=== PATIENT | female | born 1945 | race Caucasian/White ===

== ENCOUNTER 2024-07-06 07:52 | Outpatient (CLI) | payer MEDICARE, SELFPAY ==
[2024-07-06 08:47] LABS: Strep Group A RT-PCR NOT DETECTED (Negative)
[2024-07-06 08:58] LABS: Influenza A QL RT-PCR Negative (Negative); Influenza B QL RT-PCR Negative (Negative); RSV RNA, RT-PCR Negative (Negative); SARS-CoV-2 RNA PCR Negative (Negative)
== END 2024-07-06 07:53 | disposition home or self-care (01) ==
LOC: ANHLAB 07:58
PROVIDERS: PCP Internal Medicine; Visit Provider Internal Medicine
DX: R05.9 Cough, unspecified (principal); Z20.822 Contact with and (suspected) exposure to COVID-19
CPT/HCPCS: 87637; 87651

== ENCOUNTER 2024-07-08 13:03 | Emergency (ER) | payer MEDICARE, SELFPAY ==
--- NOTE | ~2024-07-08 | XR_ITS ---
EXAMINATION: XR foot RT min 3V DATE: 07/08/2024 13:26 INDICATION: Right foot injury with pain at the proximal first third metatarsals TECHNIQUE: Dorsoplantar, two oblique and lateral views of the right foot were obtained. COMPARISON: None. FINDINGS: Intra-articular fracture with small minimally displaced fragment along the dorsal/medial base of the first metatarsal. Nondisplaced transverse fractures across the bases of the second and third metatars als without definitive intra-articular extension. No other fractures identified. Alignment remains ne ar-anatomic. 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 IMPRESSION: 1. Non to minimally displaced fracture at the base of the first-third metatarsals. Reviewed, dictated and finalized at location [facility] [employer] IMPRESSION: 1. Non to minimally displaced fracture at the base of the first-third metatarsa ls.
[2024-07-08 13:06] VITALS: BP 96/40; PULSE 86; RESP 20; TEMP 36.2; O2SAT 99
--- NOTE | 2024-07-08 14:21 | ED.LOWEXIN ---
HPI - Extremity Injury (Lower) General Chief Complaint: Extremity Injury, Lower Stated Complaint: Right foot pain, Fall Time Seen by Provider: 07/08/24 13:44 Source: patient Mode of arrival: wheelchair Limitations: no limitations History of Present Illness HPI Narrative: This is a 79 year old female that presents to the ER for right foot pain. Reports she stepped down and twisted the foot and fell. She did not hit her head or lose consciousness. No other injuries or areas of pain. Denies numbness. Related Data Allergies Allergy/AdvReac Type Severity Reaction Status Date / Time No Known Allergies Allergy Verified 07/08/24 13:04 Review of Systems Review of Systems: CONSTITUTIONAL: Denies fever MUSCULOSKELETAL: Reports joint pain, and myalgia. NEUROLOGIC: Denies numbness All systems reviewed & are unremarkable except as noted in HPI and below PMFSH Past Medical History Medical History (Updated 07/08/24 @ 14:46 by Rebekah Menjivar PA-C) History of hypertension Social History Social History (Updated 07/08/24 @ 14:32 by Rebekah Menjivar PA-C) Substance use: never Exam Narrative: GENERAL: Well-appearing, well-nourished, and in no acute distress. HEAD: Normocephalic, atraumatic. EYES: EOMI. EXTREMITIES: Normal range of motion. No obvious deformity. Normal DP pulse. Normal sensation SKIN: Warm, dry, no rash. NEURO: No focal deficits. Alert and oriented x3. PSYCH: Normal mood and affect Course Course Emergency Course: patient and family updated on workup and agree with plan of care Vital Signs Vital signs: Vital Signs Temperature 97.2 F L 07/08/24 13:06 Pulse Rate 86 07/08/24 13:06 Respiratory Rate 20 07/08/24 13:06 Blood Pressure 96/40 L 07/08/24 13:06 Pulse Oximetry 99 07/08/24 13:06 Oxygen Delivery Room Air 07/08/24 13:06 Temperature 97.2 F L 07/08/24 13:06 Pulse Rate 86 07/08/24 13:06 Respiratory Rate 20 07/08/24 13:06 Blood Pressure 96/40 L 07/08/24 13:06 Pulse Oximetry 99 07/08/24 13:06 Oxygen Delivery Room Air 07/08/24 13:06 Procedures Orthopedic Splinting/Casting Injury #1: Splinting/Casting Date: 07/08/24 Splinting/Casting Time: 14:40 Side: right Lower Extremity Injury Location: foot Lower Extremity Immobilizer: posterior splint Splint: customized in ED OCL: short leg Pre-Procedure Neuro Vascular Exam: normal Post-Procedure Neuro Vascular Exam: normal MDM - Extremity Injury (Lower) MDM Narrative Medical decision making narrative: patient presents to the emergency department for right foot pain after an injury today. patient is neurovascularly intact. Right foot x-ray shows 1st to 3rd metatarsal fractures. Patient placed in a splint. Will be given follow-up with Orthopedics. She was given warnings to return to the ER Differential Diagnosis Differential diagnosis: Likely other (foot fracture, foot sprain) Imaging Data Radiologist's impression: ITS Impressions Foot X-Ray 07/08/24 13:36 IMPRESSION: 1. Non to minimally displaced fracture at the base of the first-third metatarsals. Critical Care Time Critical Care Time Critical Care Time: No Discharge Plan Discharge Clinical Impression: Metatarsal bone fracture Qualifiers: Encounter type: initial encounter Metatarsal bone: unspecified metatarsal Fracture type: closed Fracture alignment: nondisplaced Laterality: right Qualified Code(s): S92.301A - Fracture of unspecified metatarsal bone(s), right foot, initial encounter for closed fracture Patient Disposition: Home, Self-Care Condition: Stable Instructions: Foot Fracture in Adults (ED) Additional Instructions: Return to the ER if you experience fever, redness and swelling of your extremity, numbness or any other symptoms that are concerning to you Wear splint. No weight on the affected leg. Ice and elevate extremity. [id number] pain medication as needed. Prescribed pain medication as needed Follow up with orthopedics for further care. Prescriptions: New hydrocodone-acetaminophen 5-325 mg tablet 1 tablet PO Q8H PRN (Reason: pain) Qty: 20 0RF Follow-up/Referrals: Zachery,MD Alexa [Primary Care Provider] - Kenny Gimenez MD [Physician] -
[2024-07-08 14:37] VITALS: BP 117/69; PULSE 72; RESP 16; O2SAT 96
== END 2024-07-08 14:53 | disposition home or self-care (01) ==
PROVIDERS: Emergency Provider Physician Assistant; PCP Internal Medicine
DX: S92.301A Fracture of unspecified metatarsal bone(s), right foot, initial encounter for closed fracture (principal); X50.1XXA Overexertion from prolonged static or awkward postures, initial encounter
CPT/HCPCS: 29515; 73630; 99284

== ENCOUNTER 2024-09-01 08:46 | Outpatient (CLI) | payer MEDICARE, SELFPAY ==
[2024-09-01 09:23] LABS: Basophils Percent Auto 0.4 % (0.2-1.2); Eosinophils Absolute Auto 0.1 K/mm3 (0-0.3); Eosinophils Percent Auto 1.1 % (0-4.4); Hematocrit 34.2 % (37.0-47.0); Hemoglobin 10.7 g/dL (12.0-15.0); Immature Granulocyte Absolute 0.03 K/mm3 (0.00-0.031); Immature Granulocyte Percent A 0.3 % (0-0.5); Lymphocytes Absolute Auto 1.12 K/mm3 (0.9-3.2); Mean Corpuscular HGB Conc 31.3 g/dl (32-36); Mean Corpuscular Hemoglobin 28.1 pg (26-34); Mean Corpuscular Volume 89.8 fl (80-100); Mean Platelet Volume 10.2 fl (7.4-10.4); Monocytes Absolute Auto 0.6 K/mm3 (0.1-0.6); Monocytes Percent Auto 6.3 % (2.6-8.5); Neutrophils Absolute Auto 8.3 K/mm3 (1.3-6.7); Neutrophils Percent Auto 80.9 % (45.5-73.1); Platelet Count Result 238 k/mm3 (150-375); Red Blood Count 3.81 M/mm3 (4.2-5.4); Red Cell Distribution Width 14.5 % (11.5-14.5); White Blood Count 10.2 K/mm3 (4.5-10.0)
[2024-09-01 09:33] LABS: Alanine Aminotransferase 12 U/L (6-35); Albumin Level 3.9 g/dL (3.5-5.1); Alkaline Phosphatase 75 U/L (38-126); Anion Gap 9 mmol/L (4-12); Aspartate Amino Transferase 22 U/L (14-36); Bilirubin,Total 0.4 mg/dL (0.2-1.3); Blood Urea Nitrogen 23 mg/dL (7-17); Calcium 8.7 mg/dL (8.4-10.2); Carbon Dioxide 26 mmol/L (22-30); Chloride 106 mmol/L (98-107); Cholesterol 120 mg/dL (0-200); Estimated Glomerular Filt Rate 24; Glucose 95 mg/dL (65-110); HDL Direct 70 mg/dL; Potassium 4.3 mmol/L (3.4-5.0); Sodium 141 mmol/L (137-145); Triglycerides 57 mg/dL (<150)
[2024-09-01 09:44] LABS: LDL Cholesterol Direct 36 mg/dL
[2024-09-01 10:09] LABS: Free T4 Free Thyroxine 1.23 ng/dL (0.78-2.19)
[2024-09-01 10:16] LABS: Creatinine Urine 122.1 mg/dL
[2024-09-01 10:24] LABS: Hepatitis B Surface Antigen Negative (Negative)
[2024-09-01 10:29] LABS: HAV RESULT Negative (Negative); Hepatitis B Core IgM Result Negative (Negative)
[2024-09-01 10:41] LABS: Hepatitis C Virus Antibody Negative (Negative)
[2024-09-01 12:27] LABS: Hemoglobin A1C 5.5 % (<5.7)
[2024-09-02 07:44] LABS: GGT 11 U/L (3-65)
== END 2024-09-01 08:47 | disposition home or self-care (01) ==
PROVIDERS: PCP Internal Medicine; Visit Provider Internal Medicine
DX: E78.5 Hyperlipidemia, unspecified (principal); E11.9 Type 2 diabetes mellitus without complications; R94.5 Abnormal results of liver function studies; Z13.820 Encounter for screening for osteoporosis
CPT/HCPCS: 36415; 80053; 80061; 80074; 82043; 82977; 83036; 84439; 84443; 85025

== ENCOUNTER 2024-09-26 10:53 | Outpatient (CLI) | payer MEDICARE, SELFPAY ==
--- NOTE | ~2024-09-26 | US_ITS ---
EXAMINATION: US retroperitoneal comp DATE: 09/26/2024 12:06 INDICATION: Urolithiasis. TECHNIQUE: Multiple ultrasound grayscale images of the kidneys were obtained. COMPARISON: None. FINDINGS: The right kidney measures 9.2 x 3.9 x 4.2 cm. The left kidney measures 9.0 x 4.2 x 5.3 cm. The kidney s demonstrate normal parenchymal echogenicity. There is moderate left hydronephrosis. The bladder is not well distended. IMPRESSION: 1. Moderate left hydronephrosis. Reviewed, dictated and finalized at location A. ER TECHNICAL SUPERVISOR
--- NOTE | ~2024-09-26 | XR_ITS ---
XR abdomen/kub 1V 09/26/2024 12:08 Indication: Urolithiasis. Flank pain. Procedure: KUB Comparison: No prior studies for comparison. Findings: There are calcifications overlying the kidneys bilaterally which may represent renal stones or vascular calcifications. Bowel gas pattern nonobstructive. Moderate colonic fecal loading. There is atherosclerosis in the pelvis. Impression: 1: Possible bilateral nephrolithiasis versus vascular calcifications. Consider correlation with CT. Reviewed, dictated and finalized at location B. R FAB TECHNICIAN Impression: 1: Possible bilateral nephrolithiasis versus vascular calcifications. Consider correlation with CT.
--- OUTSIDE RECORDS SUMMARY | 2024-09-26 14:00 | XMS_ITS | Encounter Summary ---
Author Organization [facility] Address [address] [place] [address] Care Team Providers Care Director Strategic Planning Name Role Phone None, Provider Primary Care Provider Xavi Carias MD Primary Care Provider Encounter Details Date Type Department Care Team (Late st Contact Info) Description 05/26/2024 Prep for Procedure [facility] [place] [address] Xavi Martinez MD [address] [facility] [address] [place] [address] Social History Tobacco Use Types Packs/Day Years Used Date Smoking Tobacco: Former Cigarettes Smokeless Tobacco: Former Comments:Quit smoking 4 year s ago Alcohol Use Standard Drinks/Week Comments Yes 0 (1 standard drink = 0.6 oz pur e alcohol) one drink if out Comments No Sex and Gender Information Value Date Recorded Sex Assigned at Not on file Legal Sex Female 10:37 AM CDT Gender Identity Not on file Sexual Orientation Not on file documented as of this encounter Plan of Treatment Not on file documented as of this encounter Results * (ABNORMAL) BASIC METABOLIC PANEL (05/26/2024 11:54 AM CDT) [facility] GLUCOSE 93 70 - 99 MG/DL 05/26/2024 12:46 PM CDT [facility] BUN 17 7 - 18 MG/DL 05/26/2024 12:46 PM CDT [facility] CREATININE S/P/B 1.25(H) 0.55 - 1.02 MG/DL 05/26/2024 12:46 PM CDT [facility] SODIUM S/P/B 140 136 - 145 MMOL/L 05/26/2024 12:46 PM CDT [facility] POTASSIUM S/P/B 3.9 3.5 - 5.1 MMOL/L 05/26/2024 12:46 PM CDT [facility] CHLORIDE S/P/B 107 97 - 115 MMOL/L 05/26/2024 12:46 PM CDT [facility] CO2 29.6 21 - 32 MMOL/L 05/26/2024 12:46 PM CDT [facility] CALCIUM S/P/B 9.2 8.5 - 10.1 MG/DL 05/26/2024 12:46 PM CDT [facility] ANION GAP 3.4 2 - 10 MMOL/L 05/26/2024 12:46 PM CDT [facility] BUN CREATININE RATIO 13.6 6 - 26 05/26/2024 12:46 PM T [facility] GFR ESTIMATE 44(L) >90 ML/MIN/1.7 3 M2 05/26/2024 12:46 PM CDT [facility] Comment: NOTE: eGFR is not calculated for patients <18 years of age or gender unknown. This is an estimated GFR calculation using the new CKD EPI creatinine equation without race and so does not require a correction factor for race. This estimated GFR should not be used for calculating drug doses. 05/26/2024 11:5 4 AM CDT Elizabeth Rice [facility] Final R esult [facility] [address] [place] [address], * (ABNORMAL) CBC W/DIFF AUTOMATED (05/26/2024 11:54 AM CDT) [facility] WBC 9.22 4.5 - 11.0 x10'3/uL 05/26/2024 12:36 PM CDT [facility] RBC 4.47 4.20 - 5.40 x10'6/uL 05/26/2024 12:36 PM CDT [facility] HGB 12.6 12.0 - 16.0 G/DL 05/26/2024 12:36 PM CDT [facility] HCT 39.6 38.0 - 48.0 % 05/26/2024 12:36 PM CDT [facility] MCV 88.6 81.0 - 99.0 FL 05/26/2024 12:36 PM CDT [facility] MCH 28.2 27.0 - 31.0 PG 05/26/2024 12:36 PM CDT [facility] MCHC 31.8(L) 32.0 - 36.0 G/DL 05/26/2024 12:36 PM CDT [facility] RDW 14.4 11.5 - 14.5 % 05/26/2024 12:36 PM CDT [facility] PLT 253 130 - 400 x10'3/uL 05/26/2024 12:36 PM CDT [facility] MPV 11.3 9.3 - 12.2 FL 05/26/2024 12:36 PM CDT [facility] DIFFERENTIAL TYPE AUTOMATED DIFFERENTIAL 05/26/2024 12:36 PM CDT [facility] NEUTROPHILS % 75.0 % 05/26/2024 12:36 PM CDT [facility] LYMPHOCYTES % 13.3 % 05/26/2024 12:36 PM CDT [facility] MONOCYTES % 8.6 % 05/26/2024 12:36 PM CDT [facility] EOSINOPHILS 2.0 % 05/26/2024 12:36 PM CDT [facility] BASOPHILS 0.7 % 05/26/2024 12:36 PM CDT [facility] IMMATURE GRANS % 0.4 % 05/26/20 12:36 PM CDT [facility] ABS. NEUTROPHILS 6.92 1.80 - 7.70 x10'3/uL 05/26/2024 12:36 PM CDT [facility] ABS. LYMPHOCYTES 1.23 1.00 - 4.80 x10'3/uL 05/26/2024 12:36 PM CDT [facility] ABS. MONOCYTES 0.79 0.24 - 0.86 x10'3/uL 05/26/2024 12:36 PM CDT [facility] ABS. EOSINOPHILS 0.18 0.04 - 0.36 x10'3/uL 05/26/2024 12:36 PM CDT [facility] ABS. BASOPHILS 0.06 0.01 - 0.08 x10'3/uL 05/26/2024 12:36 PM CDT [facility] ABS. IMMATURE GRANULOCYTES 0.04 0.00 - 0.49 x10'3/uL 05/26/2024 12:36 PM CDT [facility] 05/26/2024 11:5 4 AM CDT Elizabeth [facility] Final R esult [facility] [address] [place] [address], [place] [phone] documented in this encounter Visit Diagnoses Diagnosis Preoperative testing- Primary Preoperative examination, unspecified documented in this encounter Care Teams Director Strategic Planning Relationship Specialty Start Date End Date None, Provider, PCP - General UNKNOWN PHYSICIAN SPECIALTY 05/25/24 06/29/24 Xavi Martinez MD [address] [facility] [address] [place] [address] PCP - General UROLOGY 06/30/24 documented as of this encounter
--- OUTSIDE RECORDS SUMMARY | 2024-09-26 14:00 | XMS_ITS | Encounter Summary ---
Author Organization [facility] [employer] [facility] Address [address] [place] [address] Phone Care Team Providers Care Speed Operator Name Role Phone Alexa Bingham MD Primary Care Provider [phone] [phone] Encounter Details Date Type Department Care Team (Late Contact Info) Description 07/25/2024 Office Communication [place] [facility] [address] [address] [facility] [address] [place] [address] [address] [place] [address] Social History Tobacco Use Types Packs/Day Years Used Date Smoking Tobacco: Never Alcohol Use Standard Drinks/Week Comments No 0 (1 standard drink = 0.6 oz pur e alcohol) Comments Unknown Sex and Gender Information Value Date Recorded Sex Assigned at Not on file Legal Sex Female 2:49 PM EDT Gender Identity Not on file Sexual Orientation Not on file documented as of this encounter Miscellaneous Notes * Telephone Encounter - Juan Manuel Ellison DO - 07/25/2024 11:35 AM FORKLIFT MECHANIC Tell her to get urine studies before starting antibiotic. PLAN: - Urine Culture and UA. - Ciprofloxicin 500 mg po Qday #3 with no refills Thank you documented in this encounter Plan of Treatment Upcoming Encounters Date Type Department Care Team (Late st Contact Info) Description 11/08/2024 3:00 PM CDT Office Visit [facility], [facility] [address] [facility] [address] [place] [address] Juan Manuel Ellison DO [address] [place] [address] documented as of this encounter Visit Diagnoses Not on filedocumented in this encounter Care Teams Speed Operator Relationship Specialty Start Date End Date lAexa Bingham MD [address] [facility], [address] [place] [address] PCP - General Internal Medicine 07/16/21 documented as of this encounter
--- OUTSIDE RECORDS SUMMARY | 2024-09-26 14:00 | XMS_ITS | Referral Summary ---
Author Organization [facility] Address [address] [place] [address] Care Team Providers Care Telephone Surveyor Name Role Phone Jeni Bingham MD Primary Care Provide r Allergies No known active allergies Medications olmesartan (BENICAR) 40 mg tablet Take 1 tablet (40 mg total) by mouth daily Active empagliflozin (JARDIANCE) 25 mg tablet 1 tablet (25 mg total) Active PARoxetine (PAXIL) 20 mg tablet Take 1 tablet (20 mg total) by mouth every morning Active acidophilus-pec tin, citrus 100 million cell-10 mg capsule Take by mouth Activ e cyclobenzaprine (FLEXERIL) 10 mg tablet Take 1 tablet (10 mg total) by mouth 3 (three) times a day as needed for muscle spasms Active albuterol HFA (PROVENTIL HFA,VENTOLIN HFA,PROAIR HFA) 90 mcg/actuation inhaler Inhale 2 puffs every 6 (six) hours as needed for wheezing Active tiotropium bromide (SPIRIVA RESPIMAT) 2.5 mcg/actuation inhaler Inhale Active cyanocobalamin (Vitamin B-12) 50 mcg tabletIndicatio ns:Prevention of Vitamin B12 Deficiency Take 1 tablet (50 mcg total) by mouth daily Active calcium carbonate-vitam in D3 1,500 mg (600mg elemental) -800 unit per tablet Take 1 tablet by mouth daily Active Active Problems No known active problems Social History Tobacco Use Types Packs/Day Years Used Date Smoking Tobacco: Former Cigarettes Smokeless Tobacco: Former Tobacco Cessation:Counseling Given: Not Answered AUDIT-C Answer Date Recorded Frequency of Alcohol Consumption Not on file 04/12/2024 Q2: How many drinks containi ng alcohol do you have on a typical day when you are drinking? Patient does not drink Frequency of Binge Drinking Not on file 10/2023 Personal Safety Answer Date Recorded Have you ever been in or are you currently in a harmful physical or emotional relationship or is someone making you feel afraid or unsafe? 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 Gender Identity Not on file Sexual Orientation Not on file Last Filed Vital Signs Vital Sign Reading Time Taken Comments Blood Pressure 189/78 04/12/2024 10:44 AM CDT Pulse 94 04/12/2024 10:44 AM CDT Temperature 36.8 C (98.2 F) 04/12/2024 8:19 AM CDT Respiratory Rate 16 04/12/2024 10:44 AM CDT Oxygen Saturation 96% 04/12/2024 10:44 AM CDT Inhaled Oxygen Concentration - - Weight 43.5 kg (96 lb) 04/12/2024 8:19 AM CDT Height 154.9 cm (5' 1 ) 04/12/2024 8:19 AM CDT Body Mass Index 18.14 04/12/2024 8:19 AM CDT Plan of Treatment Not on file Insurance MEDICARE SOLUTIONS MEDICARE SOLUTIONS Care Teams Telephone Surveyor Relationship Specialty Start Date End Date Jeni Bingham MD [address] [facility] [address] [place] [address] PCP - General Internal Medicine 10/09/23
--- OUTSIDE RECORDS SUMMARY | 2024-09-26 14:00 | XMS_ITS | Clinical Summary ---
Author Organization [facility] Address [address] [place] [address] Phone Care Team Providers Care Ski Patrol Director Name Role Phone Alexa Bingham MD Primary Care Provider Active Problems Problem Noted Date Diagnosed Date Senile osteoporosis Social History Tobacco Use Types Packs/Day Years Used Date Smoking Tobacco: Never Assessed Comments Unknown Sex and Gender Information Value Date Recorded Sex Assigned at Not on file Legal Sex Female 9:35 AM CDT Gender Identity Not on file Sexual Orientation Not on file Last Filed Vital Signs Vital Sign Reading Time Taken Comments Blood Pressure 99/62 08/27/2022 1:31 PM PROJECT MANAGEMENT PROFESSIONAL Pulse 99 08/27/2022 1:31 PM PROJECT MANAGEMENT PROFESSIONAL Temperature 36.7 C (98.1 F) 08/27/2022 1:31 PM PROJECT MANAGEMENT PROFESSIONAL Respiratory Rate 18 08/27/2022 1:31 PM PROJECT MANAGEMENT PROFESSIONAL Oxygen Saturation 92% 08/27/2022 1:31 PM PROJECT MANAGEMENT PROFESSIONAL Inhaled Oxygen Concentration - - Weight - - Height - - Body Mass Index - - Plan of Treatment Health Maintenance Due Date Last Done Comments DEXA Bone Density 1945 Hepatitis C Virus (HCV) Screening 1945 Respiratory Syncytial Virus (RSV) Immunization (Adult) (1 - 1-dose 75+ series) 2022 Influenza Immunization (#1) 04/10/202405/11, 05/19/2022, 05/04/2021, Additional history exists SARS-COV-2 Immunization ( season) 2024 05/30/2022, 05/21/2022, 06/11/2021, Additional history exists DTaP/Tdap/Td Immunization Discontinued 06/02/2017 TdaP Immunization Completed 06/02/2017 Colonoscopy High Risk Discontinued 07/17/2017 Colonoscopy Discontinued 07/17/2017 Colorectal Cancer Screening Discontinued Pneumococcal Immunization (50+ years) Completed 07/26/2017, 03/02/2015, 05/23/2013 Zoster Immunization Completed 10/24/2021, 2 Cologuard Discontinued Hepatitis B Immunization Aged Out No longer eligible based on patient's age to complete this topic Immunochemical Fecal Occult Blood Discontinued Meningococcal Immunization (ACWY) Aged Out No longer eligible based on patient's age to complete this topic Rotavirus Immunization Aged Out No lo nger eligible based on patient's age to complete this topic Insurance MEDICARE C [facility] on file Care Teams Ski Patrol Director Relationship Specialty Start Date End Date Alexa Bingham MD [address] [place] [address] PCP - General Internal Medicine 02/13/22
--- OUTSIDE RECORDS SUMMARY | 2024-09-26 14:00 | XMS_ITS | Encounter Summary ---
Author Organization [facility] Address [address] [place] [address] Care Team Providers Care Patient Relations Liaison Name Role Phone ReavesXavi perea MD Primary Care Provider [phone]- [phone] Encounter Details Date Type Department Care Team (Late st Contact Info) Description 01/13/2018 Lab Requisition [facility] [address] [facility] [place] [address] Benigno Goldberg MD [address] [place] [address] Social History Tobacco Use Types Packs/Day Years Used Date Smoking Tobacco: Former Cigarettes Q uit: 2014 Smokeless Tobacco: Never Sex and Gender Information Value Date Recorded Sex Assigned at Not on file Gender Identity Not on file Sexual Orientation Not on file documented as of this encounter Plan of Treatment Not on file documented as of this encounter Procedures Procedure Name Priority Date/Time Associated Diagnosis Comments DERMATOPATHOLOGY Routine 01/12/2018 12:0 0 AM CDT documented in this encounter Results * DERMATOPATHOLOGY (01/12/2018 12:00 AM CDT) Case Report Dermatopathology Report Case: [id number] Authorizing Provider: Benigno Goldberg MD Collected: 01/12/2018 12:00 AM Pathologist: Joselyn Bolaños MD Received: 01/13/2018 12:24 PM Specimen: Skin, right angle of jaw 8 5:22 PM CDT DERMATOPATHOLOGY LABORATORY Final Diagnosis Specimen A. SKIN, right angle of jaw: ACTINIC KERATOSIS, LICHENOID (L57.0) PRESENT AT MARGIN 8 5:22 PM CDT DERMATOPATHOLOGY LABORATORY Clinical History R/O inflamed nevus vs BCC vs other. Check margins. 5:22 PM CDT DERMATOPATHOLOGY LABORATORY Gross Description Specimen A: Received is one formalin filled container labeled with the patient's name and designated right angle of jaw. The specimen consists of a shave biopsy measuring [id number], the margin is inked green. Jar 0. 5:22 PM CDT DERMATOPATHOLOGY LABORATORY Microscopic Description Specimen A. SKIN, right angle of jaw: There is focal parakeratosis. The lower half of the epidermis shows disorderly maturation of keratinocytes with nuclear pleomorphism. The dermis shows a band-like, chronic inflammatory infiltrate with occasional apoptotic keratinocytes and some basal vacuolar alteration. This lesion is present at the margin of the specimen. 5:22 PM CDT DERMATOPATHOLOGY LABORATORY Disclaimer An external and internal positive and negative controls are appropriate for the histochemical, immunohistochemical and immunofluorescence stain(s) in this case (if any), except where stated explicitly. The performance characteristics of the stain(s) cited in this report were developed and its performance characteristic determined by the Dermatopathology Laboratory at [facility]. These tests need not be, and therefore are not, approved by the [place] Food and Drug Administration. The tests are used for clinical purposes. Billing Codes Specimen Charges Stain Charges 52438 1 5:22 PM CDT DERMATOPATHOLOGY LABORATORY Embedded Images 5:22 PM CDT DERMATOPATHOLOGY LABORATORY Pathology/Cytolog y TISSUE SPECIMEN FROM SKIN / Unknown 01/12/2018 01/13/2018 12:24 PM CDT Benigno Goldberg MD LAB - PATHOLOGY/CYTO LOGY ORDERABLES DERMATOPATHOLOGY LABORATORY [facility] - Department of Dermatology [address] [facility]th [address] [place], [place] [id number] [place] [address] documented in this encounter Visit Diagnoses Not on filedocumented in this encounter Care Teams Patient Relations Liaison Relationship Specialty Start Date End Date Xavi Reaves MD [address] [facility] [address] [place] [address] PCP - General Family Medicine 10/10/16 documented as of this encounter
--- OUTSIDE RECORDS SUMMARY | 2024-09-26 14:00 | XMS_ITS | Clinical Summary ---
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 Gender Identity Not on file Sexual Orientation Not on file Obstetrics History Last Filed Vital Signs Vital Sign Reading [...] 04/12/2024 8:19 AM CDT Plan of Treatment Health Maintenance Due Date Last Done Comments Depression Screening 1945 Hepatitis C Screening 1945 Hepatitis B Screening 1965 Zoster Vaccine (1 of 2) 1997 Well Visit 65+ 2012 Osteoporosis Screening-Bone Density Scan 09/17/2023 09/17/2021 Influenza Vaccine (#1) 2024 , 04/26/2019, 04/21/2018, Additional history exists Fall Risk Assessment 04/12/2025 04/12/2024 DTaP/Tdap/Td Vaccine (2 - Td or Tdap) 06/02/2027 06/02/2017 Pneumococcal vaccine 65+ Completed 07/26/2017, 05/10 Insurance MEDICARE SOLUTIONS MEDICARE SOLUTIONS Care Teams Astro Technician Relationship Specialty Start Date End Date Jeni Bingham MD [address] [address] PCP - General Internal Medicine 10/09/23
--- OUTSIDE RECORDS SUMMARY | 2024-09-26 14:00 | XMS_ITS | Encounter Summary ---
Author Organization [facility] [employer] [facility] Address [facility] [facility] [place] [address] Phone Care Team Providers Care Sas Architect Name Role Phone Alexa Bingham MD Primary Care Provider [phone] Encounter Details Date Type Department Care Team (Late st Contact Info) Description 05/16/2024 Office Communication [facility] [employer] [facility] [address] [facility] [place] [address] Bhargavi Nagy CMA [address] [facility] 1 [place] [address] Social History Tobacco Use Types [...] as of this encounter Plan of Treatment Upcoming Encounters Date Type Department Care Team (Late st Contact Info) Description 11/08/2024 3:00 PM CDT Office Visit [employer] [facility], [facility] [address] [facility] [address] [place] [address] Juan Manuel Ellison DO [address] [facility] 1 [place] [address] documented as of this encounter Visit Diagnoses Not on filedocumented in this encounter Care Teams Sas Architect Relationship Specialty Start Date End Date Alexa Bingham MD [address] [facility], [address] [place] [address] PCP - General Internal Medicine 07/16/21 documented as of this encounter
--- OUTSIDE RECORDS SUMMARY | 2024-09-26 14:00 | XMS_ITS | Clinical Summary ---
Author Organization [facility] Address [address] [place] [address] Care Team Providers Care Slag Dumper Name Role Phone Jose Luis Martinez MD Primary Care Provider Allergies No known active allergies Medications albuterol sulfate HFA 108 (90 Base) MCG/ACT inhaler Inhale 2 puffs into the lungs every 4 (four) hours as needed for Shortness of breath. Active calcium carb-cholecalci ferol (CALTRATE 600+D) 600-20 MG-MCG tablet Take 1 tablet by mouth daily. Active cyclobenzaprine (FLEXERIL) 10 MG tablet Take 1 tablet (10 mg total) by mouth 2 (two) times daily as needed for Muscle Spasms. Active empagliflozin (JARDIANCE) 25 MG tablet Take 1 tablet (25 mg total) by mouth daily. On hold through Surgery 05/26/24 Active Lactobacillus Acid-Pectin (ACIDOPHILUS/PE CTIN) capsule Take 1 capsule by mouth daily. Active PARoxetine (PAXIL) 20 MG tablet Take 1 tablet (20 mg total) by mouth daily. Active olmesartan (BENICAR) 40 MG tablet Take 1 tablet (40 mg total) by mouth daily. Active tiotropium (SPIRIVA RESPIMAT) 2.5 MCG/ACT inhaler (SPIRIVA RESPIMAT) Inhale 2 puffs into the lungs daily. Active hyoscyamine (LEVSIN/SL) 0.[address] 1 tablet (0.125 mg total) under the tongue every 4 (four) hours as needed for Cramping (ureteral stent discomfort). 30 tablet 4 Active tamsulosin (FLOMAX) 0.4 MG Cap Take 1 capsule (0.4 mg total) by mouth nightly at bedtime. 20 capsule 4 Active HYDROcodone-roselia taminophen (NORCO) 5-325 MG tabletIndicatio ns:Acute Pain < 3 Day Supply Take 1 tablet by mouth every 6 (six) hours as needed. Indications: Acute Pain < 3 Day Supply 12 tablet 4 Active Encounters Date Type Department Care Team Description 06/30/2024 1:50 PM CERTIFIED PHYSICIAN'S ASSISTANT Anesthesia Event [facility] [place] [address] Cholo March MD Jackson, Samantha Rae, FIELD MARKETING DIRECTOR 06/30/2024 1:44 PM CERTIFIED PHYSICIAN'S ASSISTANT - 06/30/2024 3:15 PM CERTIFIED PHYSICIAN'S ASSISTANT Surgery [facility] [place] [address] Jose Luis Martinez MD CYSTOSCOPY, LEFT RETROGRADE PYELOGRAM, URETEROSCOPY, LASER LITHOTRIPSY, STONE BASKET EXTRACTION, LEFT URETERAL STENT EXCHANGE 06/30/2024 12:07 PM CERTIFIED PHYSICIAN'S ASSISTANT - 06/30/2024 4:55 PM CERTIFIED PHYSICIAN'S ASSISTANT Hospital Encounter [facility] [place] [address] Jose Luis Martinez MD Discharge Disposition: Home or Self Care (Routine Discharge) 06/30/2024 Travel from Last 3 Months Social History Tobacco Use Types Packs/Day Years Used Date Smoking Tobacco: Former Cigarettes 2 020 - 1969 Smokeless Tobacco: Former Tobacco Cessation:Counseling Given: Not Answered Comments:Quit smoking 4 years ago Alcohol Use Standard Drinks/Week Comments Yes [...] Sign Reading Time Taken Comments Blood Pressure 162/78 06/30/2024 4:50 PM CERTIFIED PHYSICIAN'S ASSISTANT Pulse 97 06/30/2024 4:50 PM CERTIFIED PHYSICIAN'S ASSISTANT Temperature 36.8 C (98.2 F) 06/30/2024 4:50 PM CERTIFIED PHYSICIAN'S ASSISTANT Respiratory Rate 20 06/30/2024 4:50 PM CERTIFIED PHYSICIAN'S ASSISTANT Oxygen Saturation 92% 06/30/2024 4:50 PM CERTIFIED PHYSICIAN'S ASSISTANT Inhaled Oxygen Concentration - - Weight 39.6 kg (87 lb 4.8 oz) 06/30/2024 12:30 P M CERTIFIED PHYSICIAN'S ASSISTANT Height 154.9 cm (5' 1 ) 06/30/2024 12:30 PM CERTIFIED PHYSICIAN'S ASSISTANT Body Mass Index 16.5 06/30/2024 12:30 PM CERTIFIED PHYSICIAN'S ASSISTANT Plan of Treatment Health Maintenance Due Date Last Done Comments Hepatitis C 1963 Annual Medicare Wellness Visit 2012 Dexa Scan (General) 2012 COVID-19 Vaccine ( season) 2024 05/10/2023, 05/21/2022, 06/11/2021, Additional history exists Influenza Adult (#1) 2024 05/10/2023, 05/19/2022, 05/04/2021, Additional history exists DTaP, Tdap and Td Vaccines (2 - Td or Tdap) 06/02/2027 06/02/2017 Pneumococcal Vaccine: 65+ Years Completed 07/26/2017, 03/02/2015, 05/23/2013 Zoster Vaccines Completed 10/24/2021, 08/18/2021 RSV Immunization or 60+ Years Completed 05/10/2023 Meningococcal B Vaccine Aged Out No l onger eligible based on patient's age to complete this topic Meningococcal Vaccine Aged Out No albertina yesenia eligible based on patient's age to complete this topic RSV Immunizations Under 20 Months Aged Out No longer eligible based on patient's age to complete this topic Medical Devices Implanted Type Area Vamp Liner Device Identifier Shelf Expiration Date Model / Serial / Lot Stent Ureteral 6fr 22cm Pigtail Curved - [id number] Implanted:Qty : 1 on 06/30/2024 by Jose Luis Martinez MD at [facility] Stent Left: Ureter [employer] [id number] 05/07/2026 [id number] Explanted Type Area Vamp Liner Device Identifier Shelf Expiration Date Model / Serial / Lot Stent Ureteral 6fr 22cm Pigtail Curved - [id number] Implanted:Qty : 1 on 05/26/2024 by Jose Luis Martinez MD at [facility] Explanted:Qty : 1 on 06/30/2024 by Jose Luis Martinez MD at [facility] Stent Left: Ureter [employer] NARCISA [id number] 05/07/2026 [id number] Procedures Procedure Name Priority Date/Time Associated Diagnosis Comments POCT GLUCOSE - PERSAUD DOCKED DEVICE Routine 06/30/2024 3:16 PM CERTIFIED PHYSICIAN'S ASSISTANT SURG XR RETROGRD UROGRAPHY Routine 06/30/2024 2:59 PM CERTIFIED PHYSICIAN'S ASSISTANT STONE ANALYSIS Routine 06/30/2024 2:12 PM CERTIFIED PHYSICIAN'S ASSISTANT LITHOTRIPSY INLCUDING INSERTION OF INDWELLING URETERAL STENT 06/30/2024 1:50 PM CERTIFIED PHYSICIAN'S ASSISTANT LEFT URETERAL AND RENAL STONES Case Notes RESCHED 06/16/24 [facility] PHONE ASSESSCX'D UTI 06/15 LCSSCHED BY FAX 06/02/24 [facility] PHONE ASSESS POCT GLUCOSE - PERSAUD DOCKED DEVICE Routine 06/30/2024 1:33 PM CERTIFIED PHYSICIAN'S ASSISTANT POCT GLUCOSE - PERSAUD DOCKED DEVICE Routine 06/30/2024 1:02 PM CERTIFIED PHYSICIAN'S ASSISTANT from Last 3 Months Results * (ABNORMAL) POCT glucose (06/30/2024 3:16 PM CERTIFIED PHYSICIAN'S ASSISTANT) Only the most recent of3 resultswithin the time period is included. GLUCOSE POC 108(H) 70 - 99 mg/dL 06/30/2024 3:17 PM CERTIFIED PHYSICIAN'S ASSISTANT [facility] 06/30/2024 3:16 PM CERTIFIED PHYSICIAN'S ASSISTANT us Jose Luis Martinze MD POCT ORDERABLES - DEVIC E Final Result [facility] [address] [place] [address], [place] [phone] * SURG XR RETROGRD UROGRAPHY (06/30/2024 2:59 PM CERTIFIED PHYSICIAN'S ASSISTANT) Anatomical Region Laterality Modality Abdomen Radiographic Sissy ging 06/30/2024 3:36 PM CERTIFIED PHYSICIAN'S ASSISTANT Impressions 06/30/2024 3:36 PM CERTIFIED PHYSICIAN'S ASSISTANT Impression: No radiologic interpretation will be issued. The report and documentation of this exam will reside in the patient's permanent medical record and in the attending physician's procedure note. Ordered By: JOSE LUIS MARTINEZ Interpreted By: Wander Fairchild MD, 06/30/2024 3:36 PM Narrative 06/30/2024 3:36 PM CERTIFIED PHYSICIAN'S ASSISTANT [place] [address] FLUOROSCOPY CONTROL ONLY Procedure Note Wander Fairchild MD - 06/30/2024 [place] [address] FLUOROSCOPY CONTROL ONLY Impression: No radiologic interpretation will be issued. The report and documentationof this exam will reside in the patient's permanent medical record and inthe attending physician's procedure note. Ordered By: JOSE LUIS MARTINEZ Interpreted By: Wander Fairchild MD, 06/30/2024 3:36 PM us Jose Luis Martinez MD IMAGES ONLY Final R esult * STONE ANALYSIS (06/30/2024 2:12 PM CERTIFIED PHYSICIAN'S ASSISTANT) SOURCE KIDNEY STONE 06/30/2024 2:33 PM CERTIFIED PHYSICIAN'S ASSISTANT [facility] STONE ANALYSIS COMPONENT REPORT 07/10/2024 12:32 AM CERTIFIED PHYSICIAN'S ASSISTANT [employer] FREDDY DE GUZMAN Comment: Calcium Oxalate Monohydrate (Whewellite) 95% Carbonate Apatite (Dahllite) 5% STONE ANALYSIS WEIGHT 0.067 g 07/10/2024 12:32 AM CERTIFIED PHYSICIAN'S ASSISTANT [employer] SCOTTIE DE GUZMAN Comment: This test was developed and its analytical performance characteristics have been determined by [employer]. It has not been cleared or approved by FDA. This assay has been validated pursuant to the CLIA regulations and is used for clinical purposes. Test performed by [facility] [place] [address] [place] [address] Post Splitter: Lina Sargent MD,PHD,GILSON Test Reported by [employer], [employer] [facility], [address] [place], [place] Víctor Gaston M.D., Ph.D., Director of Laboratories , CLIA [id number] STONE CALCULUS SPECIMEN / Unknown 06/30/2024 2:12 PM CERTIFIED PHYSICIAN'S ASSISTANT Jose Luis Martinez MD BODY FLUIDS AND STOOLS ORDERABLES Final Result [employer] [facility] [address] [place], [place] , [place] [phone] [facility] [address] [place] [address], [place] [phone] from Last 3 Months Insurance [facility] Care Teams Slag Dumper Relationship Specialty Start Date End Date Jose Luis Martinez MD [address] [facility] [address] [place], [place] [address] PCP - General UROLOGY 06/30/24
--- OUTSIDE RECORDS SUMMARY | 2024-09-26 14:01 | XMS_ITS | Data Portability ---
Author Organization [place] - [employer], Main Office Address [address] [place] [address] Care Team Providers Care Research Instrumentation Technician Name Role Phone COLEEN TRAN Clinical Laboratory Manager JUAN MANUEL SANTOS Biology Adjunct Instructor JACQUELYN BINGHAM Primary Care Provider [phone] REBECCA FRIED Waste Picker Assessment Encounter Date Assessment Date Assessment LastModified by Organization Details LastModified Time 10/06/2023 10/06/2023 Assessment: Nicotine smoke: 1 ppd [id number] (quit 1 year in between) = 53 pack years Mod COPD 6 mm LLL nodule Elevated BNP Quantiferon TB Gold (+) Low IgG2 Plan: The following were reviewed and explained to the patient: Lab data 09/30/23 elevated BNP, Quantiferon TB Gold (+), low IgG2 PFT 11/05/18 FEV1 1.25 L (61%), BD 170 mL = 15% PFT 10/06/23 FEV1 1.13 L (63%), BD 110 mL = 11% Chest CT 01/09/[address] 09/17/[address] 10/06/[address] 10/06/23 6 mm LLL nodule, small left effusion, emphysema 2-D echocardiogram 12/30/22 EF 60% Patient may need gammaglobulin infusions during times of infection. Patient will be referred to Dr. Enrrique Lo @ [address] [place] [address], [address], [place] [address], [place] , for Infectious Disease consultation regarding Quantiferon TB Gold (+). Six minute walk study carried out. Patient covered 929 feet at a moderate pace in 6 minutes. Patient tolerated walk well without stops. Pulse oximeter reading dropped from 93% to 81% with exercise. Oxygen supplementation is needed at 2 L/min to keep saturation at 89% or higher during exertion. Oxygen prescription is sent to the home care store of patient's choice. The [place] [employer] recommends annual screening for lung cancer with low-dose computed tomography (LDCT) for people aged 50 to 80 years old who smoke or formerly smoked and have a 20-year or greater pack-year history. Screening is no longer discontinued even when a person has not smoked for 15 years. Differential diagnoses for pulmonary nodule: 1. malignant tumor 2. benign tumor 3. inflammatory processes 4. infectious process (viral, atypical bacterial, fungal, atypical mycobacterial) The Fleischner Society pulmonary nodule recommendations below pertain to the follow-up and management of indeterminate pulmonary nodules detected incidentally on CT and are published by the Fleischner Society. The guideline does not apply to lung cancer screening, patients younger than 35 years, or patients with a history of primary cancer or immunosuppression. These recommendations reflect the 2017 revision 4, which supersedes prior versions published in 2005 and 2013. Single solid nodule <6 mm (<100 mm3) *low-risk patients: no routine follow-up required *high-risk patients: optional CT at 12 months (particularly with suspicious nodule morphology and/or upper lobe location) Single solid nodule 6-8 mm (100-250 mm3) *low-risk patients: CT at 6-12 months, then consider CT at 18-24 months *high-risk patients: CT at 6-12 months, then CT at 18-24 months Single solid nodule >8 mm (>250 mm3) *low-risk and high-risk patients: consider CT at 3 months, PET/CT, or tissue sampling Chest CT one week before return. Advised to continue not to smoke. Minimize Albuterol nebs as needed. Continue Albuterol HFA as needed. Continue Spiriva Respimat 2.5 mcg 2 puffs daily. The patient does not know how to accurately administer the inhalers. Today, the patient was shown how to take these medications. The proper technique for delivering these medications was instructed. The patient expressed a clear understanding and demonstrated back how to use these medications. Without the proper technique, the patient will not reap the benefits of these medications as the contents will not reach the lower airways as intended to be. Adherence to therapy is advocated. Nonadherence may lead to treatment failure, further progression of the condition, and other complications. Hospitals admissions are often the result of individuals not taking prescription medications accurately. Alternatively, greater adherence to medication regimens have shown to lower rates of hospitalization and decrease total medical costs in patients with chronic medical conditions. Advocated influenza vaccination annually and pneumonia vaccination AMEYA. Encouraged patient to adjust caloric intake to maintain/achieve ideal body weight, emphasizing on fruits, vegetables, whole grains, and fat-free or low-fat products. These include lean meats, poultry, fish, beans, eggs, and nuts and foods that are low in saturated fats, trans-fats, cholesterol, salt (sodium), and glycemic index. Stressed the importance of regular exercise up to the patient's capacity limits. In this case, we recommend 20 min daily walking, 2 days a week of resistance training. Patient to monitor BP daily and bring records to PCP for further management. Follow-up: 6 months, March 2024 Not available 10/08/2023 14:01:22 12/29/2023 12/29/2023 07/15/2022: A1C 6.3 Urine micro alb 128.6H TSH/FT4/CMP/LIPIDS /CBC: WNL 12/31/2022: A1C 6.1 Urine micro alb 52.7 06/30/2023: A1C 6.2 BUN 20, Cr 1.24, GFR 42, AST 84 WBC 14.6H Urine micro alb 45.9 12/14/2023: A1C 5.8 Urine micro alb 27.2 Gluc 106, TP 6.1 Not available 12/29/2023 09:57:21 03/21/2024 03/21/2024 Assessment: Hypertension Elevated BNP Nicotine smoke: 1 ppd [id number] (quit 1 year in between) = 53 pack years Mod COPD Quantiferon TB Gold (+) Low IgG2 Plan: The following were reviewed and explained to the patient: Lab data 09/30/23 elevated BNP, Quantiferon TB Gold (+), low IgG2 PFT 11/05/18 FEV1 1.25 L (61%), BD 170 mL = 15% PFT 10/06/23 FEV1 1.13 L (63%), BD 110 mL = 11% Chest CT 01/09/[address] 09/17/[address] 10/06/[address] 10/06/23 6 mm LLL nodule, small left effusion, emphysema Chest CT 02/22/24 no nodules, only 5 mm LLL and 2 mm RLL calcified granulomas 2-D echocardiogram 12/30/22 EF 60% 6MW 10/06/23 O2 sat 93% -> 81%, 2 Lpm O2 to keep saturation at 89% or higher Dr. Lo note 10/22/23 declined TB prophylaxis Patient may need gammaglobulin infusions during times of infection. The [place] [employer] recommends annual screening for lung cancer with low-dose computed tomography (LDCT) for people aged 50 to 80 years old who smoke or formerly smoked and have a 20-year or greater pack-year history. Screening is no longer discontinued even when a person has not smoked for 15 years. Differential diagnoses for pulmonary nodule: 1. malignant tumor 2. benign tumor 3. inflammatory processes 4. infectious process (viral, atypical bacterial, fungal, atypical mycobacterial) The Fleischner Society pulmonary nodule recommendations below pertain to the follow-up and management of indeterminate pulmonary nodules detected incidentally on CT and are published by the Fleischner Society. The guideline does not apply to lung cancer screening, patients younger than 35 years, or patients with a history of primary cancer or immunosuppression. These recommendations reflect the 2017 revision 4, which supersedes prior versions published in 2005 and 2013. Single solid nodule <6 mm (<100 mm3) *low-risk patients: no routine follow-up required *high-risk patients: optional CT at 12 months (particularly with suspicious nodule morphology and/or upper lobe location) Single solid nodule 6-8 mm (100-250 mm3) *low-risk patients: CT at 6-12 months, then consider CT at 18-24 months *high-risk patients: CT at 6-12 months, then CT at 18-24 months Single solid nodule >8 mm (>250 mm3) *low-risk and high-risk patients: consider CT at 3 months, PET/CT, or tissue sampling Low dose chest CT and PFT one week before return. Advised to continue not to smoke. Minimize Albuterol nebs as needed. Continue Albuterol HFA as needed. Continue Spiriva Respimat 2.5 mcg 2 puffs daily. The patient does not know how to accurately administer the inhalers. Today, the patient was shown how to take these medications. The proper technique for delivering these medications was instructed. The patient expressed a clear understanding and demonstrated back how to use these medications. Without the proper technique, the patient will not reap the benefits of these medications as the contents will not reach the lower airways as intended to be. Adherence to therapy is advocated. Nonadherence may lead to treatment failure, further progression of the condition, and other complications. Hospitals admissions are often the result of individuals not taking prescription medications accurately. Alternatively, greater adherence to medication regimens have shown to lower rates of hospitalization and decrease total medical costs in patients with chronic medical conditions. Advocated influenza vaccination annually and pneumonia vaccination AMEYA. Encouraged patient to adjust caloric intake to maintain/achieve ideal body weight, emphasizing on fruits, vegetables, whole grains, and fat-free or low-fat products. These include lean meats, poultry, fish, beans, eggs, and nuts and foods that are low in saturated fats, trans-fats, cholesterol, salt (sodium), and glycemic index. Stressed the importance of regular exercise up to the patient's capacity limits. In this case, we recommend 20 min daily walking, 2 days a week of resistance training. Patient to monitor BP daily and bring records to PCP for further management. Follow-up: 6 months, March 2024 Not available 03/21/2024 14:37:39 07/05/2024 07/05/2024 07/15/2022: A1C 6.3 Urine micro alb 128.6H TSH/FT4/CMP/LIPIDS /CBC: WNL 12/31/2022: A1C 6.1 Urine micro alb 52.7 06/30/2023: A1C 6.2 BUN 20, Cr 1.24, GFR 42, AST 84 WBC 14.6H Urine micro alb 45.9 12/14/2023: A1C 5.8 Urine micro alb 27.2 Gluc 106, TP 6.1 Not available 07/05/2024 17:39:40 09/08/2024 09/08/2024 07/15/2022: A1C 6.3 Urine micro alb 128.6H TSH/FT4/CMP/LIPIDS /CBC: WNL 12/31/2022: A1C 6.1 Urine micro alb 52.7 06/30/2023: A1C 6.2 BUN 20, Cr 1.24, GFR 42, AST 84 WBC 14.6H Urine micro alb 45.9 12/14/2023: A1C 5.8 Urine micro alb 27.2 Gluc 106, TP 6.1 09/01/2024: A1C 5.5 Not available 09/08/2024 10:54:16 Plan of Treatment Reminders Order Date Submit Date Provider Last Modified By Organization Details Last Modified Time Details Appointments Any 15 2024 09:15A Joselyn caal MD Not available Not available Not available Any 2024 01:00P Joselyn Fried MD Not available Not available Not available Lab hepatitis panel (A+B+C), acute, serum [address] (Lab), [address] [place], [address], 09/08/2024 11:04:25 gamma-glu tamyl transfera se (ggt), serum [address] [place] [address] (Lab), [address] [place], [address], 09/08/2024 11:04:26 lipid panel, serum [address] [place] [address] (Lab), [address] [place], [address], 09/08/2024 11:04:24 CBC w/ auto diff [address] (Lab), [address] [place], [address], 09/08/2024 11:04:24 T4, free, serum [address] [place] [address] (Lab), [address] [place], [address], 09/08/2024 11:04:24 CMP, serum or plasma [address] (Lab), [address] [place], [address], 09/08/2024 11:04:24 TSH, serum or plasma [address] (Lab), [address] [place], [address], 09/08/2024 11:04:25 vitamin D, 25-hydrox y, total, serum [address] (Lab), [address] [place], [address], 09/08/2024 11:04:26 glycohemo globin, total, blood [address] (Lab), [address] [place], [address], 09/08/2024 11:04:25 microalbu min, urine [address] (Lab), [address] [place], [address], 09/08/2024 11:04:25 SARS CoV 2 RNA (COVID-19 ), QL, professor of physical education-PCR, 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 [address] [facility], [address] [place], [address], 09/01/2024 12:00:07 rapid flu (A+B) [address] [facility], [address] [place], [address], 09/01/2024 12:00:08 rapid strep group A, throat [address] [facility], [address] [place], [address], 09/01/2024 12:00:08 hepatitis panel (A+B+C), acute, serum [address] (Lab), [address] [place], [address], 07/05/2024 18:27:36 gamma-glu tamyl transfera se (ggt), serum [address] (Lab), [address] [place], [address], 07/05/2024 18:27:36 lipid panel, serum 2023 [facility] (Lab), [address] [place], [address], 09/01/2024 13:09:09 CBC w/ auto diff 2023 [facility] (Lab), [address] [place], [address], 09/01/2024 13:09:10 T4, free, serum [address] (Lab), [address] [place], [address], 07/05/2024 18:27:35 CMP, serum or plasma 2023 [facility] (Lab), [address] [place], [address], 09/01/2024 13:09:09 TSH, serum or plasma 2023 [facility] (Lab), [address] [place], [address], 09/01/2024 13:09:09 vitamin D, 25-hydrox y, total, serum [address] (Lab), [address] [place], [address], 07/05/2024 18:27:36 glycohemo globin, total, blood [address] (Lab), [address] [place], [address], 07/05/2024 18:27:36 microalbu min, urine 2023 024 [facility] (Lab), [address] [place], [address], 09/01/2024 21:11:35 hepatitis panel (A+B+C), acute, serum [address] (Lab), [address] [place], [address], 07/05/2024 16:05:43 gamma-glu tamyl transfera se (ggt), serum [address] (Lab), [address] [place], [address], 07/05/2024 16:05:43 lipid panel, serum [address] (Lab), [address] [place], [address], 07/05/2024 16:05:41 CBC w/ auto diff [address] (Lab), [address] [place], [address], 07/05/2024 16:05:42 T4, free, serum [address] (Lab), [address] [place], [address], 07/05/2024 16:05:42 CMP, serum or plasma [address] (Lab), [address] [place], [address], 07/05/2024 16:05:42 TSH, serum or plasma [address] (Lab), [address] [place], [address], 07/05/2024 16:05:42 CBC w/ auto diff [address] (Lab), [address] [place], [address], 07/05/2024 16:05:43 vitamin D, 25-hydrox y, total, serum [address] (Lab), [address] [place], [address], 07/05/2024 16:05:43 glycohemo globin, total, blood [address] (Lab), [address] [place], [address], 07/05/2024 16:05:42 microalbu min, urine [address] (Lab), [address] [place], [address], 07/05/2024 16:05:43 Referral nephrolog ist referral - Please call patient to schedule an appointme nt. Thank you. 2024 025 MARLON Santos DO, [address] [facility], [address], [place], [address], 09/12/2024 14:30:37 cardiolog ist referral - Please call patient to schedule an appointme nt. Thank you. 2024 025 [place], [address], [address], [place], [address], 09/12/2024 14:35:27 nephrolog ist referral 2023 024 [place], [address], [address], [place], [address], 07/06/2024 18:36:06 cardiolog ist referral 2023 024 [email or web address] [place], [address], [address], [place], [address], 07/06/2024 18:36:07 pulmonolo gist referral 2023 024 [email or web address] Rebecca Fried MD, [address] [place], [address], 01/26/2024 09:12:07 nephrolog ist referral 2023 024 [email or web address] [place], [address], [address], [place], [address], 07/05/2024 16:05:55 cardiolog ist referral 2023 024 [email or web address] [place], [address], [address], [place], [address], 07/05/2024 16:05:56 infectiou s disease specialis t referral - Quantifer on TB Gold (+) 2023 024 [email or web address] 5 Enrrique Lo MD, [address], [address], [place], [address], 12/17/2023 14:31:11 Procedures None recorded. Surgeries None recorded. Imaging LDCT, chest, for lung cancer screening - Please call patient to schedule. [address] (Radiology), [address] [place], [address], 09/08/2024 15:29:42 US, liver - Please call patient to schedule. [address], [facility] [address], [address], 09/08/2024 15:25:39 DEXA, axial skeleton [address] (Radiology), [address] [place] [address], [address], 09/08/2024 15:29:00 LDCT, chest, for lung cancer screening - Please call patient to schedule. [address] [facility] [address] [place], [address], 08/30/2024 17:15:24 US, liver - Please call patient to schedule. [address], [facility] [address], [address], 08/30/2024 17:06:23 DEXA, axial skeleton [address] (Radiology), [address] [place], [address], 07/06/2024 19:22:27 CT, chest, w/o contrast - No auth needed [address] ([facility]), [address] [place], [address], 03/21/2024 14:29:15 LDCT, chest, for lung cancer screening - No Auth Required [address] (Radiology), [address] [place], [address], 07/06/2024 19:22:55 US, liver - no auth required [address] (Radiology), [address] [place], [address], 07/04/2024 19:19:50 DEXA, axial skeleton 2023 024 [facility] (Radiology), [address] [place], [address], 01/07/2024 12:22:54 CT, chest, w/o contrast - No auth needed [address] ([facility]), [address] [place], [address], 08/30/2024 17:01:06 Medication Orders paroxetin e 20 mg tablet [facility]24 [facility]25 [id number], [address], [place], [place], [id number], 09/08/2024 11:03:27 cyclobenz aprine 10 mg tablet 2024 025 [facility]/Pharmacy #[id number], [address], [place], [address], 09/08/2024 11:03:26 cyclobenz aprine 10 mg tablet [email or web address] [address]/Pharmacy #[id number], [address], [place], [address], 07/05/2024 18:27:37 paroxetin e 20 mg tablet [email or web address] [facility] #[id number], [address], [place], [place], [id number], 07/05/2024 18:27:36 Zithromax Z-Neftaly 250 mg tablet [address]/Pharmacy #31701, [address], [place], [address], 09/08/2024 10:38:00 albuterol sulfate HFA 90 mcg/actua tion aerosol inhaler 2023 024 [facility]73234, [address], [id number], 03/21/2024 14:29:21 Spiriva Respimat 2.5 mcg/actua tion solution for inhalatio n 2023 024 [facility] #[id number], [address], [id number], 03/21/2024 14:29:21 cyclobenz aprine 10 mg tablet 2023 024 [facility] [address] [facility]010, [address], [place], [place], [id number], 01/13/2024 09:22:28 olmesarta n 40 mg tablet [address] [facility] #56849, [address], [id number], 07/05/2024 17:23:18 paroxetin e 20 mg tablet 2023 024 [facility] #88447, [address], [id number], 12/29/2023 10:23:48 albuterol sulfate HFA 90 mcg/actua tion aerosol inhaler 2023 024 [facility] #31089, [address], [place], [place], [id number], 10/06/2023 11:17:27 Spiriva Respimat 2.5 mcg/actua tion solution for inhalatio n 2023 024 [facility] #[id number], [address], [place], [place], [id number], 10/06/2023 11:17:27 Patient TargetsNo targets recorded. Patient Instructions Encounter Date Encounter Id Patient Instructions Last Modified By Organization Details Last Modified Time 12/29/2023 [id number] diabetic eye exam* [email or web address] Not avail able 07/05/2024 16:05:20 03/21/2024 [id number] complete PFT w/ post bronchodilator spirometry* Not available 03/21/2024 14:33:36 07/05/2024 [id number] dementia rating scale-2* [id number] Not available 07/06/2024 08:41:14 alcohol misuse* [email or web address] Not available 07/06/2024 21:21:26 depression screening* jason 2 Not available 07/06/2024 21:21:25 multi-dimensiona l health assessment questionnaire* [email or web address] Not available 07/06/2024 08:40:56 diabetic eye exam* dioni avila 2 Not available 07/05/2024 18:27:36 [facility] and Screening Recommendations Advance Directives - Do you have one? No You have indicated that you are capable of preparing your advance care directive Advance Directives - Do we have your advance directive on file in your health record? No, please bring in a copy at your earliest convenience Primary Prevention/Interven tion (prevents or decreases the chance of common diseases from occurring) Smoking Risk: Non Smoker Alcohol Misuse Screening: Negative Weight: Underweight Physical activity: Need more exercise/physical activity minimum of 10-20 minutes of activity that causes mild breathlessness/day Nutrition: Good Average Fall Risk (screened today): Low Vaccines Pneumococcal: Ordered Recommended today Recommended today, but you have declined No further needed Influenza: Chronic Disease Risks Stroke: Low Risk Intermediate Risk I have no recommendations Act slava diagnosis, Continue current treatment plan Heart Attack: Low risk Intermediate Risk I have no recommendations Act slava diagnosis, Continue current treatment plan Clogging of the Arteries: Low risk Intermediate Risk I have no recommendations Act slava diagnosis, Continue current treatment plan Diabetes: Low Risk I have no recommendations Secondary Prevention/Interven tion (detects treatable diseases before they may cause symptoms, disability, or ) Breast Cancer Screening with mammogram: Cervical/Uterine/Ov gudelia Cancer Screening: No screening necessary Osteoporosis Screening: No screening necessary Date Screening Last Performed: 12/2023 Colon Cancer Screening: No screening necessary Date Screening Last Performed: 07/26 Eye Disease Screening: Ordered Recommended today Dementia Risk: Low I have no recommendations Depression Screening: Negative Active diagnosis, Continue current treatment plan [email or web address] Not available 07/06/2024 09:10:52 09/08/2024 [id number] diabetic eye exam* [email or web address] Not avail able 09/08/2024 11:04:26 Reason for Referral Infectious Disease Specialis t Referral for Exposure to tuberculosis Quantiferon TB Gold (+) Referring Physician: Rebecca Fried, Pulmonary Disease, Encounter Date: 10/06/2023 Biology Adjunct Instructor Referral for Ch ronic kidney disease Referring Physician: Jacquelyn Bingham Internal Medicine, Encounter Date: 12/29/2023 Clinical Laboratory Manager Referral for Co ronary arteriosclerosis Referring Physician: Jacquelyn Bingham Internal Medicine, Encounter Date: 12/29/2023 Waste Picker Referral for C hronic obstructive pulmonary disease Referring Physician: Jacquelyn Bingham Internal Medicine, Encounter Date: 12/29/2023 Biology Adjunct Instructor Referral for Ch ronic kidney disease Referring Physician: Jacquelyn Bingham Internal Medicine, Encounter Date: 07/05/2024 Clinical Laboratory Manager Referral for Co ronary arteriosclerosis Referring Physician: Liliana Chaves Medicine, Encounter Date: 07/05/2024 Biology Adjunct Instructor Referral for Ch ronic kidney disease Please call patient to schedule an appointment. Thank you. Referring Physician: Jacquelyn Bingham, Internal Medicine, Encounter Date: 09/08/2024 Clinical Laboratory Manager Referral for Co ronary arteriosclerosis Please call patient to schedule an appointment. Thank you. Referring Physician: Jacquelyn Bingham, Internal Medicine, Encounter Date: 09/08/2024 Results Created Date Observation Date Name Description Value Unit Range Abnormal Flag Note LastModifiedBy Organization Detail LastModifiedTime 12/14/19 24 12/14/2023 CBC/C OMPLE TE BLD COUNT W/DIF F white blood cells 9.4 x10'3 /uL 4.2-10 .8 Not Available [facility] (Lab) [address] [place], [address], 12/14/2023 08:58:56 12/14/1912/14/2023 CBC/C OMPLE TE BLD COUNT W/DIF F red blood cells 4.79 x10'6 /uL 3.80-5 .20 Not Available [facility] (Lab) [address] [place], [address], 12/14/2023 08:58:56 12/14/19 24 12/14/2023 CBC/C OMPLE TE BLD COUNT W/DIF F hemoglobin 12.6 g/dL 12.0-1 5.6 Not Available [facility] (Lab) [address] [place], [address], 12/14/2023 08:58:56 12/14/19 24 12/14/2023 CBC/C OMPLE TE BLD COUNT W/DIF F hematocrit 40.3 % 35.7-4 5.7 Not Available [facility] (Lab) [address] [place], [address], 12/14/2023 08:58:56 12/14/19 24 12/14/2023 CBC/C OMPLE TE BLD COUNT W/DIF F mean red cell volume 84.1 fL 82.0-9 9.0 Not Available [facility] (Lab) [address] [place], [address], 12/14/2023 08:58:56 12/14/19 24 12/14/2023 CBC/C OMPLE TE BLD COUNT W/DIF F mean red cell hemoglobin 26.3 pg 27.0-3 3.0 low Not Available [facility] (Lab) [address] [place], [address], 12/14/2023 08:58:56 12/14/19 24 12/14/2023 CBC/C OMPLE TE BLD COUNT W/DIF F mean RBC HGB concentratio n 31.3 g/dL 31.0-3 6.0 Not Available [facility] (Lab) [address] [place], [address], 12/14/2023 08:58:56 12/14/19 24 12/14/2023 CBC/C OMPLE TE BLD COUNT W/DIF F red cell distribution width 14.9 % 11.8-1 5.5 Not Available [facility] (Lab) [address] [place], [address], 12/14/2023 08:58:56 12/14/19 24 12/14/2023 CBC/C OMPLE TE BLD COUNT W/DIF F platelets 371 x10'3 /uL 150-40 0 Not Available [facility] (Lab) [address] [place], [address], 12/14/2023 08:58:56 12/14/19 24 12/14/2023 CBC/C OMPLE TE BLD COUNT W/DIF F mean platelet volume 10.4 fL 9.0-12 .4 Not Available [facility] (Lab) [address] [place], [address], 12/14/2023 08:58:56 05/06/12/14/2023 CBC/C OMPLE TE BLD COUNT W/DIF F neutrophils 74.9 % 39.0-7 2.0 high Not Available [facility] (Lab) [address] [place], [address], 12/14/2023 08:58:56 12/14/19 24 12/14/2023 CBC/C OMPLE TE BLD COUNT W/DIF F lymphocytes 15.5 % 16.0-4 7.0 low Not Available [facility] (Lab) [address] [place], [address], 12/14/2023 08:58:56 12/14/1912/14/2023 CBC/C OMPLE TE BLD COUNT W/DIF F monocytes 7.6 % 5.0-12 .0 Not Available [facility] (Lab) [address] [place], [address], 12/14/2023 08:58:56 12/14/1912/14/2023 CBC/C OMPLE TE BLD COUNT W/DIF F eosinophils 1.3 % 1.0-7. 0 Not Available [facility] (Lab) [address] [place], [address], 12/14/2023 08:58:56 12/14/19 24 12/14/2023 CBC/C OMPLE TE BLD COUNT W/DIF F basophils 0.3 % 0.0-2. 0 Not Available [facility] (Lab) [address] [place], [address], 12/14/2023 08:58:56 12/14/19 24 12/14/2023 CBC/C OMPLE TE BLD COUNT W/DIF F immature granulocytes 0.4 % 0.00-0 .50 Not Available [facility] (Lab) [address] [place], [address], 12/14/2023 08:58:56 12/14/19 24 12/14/2023 CBC/C OMPLE TE BLD COUNT W/DIF F neutrophils, absolute count 7.05 x10'3 /uL 1.5-8. 0 Not Available [facility] (Lab) [address] [place], [address], 12/14/2023 08:58:56 12/14/19 24 12/14/2023 CBC/C OMPLE TE BLD COUNT W/DIF F lymphocytes, absolute count 1.46 x10'3 /uL 1.07-3 .43 Not Available [facility] (Lab) [address] [place], [address], 12/14/2023 08:58:56 12/14/19 24 12/14/2023 CBC/C OMPLE TE BLD COUNT W/DIF F monocytes, absolute count 0.72 x10'3 /uL 0.29-0 .99 Not Available [facility] (Lab) [address] [place], [address], 12/14/2023 08:58:56 12/14/19 24 12/14/2023 CBC/C OMPLE TE BLD COUNT W/DIF F eosinophils, absolute count 0.12 x10'3 /uL 0.02-0 .53 Not Available [facility] (Lab) [address] [place], [address], 12/14/2023 08:58:56 12/14/19 24 12/14/2023 CBC/C OMPLE TE BLD COUNT W/DIF F basophils, absolute count 0.03 x10'3 /uL 0.01-0 .08 Not Available [facility] (Lab) [address] [place], [address], 12/14/2023 08:58:56 12/14/19 24 12/14/2023 CBC/C OMPLE TE BLD COUNT W/DIF F immature granulocytes ,absolute 0.04 x10'3 /uL 0.00-0 .05 Not Available [facility] (Lab) [address] [place], [address], 12/14/2023 08:58:56 12/14/19 24 12/14/2023 CBC/C OMPLE TE BLD COUNT W/DIF F nucleated red blood cells 0.0 % -0 Not Available [facility] (Lab) [address] [place], [address], 12/14/2023 08:58:56 12/14/19 24 12/14/2023 CBC/C OMPLE TE BLD COUNT W/DIF F NRBC# 0.00 x10'3 /uL Not Available [facility] (Lab) [address] [place], [address], 12/14/2023 08:58:56 12/14/19 24 12/14/2023 LIPID PANEL cholesterol 173 mg/dL 140-19 9 NIH MADY NSUS RECOM MENDA TION FOR ALLEN STERO L: ADULT CHILD LOW RISK: <200 <170 BORDE RLINE : <200- 239 ----- HIGH RISK: >240 >200 Not Available [facility] (Lab) [address] [place], [address], 12/14/2023 09:13:38 12/14/19 24 12/14/2023 LIPID PANEL triglyceride s 95 mg/dL 0-150 NIH MADY NSUS REPOR T RECOM MENDA TION FOR TRIGL YCERI RIAN: ADULT CHILD LOW RISK: <150 ----- BODER LINE: 150-1 99 ----- HIGH RISK: >200 ----- Not Available [facility] (Lab) [address] [place], [address], 12/14/2023 09:13:38 12/14/19 24 12/14/2023 LIPID PANEL HDL cholesterol 59 mg/dL 40- Not Available [facility] (Lab) [address] [place], [address], 12/14/2023 09:13:38 12/14/19 24 12/14/2023 LIPID PANEL LDL cholesterol, calculated 95 mg/dL 0-130 NIH MADY NSUS REPOR T RECOM MENDA TIONS FOR LDL: ADULT CHILD LOW RISK <130 <110 (OPTI MAL LDL) <100 ----- BORDE RLINE : 130-1 59 ----- HIGH RISK: >160 >130 A TRIGL YCERI DE RESUL T >400 INVAL IDATE S THE CALCU LATIO N FOR LDL FRACT IONAT ION - THE LDL RESUL T WILL NOT BE REPOR EBONY. Not Available [facility] (Lab) [address] [place], [address], 12/14/2023 09:13:38 12/14/19 24 12/14/2023 COMP MET PANEL /LIVE R sodium 140 mmol/ L 137-14 5 Not Available [facility] (Lab) [address] [place], [address], 12/14/2023 09:13:54 12/14/19 24 12/14/2023 COMP MET PANEL /LIVE R potassium 4.0 mmol/ L 3.5-5. 1 Not Available [facility] (Lab) [address] [place], [address], 12/14/2023 09:13:54 12/14/19 24 12/14/2023 COMP MET PANEL /LIVE R chloride 106 mmol/ L 98-107 Not Available [facility] (Lab) [address] [place], [address], 12/14/2023 09:13:54 12/14/19 24 12/14/2023 COMP MET PANEL /LIVE R carbon dioxide 28 mmol/ L 22-30 Not Available [facility] (Lab) [address] [place], [address], 12/14/2023 09:13:54 12/14/19 24 12/14/2023 COMP MET PANEL /LIVE R anion gap 10.0 mmol/ L 14-22 low Not Available [facility] (Lab) [address] [place], [address], 12/14/2023 09:13:54 12/14/19 24 12/14/2023 COMP MET PANEL /LIVE R glucose 106 mg/dL 70-99 high Not Available [facility] (Lab) [address] [place], [address], 12/14/2023 09:13:54 12/14/19 24 12/14/2023 COMP MET PANEL /LIVE R BUN 13 mg/dL 8-19 Not Available [facility] (Lab) [address] [place], [address], 12/14/2023 09:13:54 12/14/19 24 12/14/2023 COMP MET PANEL /LIVE R creatinine 0.90 mg/dL 0.66-1 .25 Not Available [facility] (Lab) [address] [place], [address], 12/14/2023 09:13:54 12/14/19 24 12/14/2023 COMP MET PANEL /LIVE R GFR >60 Refer ence Range : [place] ge GFR Healt hy Adult : >60 mL/mi n/1.7 3 m2 Chron ic Kidne y Disea se: 15-60 mL/mi n/1.7 3 m2 Kidne y Failu re: <15/m L/min /1.73 m2 www.n iddk. nih.g ov The MDRD study equat ion has not been valid ated in child prashant <18 years of age; pregn ant women ; the elder ly >85 years of age; or in some racia l or ethni c subgr oups, such as Hisoh nics. Outsi de the valid ated yesenia eters , estim ated GFR is less accur ate, requi ring clini alex judgm ent on a case- by-ca se basis . Clini alex inter preta tion for other races and ages must be made by the clini marly. The MDRD study equat ion has not been valid ated for the evalu ation of serum creat inine relat ed to nutri hero l statu s or medic ation usage . For perso ns <18 years of age, a pedia tric GFR calcu latcatia is avail able on the [facility] websi te: https ://wai ricardo.sondra jarrett.o anita/pr ofess ional s/kdo qi/gf r_cal culat or Not Available [facility] (Lab) [address] [place], [address], 12/14/2023 09:13:54 12/14/19 24 12/14/2023 COMP MET PANEL /LIVE R alkaline phosphatase 72 U/L 38-126 Not Available [facility] (Lab) [address] [place], [address], 12/14/2023 09:13:54 12/14/19 24 12/14/2023 COMP MET PANEL /LIVE R alanine aminotransfe rase 12 U/L 0-35 Not Available [facility] (Lab) [address] [place], [address], 12/14/2023 09:13:54 12/14/19 24 12/14/2023 COMP MET PANEL /LIVE R aspartate aminotransfe rase 23 U/L 15-37 Not Available [facility] (Lab) [address] [place], [address], 12/14/2023 09:13:54 12/14/19 24 12/14/2023 COMP MET PANEL /LIVE R bilirubin, total 0.30 mg/dL 0.20-1 .30 Not Available [facility] (Lab) [address] [place], [address], 12/14/2023 09:13:54 12/14/19 24 12/14/2023 COMP MET PANEL /LIVE R bilirubin, conjugated (direct) 0.00 mg/dL 0.00-0 .30 Not Available [facility] (Lab) [address] [place], [address], 12/14/2023 09:13:54 12/14/19 24 12/14/2023 COMP MET PANEL /LIVE R biliurubin,u ncong. (indirect) 0.10 mg/dL 0.00-1 .1 Not Available [facility] (Lab) [address] [place], [address], 12/14/2023 09:13:54 12/14/19 24 12/14/2023 COMP MET PANEL /LIVE R calcium 9.2 mg/dL 8.4-10 .2 Not Available [facility] (Lab) [address] [place], [address], 12/14/2023 09:13:54 12/14/19 24 12/14/2023 COMP MET PANEL /LIVE R total protein 6.1 g/dL 6.3-8. 2 low Not Available [facility] (Lab) [address] [place], [address], 12/14/2023 09:13:54 12/14/19 24 12/14/2023 COMP MET PANEL /LIVE R albumin 3.5 g/dL 3.0-4. 4 Not Available [facility] (Lab) [address] [place], [address], 12/14/2023 09:13:54 12/14/19 24 12/14/2023 COMP MET PANEL /LIVE R globulin 2.6 g/dL 2.6-4. 2 Not Available [facility] (Lab) [address] [place], [address], 12/14/2023 09:13:54 12/14/19 24 12/14/2023 COMP MET PANEL /LIVE R A/G ratio 1.3 ratio 1.0-2. 0 Not Available [facility] (Lab) [address] [place], [address], 12/14/2023 09:13:54 12/14/19 24 12/14/2023 GGT/G -GLUT AMYL TRANS FERAS E gamma-glutam yl transferase 18 U/L 12-43 Not Available [facility] (Lab) [address] [place], [address], 12/14/2023 09:13:58 12/14/19 24 12/14/2023 T4 FREE free T4 1.18 NG/dL 0.78-2 .19 Not Available [facility] (Lab) [address] [place], [address], 12/14/2023 09:30:24 12/14/19 24 12/14/2023 TSH W/REF MARIA ISABEL FT4 TSH with reflex free T4 1.570 uIU/m L 0.465- 4.680 Not Available [facility] (Lab) [address] [place], [address], 12/14/2023 09:45:47 12/14/19 24 12/14/2023 HEMOG LOBIN A1C HA1C 5.8 % 4.0-6. 0 Diabe berry Scree jazlyn Crite raegan: <5.7% Consi stent with absen ce of diabe berry 5.7-6 .4% Consi stent with incre ased risk for diabe berry (pred iabet es) >OR=6 .5% Consi stent with diabe berry REFER ENCE: Diabe berry Care 2016, 39(Parrish ppl.1 ):s13 -s22 Not Available [facility] (Lab) [address] [place], [address], 12/14/2023 13:05:49 12/14/19 24 12/14/2023 MICRO ALBUM N RNDM W/CRE AT RATIO ur creat 133.80 mg/dL REFER ENCE RANGE NOT ESTAB PARIS D FOR HENOK M URINE CREAT ININE Not Available [facility] (Lab) [address] [place], [address], 12/14/2023 17:15:32 12/14/19 24 12/14/2023 MICRO ALBUM N RNDM W/CRE AT RATIO microalbumin , urine 27.2 mg/L 0.0-16 .6 high Not Available [facility] (Lab) [address] [place], [address], 12/14/2023 17:15:32 12/14/19 24 12/14/2023 MICRO ALBUM N RNDM W/CRE AT RATIO microalbumin /creatinine ratio 20 mcg/m g 0-29 THE AMERI CAN DIABE BERRY ASSOC IATIO N DEFIN ES ABNOR MALIT IES IN ALBUM IN EXCRE TION FOLLO WS: CATEG ORY RESUL T (MCG/ MG CREAT ININE ) EZE L <30 MICRO ALBUM INURI A 30-29 9 CLINI ALEX ALBUM INURI A > OR = 300 THE ADA RECOM MENDS THAT 2 OF 2 SPECI MENS COLLE CTED WITHI N A 3- TO 6-MON TH PERIO D BE ABNOR MAL BEFOR E CONSI SHALONDA G A PATIE NT TO HAVE CROSS ED ONE OF THESE DIAGN OSTIC THRES HOLDS . REFER ENCE: DIABE BERRY CARE, VOL. 26: S94-S 96, 2002 Not Available [facility] (Lab) [address] [place], [address], 12/14/2023 17:15:32 12/14/19 24 12/14/2023 HEPAT ITIS ACUTE PANEL hepatitis A IgM antibody NON-RE ACTIVE non-re active For sampl es repor ebony as Borde rline React slava for HAV IgM, it is recom dev d a new speci men be obtai mai in 2 weeks and retes ebony. Not Available [facility] (Lab) [address] [place], [address], 12/14/2023 22:32:42 12/14/19 24 12/14/2023 HEPAT ITIS ACUTE PANEL hepatitis A virus signal/cutof 0.05 0.00-0 .79 Not Available [facility] (Lab) [address] [place], [address], 12/14/2023 22:32:42 12/14/19 24 12/14/2023 HEPAT ITIS ACUTE PANEL hepatitis B core IgM antibody NON-RE ACTIVE non-re active Not Available [facility] (Lab) [address] [place], [address], 12/14/2023 22:32:42 12/14/19 24 12/14/2023 HEPAT ITIS ACUTE PANEL HBV core IgM signal/cutof f 0.04 0.00-1 .10 Not Available [facility] (Lab) [address] [place], [address], 12/14/2023 22:32:42 12/14/19 24 12/14/2023 HEPAT ITIS ACUTE PANEL hepatitis B surface antigen NON-RE ACTIVE non-re active All speci mens react slava for Hepat itis B Surfa ce Antig en will refle x to refer ral lab confi rmato ry testi ng. Not Available [facility] (Lab) [address] [place], [address], 12/14/2023 22:32:42 12/14/19 24 12/14/2023 HEPAT ITIS ACUTE PANEL HBV surf.antigen signal/cutof f 0.11 0.00-0 .99 Not Available [facility] (Lab) [address] [place], [address], 12/14/2023 22:32:42 12/14/19 24 12/14/2023 HEPAT ITIS ACUTE PANEL hepatitis C antibody NON-RE ACTIVE non-re active All speci mens react slava for Hepat itis C Virus antib filipe will refle x to PCR confi rmato ry testi ng. Pleas e allow 48-72 hours for resul ts. Not Available [facility] (Lab) [address] [place], [address], 12/14/2023 22:32:42 12/14/19 24 12/14/2023 HEPAT ITIS ACUTE PANEL hepatitis C virus signal/cutof 0.01 0.00-0 .99 Not Available [facility] (Lab) [address] [place], [address], 12/14/2023 22:32:42 12/14/19 24 12/14/2023 VITAM IN D 25-HY DROXY [id number] 36.9 NG/mL 30-100 Vitam in D Statu s: Defic ient: <20 ng/mL Insuf ficie nt: 20-29 ng/mL Suffi cient : 30-10 0 ng/mL Not Available [facility] (Lab) [address] [place], [address], 12/14/2023 23:54:22 10/06/19 24 10/06/2023 LDCT, chest , for lung cance r scree jazlyn No observ ation record ed. [facility] [address] [place], [address], 10/06/2023 09:49:06 10/06/19 24 10/06/2023 LDCT, chest , for lung cance r scree jazlyn No observ ation record ed. [email or web address] [facility] [address] [place], [address], 04/19/2024 10:59:20 10/06/19 24 10/06/2023 6 minut e walk test* No observ ation record ed. [facility]CODE Not Available 2023 14:53:22 10/06/19 24 10/06/2023 6 minut e walk test* No observ ation record ed. [facility]CODE Not Available 2023 14:57:04 10/07/19 24 10/06/2023 compl ete PFT w/ post [facility] at[facility] josh metry * No observ ation record ed. [facility] (One Call Scheduling) [address] [place], [address], 10/07/2023 10:50:10 10/08/19 24 12/30/2022 US, echoc ardio gram, trans thora cic, compl ete No observ ation record ed. [facility]CODE Not Available 2023 08:20:41 11/12/19 24 11/12/2023 cardi ac stres s test No observ ation record ed. [email or web address] [facility] [address], [place], [address], 04/19/2024 17:34:13 11/18/19 24 11/18/2023 scree jazlyn breas t negrito, bilat [facility] [address], [place] [address] Patien t Name: HUNTER RODRIGUEZ GEE E Access ion #: [id number] Sex: F : 1944 9 Locati on: RAD Attend ing Physic kalani: LUANN BISHOPTPRUDENCE Harry Orderi ng Physic kalani: ARLETH BISHOP Exam Date: 8:20 AM Exam Name: MG SCRN BREAST NEGRITO BILAT Admitt ing Diagno sis(es ): MAMMOG AILEEN REPORT - FINAL EXAM: MG SCRN BREAST NEGRITO BILAT HISTOR Y: Screen ing mammog emery 78-yea r-old female with no curren t breast compla ints. COMPAR UBALDO: 2022, 2021 TECHNI QUE: Bilate ral CC and MLO views of the breast s were perfor med. Digita l Mammog aileen images were obtain ed. CAD (compu ter assist ed detect ion) was utiliz ed. 3D Digita l breast tomosy nthesi s was perfor med and used in the interp retati on of images . FINDIN GS: There are scatte red areas of fibrog landul ar densit y. No masses , asymme tries, suspic ious calcif icatio ns, or denise ectura l Page 1 of 2 [facility] Patien t Name: HUNTER RODRIGUEZ GEE E Access ion #: [id number] Sex: F : 1944 9 Exam Date: 8:20 AM Exam Name: MG MAY BREAST NEGRITO BILAT Admitt ing Diagno sis(es ): distor tion are seen. IMPRES GUNNAR: BIRADS 1: Assess ment comple te. Negati ve. Recomm end annual screen ing mammog aileen. Accord ing to the [employer], yearly mammog latosha are recomm ended starti ng at age 40 and contin uing as long as the woman is in good health . Clinic al Breast Exam should be part of the period health exam-a bout every 3 years for women in their 20s and 30s and every year for women 40 and over. Breast self-e xam is an option for women in their 20s. Any breast change noted on the breast self-e xam she would be report ed prompt ly to the [facility] er. A negati ve mammog aileen report should not discou rage follow -up or biopsy of a clinic ally signif icant findin g and/or abnorm ality. Dense breast tissue may obscur e small neopla sms. This chet manrique has been entere d into a mammog aileen remind er system with a target date for her next mammog emery. Create d and electr onical ly signed by: Carlos bocanegra MD Signed Date: 8:58 AM (CT) Dictat ed by: Carlos bocanegra MD DD: 8:58 AM (CT) DT: 8:58 AM (CT) Page 2 of 2 [facility] (Imaging) [address] [place], [address], 12/09/2023 17:27:55 01/07/20 24 01/07/2024 DEXA, axial skele ton [facility] [address] [place] [address] [phone] Chet manrique Name: HUNTER RODRIGUEZ Access ion #: [id number] Sex: F : 1944 8 Dictat ed By: Raf Bae ms Attend ing Physic kalani: BAHRAARLETH FLOYD Physic kalani: JILL MAKAYLA LUANNTammyPRUDENCE Harry Exam Date: 2023 10:23 AM Exam Name: XR DEXA-H IPS PELVIS SPINE Admitt ing Diagno sis(es ): PROCED URE: DEXA SCAN INDICA TION: 78 years old, Female ; screen ing of osteop orosis . TECHNI QUE: Bone densit ometry of the lumbar spine and bilate ral hips was perfor med on a [employer] c unit using dual energy x-ray absorp tiomet ry (DEXA) . COMPAR UBALDO: 2021 BONE DENSIT Y REPORT : The package line operator images are limite d for evalua tion of fine bony detail . BONE DENSIT Y REPORT : Bone minera l densit y (BMD) AP SPINE (L1-L4 ) BMD: 1.163 (Grams /cm2). T Score: -0.3 LEFT FEMORA L NECK BMD: 0.669 (Grams /cm2). T Score: -2.7 LEFT HIP TOTAL BMD: 0.708 (Grams /cm2). T Score: -2.4 RT FEMORA L NECK BMD: 0.655 (Grams /cm2). T Score: -2.8 RT HIP TOTAL BMD: 0.715 (Grams /cm2). T Score: -2.3 10 YEAR FRACTU RE RISK* Major osteop orotic fractu re not provid ed (less than 20% is consid ered low risk). Page 1 [facility] [address] [address] Patien t Name: HUNTER RODRIGUEZ GEE Access ion #: [id number] Sex: F : 1944 8 Dictat ed By: Raf Bae ms Attend ing Physic kalani: ARLETH Harry NOHEMIFlory liu Physic kalani: JILL MAKAYLA LUANNTammyPRUDENCE Harry Exam Date: 2023 10:23 AM Exam Name: XR DEXA-H IPS PELVIS SPINE Admitt ing Diagno sis(es ): Hip fractu re not provid ed (less than 3% is consid ered low risk). Compar ubaldo with prior DEXA: Lumbar spine: There is a 3.9 % decrea se in the lumbar spine bone minera l densit y compar ed to the prior examin ation. Left hip: There is a 0.9 % increa se in the left hip bone minera l densit y compar ed to the prior examin ation. IMPRES GUNNAR: 1. Using the World Health Organi zation (WHO) classi ficati on, bone minera l densit y is: Osteop orosis . ------ ------ ------ ------ ------ ------ ------ ------ ----- *FRAX versio n 3.08. Fractu re probab ility calcul ated for an untrea ebony patien t. Fractu re probab ility may be lower if the patien t has receiv ed treatm ent. T-scor e: compar ubaldo by jae mendez ion (SD) to a young adult popula tion, matche d for sex and ethnic ity (used for postme nopaus al women and men >50 years) and classi fied by WHO criter ia. -1.0: normal <-1.0 to >-2.5: osteop enia -2.5: osteop orosis -2.5 plus fragil ity fractu re: severe osteop orosis Z-scor e: compar ed by SD to an age, sex, and ethnic ity popula tion (used for premen opausa l women, men <50 years, and childr en instea d of T-scor e WHO criter ia 4) <-2.0: below expect ed range/ low bone densit y for age, and a cause should be sought . All treatm ent decisi ons requir e clinic al judgme nt and consid eratio n of indivi dual patien t factor s, includ ing patien t prefer ences, comorb iditie s, previo us drug use and risk factor s not captur ed in the FRAX model (for exampl e vitami n D defici ency, falls, frailt y, increa sed bone turnov er, interv al signif icant declin e in BMD). Electr onical ly Signed by: Raf Bae ms at 2023 11:20: 46 AM Page 3 INTERFACE [facility] (Imaging) [address] [place], [address], 01/07/2024 12:22:55 01/07/20 24 01/07/2024 DEXA, axial skele ton No observ ation record ed. [facility] [address] [place], [address], 01/07/2024 12:30:19 04/06/20 24 02/22/2024 CT, chest , w/o contr ast No observ ation record ed. [facility] (One Call Scheduling) [address] [place], [address], 04/06/2024 17:20:15 07/08/20 24 07/08/2024 XR, foot, 3 or more view No observ ation record ed. [email or web address], [place], [address], 08/30/2024 17:01:21 09/26/19 25 09/26/2024 imagi ng/di agnos tic resul t No observ ation record ed. [place] [id number] [facility] [address], [place], [address], 09/26/2024 13:26:11 09/26/19 25 09/26/2024 imagi ng/di agnos tic resul t No observ ation record ed. [facility] [address] [facility] [address], [place], [address], 09/26/2024 13:32:36 Result Notes None recorded. Problems Name Problem SNOMED Code Status Onset Date Resolution Date Notes Provider Name and Address Organization Details Recorded Time Gastroesophag eal reflux disease 786125022 Active 2019 Not Available [facility] 4 13:30:17 Transient cerebral ischemia 675307045 Active Not Available [facility] 4 13:30:17 Type 2 dia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 063043183 Active 2020 Not Available [facility] 4 13:30:17 Depressive disorder 42580133 Active 2021 Not Available [facility] 4 13:30:17 Osteoarthriti s 536934011 Active Not Available [facility] 4 13:30:17 Hyperlipidemi a 54313221 Active 2021 Not Available [facility] 4 13:30:17 Essential hypertension 87178290 Active Not Available [facility] 4 13:30:17 Osteoporosis 13545218 Active 2021 Not Available [facility] 4 13:30:18 COVID-19 621659211 Active 2022 Not Available [facility] 4 13:30:18 Ex-smoker 5749414 Active 2019 Not Available [facility] 4 13:30:18 Chronic kidney disease 170006499 Active 2022 Not Available [facility] 4 13:30:18 Chronic obstructive pulmonary disease 02522100 Active 2022 Not Available [facility] 4 13:30:17 Coronary arteriosclero sis 85916374 Active 2022 Not Available [facility] 4 13:30:17 Chronic depression 531726991 Active 2022 Not Available [facility] 4 13:30:17 Moderate chronic obstructive pulmonary disease 861398039 Active 2023 Not Available [facility] 4 13:30:17 Solitary nodule of lung 582954478 Active 2023 Rebecca Fried MD [address] [place] [address], [address] , [facility] 4 10:36:03 Allergic rhinitis 57827510 Active 2023 Yenny Rosenbaum MA null, [facility] 4 12:09:25 Anemia 466979557 Active 2023 Jacquelyn harry MD [address], [address], [place], [address] , [employer] [facility] 4 19:12:13 Gastritis 7494132 Active 2023 Jacquelyn harry MD [address], [address], [place], [address] , [employer] [facility] 4 17:40:42 Leukocytosis 692729624 Active 2023 Jacquelyn harry MD [address], [address], [place], [address] , [employer] 4 17:40:42 Low back pain 575304916 Active 2023 Jacquelyn harry MD [address], [address], [place], [address] , [employer] [facility] 4 17:40:42 Increased liver function 67248647 Active 2023 Jacquelyn harry MD [address], [address], [place], [address] , [employer] [facility] 4 17:40:42 Cough 78852616 Active 2023 Jacquelyn harry MD [address], [address], [place], [address] , [employer] 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 Problem Notes None recorded. Procedures Surgical History Date Name Laterality Status Provider Name and Address Organization Details Recorded Time 07/05/20 24 Medicare Wellness CPT Code, subsequent completed Bethany Milton RN [facility] 07/05/2024 17:29:39 06/30/20 24 Kidney Stones completed ALFREDITO Parry [facility] 07/05/2024 17:24:12 12/23/19 24 cardiac catheterization completed Rosalina Scruggs MA [facility] 12/29/2023 09:52:32 01/07/20 23 Medicare Wellness CPT Code, subsequent completed Pratima Arevalo RN [facility] 01/06/2023 11:46:36 02/13/20 20 Cataract Surgery completed Not Available [facility] 10/08/2022 05:09:50 06/27/20 19 Most Recent Bone Density completed Not Available [facility] 10/08/2022 05:09:49 07/17/20 17 Date of Last Colonoscopy completed Not Available [facility] 10/08/2022 05:09:48 07/17/20 17 Egd biopsy single/multiple completed Not Available [facility] 10/08/2022 05:09:50 07/17/20 17 Diagnostic colonoscopy completed Not Available [facility] 10/08/2022 05:09:50 Appendectomy completed Not Available [facility] 10/08/2022 05:09:50 Colonoscopy completed Not Available [facility] 10/08/2022 05:09:50 Tonsillectomy completed Not Available [facility] 10/08/2022 05:09:50 Hysterectomy completed Not Available [facility] 10/08/2022 05:09:50 Orthopedic Surgery completed Not Available [facility] 10/08/2022 05:09:50 procedure on nose completed Not Available [facility] 10/08/2022 05:09:50 Imaging Results Imaging Date Name Status LastModified by Organization Details LastModified Time 10/06/2023 LDCT, chest, for lung cancer screening completed [email or web address] [facility] [address] [place], [address], 10/06/2023 09:49:06 10/06/2023 LDCT, chest, for lung cancer screening completed [address] [place], [address], 04/19/2024 10:59:20 10/06/2023 6 minute walk test* completed [facility] Information not available 10/06/2023 14:53:22 10/06/2023 6 minute walk test* completed [facility] Information not available 10/06/2023 14:57:04 10/06/2023 complete PFT w/ post bronchodilator spirometry* completed [facility] ([facility]) [address] [place], [address], 10/07/2023 10:50:10 12/30/2022 US, echocardiogram, transthoracic, complete completed [facility] Information not available 10/08/2023 08:20:41 11/12/2023 cardiac stress test completed [address] [facility] [address], [place], [address], 04/19/2024 17:34:13 11/18/2023 screening breast negrito, bilat completed [email or web address] [facility] (Imaging) [address] [place], [address], 12/09/2023 17:27:55 01/07/2024 DEXA, axial skeleton active INTERFACE [facility] (Imaging) [address] [place], [address], 01/07/2024 12:22:55 01/07/2024 DEXA, axial skeleton active JOSUE [facility] [address] [place], [address], 01/07/2024 12:30:19 02/22/2024 CT, chest, w/o contrast completed [facility] ([facility]) [address] [place], [address], 04/06/2024 17:20:15 07/08/2024 XR, foot, 3 or more view active [address] [place] [address], [address], 08/30/2024 17:01:21 09/26/2024 imaging/diagnostic result active [facility] [address], [place], [address], 09/26/2024 13:26:11 09/26/2024 imaging/diagnostic result active [facility] [address], [place], [address], 09/26/2024 13:32:36 Procedure Notes None recorded. Medical Equipment None Reported. Allergies Allergen ID Allergen Name Allergen Category Reaction Reaction Severity Criticality Documentation Date Start Date Code Code System Note Provider Name and Address Organization Details Recorded Time 9600 amoxicill in medicatio n Not available Not available Not available 10/08/2022 723 RxNorm Not Available [facility] 05:21:32 Medications Name Sig Start Date Stop Date Status Note LastModified by Organization Details LastModified Time cyclobenz aprine 10 mg tablet TAKE 1 TABLET BY MOUTH EVERY DAY NEEDED. NO DRIVING OR ALCOHOL OR SEDATING MEDICATI ONS 2024 active Not Available Not Available Not Avai lable amoxicill in 500 mg capsule Take 1 capsule 3 times a day by oral route for 10 days. 03/24 completed Not Available Not Available Not Available promethaz ine-DM 6.25 mg-15 mg/5 mL oral syrup TK 5ML PO Q 4 H PRF COUGH 10/27 completed Not Available Not Available Not Available prednison e 10 mg tablet Take 30 mg. x2 days, 20 mg. x2 days, 10mg. x2 days active Not Available Not Available No t Available doxycycli ne hyclate 100 mg capsule 07/30 completed Not Available Not Available Not Available paroxetin e 10 mg tablet Take 1 tablet every day by oral route. 03/23 completed pt states shes taking 20mg Not Available Not Available Not Available albuterol sulfate 2.5 mg/3 mL (0.083 %) solution for nebulizat ion USE 3 ML VIA NEBULIZE R THREE TIMES DAILY NEEDED 09/30 completed Not Available Not Available Not Available polyethyl bran glycol 3350 17 gram oral powder packet 07/05 completed Not Available Not Available Not Available Iron (ferrous sulfate) 325 mg (65 mg iron) tablet Take 1 tablet every day by oral route. 08/30 completed Not Available Not Available Not Available azithromy ahmet 250 mg tablet Take 2 tablets po on day one then po once daily for 4 days 09/08 completed Not Available Not Available Not Available ofloxacin 0.3 % eye drops active Not Available Not Available Not Available fluconazo le 150 mg tablet Take 1 tablet by oral route. 07/30 completed Not Available Not Available Not Available clarithro mycin 500 mg tablet active Not Available Not Available No t Available hydrocodo ne 5 mg-acetam inophen 325 mg tablet TAKE 1 TABLET BY MOUTH EVERY 6 HOURS NEEDED FOR ACUTE PAIN, LESS THAN 3 DAYS SUPPLY 09/08 completed Not Available Not Available Not Available phenazopy ridine 200 mg tablet TAKE 1 TABLET BY MOUTH EVERY 6-8 HOURS NEEDED 07/05 completed Not Available Not Available Not Available prednison e 20 mg tablet Take 3 tablets every day by oral route in the morning for 5 days. 01/06 completed Not Available Not Available Not Available alendrona te 70 mg tablet TK 1 T PO WEEKLY WITH A FULL GLASS OF WATER AND KEEP UPRIGHT FOR 30 MIN 07/21 completed Not Available Not Available Not Available prednison e 5 mg tablet 10/27 completed Not Available Not Available Not Available clindamyc in HCl 150 mg capsule active Not Available Not Available Not Available acetamino phen 300 mg-codein e 30 mg tablet Take 1 tablet every 4-6 hours by oral route. active Not Available Not Available No t Available amlodipin e 5 mg tablet TAKE 1 TABLET BY MOUTH EVERY DAY active Not Available Not Available No t Available ciproflox acin 500 mg tablet TK 1 T PO BID 09/08 completed Not Available Not Available Not Available triamcino lone acetonide 0.1 % topical cream BLADE EXT AA BID IN THE MORNING AND IN THE RASHAWN 07/30 completed Not Available Not Available Not Available ketorolac 0.5 % eye drops 07/30 completed Not Available Not Available Not Available cefadroxi l 500 mg capsule 07/05 completed Not Available Not Available Not Available amoxicill in 875 mg tablet active Not Available Not Available Not Available prednisol one acetate 1 % eye drops,marcus pension 07/30 completed Not Available Not Available Not Available tamsulosi n 0.4 mg capsule TAKE 1 CAPSULE BY MOUTH EVERY NIGHT active Not Available Not Available No t Available phenazopy ridine 100 mg tablet TAKE 1 TABLET BY MOUTH THREE TIMES A DAY NEEDED FOR URINARY PAIN 07/05 completed Not Available Not Available Not Available amlodipin e 10 mg tablet TAKE 1 TABLET BY MOUTH EVERY DAY 07/24 completed Not Available Not Available Not Available benzonata te 100 mg capsule TK 1 C PO TID FOR 7 DAYS PRN 10/27 completed Not Available Not Available Not Available glipizide ER 2.5 mg tablet, extended release 24 hr TAKE 1 TABLET BY MOUTH EVERY DAY 01/30 completed Not Available Not Available Not Available hydrocodo ne 7.5 mg-acetam inophen 325 mg tablet 03/24 completed Not Available Not Available Not Available cephalexi n 500 mg capsule TAKE 1 CAPSULE BY MOUTH TWICE DAILY 07/05 completed Not Available Not Available Not Available paroxetin e 20 mg tablet TAKE 1 TABLET BY MOUTH DAILY( NO ALCOHOL, DRIVING, OR WITH ANY OTHER SEDATING MEDICATI ONS, NOTIFY IF ANY CHANGE IN MOOD OR BEHAVIOR ) 2024 active Not Available Not Available Not Avai lable nitrofura ntoin macrocrys jordon 100 mg capsule TAKE 1 CAPSULE BY MOUTH EVERY 12 HOURS 07/05 completed Not Available Not Available Not Available ranitidin e 150 mg tablet active Not Available Not Available Not Available hyoscyami ne 0.125 mg sublingua l tablet PLEASE SEE ATTACHED FOR DETAILED DIRECTIO NS active Not Available Not Available No t Available nystatin- triamcino lone 100,000 unit/g-0. 1 % topical cream APPLY TO THE AFFECTED AREA(S) BY TOPICAL ROUTE 2 TIMES PER DAY IN THE MORNING AND EVENING 11/14 completed Not Available Not Available Not Available omeprazol e 20 mg capsule,d elayed release active Not Available Not Available Not Available monteluka st 10 mg tablet TAKE 1 TABLET BY MOUTH DAILY 12/28 completed Not Available Not Available Not Available hydroxyzi ne HCl 25 mg tablet Take 1 tablet every day by oral route as needed for 15 days. active Not Available Not Available No t Available ergocalci ferol (vitamin D2) 1,250 mcg (50,000 unit) capsule Take 1 capsule every week by oral route for 60 days. 11/14 completed Not Available Not Available Not Available Aspir-81 mg tablet,de layed release Take 1 tablet every day by oral route for 90 days. 03/[address] Santos stopped this Not Available Not Available Not Available diazepam 10 mg tablet 06/02 completed Not Available Not Available Not Available levofloxa ahmet 500 mg tablet TAKE 1 TABLET BY MOUTH DAILY FOR 5 DAYS 07/05 completed Not Available Not Available Not Available levofloxa ahmet 750 mg tablet TK 1 T PO QD 08/11 completed Not Available Not Available Not Available methylpre dnisolone 4 mg tablets in a dose pack Take 1 dose pk by oral route as directed . 09/08 completed Not Available Not Available Not Available hydrocodo ne 10 mg-chlorp heniramin e 8 mg/5 mL oral susp extend.re l 12hr TK 5 ML PO Q 12 H active Not Available Not Available No t Available albuterol sulfate HFA 90 mcg/actua tion aerosol inhaler INHALE 1 PUFF BY MOUTH EVERY 4 HOURS NEEDED active Not Available Not Available No t Available cefdinir 300 mg capsule active Not Available Not Available Not Available fluticaso ne propionat e 50 mcg/actua tion nasal spray,marcus pension SHAKE LIQUID AND USE 1 SPRAY IN EACH NOSTRIL EVERY DAY active Not Available Not Available No t Available clotrimaz ole 1 % topical cream BLADE AA BID. 07/30 completed Not Available Not Available Not Available doxycycli ne hyclate 100 mg tablet Take 1 tablet twice a day by oral route as directed for 7 days. 01/06 completed Not Available Not Available Not Available glipizide 5 mg tablet TAKE 1 TABLET BY MOUTH EVERY DAY 03/27 completed Not Available Not Available Not Available diazepam 5 mg tablet 03/24 completed Not Available Not Available Not Available amoxicill in 875 mg-potass ium clavulana te 125 mg tablet TAKE 1 TABLET BY MOUTH TWICE DAILY 09/25 completed Not Available Not Available Not Available olmesarta n 20 mg tablet TAKE 1 TABLET BY MOUTH EVERY NIGHT active Not Available Not Available No t Available olmesarta n 40 mg tablet TAKE 1 TABLET BY MOUTH EVERY DAY 07/05 completed Not Available Not Available Not Available rosuvasta tin 10 mg tablet TAKE 1 TABLET BY MOUTH EVERY DAY active Not Available Not Available No t Available rosuvasta tin 20 mg tablet TAKE 1 TABLET BY MOUTH EVERY DAY 02/28 completed Increase in dose Not Available Not Available Not Available rosuvasta tin 40 mg tablet TAKE 1 TABLET BY MOUTH EVERY DAY 09/30 completed Not Available Not Available Not Available tizanidin e 4 mg capsule Take 1 capsule every day by oral route in the evening for 20 days. active Not Available Not Available No t Available chlorhexi dine gluconate 0.12 % mouthwash 03/24 completed Not Available Not Available Not Available calcium 1 Tablet daily 08/30 completed Not Available Not Available Not Available iron 08/17 completed Not Available Not Available Not Available Centrum Silver Take one tab daily 09/25 completed Not Available Not Available Not Available multivita min active Not Available Not Available Not Available Vitamin B12 active Not Available Not Available Not Available Benicar 09/25 completed Not Available Not Available Not Available Calcium 600 with Vitamin D3 active Not Available Not Available Not Available Mucinex 1,200 mg tablet, extended release Take 1 tablet twice a day by oral route as directed for 30 days. 01/30 completed Not Available Not Available Not Available Sena 10 mg-40 mg tablet active Not Available Not Available Not Available Bystolic 10 mg tablet active Not Available Not Available Not Available Prevnar 13 (PF) 0.5 mL intramusc ular syringe active Not Available Not Available Not Available B12 09/25 completed Not Available Not Available Not Available Prolia 60 mg/mL subcutane ous syringe Inject 1 mL by subcutan eous route. 07/07 completed Not Available Not Available Not Available Probiotic active Not Available Not Davida ilable Not Available Vascepa 1 gram capsule Take 2 capsules twice a day by oral route for 90 days. 02/28 completed Not Available Not Available Not Available Fluzone High-Dose 2014-15 (PF) 180 mcg/0.5 mL intramusc ular syringe INJECT 0.5 ML INTRAMUS CULARLY DIRECTED . active Not Available Not Available No t Available Jardiance 10 mg tablet TAKE 1 TABLET BY MOUTH EVERY MORNING 01/30 completed Not Available Not Available Not Available Jardiance 25 mg tablet TAKE 1 TABLET BY MOUTH 1 TIME EACH DAY IN THE MORNING active Not Available Not Available No t Available Spiriva Respimat 2.5 mcg/actua tion solution for inhalatio n INHALE 2 PUFFS BY MOUTH EVERY DAY DIRECTED active Not Available Not Available No t Available Stiolto Respimat 2.5 mcg-2.5 mcg/actua tion solution for inhalatio n Inhale 2 puffs every day by inhalati on route as directed for 30 days. 01/06 completed Not Available Not Available Not Available Fluzone High-Dose 2014- (PF) 180 mcg/0.5 mL intramusc ular syringe active Not Available Not Available Not Available Fluzone High-Dose 3028-7744 (PF) 180 mcg/0.5 mL intramusc ular syringe ADM 0.5ML IM UTD active Not Available Not Available No t Available Fluzone High-Dose [id number] (PF) 180 mcg/0.5 mL intramusc ular syringe ADM 0.5ML IM UTD 06/02 completed Not Available Not Available Not Available Fluzone High-Dose [id number] (PF) 180 mcg/0.5 mL intramusc ular syringe ADM 0.5ML IM UTD 06/13 completed Not Available Not Available Not Available Fluzone High-Dose (PF) 180 mcg/0.5 mL intramusc ular syringe ADM 0.5ML IM UTD 07/30 completed Not Available Not Available Not Available Fluad Quad [id number] (65yr up)(PF) 60 mcg (15 mcg x 4)/0.5mL IM syringe ADMINIST ER 0.5ML IN THE MUSCLE DIRECTED 07/30 completed Not Available Not Available Not Available Paxlovid 150 mg-100 mg tablets in a dose pack (Renal Dose) Take 1 dose pk by oral route as directed . 01/06 completed Not Available Not Available Not Available Vitals Date Recorded Body height Body mass index (BMI) Body weight Body temperature Heart rate Systolic blood pressure Diastolic blood pressure Provider Name and Address Organization Details Last Updated DateTime 4 154.94 cm 20.3 kg/m2 19559.1 g 97.4 [degF] 86 /min 148 mm[Hg] 58 mm[Hg] Rosalina Scruggs MA [facility] 4 10:05:45 Date Recorded Oxygen saturation Oxygen saturation in Arterial blood by Pulse oximetry Heart rate Respiratory rate Provider Name and Address Organization Details Last Updated DateTime 10/06/2023 93 % 93 % 86 /min 14 /min Rebecca Fried MD [address] [facility], [address], [place], [address], [facility] 4 10:30:26 Date Recorded Body height Body mass index (BMI) Body weight Body temperature Heart rate Oxygen saturation Oxygen saturation in Arterial blood by Pulse oximetry Provider Name and Address Organization Details Last Updated DateTime 4 154.94 cm 18.7 kg/m2 40683.6 4 g 98.1 [degF] 101 /min 91 % 91 % Rosalina Scruggs MA [facility] 4 09:47:57 Date Recorded Body height Body mass index (BMI) Body weight Body temperature Heart rate Oxygen saturation Oxygen saturation in Arterial blood by Pulse oximetry Systolic blood pressure Diastolic blood pressure Provider Name and Address Organization Details Last Updated DateTime 4 154.94 cm 18.2 kg/m2 67030.3 g 98.1 [degF] 84 /min 91 % 91 % 144 mm[Hg] 70 mm[Hg] Blayne Freire CMA [facility] 4 14:09:40 Date Recorded Heart rate Respiratory rate Provider N benedicto and Address Organization Details Last Updated DateTime 03/21/2024 84 /min 15 /min Rebecca Fried MD [address] [facility], [facility] [address], [place], [address], [facility] 03/21/2024 14:14:33 Date Recorded Body height Body mass index (BMI) Body weight Body temperature Heart rate Systolic blood pressure Diastolic blood pressure Provider Name and Address Organization Details Last Updated DateTime 4 154.94 cm 16.9 kg/m2 32180.5 2 g 97.5 [degF] 84 /min 120 mm[Hg] 64 mm[Hg] ALFREDITO Parry [facility] 4 17:26:19 Date Recorded Body height Body mass index (BMI) Body weight Body temperature Heart rate Systolic blood pressure Diastolic blood pressure Provider Name and Address Organization Details Last Updated DateTime 5 154.94 cm 16.8 kg/m2 01276.7 2 g 97.1 [degF] 84 /min 126 mm[Hg] 66 mm[Hg] ALFREDITO Parry [facility] 5 10:40:59 Social History Question Answer Notes LastModified by Organization Details LastModified Time Tobacco Smoking Status Former Smoker quit 2017 Not Available [facility] 10/08/2022 05:08:51 Do You Have An Advance Directive? No Patient Declined Information [id number] Information not available 10/08/2022 What Is Your Level Of Alcohol Consumption? Occasional Information not available 12/16/2022 Are You Blind Or Do You Have Difficulty Seeing? No [id number] Information not available 10/08/2022 What Is Your Level Of Caffeine Consumption? Heavy MIGRATION.379 [id number] Information not available 10/08/2022 How Much Tobacco Do You Chew? None [id number].489 [id number] Information not available 10/08/2022 In The 14 Days Before Symptom Onset, Have You Had Close Contact With A Laboratory-conf irmed COVID-19 While That Case Was Ill? No [id number].027 [id number] Information not available 10/08/2022 In The 14 Days Before Symptom Onset, Have You Had Close Contact With A Person Who Is Under Investigation For COVID-19 While That Person Was Ill? No MIGRATION.[id number] Information not available 10/08/2022 Are You Deaf Or Do You Have Serious Difficulty Hearing? No MIGRATION.090 [id number] Information not available 10/08/2022 What Type Of Diet Are You Following? REGULAR [id number].558 [id number] Information not available 10/08/2022 Which Illicit Or Recreational Drugs Have You Used? None [id number].089 [id number] Information not available 10/08/2022 Do You Or Have You Ever Used E-cigarettes Or Vape? Never Used Electronic Cigarettes MIGRATION.927 [id number] Information not available 10/08/2022 What Is The Highest Grade Or Level Of School You Have Completed Or The Highest Degree You Have Received? [id number] MIGRATION.290 [id number] Information not available 10/08/2022 What Is Your Occupation? Retired MIGRATION.443 [id number] Information not available 10/08/2022 Have There Been Any Changes To Your Family Or Social Situation? No MIGRATION.881 [id number] Information not available 10/08/2022 What Is The Fluoride Status Of Your Home? Unknown MIGRATION.261 [id number] Information not available 10/08/2022 When Did You Quit Smoking? 1-5yearssincelastc igarette MIGRATION.036 [id number] Information not available 10/08/2022 Are There Any Guns Present In Your Home? No MIGRATION.780 [id number] Information not available 10/08/2022 Do You Use Insect Repellent Routinely? Yes MIGRATION.674 [id number] Information not available 10/08/2022 Where Do You Live? SingleLevelHouse Information not available 01/06/2023 Presence Of Domestic Violence No Information not available 01/06/2023 Guns Present In The Home? No Information not available 01/06/2023 Are You Able To Care For Yourself? Yes Information not available 01/06/2023 Are You Blind Or Do Yo Have Difficulty Seeing? No Information not available 01/06/2023 Are You Deaf Or Do You Have Serious Difficulty Hearing? No Information not available 01/06/2023 General Stress Level? High Information not available 01/06/2023 Live Alone Of With Others? With Others Information not available 01/06/2023 Do You Have A Medical Power Of Stress Analyst? No MIGRATION.362 [id number] Information not available 10/08/2022 What Was The Date Of Your Most Recent Tobacco Screening? 09/08/2024 [email or web address] Information not available 09/08/2024 How Many Children Do You Have? 1 [email or web address] Information not available 12/29/2023 What Is Your Current Pack Years? [email or web address] Information not available 08/30/2024 Have You Ever Been Counseled For Unhealthy Alcohol Use? No Information not available 12/16/2022 Do You Have Any Pets? Yes MIGRATION.401 [id number] Information not available 10/08/2022 What Is Your Relationship Status? MIGRATION.800 [id number] Information not available 10/08/2022 Do You Use Your Seat Belt Or Car Seat Routinely? Yes MIGRATION.359 [id number] Information not available 10/08/2022 Do You Have Smoke And Carbon Monoxide Detectors In Your Home? Yes MIGRATION.558 [id number] Information not available 10/08/2022 At What Age Did You Start Smoking Tobacco? 18 MIGRATION.331 [id number] Information not available 10/08/2022 Are You Passively Exposed To Smoke? Yes MIGRATION.805 [id number] Information not available 10/08/2022 Do You Or Have You Ever Used Smokeless Tobacco? Never Used Smokeless Tobacco MIGRATION.924 [id number] Information not available 10/08/2022 Are There Any Smokers In Your House? Yes MIGRATION.117 [id number] Information not available 10/08/2022 How Much Tobacco Do You Smoke? No Was 1ppd MIGRATION.579 [id number] Information not available 10/08/2022 What Types Of Sporting Activities Do You Participate In? None MIGRATION.771 [id number] Information not available 10/08/2022 Do You Feel Stressed (tense, Restless, Nervous, Or Anxious, Or Unable To Sleep At Night)? [id number] MIGRATION.265 [id number] Information not available 10/08/2022 Do You Use Any Illicit Or Recreational Drugs? No MIGRATION.570 [id number] Information not available 10/08/2022 Do You Use Sunscreen Routinely? Yes MIGRATION.827 [id number] Information not available 10/08/2022 Has Tobacco Cessation Counseling Been Provided? No Information not available 12/16/2022 How Many Years Have You Smoked Tobacco? 53 [email or web address] Information not available 08/30/2024 Have You Recently Traveled Abroad? No MIGRATION.755 [id number] Information not available 10/08/2022 Do You Have Any Dietary Restrictions? No MIGRATION.189 [id number] Information not available 10/08/2022 Do You Or Have You Ever Used Any Other Forms Of Tobacco Or Nicotine? No MIGRATION.104 [id number] Information not available 10/08/2022 Sex: Female Functional Status Question Answer Note LastModified by Organizat ion Details LastModified Time Do you have difficulty walking or climbing stairs? No [id number] Information not available 10/08/2022 Do you have transportation difficulties? No MIGRATION.[id number] 026 Information not available 10/08/2022 Are you able to walk? YESWOREST MIGRATION.[id number] [id number] Information not available 10/08/2022 Do you have difficulty doing errands alone? No MIGRATION.[id number] 026 Information not available 10/08/2022 Are you able to care for yourself? Yes MIGRATION.[id number] 026 Information not available 10/08/2022 Do you have difficulty dressing or bathing? No MIGRATION.[id number] 026 Information not available 10/08/2022 What is your exercise level? Moderate MIGRATION.[id number] 026 Information not available 10/08/2022 Mental Status Question Answer Note LastModified by Organizat ion Details LastModified Time Do you have difficulty concentrating, remembering or making decisions? No MIGRATION.[id number] Information not available 10/08/2022 Family History Relationship Description Onset Age of this Age Resolved Age Notes LastModified by Organization Details LastModified Time Sister Malignant tumor of breast MIGRATION.503 [id number] Not available 10/08/2022 05:09:54 Mother Malignant tumor of ovary MIGRATION.696 [id number] Not available 10/08/2022 05:09:54 Father Malignant tumor of pharynx MIGRATION.040 [id number] Not available 10/08/2022 05:09:54 Brother Carcinoma in situ of liver MIGRATION.177 [id number] Not available 10/08/2022 05:09:54 Maternal Grandmother Carcinoma in situ of kidney MIGRATION.820 [id number] Not available 10/08/2022 05:09:54 Maternal Grandfather Carcinoma in situ of colon MIGRATION.016 [id number] Not available 10/08/2022 05:09:54 Maternal Grandmother Diabetes mellitus Not available 2023 13:05:01 Father Arthritis Not available 12/16/2022 13:54:59 Father Heart disease Not available 2022 13:55:20 Mother Hypertensive disorder Not available 2022 13:55:10 Mother Cerebrovascu lar accident Not available 13:05:13 Maternal Uncle Malignant tumor of larynx Not available 2023 13:04:49 Medical History Condition Response NERVE DISEASE N BLINDNESS N RHEUMATIC FEVER N KIDNEY STONES N BLADDER PROBLEMS N MRSA N OTHER # 1 N POLIO N LUNG DISEASE/DISORDER Y HISTORY OF DRUG ABUSE N RADIATION / CHEMOTHERAPY N COPD Y Other # 2 N BLOOD DISEASES N EAR OR HEARING PROBLEMS N MUMPS N SHINGLES N BOWEL PROBLEMS N DEPRESSION (INCLUDING POST ) Y STROKE/TIA N ULCERS N BENIGN PROSTATIC HYPERPLASIA N MEASLES N HYPOTENSION N MYOCARDIAL INFARCTION N OBESITY N GERD/NAUSEA N ANEURYSM N URINARY/BLADDER/KIDNEY PROBLEMS Y CORONARY ARTERY DISEASE (CAD) N ADDICTION CONCERNS N Impotence N ENDOMETRIOSIS N USE OF BLOOD THINNERS N SKIN PROBLEMS N GASTROINTESTINAL DISORDER Y PERIPHERAL VASCULAR DISEASE N MUSCLE,JOINT OR BONE PROBLEMS N GASTROINTESTINAL BLEEDING N BLOOD CLOTS N ASTHMA N CATARACTS N ERECTILE DYSFUNCTION N VARICOSITIES N GI PROBLEMS N Low Testosterone N INFERTILITY N AIDS/HIV N CHEMOTHERAPY / RADIATION N LIVER DISEASE N MALE HYPOGONADISM N HYPERTENSION Y Deficiency N TOURETTE'S N ANXIETY DISORDER N BLOOD TRANSFUSION N ANEMIA/BLOOD DISORDER Y CHRONIC EAR INFECTIONS N BRONCHITIS N TUBERCULOSIS N GLAUCOMA N FOOT PROBLEM N DIVERTICULITIS N SLEEP APNEA N CHICKENPOX N INFECTIOUS DISEASE N PROSTATE N HEART ARRHYTHMIA N INSOMNIA N HIGH CHOLESTEROL / HYPERLIPIDEMIA Y EYE PROBLEMS N HYPERTHYROIDISM N EDEMA N CHRONIC PAIN SYNDROME N HYPOTHYROIDISM N CONSTIPATION N CAROTID BLOCKAGE N BACK / NECK PROBLEMS Y HAVE YOU BEEN HOSPITALIZED OR SEEN IN [facility] IN THE PAST YEAR ? N ATHEROSCLEROSIS N BREAST PROBLEMS N DIALYSIS N ECZEMA N OSTEOPOROSIS N ARTHRITIS N NO SIGNIFICANT PAST MEDICAL HISTORY N APPENDICITIS N DIABETES, TYPE Y BAD TEETH N ENT N HEARTBURN / REFLUX N AUTISM SPECTRUM DISORDER (ASD) N HEPATITIS / LIVER DISEASE N GOUT N SLEEP DISORDER N ALZHEIMER'S DISEASE N Brain Problems N DEMENTIA N HERPES N SEIZURES/EPILEPSY N HEADACHES/MIGRAINES N VASCULAR DISEASE N PACEMAKER N Blood Disorder N DIZZINESS N HEART DISEASE/HEART PROBLEMS N KIDNEY DISEASE Y MULTIPLE SCLEROSIS N CANCER: SPECIFY N CARDIAC ARRHYTHMIA N ATRIAL FIBRILLATION N Gall Stones N PULMONARY EMBOLISM N AUTOIMMUNE DISEASE N Gynecological History Statement/Question Response How many live births 1 Abnormal Pap N Date of Last Mammogram 06/27/2020 Date of Last Mammogram Date of Last Colonoscopy 07/17/2017 Most Recent Bone Density 06/27/2019 Date of LMP Sexually Active? Y Menses Monthly N Date of Last Pap Current Control Method Hysterectom y Obstetrics History GPAL:G 2 P 2 0 0 2 Type Value Multiple Births 0 Full Term 2 Induced 0 Spontaneous 0 Premature 0 Living 2 Ectopics 0 Total 2 Immunizations Vaccine Type Date Status Note Provider Nam e and Address Organization Details Recorded Time COVID-19, mRNA, LNP-S, PF, 100 mcg/0.5mL dose or 50 mcg/0.25mL dose 1 completed Not Available [facility] 09/30/2023 13:30:18 COVID-19, mRNA, LNP-S, bivalent, PF, 50 mcg/0.5 mL or 25mcg/0.25 mL dose 2 completed Not Available [facility] 09/30/2023 13:30:18 Influenza, high-dose, quadrivalent, PF 2 completed Not Available [facility] 09/30/2023 13:30:18 Influenza, split virus, trivalent, preservative 0 completed Not Available [facility] 09/30/2023 13:30:18 Influenza, high-dose, trivalent, PF 9 completed Not Available [facility] 09/30/2023 13:30:18 COVID-19, mRNA, LNP-S, PF, 100 mcg/0.5mL dose or 50 mcg/0.25mL dose 1 completed Not Available [facility] 09/30/2023 13:30:18 COVID-19, mRNA, LNP-S, PF, 100 mcg/0.5mL dose or 50 mcg/0.25mL dose 1 completed Not Available [facility] 09/30/2023 13:30:18 Influenza, high-dose, quadrivalent, PF 0 completed Not Available [facility] 09/30/2023 13:30:18 Influenza, split virus, quadrivalent, preservative 8 completed Not Available [facility] 09/30/2023 13:30:18 pneumococcal conjugate PCV 7 7 completed Not Available [facility] 09/30/2023 13:30:18 influenza, unspecified formulation 7 completed Not Available [facility] 09/30/2023 13:30:18 Tdap 7 completed Not Available [facility] 09/30/2023 13:30:18 pneumococcal polysaccharide PPV23 3 completed Not Available [facility] 09/30/2023 13:30:18 Past Encounters Encounter ID Performer Location Encounter Start Date Encounter Closed Date Diagnosis/Indication Diagnosis SNOMED-CT Code Diagnosis ICD10 Code Diagnosis Note [id number] [facility] [place] [address] [place] [address] 12/31/2020 00:00:00 12/31/2020 12:43:00 [id number] [facility] [address] [facility] 15 [place] [address] 02/28/2021 00:00:00 02/28/2021 14:13:02 [id number] _ATHENA_M IGRATION_ DEFAULT_1 _1 , 04/26/2021 00:00:00 04/28/2021 20:51:15 [id number] [facility] [place] [address] [place] [address] 06/24/2021 00:00:00 06/24/2021 11:04:04 [id number] [facility] [place] [address] [place] [address] 08/06/2021 00:00:00 08/06/2021 16:04:59 [id number] [facility] [address] [facility] [address] [place] [address] 09/03/2021 00:00:00 09/03/2021 14:38:59 [id number] [facility] [address] [facility] 15 [place] [address] 01/30/2022 00:00:00 01/30/2022 14:22:13 [id number] [facility] [address] [place] [address] Ave[address] [address] 07/24/2022 00:00:00 07/24/2022 14:44:34 [id number] [facility] [place] [address] [place] [address] 08/06/2022 00:00:00 08/06/2022 13:18:30 [id number] Xavier Liang DPM [facility] [address], [address] [place] [address] 12/16/2022 13:54:34 12/16/2022 14:44:19 Tendinitis of foot 917051186 M77.51 x-rays of the foot and ankle reviewed negative for acute injuryreco mmend Voltaren gel over-the-c ounterrice therapyrec ommend returning to [facility] for 3 weeksfollo w-up in 3 weeks if continues to be problemati c will obtain ultrasound Ankle pain 283448325 M25 .579 right lateralalo ng peroneal tendonsas above [id number] Jacquelyn harry MD [facility] [address] [facility], [facility] 15 [place] [address] 01/06/2023 11:23:04 01/06/2023 12:19:46 Screening - NAD 703524660 Z13.9 C-scope: Dr Aranda 07/17/17, next in 10 years Mammogram: 06/16/17, negMammogr am: 06/21/18: Neg 9: Neg 020: Neg 022: Neg 023: Neg PAP: S/p hystrectom y DEXA: 06/16/17: OP, now on fosamax, but this made her sick and so she stopped this, OK since has some CKD, can do calcium and vit DDEXA 06/27/19: Osteopenia ca and vit dDEXA: 09/17/2021 : Osteoporos is, should do prolia UTD on yearly flu shot as per her historyUTD on PCV #13 and #23UTD Tdap 06/02/17UT D on shingrix 08/18/2020 first shotUTD on COVID 19 vaccine RTC in 6 months as per her wishesdo Esmer if worseshe did verbalize her understand ing of the above Hyperlipidemia 76415160 E78.5 On rosuvastat in 40mg dailyNot taking vascepaGet labs Chronic ki dney disease 919743702 N18.[address] Santos, last OV 02/25/2022 Gastritis 4096287 K29.70 EGD: Francisco Espan[place] and may need UGI if sx persistShe feels that she has not taken the PPI and is doing well S/p EGD 12/21/18: Dr Vyas, neg for H pylori Does wellNo sxNot on PPI Anemia 461649461 D64.9 On ironget labsH/H is stable Essential hypertension 31953161 I10 On ASAOn olmesartan 40mg dailyOn amlodipine 10mg dailyGet labs Low back pain 697162429 M54.50 Very rare use of the flexerill, renewed 01/06/2023 Does well Chronic ob structive pulmonary disease 04467953 J44.9 PFTs 06/18/17: COPDSees 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 02/04/2023 On proairOff spirivaOn stioltoOn HHNsOn singulair 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 176627753 E11.9 On jardianceO n olmesartan Does wellGet labs Dr Liang 01/06/2023 Ex-smoker 8177190 Z87.89 1 QuitCT chest 10/23/16: COPD LDCT 12/09/18: NEg, esophageal prominence , refer to [facility] 01/23/2020 : Next in one yearLDCT 01/09/2021 : Next in one yearLDCT 09/17/2021 : CAD, next in one yearLDCT 10/06/2022 : CAD, next in one year Coronary arteriosclerosis 40405093 I25.10 Seen on the LDCT [facility] Dr Tran 08/30/2020 : Is to get stress test, ECHO and US of the legse states that Dr Tran has told her that her heart is doing well Transient cerebral ischemia 150118860 G45.9 Does wellDoes see [facility] Osteoporosis 19084988 M8 1.0 On proliaGet CMP in 2 weeks after prolia, advised to use calcium and vit d also Chronic depression 81754 0009 F32.A On paroxetine 20mg dailydoes well on this, not suicidal or homicidal, declined psychiatry referral at this time COVID-19 281637643 U07.1 +ve 11/10/2022 Adult heal th examination 874172532 Z00.00 Screening for disorder 367292632 Z13.9 [id number] Xavier Liang DPM [facility] [address], [address] [place] [address] 01/06/2023 14:10:56 01/06/2023 14:55:19 Ankle pain 163411043 M25.579 right lateralalo ng peroneal tendonsImp roved Tendinitis of foot 76756 2007 M77.51 continue Voltaren gelRice therapyCon tinue stretching exercisesF ollow-up as needed [id number] Jacquelyn harry MD [facility] [address] [facility], [address] [place] [address] 07/07/2023 09:21:56 07/07/2023 10:01:36 Screening - NAD 836987959 Z13.9 C-scope: Dr Aranda 07/17/17, next in 10 years Mammogram: 06/16/17, negMammogr am: 06/21/18: Neg 9: Neg 020: Neg 022: Neg 023: Neg PAP: S/p hystrectom y DEXA: 06/16/17: OP, now on fosamax, but this made her sick and so she stopped this, OK since has some CKD, can do calcium and vit DDEXA 06/27/19: Osteopenia ca and vit dDEXA: 09/17/2021 : Osteoporos is, should do prolia UTD on yearly flu shot as per her historyUTD on PCV #13 and #23UTD Tdap 06/02/17UT D on shingrix 08/18/2020 first shotUTD on COVID 19 vaccineCan do RSV vaccine RTC in 6 months as per her wishesdo Esmer if worseshe did verbalize her understand ing of the above Hyperlipidemia 21419394 E78.5 On rosuvastat in 40mg dailyNot taking vascepaGet labs Chronic ki dney disease 158115894 N18.[address] Santos Gastritis 7933854 K29.70 EGD: Francisco [place] and may need UGI if sx persistShe feels that she has not taken the PPI and is doing well S/p EGD 12/21/18: Dr Nyazee, neg for H pylori Does wellNo sxNot on PPI Anemia 275491319 D64.9 On ironget labsH/H is stable Essential hypertension 58528212 I10 On ASAOn olmesartan 40mg dailyOn amlodipine 10mg dailyGet labs Low back pain 601337488 M54.50 Very rare use of the flexerill, OK to renewDoes well Chronic ob structive pulmonary disease 22610317 J44.9 PFTs 06/18/17: COPDSeen Rebekah 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 On proairOn spirivaOff stiolto, was not taking this as is on SpirivaOn HHNsOn singulair 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 730034751 E11.9 On jardianceO n olmesartan Does wellGet labs Dr Liang 01/06/2023 Ex-smoker 5028387 Z87.89 1 QuitCT chest 10/23/16: COPD LDCT 12/09/18: NEg, esophageal prominence , refer to [facility] 01/23/2020 : Next in one yearLDCT 01/09/2021 : Next in one yearLDCT 09/17/2021 : CAD, next in one yearLDCT 10/06/2022 : CAD, next in one year Coronary arteriosclerosis 55859583 I25.10 Seen on the LDCT [facility] Dr Tran 08/30/2020 : Is to get stress test, ECHO and US of the legsShe states that Dr Tran has told her that her heart is doing well Transient cerebral ischemia 955796780 G45.9 Does wellDoes see [facility] Osteoporosis 43564656 M8 1.0 On prolia, but too expensive so not taking this, will get a DEXA and may need to be on fosamax Chronic depression 48380 0009 F32.A On paroxetine 20mg dailyDoes well on this, not suicidal or homicidal, declined psychiatry referral at this time COVID-19 921245639 U07.1 +ve 11/10/2022 Screening mammography 24 157705 Z12.31 Leukocytosis 824488919 D 72.829 Repeat the CBC Increased liver function 76674993 R94.5 Get labs, US liver Screening for osteoporosis 399076876 Z13.123 [id number] Rebecca Fried MD [facility] [address] [address] 09/30/2023 11:27:15 10/01/2023 08:40:07 Dyspnea on exertion 81328844 R06.09 R05.3 T78.40XA D89.9 Ex-smoker 0501202 Z87.89 1 F17.218 F17.219 Moderate c hronic obstructive pulmonary disease 500353929 J44.9 [id number] Rebecca Fried MD [facility] [address] [address] 10/06/2023 09:33:33 10/08/2023 11:21:04 Moderate chronic obstructive pulmonary disease 280451271 J44.9 Solitary n odule of lung 370641269 R91.1 Exposure t o tuberculosis 1090813081 101 Z20.1 [id number] Jacquelyn harry MD [facility] Internal Med [address] [address] 12/29/2023 09:30:51 12/29/2023 10:29:24 Screening - NAD 247458814 Z13.9 C-scope: Dr Aranda 07/17/17, next in 10 years Mammogram: 06/16/17, negMammogr am: 06/21/18: Neg 9: Neg 020: Neg 022: Neg 023: Neg 024: Neg PAP: S/p hystrectom y DEXA: 06/16/17: OP, now on fosamax, but this made her sick and so she stopped this, OK since has some CKD, can do calcium and vit DDEXA 06/27/19: Osteopenia ca and vit dDEXA: 09/17/2021 : Osteoporos is, should do prolia UTD on yearly flu shot as per her historyUTD on PCV #13 and #23UTD Tdap 06/02/17UT D on shingrix 08/18/2020 first shotUTD on COVID 19 vaccineCan do RSV vaccine RTC in 6 months as per her wishesdo labsER if worseshe did verbalize her understand ing of the above Hyperlipidemia 39299629 E78.5 Not taking rosuvastat in 40mg dailyNot taking vascepaGet labs Chronic ki dney disease 980546413 N18.[address] Santos Gastritis 9601818 K29.70 EGD: Francisco [place] and may need UGI if sx persistShe feels that she has not taken the PPI and is doing well S/p EGD 12/21/18: Dr Vyas, neg for H pylori Does wellNo sxNot on PPI Anemia 643533166 D64.9 On ironget labsH/H is stable Essential hypertension 51070820 I10 On ASAOn olmesartan 40mg dailyOn amlodipine 10mg dailyGet labs Low back pain 778435285 M54.50 Very rare use of the flexerill, OK to renewDoes well Chronic ob structive pulmonary disease 31042012 J44.9 PFTs 06/18/17: COPDSeen Rebekah 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 On proairOn spirivaOff stiolto, was not taking this as is on SpirivaOn HHNsOn singulair 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 650285916 E11.9 On jardianceO n olmesartan Does wellGet labs Dr Liang 01/06/2023 Ex-smoker 7233971 Z87.89 1 QuitCT chest 10/23/16: COPD LDCT 12/09/18: NEg, esophageal prominence , refer to [facility] 01/23/2020 : Next in one yearLDCT 01/09/2021 : Next in one yearLDCT 09/17/2021 : CAD, next in one yearLDCT 10/06/2022 : CAD, next in one yearLDCT 10/06/2023 : Next in 6 months Coronary arteriosclerosis 25395827 I25.10 Seen on the LDCT [facility] Dr Tran 08/30/2020 : Is to get stress test, ECHO and US of the legse states that Dr Tran has told her that her heart is doing well Stress test 11/12/2023 : [facility], s/p CC done as per her history, done on 12/23/2023 , no stent Transient cerebral ischemia 199417492 G45.9 Does wellDoes see [facility] Osteoporosis 72838316 M8 1.0 On prolia, but too expensive so not taking this, will get a DEXA and may need to be on fosamax Chronic depression 42723 0009 F32.A On paroxetine 20mg dailyDoes well on this, not suicidal or homicidal, declined psychiatry referral at this time COVID-19 832213637 U07.1 +ve 11/10/2022 Leukocytosis 332880142 D 72.829 Repeat the CBC Increased liver function 15578651 R94.5 Get labs, liver Screening for osteoporosis 959214237 Z13.390 [id number] Rebecca Fried MD [facility] [address] 03/21/2024 13:57:35 03/22/2024 08:01:37 Moderate chronic obstructive pulmonary disease 641586013 J44.9 Solitary n odule of lung 850022410 R91.1 Exposure t o tuberculosis 7968340533 101 Z20.1 [id number] Jacquelyn harry MD [facility] Internal Med [facility] [address] [place], [place] [address] 07/05/2024 16:43:22 07/05/2024 18:22:25 Adult health examination 373125874 Z00.00 Screening for disorder 134577147 Z13.9 Screening - NAD 90018485 3 Z13.9 C-scope: Dr Aranda 07/17/17, next in 10 years Mammogram: 06/16/17, negMammogr am: 06/21/18: Neg 9: Neg 020: Neg 022: Neg 023: Neg 024: Neg PAP: S/p hystrectom y DEXA: 06/16/17: OP, now on fosamax, but this made her sick and so she stopped this, OK since has some CKD, can do calcium and vit DDEXA 06/27/19: Osteopenia ca and vit dDEXA: 09/17/2021 : Osteoporos is, should do prolia UTD on yearly flu shot as per her historyUTD on PCV #13 and #23UTD Tdap 06/02/17UT D on shingrix 08/18/2020 first shotUTD on COVID 19 vaccineCan do RSV vaccine RTC in 2 monthsdo Esmer fontana and her did verbalize her understand ing of the above Hyperlipidemia 65454119 E78.5 Not taking rosuvastat in 40mg dailyNot taking vascepaGet labs Chronic ki dney disease 241028192 N18.[address] Santos Gastritis 1652876 K29.70 EGD: Francisco [place] and may need UGI if sx persistShe feels that she has not taken the PPI and is doing well S/p EGD 12/21/18: Dr Vyas, neg for H pylori Does wellNo sxNot on PPI Anemia 340802649 D64.9 On ironget labsH/H is stable Essential hypertension 42344657 I10 On ASAOn olmesartan 40mg dailyOn amlodipine 10mg dailyGet labs Low back pain 104995554 M54.50 Very rare use of the flexerill, OK to renew 07/05/2024 Does well Chronic ob structive pulmonary disease 95869705 J44.9 PFTs 06/18/17: COPDSeen 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 On proairOn spirivaOff valeryolto, was not taking this as is on SpirivaOn Harvey Fried 03/21/2024 , next 03/21/2025 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 579269764 E11.9 On jardianceO n olmesartan Does wellGet labs Dr Liang 01/06/2023 Ex-smoker 5304453 Z87.89 1 QuitCT chest 10/23/16: COPD LDCT 12/09/18: NEg, esophageal prominence , refer to [facility] 01/23/2020 : Next in one yearLDCT 01/09/2021 : Next in one yearLDCT 09/17/2021 : CAD, next in one yearLDCT 10/06/2022 : CAD, next in one yearLDCT 10/06/2023 : Next in 6 months Coronary arteriosclerosis 63548102 I25.10 Seen on the LDCT [facility] Dr Tran 08/30/2020 : Is to get stress test, ECHO and US of the legsShe states that Dr Tran has told her that her heart is doing well Stress test 11/12/2023 : [facility], s/p CC done as per her history, done on 12/23/2023 , no stent Transient cerebral ischemia 466104519 G45.9 Does wellDoes see [facility] Osteoporosis 61688852 M8 1.0 On prolia, but too expensive so not taking this, will get a DEXA and may need to be on fosamax Chronic depression 13231 0009 F32.A On paroxetine 20mg dailyDoes well on this, not suicidal or homicidal, declined psychiatry referral at this time COVID-19 130058232 U07.1 +ve 11/10/2022 Increased liver function 14434557 R94.5 Get labs, US liver Screening for osteoporosis 716899891 Z13.820 Cough 33425327 R05.9 Get tested and get on Z-pack, she will also notify her pulmonolog ist, ER if worse, she is very appreciati ve to this plan of care [id number] Jacquelyn harry MD [facility] [place] [address] [facility], [address] [place] [address] 09/08/2024 10:31:13 09/08/2024 11:05:16 Screening - NAD 416191868 Z13.9 C-scope: Dr Aranda 07/17/17, next in 10 years Mammogram: 06/16/17, negMammogr am: 06/21/18: Neg 9: Neg 020: Neg 022: Neg 023: Neg 024: Neg PAP: S/p hystrectom y DEXA: 06/16/17: OP, now on fosamax, but this made her sick and so she stopped this, OK since has some CKD, can do calcium and vit DDEXA 06/27/19: Osteopenia ca and vit dDEXA: 09/17/2021 : Osteoporos is, should do prolia UTD on yearly flu shot as per her historyUTD on PCV #13 and #23UTD Tdap 06/02/17UT D on shingrix 08/18/2020 first shotUTD on COVID 19 vaccineCan do RSV vaccine RTC in 2 monthsdo labsER if worseshe and her did verbalize her understand ing of the above Hyperlipidemia 16637771 E78.5 Not taking rosuvastat in 40mg dailyNot taking vascepaGet labs Chronic ki dney disease 711547937 N18.[address] Santos Gastritis 5564879 K29.70 EGD: Dr. 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 On proairOn spirivaOff stiolto, was not taking this as is on SpirivaOn Harvey Fried 03/21/2024 , next 03/21/2025 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 858050949 E11.9 On jardiance, will discuss with Dr Santos on cutting on the dose as A1C is doing well 09/08/2024 On olmesartan Does wellGet labs Dr Liang 01/06/2023 Ex-smoker 5186983 Z87.89 1 QuitCT chest 10/23/16: COPD LDCT 12/09/18: NEg, esophageal prominence , refer to [facility] 01/23/2020 : Next in one yearLDCT 01/09/2021 : Next in one yearLDCT 09/17/2021 : CAD, next in one yearLDCT 10/06/2022 : CAD, next in one yearLDCT 10/06/2023 : Next in 6 months Coronary arteriosclerosis 99839040 I25.10 Seen on the LDCT [facility] Dr Tran 08/30/2020 : Is to get stress test, ECHO and US of the [facility] states that Dr Tran has told her that her heart is doing well Stress test 11/12/2023 : [facility], s/p CC done as per her history, done on 12/23/2023 , no stent Transient cerebral ischemia 195980890 G45.9 Does wellDoes see [facility] Osteoporosis 34821236 M8 1.0 On prolia, but too expensive so not taking this, will get a DEXA and may need to be on fosamax Chronic depression 36083 0009 F32.A On paroxetine 20mg dailyDoes well on this, not suicidal or homicidal, declined psychiatry referral at this time COVID-19 064455963 U07.1 +ve 11/10/2022 Increased liver function 25102936 R94.5 Get labs, US liver Screening for osteoporosis [id number] Z13.820 Health Concerns Section Related Observation LastModified by Organization Detai ls LastModified Time None Recorded Concern Status LastModified by Organization Details LastModified Time None Recorded Advance Directives Directive N: patient declined informat ion Payers Encounter Date Sequence Insurance Name Policy Number Policy Martins Covered Member ID Martins Member ID Guarantor Name 10/06/2023 1 [facility] (MEDICARE REPLACEMENT/A DVANTAGE - HMO) [id number] Jeanne E Rodriguez [id number] Jeanne Ayala Daily Rodriguez 12/29/2023 1 [facility] (MEDICARE REPLACEMENT/A DVANTAGE - HMO) [id number] Jeanne E Rodriguez [id number] Jeanne Ayala Daily Rodriguez 03/21/2024 1 [facility] (MEDICARE REPLACEMENT/A DVANTAGE - HMO) [id number] Jeanne E Rodriguez [id number] Jeanne Ayala Daily Rodriguez 07/05/2024 1 [facility] (MEDICARE REPLACEMENT/A DVANTAGE - HMO) [id number] Jeanne E Rodriguez [id number] Jeanne Ayala Daily Rodriguez 09/08/2024 1 [facility] (MEDICARE REPLACEMENT/A DVANTAGE - HMO) [id number] Jeanne E Rodriguez [id number] Jeanne Ayala Daily Rodriguez Notes Date Note Type Note Provider Name and Address Organization Details Recorded Time 10/06/2023 text/html Primary care/Ref erring provider: Jacquelyn Bingham MD Patient is here to go over her lab tests, PFT and chest CT as part of her COPD management. Initial development of shortness of breath: 2013Duration of shortness of breath: 11 yearsCondition of shortness of breath: stableTiming of shortness of breath: noneFrequency: up to 3 times a dayLimits activities: yesAggravating factors: walking, going up stairsAlleviating factors: rest Modified Medical Research [place] (mMRC) Dyspnea Scale - Grade 1Grade 0 I only get breathless with strenuous exercise .Grade 1 I get short of breath when hurrying on the level or walking up a slight hill .Grade 2 I walk slower than people of the same age on the level because of breathlessness or have to stop for breath when walking at my own pace on the level .Grade 3 I stop for breath after walking about 100 yards or after a few minutes on the level .Grade 4 I am too breathless to leave the house or I am breathless when dressing . Treatment history: Albuterol nebs as needed since 2017Albuterol HFA as needed since 2012Spiriva Respimat 2.5 mcg 2 puffs daily since 2019 Other symptoms:Drooling: noDysarthria: noNeck pain: noOdynophagia: noDysphagia: noWeak mastication: noFacial weakness: noNasal speech: noProtruding tongue: noProductive cough: whiteWheezing: noChest tightness: yesOrthopnea: noFrequent throat clearing or swallowing: noPalpitations: noHeartburn: yesEdema: no Environmental exposures:Nicotine smoke: 1 ppd 1193-1194 (quit 1 year in between) = 53 pack yearsPaint: noDye: noDust mites: yesMold: noDamp basement: noWood burning stove: noAnimal dander: noCockroaches: noPollen: yesArsenic: noAsbestos: noBeryllium: noCadmium: noChromium: noCoal smoke: noDiesel fumes: noNickel: noSilica: noSoot: no EPWORTH SLEEPINESS SCALE (ESS) CHANCE OF DOZING SCORE0 = would never doze1 = slight chance of dozing2 = moderate chance of dozing3 = high chance of dozing SITUATION AND CHANCE OF DOZINGSitting and reading - 0Watching television - 0Sitting inactive in a public place (e.g. a theater or meeting) - 0As a passenger in a car for an hour without a break - 0Lying down to rest in the afternoon when circumstances permit - 0Sitting and talking to someone - 0Sitting quietly after lunch without alcohol - 0In a car, while stopped for a few minutes in the traffic - 0TOTAL SCORE 0Subjectively, patient has no chance of dozing. Rebecca Fried MD [address] [facility] [address], [place], [address], [facility] [employer] 10/08/2023 14:02:37 12/29/2023 text/html 06/02/17Here to establish carePast Hx:HTNDepressionReview ed sccial family and surgical historyHere as she would like to discuss her results for the testing done by her prior PMD Dr Mensah 07/27/17:Here s/p hosp for pneumonia, at [facility] for 3 days, is on amoxicillin and has 2 more days leftDoing well today, feels mild SOB and discomfort on the L side on the ribs only when she takes her deep breathNo cough, no fevers, chills, N/V, no hemoptysis, no diarrhea, no blood in stool, normal urination, no hematuria, depressed appetite, hydrating well OV 11/24/17:Here for her MWV and her routine follow upShe states that she is doing well at this timeNo recent labs since the labs done in 08/11/17 OV 03/30/18:Here for her routine aptShe states that she is doing well at this timeNo recent labs notedOV 08/17/18:Here for her routine aptShe has not done labsDoes have URI sxWas seen in the UC and rx with z-pack, still has sinus and nasal congestionSputum yellow no blood,No chest pain or SOBNo rashNo fevers or chillsOV 09/21/18:ACV:has sinus and nasal congestionSputum yellow no blood,No chest pain or SOBNo rashNo fevers or chillsShe states that she has noted some wheezing, she does have proairShe states that her has been sickOV 12/14/18:Here for her routine aptShe did do the labsShe is here also for her MWVShe does have some margi wrist painOV 03/15/19:ACV:C/o URI, some cough, clear, no fevers or chills, some 'sinus congestion'No chest pain or SOBAlso has L wrist pain, no acute or remote trauma, located laterally, 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, some swelling no redness, is able to make a fistOV 04/19/19:Here for her routine aptShe feels Darcie did do the labs and is here to review theseOV 06/30/19:Here for a rash on the chest since a weekVery itchyNo other symptoms notedNo other rash, no difficulty swallowingOV 08/16/2019:Here for routine aptShe did do the labsshe sees Dr Santos, and Rebekah Leong NPShe is not smokingOV 11/15/2019:telephone visit, she did agree for this visitShe states that she is doing well at this timeNo complaintsHer extensive ROS is negativeShe does need to do her pre-op clearance as she is getting cataract surgery done OV 08/30/2020:Here for her routine aptShe feels very wellShe is here for her MWVShe also c/o L sided rib pain, feels it is a 'muscle pull' and would like to get on the flexerillOV 02/28/2021:Here for his routine aptShe is doing Darcie did do the labs on 02/25/2021 and is here to review theseOV 09/03/2021:Here for her routine aptShe is c/o mild cough since today, is using her nebs and inhalers, she has seen Rebekah 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 on08/06/2021he did labs on 07/08/2021No fevers or chills, no SOB, no wheezingNo exposure to COVID 19 OV 01/30/2022:Here for her routine aptShe is doing well, she did do the labs and also her mammogram and DEXAStates that she is very active nowOV 07/24/2022:Here for her f/u apt, she is doing very well, does have some URI sx, would like to get Jardiance samples as it is very expensive for her OV 01/06/2023:Here for her f/u apt and MWV, she is doing well today OV 07/07/2023: Tele visit, she is agreeable to do tele visit, she is doing well today OV 12/29/2023: Here for her f/u apt, she is doing well today, she did do the labs, she has also had her cardiac cath d/t her positive Jacquelyn Bingham MD [address] [facility], [facility] [address], [place], [address], [place] [facility] [employer] 12/29/2023 14:19:48 03/21/2024 text/html Primary care/Ref erring provider: Jacquelyn Bingham MD Patient is here to go over her chets CT as part of her COPD management. Initial development of shortness of breath: 2013Duration of shortness of breath: 11 yearsCondition of shortness of breath: stableTiming of shortness of breath: noneFrequency: up to 2 times a dayLimits activities: yesAggravating factors: walking, going up stairsAlleviating factors: rest Modified Medical Research Clark[place]S Point (mMRC) Dyspnea Scale - Grade 1Grade 0 I only get breathless with strenuous exercise .Grade 1 I get short of breath when hurrying on the level or walking up a slight hill .Grade 2 I walk slower than people of the same age on the level because of breathlessness or have to stop for breath when walking at my own pace on the level .Grade 3 I stop for breath after walking about 100 yards or after a few minutes on the level .Grade 4 I am too breathless to leave the house or I am breathless when dressing . Treatment history: Albuterol nebs as needed since 2017Albuterol HFA as needed since 2012Spiriva Respimat 2.5 mcg 2 puffs daily since 2019 Other symptoms:Drooling: noDysarthria: noNeck pain: noOdynophagia: noDysphagia: noWeak mastication: noFacial weakness: noNasal speech: noProtruding tongue: noProductive cough: whiteWheezing: noChest tightness: yesOrthopnea: noFrequent throat clearing or swallowing: noPalpitations: noHeartburn: yesEdema: no Environmental exposures:Nicotine smoke: 1 ppd 1136-5971 (quit 1 year in between) = 53 pack yearsPaint: noDye: noDust mites: yesMold: noDamp basement: noWood burning stove: noAnimal dander: noCockroaches: noPollen: yesArsenic: noAsbestos: noBeryllium: noCadmium: noChromium: noCoal smoke: noDiesel fumes: noNickel: noSilica: noSoot: no EPWORTH SLEEPINESS SCALE (ESS) CHANCE OF DOZING SCORE0 = would never doze1 = slight chance of dozing2 = moderate chance of dozing3 = high chance of dozing SITUATION AND CHANCE OF DOZINGSitting and reading - 0Watching television - 0Sitting inactive in a public place (e.g. a theater or meeting) - 0As a passenger in a car for an hour without a break - 0Lying down to rest in the afternoon when circumstances permit - 1Sitting and talking to someone - 0Sitting quietly after lunch without alcohol - 0In a car, while stopped for a few minutes in the traffic - 0TOTAL SCORE 1Subjectively, patient has a slight chance of dozing. Rebecca Fried MD [address] [place] [address], [place] [address], [place], [address], [place] [facility] [employer] 03/21/2024 14:38:55 07/05/2024 text/html 06/02/17Here to establish carePast Hx:HTNDepressionReview ed sccial family and surgical historyHere as she would like to discuss her results for the testing done by her prior PMD Dr Mensah 07/27/17:Here s/p hosp for pneumonia, at [facility] for 3 days, is on amoxicillin and has 2 more days leftDoing well today, feels mild SOB and discomfort on the L side on the ribs only when she takes her deep breathNo cough, no fevers, chills, N/V, no hemoptysis, no diarrhea, no blood in stool, normal urination, no hematuria, depressed appetite, hydrating well OV 04/17/18:Here for her MWV and her routine follow upShe states that she is doing well at this timeNo recent labs since the labs done in 08/11/17 OV 03/30/18:Here for her routine aptShe states that she is doing well at this timeNo recent labs notedOV 08/17/18:Here for her routine aptShe has not done labsDoes have URI sxWas seen in the UC and rx with z-pack, still has sinus and nasal congestionSputum yellow no blood,No chest pain or SOBNo rashNo fevers or chillsOV 09/21/18:ACV:has sinus and nasal congestionSputum yellow no blood,No chest pain or SOBNo rashNo fevers or chillsShe states that she has noted some wheezing, she does have proairShe states that her has been sickOV 12/14/18:Here for her routine aptShe did do the labsShe is here also for her MWVShe does have some margi wrist painOV 03/15/19:ACV:C/o URI, some cough, clear, no fevers or chills, some 'sinus congestion'No chest pain or SOBAlso has L wrist pain, no acute or remote trauma, located laterally, 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, some swelling no redness, is able to make a fistOV 04/19/19:Here for her routine aptShe feels Darcie did do the labs and is here to review theseOV 06/30/19:Here for a rash on the chest since a weekVery itchyNo other symptoms notedNo other rash, no difficulty swallowingOV 08/16/2019:Here for routine aptShe did do the labsshe sees Dr Santos, and Rebekah Leong NPShe is not smokingOV 11/15/2019:telephone visit, she did agree for this visitShe states that she is doing well at this timeNo complaintsHer extensive ROS is negativeShe does need to do her pre-op clearance as she is getting cataract surgery done OV 08/30/2020:Here for her routine aptShe feels very wellShe is here for her MWVShe also c/o L sided rib pain, feels it is a 'muscle pull' and would like to get on the flexerillOV 02/28/2021:Here for his routine aptShe is doing wellShe did do the labs on 02/25/2021 and is here to review theseOV 09/03/2021:Here for her routine aptShe is c/o mild cough since today, is using her nebs and inhalers, she has seen Rebekah 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 on08/06/2021he did labs on 07/08/2021No fevers or chills, no SOB, no wheezingNo exposure to COVID 19 OV 01/30/2022:Here for her routine aptShe is doing well, she did do the labs and also her mammogram and DEXAStates that she is very active nowOV 07/24/2022:Here for her f/u apt, she is doing very well, does have some URI sx, would like to get Jardiance samples as it is very expensive for her OV 01/06/2023:Here for her f/u apt and MWV, she is doing well today OV 07/07/2023: Tele visit, she is agreeable to do tele visit, she is doing well today OV 12/29/2023: Here for her f/u apt, she is doing well today, she did do the labs, she has also had her cardiac cath d/t her positive OV 07/05/2024: Here for her f/u apt, she is here with her , has no new labs as she has been having URI sx, c/o white productive cough, no fevers or chills, no chest pain, no SOB, no wheezing, states that she has been using her inhalers Jacquelyn Bingham MD [address] [facility], [place], [address], [place] [facility] [employer] 07/06/2024 21:23:59 09/08/2024 text/html 06/02/17Here to establish carePast Hx:HTNDepressionReview ed sccial family and surgical historyHere as she would like to discuss her results for the testing done by her prior PMD Dr Mensah 07/27/17:Here s/p hosp for pneumonia, at [facility] for 3 days, is on amoxicillin and has 2 more days leftDoing well today, feels mild SOB and discomfort on the L side on the ribs only when she takes her deep breathNo cough, no fevers, chills, N/V, no hemoptysis, no diarrhea, no blood in stool, normal urination, no hematuria, depressed appetite, hydrating well OV 11/24/17:Here for her MWV and her routine follow upShe states that she is doing well at this timeNo recent labs since the labs done in 08/11/17 OV 03/30/18:Here for her routine aptShe states that she is doing well at this timeNo recent labs notedOV 08/17/18:Here for her routine aptShe has not done labsDoes have URI sxWas seen in the UC and rx with z-pack, still has sinus and nasal congestionSputum yellow no blood,No chest pain or SOBNo rashNo fevers or chillsOV 09/21/18:ACV:has sinus and nasal congestionSputum yellow no blood,No chest pain or SOBNo rashNo fevers or chillsShe states that she has noted some wheezing, she does have proairShe states that her has been sickOV 12/14/18:Here for her routine aptShe did do the labsShe is here also for her MWVShe does have some margi wrist painOV 03/15/19:ACV:C/o URI, some cough, clear, no fevers or chills, some 'sinus congestion'No chest pain or SOBAlso has L wrist pain, no acute or remote trauma, located laterally, 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, some swelling no redness, is able to make a fistOV 04/19/19:Here for her routine aptShe feels Darcie did do the labs and is here to review theseOV 06/30/19:Here for a rash on the chest since a weekVery itchyNo other symptoms notedNo other rash, no difficulty swallowingOV 08/16/2019:Here for routine aptShe did do the labsshe sees Dr Santos, and Rebekah Leong NPShe is not smokingOV 11/15/2019:telephone visit, she did agree for this visitShe states that she is doing well at this timeNo complaintsHer extensive ROS is negativeShe does need to do her pre-op clearance as she is getting cataract surgery done OV 08/30/2020:Here for her routine aptShe feels very wellShe is here for her MWVShe also c/o L sided rib pain, feels it is a 'muscle pull' and would like to get on the flexerillOV 02/28/2021:Here for his routine aptShe is doing wellShe did do the labs on 02/25/2021 and is here to review theseOV 09/03/2021:Here for her routine aptShe is c/o mild cough since today, is using her nebs and inhalers, she has seen Rebekah 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 on08/06/2021he did labs on 07/08/2021No fevers or chills, no SOB, no wheezingNo exposure to COVID 19 OV 01/30/2022:Here for her routine aptShe is doing well, she did do the labs and also her mammogram and DEXAStates that she is very active nowOV 07/24/2022:Here for her f/u apt, she is doing very well, does have some URI sx, would like to get Jardiance samples as it is very expensive for her OV 01/06/2023:Here for her f/u apt and MWV, she is doing well today OV 07/07/2023: Tele visit, she is agreeable to do tele visit, she is doing well today OV 12/29/2023: Here for her f/u apt, she is doing well today, she did do the labs, she has also had her cardiac cath d/t her positive OV 07/05/2024: Here for her f/u apt, she is here with her , has no new labs as she has been having URI sx, c/o white productive cough, no fevers or chills, no chest pain, no SOB, no wheezing, states that she has been using her inhalers OV 09/08/2024:Here for her f/u apt, she is doing well today, she did do the labs Jacquelyn Bingham MD [address], [address], [place], [address], [place] [facility] [employer] 09/08/2024 12:52:37 OBGyn Episode No OBEpisode recorded.
--- OUTSIDE RECORDS SUMMARY | 2024-09-26 14:01 | XMS_ITS | Referral Summary ---
Author Organization [facility] Address [address] [place] [address] Care Team Providers Care Ice Hockey Coach Name Role Phone Xavi Reaves MD Primary Care Provider [phone] Source Comments [facility],non-owned Affiliates and Associated Physician Practices is amultiple site organization consisting of ambulatory clinics and hospital sitesin [place], [place], [place] and [place]. This disclosure is being madepursuant to the Care Everywhere program and may not contain all information available regarding this patient. Last updated 18.[facility] Allergies No known active allergies Medications * Be aware that medications may not be up to date on this document. Alwaysverify current medications with the patient. Medication Sig Dispensed Refills Start Date End Date Status Aspirin (ASPIR-81 PO) Act slava Olmesartan Medoxomil (BENICAR PO) Active ATENOLOL PO Active albuterol HFA (PROVENTIL;VENTOLIN;P ROAIR) 108 (90 BASE) MCG/ACT inhalerIndications:CO PD exacerbation (HCC) Inhale 2 puffs by mouth every 4 hours as needed for Wheezing 1 Inhaler 1 05/23/2018 Active benzonatate (TESSALON) 100 MG capsuleIndications:Co ugh Take 1 capsule by mouth 3 times daily as needed for Cough Reasons: Cough 30 capsule 08/04/2018 Active azithromycin (ZITHROMAX) 250 MG tabletIndications:Afsaneh terial URI Take 2 tabs today, then 1 tab daily for next 4 days 6 tablet 08/04/2018 Active Social History Tobacco Use Types Packs/Day Years Used Date Smoking Tobacco: Former Cigarettes Q uit: 2013 Smokeless Tobacco: Never Sex and Gender Information Value Date Recorded Sex Assigned at Not on file Gender Identity Not on file Sexual Orientation Not on file Last Filed Vital Signs Vital Sign Reading Time Taken Comments Blood Pressure 124/66 08/04/2018 10:25 AM METEOROLOGICAL OBSERVER Pulse 74 08/04/2018 10:25 AM METEOROLOGICAL OBSERVER Temperature 36.9 C (98.4 F) 08/04/2018 10:25 AM METEOROLOGICAL OBSERVER Respiratory Rate 16 08/04/2018 10:25 AM METEOROLOGICAL OBSERVER Oxygen Saturation 93% 08/04/2018 10:25 AM METEOROLOGICAL OBSERVER Inhaled Oxygen Concentration - - Weight 47.2 kg (104 lb) 08/04/2018 10:25 AM METEOROLOGICAL OBSERVER Height 154.9 cm (5' 1 ) 08/04/2018 10:25 AM METEOROLOGICAL OBSERVER Body Mass Index 19.65 08/04/2018 10:25 AM METEOROLOGICAL OBSERVER Plan of Treatment Not on file Care Teams Ice Hockey Coach Relationship Specialty Start Date End Date Xavi Reaves MD [address] [place] [address] PCP - General Family Medicine 10/10/16
--- OUTSIDE RECORDS SUMMARY | 2024-09-26 14:01 | XMS_ITS | Patient Health Summary ---
Author Organization [facility] Address [address] [place] [address] Care Team Providers Care Java Application Engineer Name Role Phone Xavi Reaves MD Primary Care Provider [phone]- [phone] Note from [facility],non-owned Affiliates and Associated Physician Practices is amultiple site organization consisting of ambulatory clinics and hospital sitesin [place], [place], [place] and [place]. This disclosure is being madepursuant to the Care Everywhere program and may not contain all information available regarding this patient. Last updated 18.[facility] Allergies No known active allergies Medications * Be aware that medications may not be up to date on this document. Alwaysverify current medications with the patient. * Aspirin (ASPIR-81 PO) * Olmesartan Medoxomil (BENICAR PO) * ATENOLOL PO * albuterol HFA (PROVENTIL;VENTOLIN;PROAIR) 108 (90 BASE) MCG/ACT inhaler (Started 05/23/2018) Inhale 2 puffs by mouth every 4 hours as needed for Wheezing 1 refill remaining * benzonatate (TESSALON) 100 MG capsule(Started 08/04/2018) Take 1 capsule by mouth 3 times daily as needed for Cough Reasons: Cough * azithromycin (ZITHROMAX) 250 MG tablet(Started 08/04/2018) Take 2 tabs today, then 1 tab daily for next 4 days Social History Tobacco Use Types Packs/Day Years Used Date Smoking Tobacco: Former Cigarettes Q uit: 2013 Smokeless Tobacco: Never Sex and Gender Information Value Date Recorded Sex Assigned at Not on file Gender Identity Not on file Sexual Orientation Not on file Last Filed Vital Signs Vital Sign Reading Time Taken Comments Blood Pressure 124/66 08/04/2018 10:25 AM WAFFLE MACHINE OPERATOR Pulse 74 08/04/2018 10:25 AM WAFFLE MACHINE OPERATOR Temperature 36.9 C (98.4 F) 08/04/2018 10:25 AM WAFFLE MACHINE OPERATOR Respiratory Rate 16 08/04/2018 10:25 AM WAFFLE MACHINE OPERATOR Oxygen Saturation 93% 08/04/2018 10:25 AM WAFFLE MACHINE OPERATOR Inhaled Oxygen Concentration - - Weight 47.2 kg (104 lb) 08/04/2018 10:25 AM WAFFLE MACHINE OPERATOR Height 154.9 cm (5' 1 ) 08/04/2018 10:25 AM WAFFLE MACHINE OPERATOR Body Mass Index 19.65 08/04/2018 10:25 AM WAFFLE MACHINE OPERATOR Procedures * INFLUENZA A+B - POINT OF CARE (AMB)(Performed 08/04/2018) Performed for COPD exacerbation (HCC), Bacterial URI * DERMATOPATHOLOGY(Performed 01/12/2018) * PULSE OXIMETRY - POINT OF CARE (AMB)(Performed 10/10/2016) Performed for Acute bronchitis, unspecified organism, Other specified symptoms and signs involving the circulatory and respiratory systems, History of smoking 10-25 pack years Results * INFLUENZA A+B - POINT OF CARE (AMB) (08/04/2018) Influenza A Antigen Rapid Negative Negative Influenza B Antigen Rapid Negative Negative Influenza Internal Control yes NEGATIVE - POSITIVE Influenza Lot Number [id number] Influenza Expiration Date 09/18/19 Other NASOPHARYNGEAL SWAB / Unknown 08/04/2018 Maricruz Vanessa DRYING TUNNEL OPERATOR-[facility] - POINT OF IA RE ORDERABLES * DERMATOPATHOLOGY (01/12/2018 12:00 AM CDT) Case Report Dermatopathology Report Case: [id number] Authorizing Provider: Benigno Goldberg MD Collected: 01/12/2018 12:00 AM Pathologist: Joselyn Bolaños MD Received: 01/13/2018 12:24 PM Specimen: Skin, right angle of jaw 8 5:22 PM CDT DERMATOPATHOLOGY LABORATORY Final Diagnosis Specimen A. SKIN, right angle of jaw: ACTINIC KERATOSIS, LICHENOID (L57.0) PRESENT AT MARGIN 8 5:22 PM CDT DERMATOPATHOLOGY LABORATORY Clinical History R/O inflamed nevus vs BCC vs other. Check margins. 8 5:22 PM T DERMATOPATHOLOGY LABORATORY Gross Description Specimen A: Received is one formalin filled container labeled with the patient's name and designated right angle of jaw. The specimen consists of a shave biopsy measuring [id number], the margin is inked green. Jar 0. 8 5:22 PM CDT DERMATOPATHOLOGY LABORATORY Microscopic Description Specimen A. SKIN, right angle of jaw: There is focal parakeratosis. The lower half of the epidermis shows disorderly maturation of keratinocytes with nuclear pleomorphism. The dermis shows a band-like, chronic inflammatory infiltrate with occasional apoptotic keratinocytes and some basal vacuolar alteration. This lesion is present at the margin of the specimen. 8 5:22 PM T DERMATOPATHOLOGY LABORATORY Disclaimer An external and internal positive and negative controls are appropriate for the histochemical, immunohistochemical and immunofluorescence stain(s) in this case (if any), except where stated explicitly. The performance characteristics of the stain(s) cited in this report were developed and its performance characteristic determined by the Dermatopathology Laboratory at [facility]. These tests need not be, and therefore are not, approved by the [place] Food and Drug Administration. The tests are used for clinical purposes. Billing Codes Specimen Charges Stain Charges 75391 1 8 5:22 PM CDT DERMATOPATHOLOGY LABORATORY Embedded Images 8 5:22 PM CDT DERMATOPATHOLOGY LABORATORY Pathology/Cytolog y TISSUE SPECIMEN FROM SKIN / Unknown 01/12/2018 01/13/2018 12:24 PM CDT Benigno Goldberg MD LAB - PATHOLOGY/CYTO LOGY ORDERABLES DERMATOPATHOLOGY LABORATORY [facility] - Department of Dermatology [address] [place] [address], 5th [place] [address], [facility] [phone] * PULSE OXIMETRY - POINT OF CARE (AMB) (10/10/2016) Oximetry POCT 96% 0 - 100 % QC Verified Yes Yes Blood BLOOD SPECIMEN / Unknown 10/10/2016 Tessa Kelly DRYING TUNNEL OPERATOR-[facility] [employer] [facility] - POINT OF C ARE ORDERABLES Care Teams Java Application Engineer Relationship Specialty Start Date End Date Xavi Reaves MD [address] [place] [address] [address] [place] [address] PCP - General Family Medicine 10/10/16
--- OUTSIDE RECORDS SUMMARY | 2024-09-26 14:01 | XMS_ITS | Clinical Summary ---
Author Organization [facility] [employer] Address [address] [place] [address] Care Team Providers Care Technical Services Coordinator Name Role Phone Xavi Reaves MD Primary Care Provider [phone]- [phone] Source Comments [facility] [employer]non-owned Affiliates and Associated Physician Practices is amultiple site organization consisting of ambulatory clinics and hospital sitesin [place], [place], [place] and [place]. This disclosure is being madepursuant to the Care Everywhere program and may not contain all information available regarding this patient. Last updated 18.[facility] [employer] Allergies No known active allergies Medications * [...] Comments Blood Pressure 124/66 08/04/2018 10:25 AM MUSIC WORKER Pulse 74 08/04/2018 10:25 AM MUSIC WORKER Temperature 36.9 C (98.4 F) 08/04/2018 10:25 AM MUSIC WORKER Respiratory Rate 16 08/04/2018 10:25 AM MUSIC WORKER Oxygen Saturation 93% 08/04/2018 10:25 AM MUSIC WORKER Inhaled Oxygen Concentration - - Weight 47.2 kg (104 lb) 08/04/2018 10:25 AM MUSIC WORKER Height 154.9 cm (5' 1 ) 08/04/2018 10:25 AM MUSIC WORKER Body Mass Index 19.65 08/04/2018 10:25 AM MUSIC WORKER Plan of Treatment Health Maintenance Due Date Last Done Comments BONE DENSITY TESTING 1945 MEDICARE AWV 12 MONTHS 1945 HEPATITIS C SCREENING 03/01/1965 DTAP/TDAP/TD VACCINES (1 - Tdap) 1966 PNEUMOCOCCAL VACCINE 50+ (1 of 1 - PCV) 1997 ZOSTER VACCINE (1 of 2) 1997 Respiratory Syncytial Virus (RSV) Vaccine Pt: or over 60 yrs (1 - 1-dose 75+ series) 2022 COVID-19 VACCINE (1 - 2023-2 5 season) 2024 INFLUENZA VACCINE (#1) 2024 DEPRESSION SCREENING 08/10/2024 HEPATITIS B VACCINE Aged Out No longe r eligible based on patient's age to complete this topic HIB VACCINE Aged Out No longer eligi ble based on patient's age to complete this topic HPV VACCINE Aged Out No longer eligi ble based on patient's age to complete this topic MENINGOCOCCAL (Group B) VACCINE Aged Out No longer eligible based on patient's age to complete this topic MENINGOCOCCAL VACCINE Aged Out No albertina yesenia eligible based on patient's age to complete this topic Care Teams Technical Services Coordinator Relationship Specialty Start Date End Date Xavi Reaves MD [address] [place] [address] PCP - General Family Medicine 10/10/16
--- OUTSIDE RECORDS SUMMARY | 2024-09-26 14:01 | XMS_ITS | Clinical Summary ---
Author Organization [facility] [employer] [facility] , [facility] Address [address] [place] [address] Phone Care Team Providers Care Inspector Automatic Typewriter Name Role Phone Alexa Bingham MD Primary Care Provider [phone] Medications cyanocobalamin (VITAMIN B-12) 1000 MCG tablet Take 1 tablet (1,000 mcg total) by mouth 1 (one) time each day 90 tablet 1 2 Active cefadroxil (DURICEF) 500 MG capsule Take 1 capsule (500 mg total) by mouth in the morning and 1 capsule (500 mg total) in the evening. 30 capsule 4 Active ciprofloxacin (CIPRO) 500 MG tablet Take 1 tablet (500 mg total) by mouth 1 (one) time each day 3 tablet 4 Active olmesartan (BENICAR) 20 MG tablet TAKE 1 TABLET BY MOUTH EVERY NIGHT 90 tablet 1 5 Active tamsulosin (FLOMAX) 0.4 MG 24 hr capsule TAKE 1 CAPSULE BY MOUTH EVERY NIGHT 90 capsule 1 5 Active olmesartan (BENICAR) 20 MG tablet Take 1 tablet (20 mg total) by mouth every night 90 tablet 1 4 08/30/19 25 Discontinued tamsulosin (FLOMAX) 0.4 MG 24 hr capsule Take 1 capsule (0.4 mg total) by mouth every night 90 capsule 1 4 09/15/19 25 Discontinued Encounters Date Type Department Care Team Description 09/15/2024 Refill [place] [facility], [facility] [address] [place] [address] Juan Manuel Ellison, DO 09/12/2024 Documentation Only [address] [place] [address] Juan Manuel Ellison, DO 08/30/[address] [address] Juan Manuel Ellison, DO 07/25/[address] [place] [address] Bhargavi Nagy CMA 07/25/2024 Office Communication [address] [place] [phone] Bhargavi Nagy CMA from Last 3 Months Social History Tobacco [...] Sign Reading Time Taken Comments Blood Pressure 110/60 04/26/2024 4:42 PM CDT Pulse 91 04/26/2024 4:42 PM CDT Temperature 36.1 C (97 F) 04/26/2024 4:42 PM CDT Respiratory Rate 18 04/26/2024 4:42 PM CDT Oxygen Saturation 97% 04/26/2024 4:42 PM CDT Inhaled Oxygen Concentration - - Weight 41.1 kg (90 lb 9.6 oz) 04/26/2024 4:42 PM CDT Height 154.9 cm (5' 1 ) 02/25/2022 12:45 PM CDT Body Mass Index 17.12 02/25/2022 12:45 PM CDT Plan of Treatment Upcoming Encounters Date Type Department Care Team (Late st Contact Info) Description 11/08/2024 3:00 PM CDT Office Visit [facility] [address] [facility] [place] [phone] Juan Manuel Ellison DO [address] [place] [address] Health Maintenance Due Date Last Done Comments Pneumococcal Vaccine: 65+ Years (2 of 2 - PCV) 07/26/2018 07/26/2017, 05/23/2013 Diabetes: Hemoglobin A1C 01/03/2021 Diabetes: Ophthalmology Exam 01/03/2021 Diabetes: Pedal Pulse Checked 01/03/2021 Diabetes: Sensory Foot Exam 01/03/2021 Diabetes: Visual Foot Exam 01/03/2021 Influenza Vaccine (#1) 2024 9, 04/21/2018, 04/10/2017 Colorectal Cancer Screening: Colonoscopy Discontinued 07/17/2017 Hepatitis B Vaccine Aged Out No longe r eligible based on patient's age to complete this topic Insurance [facility] MEDICARE Care Teams Inspector Automatic Typewriter Relationship Specialty Start Date End Date Alexa Bingham MD [address], [address] [place], [place] [phone] PCP - General Internal Medicine 07/16/21
== END 2024-09-26 10:54 | disposition home or self-care (01) ==
PROVIDERS: PCP Internal Medicine; Visit Provider Urology
DX: N20.9 Urinary calculus, unspecified (principal); N13.30 Unspecified hydronephrosis
CPT/HCPCS: 74018; 76770

== ENCOUNTER 2024-10-11 07:02 | Outpatient (CLI) | payer MEDICARE, SELFPAY | END 2024-10-11 07:03 | disposition home or self-care (01) | PROVIDERS: PCP Internal Medicine; Visit Provider Internal Medicine | DX: R94.5 Abnormal results of liver function studies (principal) | CPT/HCPCS: 76705 ==

== ENCOUNTER 2024-10-11 07:40 | Outpatient (CLI) | payer MEDICARE, SELFPAY ==
[2024-10-11 08:14] LABS: Hematocrit 36.3 % (37.0-47.0); Hemoglobin 11.4 g/dL (12.0-15.0); Mean Corpuscular HGB Conc 31.4 g/dl (32-36); Mean Corpuscular Hemoglobin 28.3 pg (26-34); Mean Corpuscular Volume 90.1 fl (80-100); Mean Platelet Volume 10.9 fl (7.4-10.4); Platelet Count Result 238 k/mm3 (150-375); Red Blood Count 4.03 M/mm3 (4.2-5.4); Red Cell Distribution Width 14.5 % (11.5-14.5); White Blood Count 13.6 K/mm3 (4.5-10.0)
[2024-10-11 08:40] LABS: Albumin Level 3.8 g/dL (3.5-5.1); Anion Gap 10 mmol/L (4-12); Blood Urea Nitrogen 23 mg/dL (7-17); Calcium 9.3 mg/dL (8.4-10.2); Carbon Dioxide 26 mmol/L (22-30); Chloride 104 mmol/L (98-107); Estimated Glomerular Filt Rate 25; Glucose 98 mg/dL (65-110); Magnesium 1.7 mg/dL (1.6-2.3); Phosphorus 4.1 mg/dL (2.5-4.5); Potassium 4.6 mmol/L (3.4-5.0); Sodium 140 mmol/L (137-145)
== END 2024-10-11 07:41 | disposition home or self-care (01) ==
PROVIDERS: PCP Internal Medicine; Visit Provider Internal Medicine Nephrology
DX: J44.1 Chronic obstructive pulmonary disease with (acute) exacerbation (principal); K21.9 Gastro-esophageal reflux disease without esophagitis; I12.9 Hypertensive chronic kidney disease with stage 1 through stage 4 chronic kidney disease, or unspecified chronic kidney disease; E11.22 Type 2 diabetes mellitus with diabetic chronic kidney disease; N18.30 Chronic kidney disease, stage 3 unspecified; N20.0 Calculus of kidney
CPT/HCPCS: 36415; 80069; 83735; 85027

== ENCOUNTER 2024-10-26 11:44 | Outpatient (CLI) | payer MEDICARE, SELFPAY ==
--- OUTSIDE RECORDS SUMMARY | 2024-10-26 13:35 | XMS_ITS | Clinical Summary ---
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
--- OUTSIDE RECORDS SUMMARY | 2024-10-26 13:35 | XMS_ITS | Encounter Summary ---
Author Organization [facility] Address [address] [place] [address] Care Team Providers Care Beverage Server Name Role Phone None, Provider Primary Care Provider Xavi Carias MD Primary Care Provider Encounter Details Date Type Department Care Team (Late Contact Info) Description 05/26/2024 Prep for Procedure [facility] [place], [place] [id number] Xavi Martinez MD [address] [facility] [address] [place] [phone] Social History Tobacco Use Types Packs/Day Years Used Date Smoking Tobacco: Former Cigarettes Smokeless Tobacco: Former Comments:Quit smoking 4 year s ago Alcohol Use Standard Drinks/Week Comments Yes 0 (1 standard drink = 0.6 oz pur e alcohol) one drink if out Comments No Sex and Gender Information Value Date Recorded Sex Assigned at Female 10/19/2024 8:10 AM CDT Legal Sex Female 10:37 AM CDT Gender Identity Not on file Sexual Orientation Not on file documented as of this encounter Plan of Treatment Upcoming Encounters Date Type Department Care Team (Late Contact Info) Description 11/03/2024 2:30 PM CDT Hospital Encounter [facility] [place] [id number] Xavi Martinez MD [address] [facility] [address] [place] [phone] 11/03/2024 2:30 PM CDT - 11/03/2024 3:36 PM CDT Surgery [facility] [address] Xavi Martinez MD [address] [facility] [address] [place] [address] CYSTOSCOPY, LEFT RETROGRADE PYELOGRAM, LEFT URETERAL STENT PLACEMENT Scheduled Procedures Name Priority Associated Diagnoses Date/Ti me CYSTOSCOPY STENT INSERTION/REMOVAL/CHANGE HYDRONEPHROSIS, LEFT N13.30 11/03/2024 2:30 PM CDT documented as of this encounter Results * (ABNORMAL) BASIC METABOLIC PANEL (05/26/2024 11:54 AM CDT) GLUCOSE 93 70 - 99 MG/DL 05/26/2024 12:46 PM CDT [facility] BUN 17 7 - 18 MG/DL 05/26/2024 12:46 PM CDT [facility] CREATININE S/P/B 1.25(H) 0.55 - 1.02 MG/DL 05/26/2024 12:46 PM CDT [facility] SODIUM S/P/B 140 136 - 145 MMOL/L 05/26/2024 12:46 PM CDT [facility] POTASSIUM S/P/B 3.9 3.5 - 5.1 MMOL/L 05/26/2024 12:46 PM CDT [facility] CHLORIDE S/P/B 107 97 - 115 MMOL/L 05/26/2024 12:46 PM CDT [facility] CO2 29.6 21 - 32 MMOL/L 05/26/2024 12:46 PM CDT [facility] CALCIUM S/P/B 9.2 8.5 - 10.1 MG/DL 05/26/2024 12:46 PM CDT [facility] ANION GAP 3.4 2 - 10 MMOL/L 05/26/2024 12:46 PM CDT [facility] BUN CREATININE RATIO 13.6 6 - 26 05/26/2024 12:46 PM CDT [facility] GFR ESTIMATE 44(L) >90 ML/MIN/1.7 3 M2 05/26/2024 12:46 PM CDT [facility] Comment: NOTE: eGFR is not calculated for patients <18 years of age or gender unknown. This is an estimated GFR calculation using the new CKD EPI creatinine equation without race and so does not require a correction factor for race. This estimated GFR should not be used for calculating drug doses. 05/26/2024 11:5 4 AM CDT Elizabeth [facility] Final R esult [facility] [address] [place] [address], [place] [phone] * (ABNORMAL) CBC W/DIFF AUTOMATED (05/26/2024 11:54 AM CDT) WBC 9.22 4.5 - 11.0 x10'3/uL 05/26/2024 12:36 PM CDT [facility] RBC 4.47 4.20 - 5.40 x10'6/uL 05/26/2024 12:36 PM CDT [facility] HGB 12.6 12.0 - 16.0 G/DL 05/26/2024 12:36 PM CDT [facility] HCT 39.6 38.0 - 48.0 % 05/26/2024 12:36 PM CDT [facility] MCV 88.6 81.0 - 99.0 FL 05/26/2024 12:36 PM CDT [facility] MCH 28.2 27.0 - 31.0 PG 05/26/2024 12:36 PM CDT [facility] MCHC 31.8(L) 32.0 - 36.0 G/DL 05/26/2024 12:36 PM CDT [facility] RDW 14.4 11.5 - 14.5 % 05/26/2024 12:36 PM CDT [facility] PLT 253 130 - 400 x10'3/uL 05/26/2024 12:36 PM CDT [facility] MPV 11.3 9.3 - 12.2 FL 05/26/2024 12:36 PM CDT [facility] DIFFERENTIAL TYPE AUTOMATED DIFFERENTIAL 05/26/2024 12:36 PM CDT [facility] NEUTROPHILS % 75.0 % 05/26/2024 12:36 PM CDT [facility] LYMPHOCYTES % 13.3 % 05/26/2024 12:36 PM CDT [facility] MONOCYTES % 8.6 % 05/26/2024 12:36 PM CDT [facility] EOSINOPHILS 2.0 % 05/26/2024 12:36 PM CDT [facility] BASOPHILS 0.7 % 05/26/2024 12:36 PM CDT [facility] IMMATURE GRANS % 0.4 % 05/26/20 12:36 PM CDT [facility] ABS. NEUTROPHILS 6.92 1.80 - 7.70 x10'3/uL 05/26/2024 12:36 PM CDT [facility] ABS. LYMPHOCYTES 1.23 1.00 - 4.80 x10'3/uL 05/26/2024 12:36 PM CDT [facility] ABS. MONOCYTES 0.79 0.24 - 0.86 x10'3/uL 05/26/2024 12:36 PM CDT [facility] ABS. EOSINOPHILS 0.18 0.04 - 0.36 x10'3/uL 05/26/2024 12:36 PM CDT [facility] ABS. BASOPHILS 0.06 0.01 - 0.08 x10'3/uL 05/26/2024 12:36 PM CDT [facility] ABS. IMMATURE GRANULOCYTES 0.04 0.00 - 0.49 x10'3/uL 05/26/2024 12:36 PM CDT [facility] 05/26/2024 11:5 4 AM CDT [facility] Final R esult [facility] [address] [place] [address], documented in this encounter Visit Diagnoses Diagnosis Preoperative testing- Primary Preoperative examination, unspecified Hydronephrosis, left- Primary Hydronephrosis documented in this encounter Care Teams Beverage Server Relationship Specialty Start Date End Date None, Provider, PCP - General UNKNOWN PHYSICIAN SPECIALTY 05/25/24 06/29/24 Xavi Martinez MD [address] [facility] [address] [facility] [place] [address] PCP - General UROLOGY 06/30/24 documented as of this encounter
--- OUTSIDE RECORDS SUMMARY | 2024-10-26 13:35 | XMS_ITS | Encounter Summary ---
Author Organization [facility] Address [address] [place] [address] Care Team Providers Care Polishing Wheel Repairer Name Role Phone ReavesXavi castle MD Primary Care Provider [phone]- [phone] Encounter Details Date Type Department Care Team (Late st Contact Info) Description 01/13/2018 Lab Requisition [facility] D[facility]Path Lab [address] [facility], [place] [address] Benigno Goldberg MD [address] [place] [address] Social History Tobacco Use Types [...] AM CDT) Case Report Dermatopathology Report Case: [id number] Authorizing Provider: Benigno Goldberg MD Collected: 01/12/2018 [...] specimen consists of a shave biopsy measuring [id number], the margin is inked green. Jar 0. [...] characteristic determined by the Dermatopathology Laboratory at [facility]. These tests need not be, and therefore are not, approved by the [place] Food and Drug Administration. The tests are used for clinical purposes. Billing Codes Specimen Charges Stain Charges 83175 1 5:22 PM CDT DERMATOPATHOLOGY LABORATORY Embedded Images 5:22 PM CDT DERMATOPATHOLOGY LABORATORY Pathology/Cytolog y TISSUE SPECIMEN FROM SKIN / Unknown 01/12/2018 01/13/2018 12:24 PM CDT Benigno Goldberg MD LAB - PATHOLOGY/CYTO LOGY ORDERABLES DERMATOPATHOLOGY LABORATORY [facility] - Department of Dermatology [address] [facility], 5th Floor Lab [address] [place], [place] [phone] [place] [address] documented in this encounter Visit Diagnoses Not on filedocumented in this encounter Care Teams Polishing Wheel Repairer Relationship Specialty Start Date End Date Xavi Reaves MD [address] [facility] [address] [place] [address] PCP - General Family Medicine 10/10/16 documented as of this encounter
--- OUTSIDE RECORDS SUMMARY | 2024-10-26 13:35 | XMS_ITS | Data Portability ---
Author Organization [facility], Main Office Address [address] [place] [address] Care Team Providers Care Principal Statistical Programmer Name Role Phone COLEEN TRAN Parachute Supervisor JUAN MANUEL SANTOS Kaiako Kura [place] Maori JACQUELYN BINGHAM Primary Care Provider REBECCA FRIED Manager Fashion Assessment Encounter Date Assessment Date Assessment LastModified by Organization Details LastModified Time 10/06/2023 10/06/2023 Assessment: Nicotine smoke: 1 ppd 3955-2377 (quit 1 year in between) = 55 [...] be referred to Dr. Enrrique Lo @ [address] [place] [address], [address], [place] [address], [place] , for Infectious Disease consultation regarding [...] home care store of patient's choice. The [employer] recommends annual screening for lung [...] Hypertension Elevated BNP Nicotine smoke: 1 ppd 8927-7895 (quit 1 year in between) = 53 [...] gammaglobulin infusions during times of infection. The [employer] recommends annual screening for lung [...] Gluc 106, TP 6.1 09/01/2024: A1C 5.5 [email or web address] Not available 09/08/2024 10:54:16 Plan of Treatment Reminders Order Date Submit Date Provider Last Modified By Organization Details Last Modified Time Details Appointments Any 15 2024 09:15A Joselyn caal MD Not available Not available Not available Any 2024 01:00P Joselyn Fried MD Not available Not available Not available Lab hepatitis panel (A+B+C), acute, serum [address] (Lab), [address] [place], [address], 09/08/2024 11:04:25 gamma-glu tamyl transfera se (ggt), serum [address] (Lab), [address] [place], [address], 09/08/2024 11:04:26 lipid panel, serum [address] [place] [address] (Lab), [address] [place], [address], 09/08/2024 11:04:24 CBC w/ auto diff 2024 025 [facility] (Lab), [address] [place], [address], 10/11/2024 11:45:20 T4, free, serum [address] [place] [address] (Lab), [address] [place], [address], 09/08/2024 11:04:24 CMP, serum or plasma [address] [place] [address] (Lab), [address] [place], [address], 09/08/2024 11:04:24 TSH, serum or plasma [address] (Lab), [address] [place], [address], 09/08/2024 11:04:25 vitamin D, 25-hydrox y, total, serum [address] (Lab), [address] [place], [address], 09/08/2024 11:04:26 glycohemo globin, total, blood [address] (Lab), [address] [place], [address], 09/08/2024 11:04:25 microalbu min, urine [address] (Lab), [address] [place], [address], 09/08/2024 11:04:25 SARS CoV 2 RNA (COVID-19 ), QL, 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, 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 [address] [facility], [address] [place], [address], 09/01/2024 12:00:07 rapid flu (A+B) [address] [facility], [address] [place], [address], 09/01/2024 12:00:08 rapid strep group A, throat [address] [facility], [address] [place], [address], 09/01/2024 12:00:08 hepatitis panel (A+B+C), acute, serum [address] (Lab), [address] [place], [address], 07/05/2024 18:27:36 gamma-glu tamyl transfera se (ggt), serum [address] (Lab), [address] [place], [address], 07/05/2024 18:27:36 lipid panel, serum 2023 [facility] (Lab), [address] [place], [address], 09/01/2024 13:09:09 CBC w/ auto diff 2023 [facility] (Lab), [address] [place], [address], 09/01/2024 13:09:10 T4, free, serum [address] (Lab), [address] [place], [address], 07/05/2024 18:27:35 CMP, serum or plasma 2023 [facility] (Lab), [address] [place], [address], 09/01/2024 13:09:09 TSH, serum or plasma 2023 [facility] (Lab), [address] [place], [address], 09/01/2024 13:09:09 vitamin D, 25-hydrox y, total, serum [address] (Lab), [address] [place], [address], 07/05/2024 18:27:36 glycohemo globin, total, blood [address] (Lab), [address] [place], [address], 07/05/2024 18:27:36 microalbu min, urine 2023 024 [facility] (Lab), [address] [place], [address], 09/01/2024 21:11:35 hepatitis panel (A+B+C), acute, serum [address] (Lab), [address] [place], [address], 07/05/2024 16:05:43 gamma-glu tamyl transfera se (ggt), serum [address] (Lab), [address] [place], [address], 07/05/2024 16:05:43 lipid panel, serum [address] (Lab), [address] [place], [address], 07/05/2024 16:05:41 CBC w/ auto diff [address] (Lab), [address] [place], [address], 07/05/2024 16:05:42 T4, free, serum [address] (Lab), [address] [place], [address], 07/05/2024 16:05:42 CMP, serum or plasma [address] (Lab), [address] [place], [address], 07/05/2024 16:05:42 TSH, serum or plasma [address] (Lab), [address] [place], [address], 07/05/2024 16:05:42 CBC w/ auto diff [address] (Lab), [address] [place], [address], 07/05/2024 16:05:43 vitamin D, 25-hydrox y, total, serum [address] (Lab), [address] [place], [address], 07/05/2024 16:05:43 glycohemo globin, total, blood [address] (Lab), [address] [place], [address], 07/05/2024 16:05:42 microalbu min, urine [address] (Lab), [address] [place], [address], 07/05/2024 16:05:43 Referral nephrolog ist referral - Please call patient to schedule an appointme nt. Thank you. 2024 025 MARLON Santos DO, [address] [facility] [address], [place], [address], 09/12/2024 14:30:37 cardiolog ist referral - Please call patient to schedule an appointme nt. Thank you. 2024 025 [place], [address], [address], [place], [address], 09/12/2024 14:35:27 nephrolog ist referral 2023 024 [email or web address] [place], [address], [address], [place], [address], 07/06/2024 18:36:06 cardiolog ist referral 2023 024 [email or web address] [place], [address], [address], [place], [address], 07/06/2024 18:36:07 pulmonolo gist referral 2023 024 [email or web address] Rebecca Fried MD, [address] [place], [address], 01/26/2024 09:12:07 nephrolog ist referral 2023 024 [email or web address] [place], [address], [address], [place], [address], 07/05/2024 16:05:55 cardiolog ist referral 2023 024 [email or web address] [place], [address], [address], [place], [address], 07/05/2024 16:05:56 infectiou s disease specialis t referral - Quantifer on TB Gold (+) 2023 024 [email or web address] 5 Enrrique Lo MD, [address], [address], [place], [address], 12/17/2023 14:31:11 Procedures None recorded. Surgeries None recorded. Imaging LDCT, chest, for lung cancer screening - Please call patient to schedule. [address] (Radiology), [address] [place], [address], 09/08/2024 15:29:42 US, liver - Please call patient to schedule. [address], [facility] [address], [address], 09/08/2024 15:25:39 DEXA, axial skeleton [address] (Radiology), [address] [place], [address], 09/08/2024 15:29:00 LDCT, chest, for lung cancer screening - Please call patient to schedule. [facility] [address] [place], [address], 08/30/2024 17:15:24 US, liver - Please call patient to schedule. [address], [facility] [address], [address], 08/30/2024 17:06:23 DEXA, axial skeleton [address] (Radiology), [address] [place], [address], 07/06/2024 19:22:27 CT, chest, w/o contrast - No auth needed [address] ([facility]), [address] [place], [address], 03/21/2024 14:29:15 LDCT, chest, for lung cancer screening - No Auth Required [address] (Radiology), [address] [place], [address], 07/06/2024 19:22:55 US, liver - no auth required [address] (Radiology), [address] [place], [address], 07/04/2024 19:19:50 DEXA, axial skeleton 2023 024 [facility] (Radiology), [address] [place], [address], 01/07/2024 12:22:54 CT, chest, w/o contrast - No auth needed [address] ([facility]), [address] [place], [address], 08/30/2024 17:01:06 Medication Orders paroxetin e 20 mg tablet 2024 025 [id number], [address], [place], [place], [id number], 09/08/2024 11:03:27 cyclobenz aprine 10 mg tablet 2024 025 [facility]/Pharmacy #[id number], [address], [place], [address], 09/08/2024 11:03:26 cyclobenz aprine 10 mg tablet 2023 024 [place] [facility]/Pharmacy #[id number], [address], [place], [address], 07/05/2024 18:27:37 paroxetin e 20 mg tablet [email or web address] [facility]95337, [address], [place], [place], [id number], 07/05/2024 18:27:36 Zithromax Z-Neftaly 250 mg tablet [address]/Pharmacy #94426, [address], [place], [address], 09/08/2024 10:38:00 albuterol sulfate HFA 90 mcg/actua tion aerosol inhaler 2023 024 [facility]44, [address], [id number], 03/21/2024 14:29:21 Spiriva Respimat 2.5 mcg/actua tion solution for inhalatio n 2023 024 [facility] #02546, [address], [id number], 03/21/2024 14:29:21 cyclobenz aprine 10 mg tablet [email or web address] [facility]64177, [address], [place], [place], [id number], 01/13/2024 09:22:28 olmesarta n 40 mg tablet [address] [facility]38483, [address], [id number], 07/05/2024 17:23:18 paroxetin e 20 mg tablet 2023 024 [facility] #76182, [address], [id number], 12/29/2023 10:23:48 albuterol sulfate HFA 90 mcg/actua tion aerosol inhaler 2023 024 [facility] #12646, [address], [place], [place], [id number], 10/06/2023 11:17:27 Spiriva Respimat 2.5 mcg/actua tion solution for inhalatio n 2023 024 [facility] #65706, [address], [place], [place], [id number], 10/06/2023 11:17:27 Patient TargetsNo targets recorded. Patient Instructions Encounter Date Encounter Id Patient Instructions Last Modified By Organization Details Last Modified Time 12/29/2023 [id number] diabetic eye exam* [email or web address] Not avail able 07/05/2024 16:05:20 03/21/2024 [id number] complete PFT w/ post bronchodilator spirometry* Not available 03/21/2024 14:33:36 07/05/2024 [id number] dementia rating scale-2* [email or web address] Not available 07/06/2024 08:41:14 alcohol misuse* jason 2 Not available 07/06/2024 21:21:26 depression screening* jason 2 Not available 07/06/2024 21:21:25 multi-dimensiona l health assessment questionnaire* [email or web address] Not available 07/06/2024 08:40:56 diabetic eye exam* dioni avila 2 Not available 07/05/2024 18:27:36 [facility] Plan and Screening Recommendations Advance Directives - [...] Negative Active diagnosis, Continue current treatment plan [email or web address] Not available 07/06/2024 09:10:52 09/08/2024 [id number] diabetic eye exam* [email or web address] Not avail able 09/08/2024 11:04:26 Reason for Referral Infectious Disease Specialis t Referral for Exposure to tuberculosis Quantiferon TB Gold (+) Referring Physician: Rebecca Fried, Pulmonary Disease, Encounter Date: 10/06/2023 Kaiako Kura [place] Maori Referral for Ch ronic kidney disease Referring Physician: Jacquelyn Bingham Internal Medicine, Encounter Date: 12/29/2023 Parachute Supervisor Referral for Co ronary arteriosclerosis Referring Physician: Jacquelyn Bingham Internal Medicine, Encounter Date: 12/29/2023 Manager Fashion Referral for C hronic obstructive pulmonary disease Referring Physician: Jacquelyn Bingham Internal Medicine, Encounter Date: 12/29/2023 Kaiako Kura [place] Maori Referral for Ch ronic kidney disease Referring Physician: Jacquelyn Bingham Internal Medicine, Encounter Date: 07/05/2024 Parachute Supervisor Referral for Co ronary arteriosclerosis Referring Physician: Jacquelyn Bingham Internal Medicine, Encounter Date: 07/05/2024 Kaiako Kura [place] Maori Referral for Ch ronic kidney disease Please call patient to schedule an appointment. Thank you. Referring Physician: Jacquelyn Bingham, Internal Medicine, Encounter Date: 09/08/2024 Parachute Supervisor Referral for Co ronary arteriosclerosis Please call patient to schedule an appointment. Thank you. Referring Physician: Jacquelyn Bingham, Internal Medicine, Encounter Date: 09/08/2024 Results Created Date Observation Date Name Description Value Unit Range Abnormal Flag Note LastModifiedBy Organization Detail LastModifiedTime 12/14/19 24 12/14/2023 CBC/C OMPLE TE BLD COUNT W/DIF F white blood cells 9.4 x10'3 /uL 4.2-10 .8 Not Available [facility] (Lab) [address] [place], [address], 12/14/2023 08:58:56 12/14/1912/14/2023 CBC/C OMPLE TE BLD COUNT W/DIF F red blood cells 4.79 x10'6 /uL 3.80-5 .20 Not Available [facility] (Lab) [address] [place], [address], 12/14/2023 08:58:56 12/14/19 24 12/14/2023 CBC/C OMPLE TE BLD COUNT W/DIF F hemoglobin 12.6 g/dL 12.0-1 5.6 Not Available [facility] (Lab) [address] [place], [address], 12/14/2023 08:58:56 12/14/19 24 12/14/2023 CBC/C OMPLE TE BLD COUNT W/DIF F hematocrit 40.3 % 35.7-4 5.7 Not Available [facility] (Lab) [address] [place], [address], 12/14/2023 08:58:56 12/14/19 24 12/14/2023 CBC/C OMPLE TE BLD COUNT W/DIF F mean red cell volume 84.1 fL 82.0-9 9.0 Not Available [facility] (Lab) [address] [facility], [address], 12/14/2023 08:58:56 12/14/19 24 12/14/2023 CBC/C OMPLE TE BLD COUNT W/DIF F mean red cell hemoglobin 26.3 pg 27.0-3 3.0 low Not Available [facility] (Lab) [address] [place], [address], 12/14/2023 08:58:56 12/14/19 24 12/14/2023 CBC/C OMPLE TE BLD COUNT W/DIF F mean RBC HGB concentratio n 31.3 g/dL 31.0-3 6.0 Not Available [facility] (Lab) [address] [place], [address], 12/14/2023 08:58:56 12/14/19 24 12/14/2023 CBC/C OMPLE TE BLD COUNT W/DIF F red cell distribution width 14.9 % 11.8-1 5.5 Not Available [facility] (Lab) [address] [place], [address], 12/14/2023 08:58:56 12/14/19 24 12/14/2023 CBC/C OMPLE TE BLD COUNT W/DIF F platelets 371 x10'3 /uL 150-40 0 Not Available [facility] (Lab) [address] [place], [address], 12/14/2023 08:58:56 12/14/19 24 12/14/2023 CBC/C OMPLE TE BLD COUNT W/DIF F mean platelet volume 10.4 fL 9.0-12 .4 Not Available [facility] (Lab) [address] [place], [address], 12/14/2023 08:58:56 12/14/19 24 12/14/2023 CBC/C OMPLE TE BLD COUNT W/DIF F neutrophils 74.9 % 39.0-7 2.0 high Not Available [facility] (Lab) [address] [place], [address], 12/14/2023 08:58:56 12/14/19 24 12/14/2023 CBC/C OMPLE TE BLD COUNT W/DIF F lymphocytes 15.5 % 16.0-4 7.0 low Not Available [facility] (Lab) [address] [place], [address], 12/14/2023 08:58:56 12/14/1912/14/2023 CBC/C OMPLE TE BLD COUNT W/DIF F monocytes 7.6 % 5.0-12 .0 Not Available [facility] (Lab) [address] [place], [address], 12/14/2023 08:58:56 12/14/19 24 12/14/2023 CBC/C OMPLE TE BLD COUNT W/DIF F eosinophils 1.3 % 1.0-7. 0 Not Available [facility] (Lab) [address] [place], [address], 12/14/2023 08:58:56 12/14/19 24 12/14/2023 CBC/C OMPLE TE BLD COUNT W/DIF F basophils 0.3 % 0.0-2. 0 Not Available [facility] (Lab) [address] [place], [address], 12/14/2023 08:58:56 12/14/1912/14/2023 CBC/C OMPLE TE BLD COUNT W/DIF F immature granulocytes 0.4 % 0.00-0 .50 Not Available [facility] (Lab) [address] [place], [address], 12/14/2023 08:58:56 12/14/19 24 12/14/2023 CBC/C OMPLE TE BLD COUNT W/DIF F neutrophils, absolute count 7.05 x10'3 /uL 1.5-8. 0 Not Available [facility] (Lab) [address] [place], [address], 12/14/2023 08:58:56 12/14/19 24 12/14/2023 CBC/C OMPLE TE BLD COUNT W/DIF F lymphocytes, absolute count 1.46 x10'3 /uL 1.07-3 .43 Not Available [facility] (Lab) [address] [place], [address], 12/14/2023 08:58:56 12/14/1912/14/2023 CBC/C OMPLE TE BLD COUNT W/DIF F monocytes, absolute count 0.72 x10'3 /uL 0.29-0 .99 Not Available [facility] (Lab) [address] [place], [address], 12/14/2023 08:58:56 12/14/19 24 12/14/2023 CBC/C OMPLE TE BLD COUNT W/DIF F eosinophils, absolute count 0.12 x10'3 /uL 0.02-0 .53 Not Available [facility] (Lab) [address] [place], [address], 12/14/2023 08:58:56 12/14/19 24 12/14/2023 CBC/C OMPLE TE BLD COUNT W/DIF F basophils, absolute count 0.03 x10'3 /uL 0.01-0 .08 Not Available [facility] (Lab) [address] [place], [address], 12/14/2023 08:58:56 12/14/19 24 12/14/2023 CBC/C OMPLE TE BLD COUNT W/DIF F immature granulocytes ,absolute 0.04 x10'3 /uL 0.00-0 .05 Not Available [facility] (Lab) [address] [place], [address], 12/14/2023 08:58:56 12/14/19 24 12/14/2023 CBC/C OMPLE TE BLD COUNT W/DIF F nucleated red blood cells 0.0 % -0 Not Available [facility] (Lab) [address] [place], [address], 12/14/2023 08:58:56 12/14/19 24 12/14/2023 CBC/C OMPLE TE BLD COUNT W/DIF F NRBC# 0.00 x10'3 /uL Not Available [facility] (Lab) [address] [place], [address], 12/14/2023 08:58:56 12/14/19 24 12/14/2023 LIPID PANEL cholesterol 173 mg/dL 140-19 9 NIH MADY NSUS RECOM MENDA TION FOR ALLEN STERO L: ADULT CHILD LOW RISK: <200 <170 BORDE RLINE : <200- 239 ----- HIGH RISK: >240 >200 Not Available [facility] (Lab) [address] [place], [address], 12/14/2023 09:13:38 12/14/19 24 12/14/2023 LIPID PANEL triglyceride s 95 mg/dL 0-150 NIH MADY NSUS REPOR T RECOM MENDA TION FOR TRIGL YCERI RIAN: ADULT CHILD LOW RISK: <150 ----- BODER LINE: 150-1 99 ----- HIGH RISK: >200 ----- Not Available [facility] (Lab) [address] [place], [address], 12/14/2023 09:13:38 12/14/1912/14/2023 LIPID PANEL HDL cholesterol 59 mg/dL 40- Not Available [facility] (Lab) [address] [place], [address], 12/14/2023 09:13:38 12/14/19 24 12/14/2023 LIPID PANEL LDL cholesterol, calculated 95 mg/dL 0-130 NIH MADY NSUS REPOR T RECOM MENDA TIONS FOR LDL: ADULT CHILD LOW RISK <130 <110 (OPTI MAL LDL) <100 ----- IRISHDE RLINE : 130-1 59 ----- HIGH RISK: >160 >130 A TRIGL YCERI DE RESUL T >400 INVAL IDATE S THE CALCU LATIO N FOR LDL FRACT IONAT ION - THE LDL RESUL T WILL NOT BE REPOR EBONY. Not Available [facility] (Lab) [address] [place], [address], 12/14/2023 09:13:38 12/14/19 24 12/14/2023 COMP MET PANEL /LIVE R sodium 140 mmol/ L 137-14 5 Not Available [facility] (Lab) [address] [place], [address], 12/14/2023 09:13:54 12/14/19 24 12/14/2023 COMP MET PANEL /LIVE R potassium 4.0 mmol/ L 3.5-5. 1 Not Available [facility] (Lab) [address] [place], [address], 12/14/2023 09:13:54 12/14/19 24 12/14/2023 COMP MET PANEL /LIVE R chloride 106 mmol/ L 98-107 Not Available [facility] (Lab) [address] [place], [address], 12/14/2023 09:13:54 12/14/19 24 12/14/2023 COMP MET PANEL /LIVE R carbon dioxide 28 mmol/ L 22-30 Not Available [facility] (Lab) [address] [place], [address], 12/14/2023 09:13:54 12/14/19 24 12/14/2023 COMP MET PANEL /LIVE R anion gap 10.0 mmol/ L 14-22 low Not Available [facility] (Lab) [address] [place], [address], 12/14/2023 09:13:54 12/14/19 24 12/14/2023 COMP MET PANEL /LIVE R glucose 106 mg/dL 70-99 high Not Available [facility] (Lab) [address] [place], [address], 12/14/2023 09:13:54 12/14/19 24 12/14/2023 COMP MET PANEL /LIVE R BUN 13 mg/dL 8-19 Not Available [facility] (Lab) [address] [place], [address], 12/14/2023 09:13:54 12/14/19 24 12/14/2023 COMP MET PANEL /LIVE R creatinine 0.90 mg/dL 0.66-1 .25 Not Available [facility] (Lab) [address] [place], [address], 12/14/2023 09:13:54 12/14/19 24 12/14/2023 COMP MET PANEL /LIVE R GFR >60 Refer ence Range : Union ge GFR Healt hy Adult : >60 [...] or ethni c subgr oups, such as Hispa nics. Outsi de the valid ated yesenia [...] of age, a pedia tric GFR calcu lator is avail able on the [facility] websi te: [email or web address] :[email or web address] [email or web address] ofess ional s/kdo qi/gf r_cal culat or Not Available [facility] (Lab) [address] [place], [address], 12/14/2023 09:13:54 12/14/19 24 12/14/2023 COMP MET PANEL /LIVE R alkaline phosphatase 72 U/L 38-126 Not Available [facility] (Lab) [address] [place], [address], 12/14/2023 09:13:54 12/14/19 24 12/14/2023 COMP MET PANEL /LIVE R alanine aminotransfe rase 12 U/L 0-35 Not Available [facility] (Lab) [address] [place], [address], 12/14/2023 09:13:54 12/14/19 24 12/14/2023 COMP MET PANEL /LIVE R aspartate aminotransfe rase 23 U/L 15-37 Not Available [facility] (Lab) [address] [place], [address], 12/14/2023 09:13:54 12/14/19 24 12/14/2023 COMP MET PANEL /LIVE R bilirubin, total 0.30 mg/dL 0.20-1 .30 Not Available [facility] (Lab) [address] [place], [address], 12/14/2023 09:13:54 12/14/19 24 12/14/2023 COMP MET PANEL /LIVE R bilirubin, conjugated (direct) 0.00 mg/dL 0.00-0 .30 Not Available [facility] (Lab) [address] [place], [address], 12/14/2023 09:13:54 12/14/19 24 12/14/2023 COMP MET PANEL /LIVE R biliurubin,u ncong. (indirect) 0.10 mg/dL 0.00-1 .1 Not Available [facility] (Lab) [address] [place], [address], 12/14/2023 09:13:54 12/14/19 24 12/14/2023 COMP MET PANEL /LIVE R calcium 9.2 mg/dL 8.4-10 .2 Not Available [facility] (Lab) [address] [place], [address], 12/14/2023 09:13:54 12/14/19 24 12/14/2023 COMP MET PANEL /LIVE R total protein 6.1 g/dL 6.3-8. 2 low Not Available [facility] (Lab) [address] [place], [address], 12/14/2023 09:13:54 12/14/19 24 12/14/2023 COMP MET PANEL /LIVE R albumin 3.5 g/dL 3.0-4. 4 Not Available [facility] (Lab) [address] [place], [address], 12/14/2023 09:13:54 12/14/19 24 12/14/2023 COMP MET PANEL /LIVE R globulin 2.6 g/dL 2.6-4. 2 Not Available [facility] (Lab) [address] [place], [address], 12/14/2023 09:13:54 12/14/19 24 12/14/2023 COMP MET PANEL /LIVE R A/G ratio 1.3 ratio 1.0-2. 0 Not Available [facility] (Lab) [address] [place], [address], 12/14/2023 09:13:54 12/14/19 24 12/14/2023 GGT/G -GLUT AMYL TRANS FERAS E gamma-glutam yl transferase 18 U/L 12-43 Not Available [facility] (Lab) [address] [place], [address], 12/14/2023 09:13:58 12/14/19 24 12/14/2023 T4 FREE free T4 1.18 NG/dL 0.78-2 .19 Not Available [facility] (Lab) [address] [place], [address], 12/14/2023 09:30:24 12/14/19 24 12/14/2023 TSH W/REF MARIA ISABEL FT4 TSH with reflex free T4 1.570 uIU/m L 0.465- 4.680 Not Available [facility] (Lab) [address] [place], [address], 12/14/2023 09:45:47 12/14/19 24 12/14/2023 HEMOG LOBIN A1C HA1C 5.8 % 4.0-6. 0 Diabe berry Scree jazlyn Crite raegan: <5.7% Consi stent with absen ce of diabe berry 5.7-6 .4% Consi stent with incre ased risk for diabe berry (pred iabet es) >OR=6 .5% Consi stent with diabe berry REFER ENCE: Diabe berry Care 2016, 39(Parrish ppl.1 ):s13 -s22 Not Available [facility] (Lab) [address] [place], [address], 12/14/2023 13:05:49 12/14/19 24 12/14/2023 MICRO ALBUM N RNDM W/CRE AT RATIO ur creat 133.80 mg/dL REFER ENCE RANGE NOT ESTAB LISHE D FOR HENOK M URINE CREAT ININE Not Available [facility] (Lab) [address] [place], [address], 12/14/2023 17:15:32 12/14/19 24 12/14/2023 MICRO ALBUM N RNDM W/CRE AT RATIO microalbumin , urine 27.2 mg/L 0.0-16 .6 high Not Available [facility] (Lab) [address] [place], [address], 12/14/2023 17:15:32 12/14/19 24 12/14/2023 MICRO ALBUM [...] ENCE: [facility], VOL. 26: S94-S , 2002 Not Available [facility] (Lab) [address] [place], [address], 12/14/2023 17:15:32 12/14/19 24 12/14/2023 HEPAT ITIS ACUTE PANEL hepatitis A IgM antibody NON-RE ACTIVE non-re active For sampl es repor ebony as Borde rline React slava for HAV IgM, it is recom dev d a new speci men be obtai mai in 2 weeks and retes ebony. Not Available [facility] (Lab) [address] [place], [address], 12/14/2023 22:32:42 12/14/19 24 12/14/2023 HEPAT ITIS ACUTE PANEL hepatitis A virus signal/cutof 0.05 0.00-0 .79 Not Available [facility] (Lab) [address] [place], [address], 12/14/2023 22:32:42 12/14/19 24 12/14/2023 HEPAT ITIS ACUTE PANEL hepatitis B core IgM antibody NON-RE ACTIVE non-re active Not Available [facility] (Lab) [address] [place], [address], 12/14/2023 22:32:42 12/14/19 24 12/14/2023 HEPAT ITIS ACUTE PANEL HBV core IgM signal/cutof f 0.04 0.00-1 .10 Not Available [facility] (Lab) [address] [place], [address], 12/14/2023 22:32:42 12/14/19 24 12/14/2023 HEPAT ITIS ACUTE PANEL hepatitis B surface antigen NON-RE ACTIVE non-re active All speci mens react slava for Hepat itis B Surfa ce Antig en will refle x to refer ral lab confi rmato ry testi ng. Not Available [facility] (Lab) [address] [place], [address], 12/14/2023 22:32:42 12/14/19 24 12/14/2023 HEPAT ITIS ACUTE PANEL HBV surf.antigen signal/cutof f 0.11 0.00-0 .99 Not Available [facility] (Lab) [address] [place], [address], 12/14/2023 22:32:42 12/14/19 24 12/14/2023 HEPAT ITIS ACUTE PANEL hepatitis C antibody NON-RE ACTIVE non-re active All speci mens react slava for Hepat itis C Virus antib filipe will refle x to PCR confi rmato ry testi ng. Pleas e allow 48-72 hours for resul ts. Not Available [facility] (Lab) [address] [place], [address], 12/14/2023 22:32:42 12/14/19 24 12/14/2023 HEPAT ITIS ACUTE PANEL hepatitis C virus signal/cutof 0.01 0.00-0 .99 Not Available [facility] (Lab) [address] [place], [address], 12/14/2023 22:32:42 12/14/19 24 12/14/2023 VITAM IN D 25-HY DROXY vd25oh 36.9 NG/mL 30-100 Vitam in D Statu s: Defic ient: <20 ng/mL Insuf ficie nt: 20-29 ng/mL Suffi cient : 30-10 0 ng/mL Not Available [facility] (Lab) [address] [place], [address], 12/14/2023 23:54:22 10/06/19 24 10/06/2023 LDCT, chest , for lung cance r scree jazlyn No observ ation record ed. [facility] [address] [place], [address], 10/06/2023 09:49:06 10/06/19 24 10/06/2023 LDCT, chest , for lung cance r scree jazlyn No observ ation record ed. [facility] [address] [place], [address], 04/19/2024 10:59:20 10/06/19 24 10/06/2023 6 minut e walk test* No observ ation record ed. [facility] Not Available 2023 14:53:22 10/06/19 24 10/06/2023 6 minut e walk test* No observ ation record ed. [facility] Not Available 2023 14:57:04 10/07/19 24 10/06/2023 compl ete PFT w/ post [facility] hodil ator josh metry * No observ ation record ed. [facility] (One Call Scheduling) [address] [place], [address], 10/07/2023 10:50:10 10/08/19 24 12/30/2022 US, echoc ardio gram, trans thora cic, compl ete No observ ation record ed. [facility] Not Available 2023 08:20:41 11/12/19 24 11/12/2023 cardi ac stres s test No observ ation record ed. [email or web address] [facility] [address], [place], [address], 04/19/2024 17:34:13 11/18/19 24 11/18/2023 scree jazlyn breas t negrito, bilat [facility] [address], [place] [address] Patien t Name: TYLER QUINTEROFlory FLYNN E Access ion #: [id number] Sex: F : 1944 9 Locati on: RAD Attend ing Physic kalani: JILL BENAVIDES MURTPRUDENCE A Orderi ng Physic kalani: ARLETH BISHOP A Exam Date: 024 8:20 AM Exam Name: MG SCRN BREAST [...] denise ectura l Page 1 of 2 [facility] Patien t Name: HUNTER QUINTERO GEE E Access ion #: [id number] Sex: F : 1944 9 Exam Date: 4/10/2 024 8:20 AM Exam Name: MG MAY BREAST [...] Exam should be part of the period ic health exam-a bout every 3 years for women in their 20s and 30s and every year for women 40 and over. Breast self-e xam is an option for women in their 20s. Any breast change noted on the breast self-e xam she would be report ed prompt ly to the [facility]. A negati ve mammog aileen report [...] 8:58 AM (CT) Page 2 of 2 [email or web address] [facility] (Imaging) [address] [place], [address], 12/09/2023 17:27:55 01/07/20 24 01/07/2024 DEXA, axial skele ton [facility] [address] [place] [address] [phone] Chet manrique Name: HUNTER QUINTERO Access ion #: [id number] Sex: F : 1944 8 Dictat ed By: Raf Bae ms Attend ing Physic kalani: ARLETH BISHOP Physic kalani: JILL MKAAYLA LUANNTammyPRUDENCE Alvino Exam Date: 2023 10:23 AM Exam Name: XR DEXA-H IPS PELVIS SPINE Admitt ing Diagno sis(es ): PROCED URE: DEXA SCAN INDICA TION: 78 years old, Female ; screen ing of osteop orosis . TECHNI QUE: Bone densit ometry of the lumbar spine and bilate ral hips was perfor med on a [employer] unit using dual energy x-ray absorp tiomet ry (DEXA) . 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 Page [address] [address] Patien t Name: HUNTER QUINTERO GEE Access ion #: [id number] Sex: F : 1944 8 Dictat ed By: Raf Bae ms Attend ing Physic kalani: JILL TALBERT Physic kalani: JUAN ANTONIOARLETH PETTY Exam Date: 2023 10:23 AM Exam Name: [...] 2023 11:20: 48 AM Page 3 INTERFACE [facility] (Imaging) [address] [place], [address], 01/07/2024 12:22:55 01/07/20 24 01/07/2024 DEXA, axial skele ton No observ ation record ed. [facility] [address] [place], [address], 01/07/2024 12:30:19 04/06/20 24 02/22/2024 CT, chest , w/o contr ast No observ ation record ed. [facility] (One Call Scheduling) [address] [place], [address], 04/06/2024 17:20:15 07/08/20 24 07/08/2024 XR, foot, 3 or more view No observ ation record ed. [email or web address] [address], [place], [address], 08/30/2024 17:01:21 09/26/19 25 09/26/2024 imagi ng/di agnos tic resul t No observ ation record ed. [address] [address], [place], [address], 09/26/2024 13:26:11 09/26/19 25 09/26/2024 imagi ng/di agnos tic resul t No observ ation record ed. [address] [address], [place], [address], 09/26/2024 13:32:36 10/12/19 25 10/11/2024 US, liver No observ ation record ed. [address], [place], [address], 10/11/2024 10:18:11 Result Notes None recorded. Problems Name Problem SNOMED Code Status Onset Date Resolution Date Notes Provider Name and Address Organization Details Recorded Time Gastroesophag eal reflux disease 680812634 Active 2019 Not Available [facility] 4 13:30:17 Transient cerebral ischemia 736492507 Active Not Available [facility] 4 13:30:17 Type 2 dia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 061548330 Active 2020 Not Available [facility] 4 13:30:17 Depressive disorder 21910256 Active 2021 Not Available [facility] 4 13:30:17 Osteoarthriti s 453151751 Active Not Available [facility] 4 13:30:17 Hyperlipidemi a 31671677 Active 2021 Not Available [facility] 4 13:30:17 Essential hypertension 11687844 Active Not Available [facility] 4 13:30:17 Osteoporosis 76950924 Active 2021 Not Available [facility] 4 13:30:18 COVID-19 268082197 Active 2022 Not Available [facility] 4 13:30:18 Ex-smoker 2342111 Active 2019 Not Available [facility] 4 13:30:18 Chronic kidney disease 252388025 Active 2022 Not Available [facility] 4 13:30:18 Chronic obstructive pulmonary disease 41547521 Active 2022 Not Available [facility] 4 13:30:17 Coronary arteriosclero sis 61773753 Active 2022 Not Available [facility] 4 13:30:17 Chronic depression 995767982 Active 2022 Not Available [facility] 4 13:30:17 Moderate chronic obstructive pulmonary disease 096718274 Active 2023 Not Available [facility] 4 13:30:17 Solitary nodule of lung 745620319 Active 2023 Rebecca Fried MD [address] [facility], [facility] [address], [place], [address] , [facility] 4 10:36:03 Allergic rhinitis 35648147 Active 2023 Yenny Rosenbaum MA null, [place] [facility] 4 12:09:25 Anemia 283511305 Active 2023 Jacquelyn harry MD [address], [address], [place], [address] , [place] [facility] 4 19:12:13 Gastritis 7597976 Active 2023 Jacquelyn harry MD [address], [address], [place], [address] , [place] [facility] 4 17:40:42 Leukocytosis 117151382 Active 2023 Jacquelyn harry MD [address], [address], [place], [address] , [place] [facility] 4 17:40:42 Low back pain 485234659 Active 2023 Jacquelyn harry MD [address], [address], [place], [address] , [place] [facility] 4 17:40:42 Increased liver function 37955115 Active 2023 Jacquelyn harry MD [address], [address], [place], [address] , [place] [facility] 4 17:40:42 Cough 85582107 Active 2023 Jacquelyn harry MD [address], [address], [place], [address] , [place] [facility] 4 17:48:29 Upper respiratory infection 67181309 Active 2024 Jodie Muñoz MA null, [place] [facility] 5 11:23:22 Candidiasis of mouth 66228203 Active 2024 ALFREDITO Parry null, [place] [facility] 13:55:52 Notes:Medical History: TIA D epression IgE 134 IU/mL Eosinophils 280/uL Rhinitis COVID infection 11/2022 Hypogammaglobulinemia (IgG2) Quantiferon TB Gold (+) AAT PiMM 236 mg% Mod COPD, 2 Lpm exertional O2 c/o IVRC Elevated BNP Hypertension EF 60% Hyperlipidemia T2DM with microalbuminuria CAD Hiatal hernia with IRINA Bilateral nephrolithiasis CKD Vit D deficiency Hip osteopenia Osteoarthritis Procedure History: T&A 1956 [facility] 1986 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 Problem Notes None recorded. Procedures Surgical History Date Name Laterality Status Provider Name and Address Organization Details Recorded Time 07/05/20 Medicare Wellness CPT Code, subsequent completed Bethany Milton RN [facility] [employer] [facility] 07/05/2024 17:29:39 06/30/20 24 Kidney Stones completed ALFREDITO Parry [facility] [employer] [facility] 07/05/2024 17:24:12 12/23/19 24 cardiac catheterization completed Rosalina Scruggs MA [facility] [employer] [facility] 12/29/2023 09:52:32 01/07/20 23 Medicare Wellness CPT Code, subsequent completed Pratima Arevalo RN [facility] [employer] [facility] 01/06/2023 11:46:36 02/13/20 20 Cataract Surgery completed Not Available [facility] 10/08/2022 05:09:50 06/27/20 19 Most Recent Bone Density completed Not Available [facility] 10/08/2022 05:09:49 07/17/20 17 Date of Last Colonoscopy completed Not Available [facility] 10/08/2022 05:09:48 07/17/20 17 Egd biopsy single/multiple completed Not Available [facility] 10/08/2022 05:09:50 07/17/20 17 Diagnostic colonoscopy completed Not Available [facility] 10/08/2022 05:09:50 Appendectomy completed Not Available [facility] 10/08/2022 05:09:50 Colonoscopy completed Not Available [facility] 10/08/2022 05:09:50 Tonsillectomy completed Not Available [facility] 10/08/2022 05:09:50 Hysterectomy completed Not Available [facility] 10/08/2022 05:09:50 Orthopedic Surgery completed Not Available [facility] 10/08/2022 05:09:50 procedure on nose completed Not Available [facility] 10/08/2022 05:09:50 Imaging Results Imaging Date Name Status LastModified by Organization Details LastModified Time 10/06/2023 LDCT, chest, for lung cancer screening completed [address] [place], [address], 10/06/2023 09:49:06 10/06/2023 LDCT, chest, for lung cancer screening completed [address] [place], [address], 04/19/2024 10:59:20 10/06/2023 6 minute walk test* completed [facility] Information not available 10/06/2023 14:53:22 10/06/2023 6 minute walk test* completed [facility] Information not available 10/06/2023 14:57:04 10/06/2023 complete PFT w/ post bronchodilator spirometry* completed [facility] (One Call Scheduling) [address] [place], [address], 10/07/2023 10:50:10 12/30/2022 US, echocardiogram, transthoracic, complete completed [facility] Information not available 10/08/2023 08:20:41 11/12/2023 cardiac stress test completed [address] [facility] [address], [place], [address], 04/19/2024 17:34:13 11/18/2023 screening breast negrito, bilat completed [email or web address] [facility] (Imaging) [address] [place], [address], 12/09/2023 17:27:55 01/07/2024 DEXA, axial skeleton active INTERFACE [facility] (Imaging) [address] [place], [address], 01/07/2024 12:22:55 01/07/2024 DEXA, axial skeleton active [facility] [address] [place], [address], 01/07/2024 12:30:19 02/22/2024 CT, chest, w/o contrast completed [facility] (One Call Scheduling) [address] [place], [address], 04/06/2024 17:20:15 07/08/2024 XR, foot, 3 or more view active [address] [place] [address], [address], 08/30/2024 17:01:21 09/26/2024 imaging/diagnostic result active [address], [address], 09/26/2024 13:26:11 09/26/2024 imaging/diagnostic result active [address], [address], 09/26/2024 13:32:36 10/11/2024 US, liver active [address] [facility], [place], [address], 10/11/2024 10:18:11 Procedure Notes None recorded. Medical Equipment None Reported. Allergies Allergen ID Allergen Name Allergen Category Reaction Reaction Severity Criticality Documentation Date Start Date Code Code System Note Provider Name and Address Organization Details Recorded Time 9600 amoxicill in medicatio n Not available Not available Not available 10/08/2022 723 RxNorm Not Available [facility] 05:21:32 Medications Name Sig Start Date Stop Date Status Note LastModified by Organization Details LastModified Time cyclobenz aprine 10 mg tablet TAKE 1 TABLET BY MOUTH EVERY DAY NEEDED. NO DRIVING OR ALCOHOL OR SEDATING MEDICATI ONS active Not Available Not Available No t Available amoxicill in 500 mg capsule Take 1 capsule 3 times a day by oral route for 10 days. 03/24 completed Not Available Not Available Not Available clotrimaz ole 10 mg giacomo Take 1 tablet 5 times a day by oral route for 7 days. 2024 active Not Available Not Available Not Avai lable promethaz ine-DM 6.25 mg-15 mg/5 mL oral [...] Not Available azithromy ahmet 250 mg tablet TAKE 2 TABLETS BY MOUTH ON DAY 1, THEN 1 TABLET DAILY FOR 4 DAYS, DIRECTED active Not Available Not Available No t Available ofloxacin 0.3 % eye drops active [...] tablet TAKE 1 TABLET BY MOUTH EVERY DAY, NO ALCOHOL, DRIVING, OR W/ SEDATING MEDS active Not Available Not Available No t Available nitrofura ntoin macrocrys jordon 100 mg capsule [...] Available Not Available Not Available Fluzone High-Dose 4314-2945 (PF) 180 mcg/0.5 mL intramusc ular syringe ADM 0.5ML IM UTD active Not Available Not Available No t Available Fluzone High-Dose (PF) 180 mcg/0.5 mL [...] Available Not Available Not Available Fluad Quad 2346-1696 (65yr up)(PF) 60 mcg (15 mcg x [...] Updated DateTime 4 154.94 cm 20.3 kg/m2 99102.1 g 97.4 [degF] 86 /min 148 mm[Hg] 58 mm[Hg] Rosalina Scruggs MA [facility] [facility] [employer] 4 10:05:45 Date Recorded Oxygen saturation Oxygen saturation in Arterial blood by Pulse oximetry Heart rate Respiratory rate Provider Name and Address Organization Details Last Updated DateTime 10/06/2023 93 % 93 % 86 /min 14 /min Rebecca Fried MD [address] [facility] [address], [place], [address], [employer] [facility] [employer] 4 10:30:26 Date Recorded Body height Body mass index (BMI) Body weight Body temperature Heart rate Oxygen saturation Oxygen saturation in Arterial blood by Pulse oximetry Provider Name and Address Organization Details Last Updated DateTime 4 154.94 cm 18.7 kg/m2 00007.6 4 g 98.1 [degF] 101 /min 91 % 91 % Rosalina Scruggs MA [employer] 4 09:47:57 Date Recorded Body height Body mass index (BMI) Body weight Body temperature Heart rate Oxygen saturation Oxygen saturation in Arterial blood by Pulse oximetry Systolic blood pressure Diastolic blood pressure Provider Name and Address Organization Details Last Updated DateTime 4 154.94 cm 18.2 kg/m2 01301.3 g 98.1 [degF] 84 /min 91 % 91 % 144 mm[Hg] 70 mm[Hg] Blayne Freire CMA [place] [facility] [place] [employer] 4 14:09:40 Date Recorded Heart rate Respiratory rate Provider N benedicto and Address Organization Details Last Updated DateTime 03/21/2024 84 /min 15 /min Rebecca Fried MD [address], [facility] [address], [place], [address], [facility] [employer] 03/21/2024 14:14:33 Date Recorded Body height Body mass index (BMI) Body weight Body temperature Heart rate Systolic blood pressure Diastolic blood pressure Provider Name and Address Organization Details Last Updated DateTime 4 154.94 cm 16.9 kg/m2 68372.5 2 g 97.5 [degF] 84 /min 120 mm[Hg] 64 mm[Hg] ALFREDITO Parry [place] [employer] [facility] [employer] 4 17:26:19 Date Recorded Body height Body mass index (BMI) Body weight Body temperature Heart rate Systolic blood pressure Diastolic blood pressure Provider Name and Address Organization Details Last Updated DateTime 5 154.94 cm 16.8 kg/m2 37013.7 2 g 97.1 [degF] 84 /min 126 mm[Hg] 66 mm[Hg] ALFREDITO Parry [place] [facility] [employer] 5 10:40:59 Social History Question Answer Notes LastModified by Organization Details LastModified Time Tobacco Smoking Status Former Smoker quit 2017 Not Available [facility] 10/08/2022 05:08:51 Do You Have An Advance Directive? No Patient Declined Information MIGRATION.001 [id number] Information not available 10/08/2022 What Is Your Level Of Alcohol Consumption? Occasional Information not available 12/16/2022 Are You Blind Or Do You Have Difficulty Seeing? No MIGRATION.207 [id number] Information not available 10/08/2022 What Is Your Level Of Caffeine Consumption? Heavy MIGRATION.636 5707474 Information not available 10/08/2022 How Much Tobacco Do You Chew? None MIGRATION.921 [id number] Information not available 10/08/2022 In The 14 Days Before Symptom Onset, Have You Had Close Contact With A Laboratory-conf irmed COVID-19 While That Case Was Ill? No MIGRATION.910 [id number] Information not available 10/08/2022 In The 14 Days Before Symptom Onset, Have You Had Close Contact With A Person Who Is Under Investigation For COVID-19 While That Person Was Ill? No MIGRATION.025 [id number] Information not available 10/08/2022 Are You Deaf Or Do You Have Serious Difficulty Hearing? No MIGRATION.596 0004231 Information not available 10/08/2022 What Type Of Diet Are You Following? REGULAR MIGRATION.818 6565078 Information not available 10/08/2022 Which Illicit Or Recreational Drugs Have You Used? None MIGRATION.353 8821643 Information not available 10/08/2022 Do You Or Have You Ever Used E-cigarettes Or Vape? Never Used Electronic Cigarettes MIGRATION.748 [id number] Information not available 10/08/2022 What Is The Highest Grade Or Level Of School You Have Completed Or The Highest Degree You Have Received? [id number] MIGRATION.461 0989302 Information not available 10/08/2022 What Is Your Occupation? Retired MIGRATION.585 9074629 Information not available 10/08/2022 Have There Been Any Changes To Your Family Or Social Situation? No MIGRATION.478 9428281 Information not available 10/08/2022 What Is The Fluoride Status Of Your Home? Unknown MIGRATION.378 8826691 Information not available 10/08/2022 When Did You Quit Smoking? 1-5yearssincelastc igarette MIGRATION.164 [id number] Information not available 10/08/2022 Are There Any Guns Present In Your Home? No MIGRATION.851 7550340 Information not available 10/08/2022 Do You Use Insect Repellent Routinely? Yes MIGRATION.979 [id number] Information not available 10/08/2022 Where Do You [...] Do You Have A Medical Power Of Reporter Anchor? No MIGRATION.756 7201946 Information not available 10/08/2022 What Was The Date Of Your Most Recent Tobacco Screening? 09/08/2024 [email or web address] Information not available 09/08/2024 How Many Children Do You Have? 1 [email or web address] Information not available 12/29/2023 What Is Your Current Pack Years? 30ormorepackyears [email or web address] Information not available 08/30/2024 Have You Ever Been Counseled For Unhealthy Alcohol Use? No Information not available 12/16/2022 Do You Have Any Pets? Yes MIGRATION.977 [id number] Information not available 10/08/2022 What Is Your Relationship Status? MIGRATION.306 5390730 Information not available 10/08/2022 Do You Use Your Seat Belt Or Car Seat Routinely? Yes MIGRATION.892 3070172 Information not available 10/08/2022 Do You Have Smoke And Carbon Monoxide Detectors In Your Home? Yes MIGRATION.758 8772886 Information not available 10/08/2022 At What Age Did You Start Smoking Tobacco? 18 MIGRATION.091 8384446 Information not available 10/08/2022 Are You Passively Exposed To Smoke? Yes MIGRATION.130 6739346 Information not available 10/08/2022 Do You Or Have You Ever Used Smokeless Tobacco? Never Used Smokeless Tobacco MIGRATION.263 0525167 Information not available 10/08/2022 Are There Any Smokers In Your House? Yes MIGRATION.063 9188747 Information not available 10/08/2022 How Much Tobacco Do You Smoke? No Was 1ppd MIGRATION.240 9692892 Information not available 10/08/2022 What Types Of Sporting Activities Do You Participate In? None MIGRATION.470 9236533 Information not available 10/08/2022 Do You Feel Stressed (tense, Restless, Nervous, Or Anxious, Or Unable To Sleep At Night)? [id number] MIGRATION.842 6156549 Information not available 10/08/2022 Do You Use Any Illicit Or Recreational Drugs? No MIGRATION.376 7234224 Information not available 10/08/2022 Do You Use Sunscreen Routinely? Yes MIGRATION.936 2135122 Information not available 10/08/2022 Has Tobacco Cessation Counseling Been Provided? No Information not available 12/16/2022 How Many Years Have You Smoked Tobacco? 53 [email or web address] Information not available 08/30/2024 Have You Recently Traveled Abroad? No MIGRATION.777 7503982 Information not available 10/08/2022 Do You Have Any Dietary Restrictions? No MIGRATION.837 2336471 Information not available 10/08/2022 Do You Or Have You Ever Used Any Other Forms Of Tobacco Or Nicotine? No MIGRATION.788 5008939 Information not available 10/08/2022 Sex: Female Functional Status Question Answer Note LastModified by Organizat ion Details LastModified Time Do you have difficulty walking or climbing stairs? No MIGRATION.8560279 026 Information not available 10/08/2022 Do you have transportation difficulties? No MIGRATION.6009326 026 Information not available 10/08/2022 Are you able to walk? YESWOREST MIGRATION.4800037 026 Information not available 10/08/2022 Do you have difficulty doing errands alone? No MIGRATION.6314374 026 Information not available 10/08/2022 Are you able to care for yourself? Yes MIGRATION.7056387 026 Information not available 10/08/2022 Do you have difficulty dressing or bathing? No MIGRATION.4519864 026 Information not available 10/08/2022 What is your exercise level? Moderate MIGRATION.8800943 026 Information not available 10/08/2022 Mental Status Question Answer Note LastModified by Organizat ion Details LastModified Time Do you have difficulty concentrating, remembering or making decisions? No MIGRATION.716272191 6 Information not available 10/08/2022 Family History Relationship Description Onset Age of this Age Resolved Age Notes LastModified by Organization Details LastModified Time Sister Malignant tumor of breast MIGRATION.608 [id number] Not available 10/08/2022 05:09:54 Mother Malignant tumor of ovary MIGRATION.793 [id number] Not available 10/08/2022 05:09:54 Father Malignant tumor of pharynx MIGRATION.661 [id number] Not available 10/08/2022 05:09:54 Brother Carcinoma in situ of liver MIGRATION.742 [id number] Not available 10/08/2022 05:09:54 Maternal Grandmother Carcinoma in situ of kidney MIGRATION.024 [id number] Not available 10/08/2022 05:09:54 Maternal Grandfather Carcinoma in situ of colon MIGRATION.055 [id number] Not available 10/08/2022 05:09:54 Maternal Grandmother Diabetes [...] DISEASE/DISORDER Y HISTORY OF DRUG ABUSE N COPD Y RADIATION / CHEMOTHERAPY N Other # 2 N BLOOD DISEASES N EAR OR HEARING PROBLEMS N MUMPS N SHINGLES N BOWEL PROBLEMS N DEPRESSION (INCLUDING POST ) Y STROKE/TIA N ULCERS N BENIGN PROSTATIC HYPERPLASIA N MEASLES N HYPOTENSION N MYOCARDIAL INFARCTION N OBESITY N GERD/NAUSEA N ANEURYSM N URINARY/BLADDER/KIDNEY PROBLEMS Y CORONARY ARTERY DISEASE (CAD) N ADDICTION CONCERNS N ENDOMETRIOSIS N Impotence N USE OF BLOOD THINNERS N SKIN [...] GLAUCOMA N FOOT PROBLEM N DIVERTICULITIS N CHICKENPOX N SLEEP APNEA N INFECTIOUS DISEASE N HEART ARRHYTHMIA N PROSTATE N INSOMNIA N HIGH CHOLESTEROL / HYPERLIPIDEMIA Y HYPERTHYROIDISM N EYE PROBLEMS N EDEMA N CHRONIC PAIN SYNDROME N HYPOTHYROIDISM N CAROTID BLOCKAGE N CONSTIPATION N BACK / NECK PROBLEMS Y HAVE YOU BEEN HOSPITALIZED OR SEEN IN [facility] IN THE PAST YEAR ? N ATHEROSCLEROSIS N BREAST PROBLEMS N DIALYSIS N ECZEMA N OSTEOPOROSIS N ARTHRITIS N NO SIGNIFICANT PAST MEDICAL HISTORY N APPENDICITIS N DIABETES, TYPE Y BAD TEETH N ENT N HEARTBURN / REFLUX N AUTISM SPECTRUM DISORDER (ASD) N HEPATITIS / LIVER DISEASE N GOUT N SLEEP DISORDER N ALZHEIMER'S DISEASE N Brain Problems N HERPES N DEMENTIA N HEADACHES/MIGRAINES N SEIZURES/EPILEPSY N VASCULAR DISEASE N PACEMAKER N Blood Disorder N DIZZINESS N HEART DISEASE/HEART PROBLEMS N KIDNEY DISEASE Y MULTIPLE SCLEROSIS N CARDIAC ARRHYTHMIA N CANCER: SPECIFY N ATRIAL FIBRILLATION N Gall Stones N [...] 50 mcg/0.25mL dose 1 completed Not Available [facility] 09/30/2023 13:30:18 COVID-19, mRNA, LNP-S, bivalent, PF, 50 mcg/0.5 mL or 25mcg/0.25 mL dose 2 completed Not Available [facility] 09/30/2023 13:30:18 Influenza, high-dose, quadrivalent, PF 2 completed Not Available [facility] 09/30/2023 13:30:18 Influenza, split virus, trivalent, preservative 0 completed Not Available [facility] 09/30/2023 13:30:18 Influenza, high-dose, trivalent, PF 9 completed Not Available [facility] 09/30/2023 13:30:18 COVID-19, mRNA, LNP-S, PF, 100 mcg/0.5mL dose or 50 mcg/0.25mL dose 1 completed Not Available [facility] 09/30/2023 13:30:18 COVID-19, mRNA, LNP-S, PF, 100 mcg/0.5mL dose or 50 mcg/0.25mL dose 1 completed Not Available [facility] 09/30/2023 13:30:18 Influenza, high-dose, quadrivalent, PF 0 completed Not Available [facility] 09/30/2023 13:30:18 Influenza, split virus, quadrivalent, preservative 8 completed Not Available [facility] 09/30/2023 13:30:18 pneumococcal conjugate PCV 7 7 completed Not Available [facility] 09/30/2023 13:30:18 influenza, unspecified formulation 7 completed Not Available [facility] 09/30/2023 13:30:18 Tdap 7 completed Not Available [facility] 09/30/2023 13:30:18 pneumococcal polysaccharide PPV23 3 completed Not Available [facility] 09/30/2023 13:30:18 Past Encounters Encounter ID Performer Location Encounter Start Date Encounter Closed Date Diagnosis/Indication Diagnosis SNOMED-CT Code Diagnosis ICD10 Code Diagnosis Note [id number] [facility] [place] [address] [place] [address] 12/31/2020 00:00:00 12/31/2020 12:43:00 [id number] [facility] [place] [address] [facility], [facility] 15 [place] [address] 02/28/2021 00:00:00 02/28/2021 14:13:02 [id number] _ATHENA_M IGRATION_ DEFAULT_1 _1 , 04/26/2021 00:00:00 04/28/2021 20:51:15 [id number] [facility] [place] [address] [place] [address] 06/24/2021 00:00:00 06/24/2021 11:04:04 [id number] [facility] [place] [address] [place] [address] 08/06/2021 00:00:00 08/06/2021 16:04:59 [id number] [facility] [place] [address] [facility] 15 [place] [address] 09/03/2021 00:00:00 09/03/2021 14:38:59 [id number] [facility] Internal Med [facility] [address] [facility] 15 [place] [address] 01/30/2022 00:00:00 01/30/2022 14:22:13 [id number] [facility] Internal Med [facility] [address] [address] 07/24/2022 00:00:00 07/24/2022 14:44:34 [id number] [facility] [place] [address] [place] [address] 08/06/2022 00:00:00 08/06/2022 13:18:30 [id number] Xavier Liang DPM [facility] [place] [address] [facility], [address] [place] [address] 12/16/2022 13:54:34 12/16/2022 14:44:19 Tendinitis of foot 051734657 M77.51 x-rays of the foot and ankle reviewed negative for acute injuryreco mmend Voltaren gel over-the-c ounterrice therapyrec ommend returning to [facility] for 3 weeksfollo w-up in 3 weeks if continues to be problemati c will obtain ultrasound Ankle pain 419250758 M25 .579 right lateralalo ng peroneal tendonsas above [id number] Jacquelyn harry MD [facility] Internal Med [facility] [address] [place] [address] Jose Davide., [address] [address] 01/06/2023 11:23:04 01/06/2023 12:19:46 Screening - NAD 140554985 Z13.9 C-scope: Dr Aranda 07/17/17, next in [...] her understand ing of the above Hyperlipidemia 80867027 E78.5 On rosuvastat in 40mg dailyNot taking vascepaGet labs Chronic ki dney disease 395689599 N18.[address] Santos, last OV 02/25/2022 Gastritis 1627219 K29.70 EGD: Francisco Espana and may need UGI if sx persistShe feels that she has not taken the PPI and is doing well S/p EGD 12/21/18: Dr Vyas, neg for H pylori Does wellNo sxNot on PPI Anemia 418184015 D64.9 On ironget labsH/H is stable Essential hypertension 40278888 I10 On ASAOn olmesartan 40mg dailyOn amlodipine 10mg dailyGet labs Low back pain 790417762 M54.50 Very rare use of the flexerill, renewed 01/06/2023 Does well Chronic ob structive pulmonary disease 66473468 J44.9 PFTs 06/18/17: COPDSees Rebekah Euceda LINOTYPE OPERATOR next 02/04/2023 On proairOff spirivaOn stioltoOn HHNsOn singulair 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 723106868 E11.9 On jardianceO n olmesartan Does wellGet labs Dr Liang 01/06/2023 Ex-smoker 3524471 Z87.89 1 QuitCT chest 10/23/16: COPD LDCT 12/09/18: NEg, esophageal prominence , refer to [facility] 01/23/2020 : Next in one yearLDCT 01/09/2021 : Next in one yearLDCT 09/17/2021 : CAD, next in one yearLDCT 10/06/2022 : CAD, next in one year Coronary arteriosclerosis 99519909 I25.10 Seen on the LDCT [facility] Dr Tran 08/30/2020 : Is to get stress test, ECHO and US of the legsShe states that Dr Tran has told her that her heart is doing well Transient cerebral ischemia 892381459 G45.9 Does wellDoes see [facility] Osteoporosis 90604924 M8 1.0 On proliaGet CMP in 2 weeks after prolia, advised to use calcium and vit d also Chronic depression 76060 0009 F32.A On paroxetine 20mg dailydoes well on this, not suicidal or homicidal, declined psychiatry referral at this time COVID-19 440012417 U07.1 +ve 11/10/2022 Adult heal th examination 388616204 Z00.00 Screening for disorder 843562713 Z13.9 [id number] Xavier Liang DPM [facility] [place] [address] [facility], [address] [place] [address] 01/06/2023 14:10:56 01/06/2023 14:55:19 Ankle pain 680628635 M25.579 right lateralalo ng peroneal tendonsImp roved Tendinitis of foot 99051 2008 M77.51 continue Voltaren gelRice therapyCon tinue stretching exercisesF ollow-up as needed [id number] Jacquelyn harry MD [facility] Internal Med [place] [address] [facility], [address] [place] [address] 07/07/2023 09:21:56 07/07/2023 10:01:36 Screening - NAD 258376614 Z13.9 C-scope: Dr Aranda 07/17/17, next in [...] her understand ing of the above Hyperlipidemia 77116167 E78.5 On rosuvastat in 40mg dailyNot taking vascepaGet labs Chronic ki dney disease 590644184 N18.[address] Santos Gastritis 0523622 K29.70 EGD: Dr. Aranda, [place] and may need UGI if sx persistShe feels that she has not taken the PPI and is doing well S/p EGD 12/21/18: Dr Vyas, neg for H pylori Does wellNo sxNot on PPI Anemia 275701374 D64.9 On ironget labsH/H is stable Essential hypertension 98715570 I10 On ASAOn olmesartan 40mg dailyOn amlodipine 10mg dailyGet labs Low back pain 546031454 M54.50 Very rare use of the flexerill, OK to renewDoes well Chronic ob structive pulmonary disease 89757792 J44.9 PFTs 06/18/17: COPDSeen Rebekah Euceda LINOTYPE OPERATOR On proairOn spirivaOff stiolto, was not taking this as is on SpirivaOn HHNsOn singulair 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 839354272 E11.9 On jardianceO n olmesartan Does wellGet labs Dr Liang 01/06/2023 Ex-smoker 8641959 Z87.89 1 QuitCT chest 10/23/16: COPD LDCT 12/09/18: NEg, esophageal prominence , refer to [facility] 01/23/2020 : Next in one yearLDCT 01/09/2021 : Next in one yearLDCT 09/17/2021 : CAD, next in one yearLDCT 10/06/2022 : CAD, next in one year Coronary arteriosclerosis 15082703 I25.10 Seen on the LDCT [facility] Dr Tran 08/30/2020 : Is to get stress test, ECHO and US of the legsShe states that Dr Tran has told her that her heart is doing well Transient cerebral ischemia 023851877 G45.9 Does wellDoes see [facility] Osteoporosis 50898540 M8 1.0 On prolia, but too expensive so not taking this, will get a DEXA and may need to be on fosamax Chronic depression 39862 0009 F32.A On paroxetine 20mg dailyDoes well on this, not suicidal or homicidal, declined psychiatry referral at this time COVID-19 339106983 U07.1 +ve 11/10/2022 Screening mammography 24 039519 Z12.31 Leukocytosis 851825398 D 72.829 Repeat the CBC Increased liver function 99372955 R94.5 Get labs, US liver Screening for osteoporosis 335462279 Z13.561 [id number] Rebecca Fried MD [facility] [address] 09/30/2023 11:27:15 10/01/2023 08:40:07 Dyspnea on exertion 10427321 R06.09 R05.3 T78.40XA D89.9 Ex-smoker 3507588 Z87.89 1 F17.218 F17.219 Moderate c hronic obstructive pulmonary disease 694531565 J44.9 [id number] Rebceca Fried MD [facility] [address] 10/06/2023 09:33:33 10/08/2023 11:21:04 Moderate chronic obstructive pulmonary disease 596288849 J44.9 Solitary n odule of lung 348147994 R91.1 Exposure t o tuberculosis 3662890500 101 Z20.1 [id number] Jacquelyn harry MD [facility] Internal Med [facility] [address] [place] [address] 12/29/2023 09:30:51 12/29/2023 10:29:24 Screening - NAD 941888593 Z13.9 C-scope: Dr Aranda 07/17/17, next in [...] her understand ing of the above Hyperlipidemia 76527711 E78.5 Not taking rosuvastat in 40mg dailyNot taking vascepaGet labs Chronic ki dney disease 935541041 N18.[address] Santos Gastritis 0490275 K29.70 EGD: Francisco Espana and may need UGI if sx persistShe feels that she has not taken the PPI and is doing well S/p EGD 12/21/18: Dr Vyas, neg for H pylori Does wellNo sxNot on PPI Anemia 819001291 D64.9 On ironget labsH/H is stable Essential hypertension 74188006 I10 On ASAOn olmesartan 40mg dailyOn amlodipine 10mg dailyGet labs Low back pain 930396399 M54.50 Very rare use of the flexerill, OK to renewDoes well Chronic ob structive pulmonary disease 76138034 J44.9 PFTs 06/18/17: COPDSeen Rebekah Euceda LINOTYPE OPERATOR On proairOn spirivaOff stiolto, was not taking this as is on SpirivaOn HHNsOn singulair 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 502196932 E11.9 On jardianceO n olmesartan Does wellGet labs Dr Liang 01/06/2023 Ex-smoker 0727665 Z87.89 1 QuitCT chest 10/23/16: COPD LDCT 12/09/18: NEg, esophageal prominence , refer to [facility] 01/23/2020 : Next in one yearLDCT 01/09/2021 : Next in one yearLDCT 09/17/2021 : CAD, next in one yearLDCT 10/06/2022 : CAD, next in one yearLDCT 10/06/2023 : Next in 6 months Coronary arteriosclerosis 70837915 I25.10 Seen on the LDCT [facility] Dr Tran 08/30/2020 : Is to get stress test, ECHO and US of the [facility] states that Dr Tran has told her that her heart is doing well Stress test 11/12/2023 : [facility], s/p CC done as per her history, done on 12/23/2023 , no stent Transient cerebral ischemia 778648049 G45.9 Does wellDoes see [facility] Osteoporosis 95752888 M8 1.0 On prolia, but too expensive so not taking this, will get a DEXA and may need to be on fosamax Chronic depression 41537 0009 F32.A On paroxetine 20mg dailyDoes well on this, not suicidal or homicidal, declined psychiatry referral at this time COVID-19 701674679 U07.1 +ve 11/10/2022 Leukocytosis 285476128 D 72.829 Repeat the CBC Increased liver function 12436953 R94.5 Get labs, US liver Screening for osteoporosis 078307764 Z13.168 [id number] Rebecca Fried MD [facility] Pulmonolo gy [place] [address] 03/21/2024 13:57:35 03/22/2024 08:01:37 Moderate chronic obstructive pulmonary disease 378376358 J44.9 Solitary n odule of lung 657157457 R91.1 Exposure t o tuberculosis 7290003087 101 Z20.1 [id number] Jacquelyn harry MD [facility] Internal Med [place] [address] 07/05/2024 16:43:22 07/05/2024 18:22:25 Adult health examination 977420252 Z00.00 Screening for disorder 025852434 Z13.9 Screening - NAD 75341309 3 Z13.9 C-scope: Dr Aranda 07/17/17, next [...] RSV vaccine RTC in 2 monthsdo Esmer josé worseshe and her did verbalize her understand ing of the above Hyperlipidemia 81293632 E78.5 Not taking rosuvastat in 40mg dailyNot taking vascepaGet labs Chronic ki dney disease 675943706 N18.[address] Santos Gastritis 3718973 K29.70 EGD: Francisco Espana and may need UGI if sx persistShe feels that she has not taken the PPI and is doing well S/p EGD 12/21/18: Dr Vyas, neg for H pylori Does wellNo sxNot on PPI Anemia 095634526 D64.9 On ironget labsH/H is stable Essential hypertension 89707036 I10 On ASAOn olmesartan 40mg dailyOn amlodipine 10mg dailyGet labs Low back pain 608043773 M54.50 Very rare use of the flexerill, OK to renew 07/05/2024 Does well Chronic ob structive pulmonary disease 00398598 J44.9 PFTs 06/18/17: COPDSeen Rebekah Euceda LINOTYPE OPERATOR On proairOn spirivaOff stiolto, was not taking this as is on SpirivaOn Harvey Fried 03/21/2024 , next 03/21/2025 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 816825936 E11.9 On jardianceO n olmesartan Does wellGet labs Dr Liang 01/06/2023 Ex-smoker 1436980 Z87.89 1 QuitCT chest 10/23/16: COPD LDCT 12/09/18: NEg, esophageal prominence , refer to [facility] 01/23/2020 : Next in one yearLDCT 01/09/2021 : Next in one yearLDCT 09/17/2021 : CAD, next in one yearLDCT 10/06/2022 : CAD, next in one yearLDCT 10/06/2023 : Next in 6 months Coronary arteriosclerosis 87529605 I25.10 Seen on the LDCT [facility] Dr Tran 08/30/2020 : Is to get stress test, ECHO and US of the legse states that Dr Tran has told her that her heart is doing well Stress test 11/12/2023 : [facility], s/p CC done as per her history, done on 12/23/2023 , no stent Transient cerebral ischemia 086776328 G45.9 Does wellDoes see [facility] Osteoporosis 66046857 M8 1.0 On prolia, but too expensive so not taking this, will get a DEXA and may need to be on fosamax Chronic depression 56229 0009 F32.A On paroxetine 20mg dailyDoes well on this, not suicidal or homicidal, declined psychiatry referral at this time COVID-19 740602580 U07.1 +ve 11/10/2022 Increased liver function 80894712 R94.5 Get labs, US liver Screening for osteoporosis 590262142 Z13.820 Cough 94761012 R05.9 Get tested and get on Z-pack, she will also notify her pulmonolog ist, ER if worse, she is very appreciati ve to this plan of care [id number] Jacquelyn harry MD [facility] Internal Med [address] [address] , [address] [place] [address] 09/08/2024 10:31:13 09/08/2024 11:05:16 Screening - NAD 159510352 Z13.9 C-scope: Dr Aranda 07/17/17, next in [...] do RSV vaccine RTC in 2 monthsdo labsVICKI if worseshe and her did verbalize her understand ing of the above Hyperlipidemia 40948250 E78.5 Not taking rosuvastat in 40mg dailyNot taking vascepaGet labs Chronic ki dney disease 253918470 N18.[address] Santos Gastritis 8983709 K29.70 EGD: Francisco Espana and may need UGI if sx persistShe feels that she has not taken the PPI and is doing well S/p EGD 12/21/18: Dr Vyas, neg for H pylori Does wellNo sxNot on PPI Anemia 695498747 D64.9 On ironget labsH/H is stable Essential hypertension 79835555 I10 On ASAOn olmesartan 40mg dailyOn amlodipine 10mg dailyGet labs Low back pain 844204189 M54.50 Very rare use of the flexerill, OK to renew 07/05/2024 , 09/08/2024 Does well Chronic ob structive pulmonary disease 00613528 J44.9 PFTs 06/18/17: COPDSeen Rebekah Euceda LINOTYPE OPERATOR On proairOn spirivaOff valeryolto, was not taking this as is on SpirivaOn Harvey Fried 03/21/2024 , next 03/21/2025 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 258933557 E11.9 On jardiance, will discuss with Dr Santos on cutting on the dose as A1C is doing well 09/08/2024 On olmesartan Does wellGet labs Dr Liang 01/06/2023 Ex-smoker 0254114 Z87.89 1 QuitCT chest 10/23/16: COPD LDCT 12/09/18: NEg, esophageal prominence , refer to [facility] 01/23/2020 : Next in one yearLDCT 01/09/2021 : Next in one yearLDCT 09/17/2021 : CAD, next in one yearLDCT 10/06/2022 : CAD, next in one yearLDCT 10/06/2023 : Next in 6 months Coronary arteriosclerosis 14554490 I25.10 Seen on the LDCT [facility] Dr Tran 08/30/2020 : Is to get stress test, ECHO and US of the [facility] states that Dr Tran has told her that her heart is doing well Stress test 11/12/2023 : [facility], s/p CC done as per her history, done on 12/23/2023 , no stent Transient cerebral ischemia 646202038 G45.9 Does wellDoes see [facility] Osteoporosis 27860227 M8 1.0 On prolia, but too expensive so not taking this, will get a DEXA and may need to be on fosamax Chronic depression 87549 0009 F32.A On paroxetine 20mg dailyDoes well on this, not suicidal or homicidal, declined psychiatry referral at this time COVID-19 231163551 U07.1 +ve 11/10/2022 Increased liver function 12935331 R94.5 Get labs, US liver Screening for osteoporosis 287942546 Z13.820 Health Concerns Section Related Observation LastModified by Organization Detai ls LastModified Time None Recorded Concern Status LastModified by Organization Details LastModified Time None Recorded Advance Directives Directive N: patient declined informat ion Payers Encounter Date Sequence Insurance Name Policy Number Policy Martins Covered Member ID Martins Member ID Guarantor Name 10/06/2023 1 [facility] (MEDICARE REPLACEMENT/A DVANTAGE - HMO) [id number] Jeanne Quintero [id number] Jeanne Ayala Daily Quintero 12/29/2023 1 [facility] (MEDICARE REPLACEMENT/A DVANTAGE - HMO) [id number] Jeanne Bocanegra Quintero [id number] Jeanne Colonbeth Daily Quintero 03/21/2024 1 [facility] (MEDICARE REPLACEMENT/A DVANTAGE - HMO) [id number] Jeanne Bocanegra Quintero [id number] Jeanne Ayala Daily Quintero 07/05/2024 1 [facility] (MEDICARE REPLACEMENT/A DVANTAGE - HMO) [id number] Jeanne Bocanegra Quintero [id number] Jeanne Ayala Daily Quintero 09/08/2024 1 [facility] (MEDICARE REPLACEMENT/A DVANTAGE - HMO) [id number] Jeanne Bocanegra Quintero [id number] Jeanne Ayala Daily Quintero Notes Date Note Type Note Provider Name [...] up stairsAlleviating factors: rest Modified [employer] (mMRC) Dyspnea Scale - Grade 1Grade 0 [...] yesEdema: no Environmental exposures:Nicotine smoke: 1 ppd 1643-4099 (quit 1 year in between) = 53 [...] no chance of dozing. 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, some swelling no redness, [...] and inhalers, she has seen Rebekah Euceda LINOTYPE OPERATOR on08/06/2021he did labs on 07/08/2021No fevers or [...] cath d/t her positive Jacquelyn Bingham MD [address] [place] [address], [facility] [address], [place], [address], [place] [employer] [facility] 12/29/2023 14:19:48 03/21/2024 text/html Primary care/Ref erring [...] up stairsAlleviating factors: rest Modified [employer] (mMRC) Dyspnea Scale - Grade 1Grade 0 [...] yesEdema: no Environmental exposures:Nicotine smoke: 1 ppd 0180-4121 (quit 1 year in between) = 53 [...] slight chance of dozing. 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, some swelling no redness, is able to make a fistOV 04/19/19:Here for her routine aptShe feels wellShe did do the labs and is here [...] and inhalers, she has seen Rebekah Euceda LINOTYPE OPERATOR on08/06/2021he did labs on 07/08/2021No fevers or [...] been using her inhalers Jacquelyn Bingham MD [address] [place] [address] [place], [address], [place], [address], [place] [facility] 07/06/2024 21:23:59 09/08/2024 text/html 06/02/17Here to establish carePast Hx:HTNDepressionReview ed sccial family and surgical historyHere as she would like to discuss her results for the testing done by her prior PMD Dr ReavesOV 07/27/17:Here s/p hosp for pneumonia, at [facility] for 3 days, is on amoxicillin and [...] acute or remote trauma, 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
--- OUTSIDE RECORDS SUMMARY | 2024-10-26 13:35 | XMS_ITS | Encounter Summary ---
Author Organization [facility] [employer] [facility] [employer] [facility] Address [facility] [facility] [place] [address] Phone Care Team Providers Care Dependency Program Director Name Role Phone Alexa Bingham MD Primary Care Provider [phone] Encounter Details Date Type Department Care Team (Late st Contact Info) Description 05/16/2024 Office Communication [facility] [facility] [address] [facility] [address] [place] [address] Bhargavi Nagy CMA [address] [facility] 1 [place] [address] Social History Tobacco Use Types [...] Description 11/08/2024 3:00 PM CDT Office Visit [facility], [facility] [address] [facility] [address] [place] [address] Juan Manuel Ellison DO [address] [facility] 1 [place] [address] documented as of this encounter Visit Diagnoses Not on filedocumented in this encounter Care Teams Dependency Program Director Relationship Specialty Start Date End Date Alexa Bingham MD [address] [facility], [address] [place] [address] PCP - General Internal Medicine 07/16/21 documented as of this encounter
--- OUTSIDE RECORDS SUMMARY | 2024-10-26 13:35 | XMS_ITS | Clinical Summary ---
Author Organization [facility] Address [address] [place] [address] Phone Care Team Providers Care Candy Forming Machine Operator Name Role Phone Alexa Bingham MD [...] Comments Blood Pressure 99/62 08/27/2022 1:31 PM [facility] Pulse 99 08/27/2022 1:31 PM [facility] Temperature 36.7 C (98.1 F) 08/27/2022 1:31 PM [facility] Respiratory Rate 18 08/27/2022 1:31 PM [facility] Oxygen Saturation 92% 08/27/2022 1:31 PM [facility] Inhaled Oxygen Concentration - - Weight - [...] to complete this topic Insurance MEDICARE [facility] on file Care Teams Candy Forming Machine Operator Relationship Specialty Start Date End Date Alexa Bingham MD [address] [place] [address] PCP - General Internal Medicine 02/13/22
--- OUTSIDE RECORDS SUMMARY | 2024-10-26 13:35 | XMS_ITS | Referral Summary ---
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
--- OUTSIDE RECORDS SUMMARY | 2024-10-26 13:35 | XMS_ITS | Clinical Summary ---
Author Organization [facility] Address [address] [place] [address] Care Team Providers Care Fire Protection Specialist Name Role Phone Jose Luis Martinez MD Primary Care Provider Allergies No known active allergies Medications albuterol sulfate HFA 108 (90 Base) MCG/ACT inhaler Inhale 2 puffs into the lungs every 4 (four) hours as needed for Shortness of breath. Active cyclobenzaprine (FLEXERIL) 10 MG tablet Take [...] 2 puffs into the lungs daily. Active tamsulosin (FLOMAX) 0.4 MG Cap Take 1 capsule (0.4 mg total) by mouth nightly at bedtime. 20 capsule 4 Active calcium carb-cholecalci ferol (CALTRATE 600+D) 600-20 MG-MCG tablet Take 1 tablet by mouth daily. 10/27/19 25 Discontinu ed(Error) hyoscyamine (LEVSIN/SL) 0.[address] 1 tablet (0.125 mg total) under the tongue every 4 (four) hours as needed for Cramping (ureteral stent discomfort). 30 tablet 4 10/27/19 25 Discontinu ed(Error) HYDROcodone-roselia taminophen (NORCO) 5-325 MG tabletIndicatio ns:Acute Pain < 3 Day Supply Take 1 tablet by mouth every 6 (six) hours as needed. Indications: Acute Pain < 3 Day Supply 12 tablet 4 10/27/19 25 Discontinu ed(Error) Encounters Date Type Department Care Team Description 10/26/2024 Travel 10/19/2024 8:12 AM CDT - 10/19/2024 11:59 PM CDT Hospital Encounter [facility] [place] [address] Jose Luis Martinez MD Arrived Discharge Disposition: Home or Self Care (Routine Discharge) 10/19/2024 Travel from Last 3 Months Social History Tobacco Use Types Packs/Day Years Used Date Smoking Tobacco: Former Cigarettes - 1969 Smokeless Tobacco: Former Tobacco Cessation:Counseling [...] Comments Blood Pressure 162/78 06/30/2024 4:50 PM SENIOR LEAD DEVELOPER Pulse 97 06/30/2024 4:50 PM SENIOR LEAD DEVELOPER Temperature 36.8 C (98.2 F) 06/30/2024 4:50 PM SENIOR LEAD DEVELOPER Respiratory Rate 20 06/30/2024 4:50 PM SENIOR LEAD DEVELOPER Oxygen Saturation 92% 06/30/2024 4:50 PM SENIOR LEAD DEVELOPER Inhaled Oxygen Concentration - - Weight 40.8 kg (90 lb) 10/26/2024 10:44 AM CDT Height 154.9 cm (5' 1 ) 06/30/2024 12:30 PM SENIOR LEAD DEVELOPER Body Mass Index 17.01 06/30/2024 12:30 PM SENIOR LEAD DEVELOPER Plan of Treatment Upcoming Encounters Date Type Department Care Team (Late st Contact Info) Description 11/03/2024 2:30 PM CDT Hospital Encounter [facility] [address] Jose Luis Martinez MD 3 [facility] [address] [place] [address] 11/03/2024 2:30 PM CDT - 11/03/2024 3:36 PM CDT Surgery [facility] [place] [address] Jose Luis Martinez MD 3 [facility] [address] [place] [address] CYSTOSCOPY, LEFT RETROGRADE PYELOGRAM, LEFT URETERAL STENT PLACEMENT Scheduled Procedures Name Priority Associated Diagnoses Date/Ti me CYSTOSCOPY STENT INSERTION/REMOVAL/CHANGE HYDRONEPHROSIS, LEFT N13.30 11/03/2024 2:30 PM CDT Health Maintenance Due Date Last Done Comments [...] this topic Medical Devices Implanted Type Area Shelf Filler Device Identifier Shelf Expiration Date Model / Serial / Lot Stent Ureteral 6fr 22cm Pigtail Curved - [id number] Implanted:Qty : 1 on 06/30/2024 by Jose Luis Martinez MD at [facility] Stent Left: Ureter [employer] [id number] 05/07/2026 [id number] Explanted Type Area Shelf Filler Device Identifier Shelf Expiration Date Model / Serial / Lot Stent Ureteral 6fr 22cm Pigtail Curved - [id number] Implanted:Qty : 1 on 05/26/2024 by Jose Luis Martinez MD at [facility] Explanted:Qty : 1 on 06/30/2024 by Jose Luis Martinez MD at [facility] Stent Left: Ureter [employer] [id number] 05/07/2026 [id number] Procedures Procedure Name Priority Date/Time Associated Diagnosis Comments NM RENAL SCAN W LASIX Routine 10/19/2024 9:45 AM CDT Hydronephrosis, left from Last 3 Months Results * NM RENAL SCAN W LASIX (10/19/2024 9:45 AM CDT) Anatomical Region Laterality Modality Abdomen Nuclear Medicine 10/19/2024 10:4 2 AM CDT Impressions 10/19/2024 12:36 PM CDT IMPRESSION: 1. Asymmetrically reduced perfusion and function of the left kidney with no significant excretion throughout the exam. Findings are suggestive of a high-grade obstruction on the left. 2. Normal right renal perfusion, function, and morphology, with no evidence of right-sided obstruction. 3. Asymmetric split renal function. Estimated contribution of the left kidney: 10%, right kidney: 90% The attending radiologist has reviewed the image(s) and agrees with the content of this report. Ordered By: JOSE LUIS MARTINEZ Interpreted By: Shukri Lee MD, 10/19/2024 10:42 AM Narrative 10/19/2024 12:36 PM CDT [address] [address] EXAMINATION: DIURETIC RENAL SCINTIGRAPHY DATE OF STUDY: 10/19/2024 RADIOPHARMACEUTICAL: 7.6 mCi Tc-99m MAG3 i.v. and 20 mg furosemide i.v. HISTORY: Left-sided hydronephrosis. Urolithiasis status post ureteral stent June 2024. The most recently obtained serum creatinine was 1.25 mg/dL on 05/26/2024. COMPARISON: None available FINDINGS: A Murillo catheter was not in place during this examination. The patient was hydrated orally before the examination was begun. The posterior abdominal radionuclide angiogram demonstrates asymmetrically reduced perfusion in the left kidney. The right kidney perfusion appears normal. Sequential renal images show the kidneys to be grossly normal in size. There is prompt uptake and excretion of the radiopharmaceutical by the right kidney. Markedly delayed uptake by the left kidney with no significant excretion during this exam. After 20 minutes of imaging, there is no excretion of activity in the left collecting system. There is a mild amount of retained activity in the right collecting system, which appears appears of normal size. The left ureter is not visualized. The right ureter appears normal The bladder appears normal. The estimated contribution of the left kidney to total renal function is 10% and that of the right kidney is 90%. To evaluate for obstruction, the patient was given furosemide via slow intravenous injection approximately 20 minutes after the start of the examination. Sequential images were obtained for an additional 20 minutes. There is prompt clearance of pelvicalyceal activity on the right after diuretic administration. On the left, there is no significant excretion in response to Lasix. Procedure Note Dalila Damon MD - 10/19/[address] [address] EXAMINATION: DIURETIC RENAL SCINTIGRAPHY DATE OF STUDY: 10/19/2024 RADIOPHARMACEUTICAL: 7.6 mCi Tc-99m MAG3 i.v. and 20 mg furosemide i.v. HISTORY: Left-sided hydronephrosis. Urolithiasis status post ureteralstent June 2024. The most recently obtained serum creatinine was 1.25mg/dL on 05/26/2024. COMPARISON: None available FINDINGS: A Murillo catheter was not in place during this examination. The patient was hydrated orally before the examination was begun. Theposterior abdominal radionuclide angiogram demonstrates asymmetricallyreduced perfusion in the left kidney. The right kidney perfusion appearsnormal. Sequential renal images show the kidneys to be grossly normal insize. There is prompt uptake and excretion of the radiopharmaceutical bythe right kidney. Markedly delayed uptake by the left kidney with nosignificant excretion during this exam. After 20 minutes of imaging, there is no excretion of activity in the leftcollecting system. There is a mild amount of retained activity in theright collecting system, which appears appears of normal size. The left ureter is not visualized. The right ureter appears normal Thebladder appears normal. The estimated contribution of the left kidney to total renal function is10% and that of the right kidney is 90%. To evaluate for obstruction, the patient was given furosemide via slowintravenous injection approximately 20 minutes after the start of theexamination. Sequential images were obtained for an additional 20minutes. There is prompt clearance of pelvicalyceal activity on the rightafter diuretic administration. On the left, there is no significantexcretion in response to Lasix. IMPRESSION: 1. Asymmetrically reduced perfusion and function of the left kidney withno significant excretion throughout the exam. Findings are suggestive of ahigh- grade obstruction on the left. 2. Normal right renal perfusion, function, and morphology, with noevidence of right-sided obstruction. 3. Asymmetric split renal function. Estimated contribution of the leftkidney: 10%, right kidney: 90% The attending radiologist has reviewed the image(s) and agrees with thecontent of this report. Ordered By: JOSE LUIS MARTINEZ Interpreted By: Shukri Lee MD, 10/19/2024 10:42 AM Jose Luis Martinez MD NUC MED Final R esult from Last 3 Months Insurance [facility] Care Teams Fire Protection Specialist Relationship Specialty Start Date End Date Jose Luis Martinez MD 3 [facility] [address] [place] [id number] PCP - General UROLOGY 06/30/24
--- OUTSIDE RECORDS SUMMARY | 2024-10-26 13:35 | XMS_ITS | Encounter Summary ---
Author Organization [facility] [employer] [facility] Address [address] [place] [address] Phone Care Team Providers Care Manufacturing Process Technician Name Role Phone Alexa Bingham MD Primary Care Provider [phone] [phone] Encounter Details Date Type Department Care Team (Late Contact Info) Description 07/25/2024 Office Communication [place] [employer] [facility] [address] [address] [facility] [address] [place] [address] [address] [place] [address] Social History Tobacco Use Types [...] Manuel Ellison DO - 07/25/2024 11:35 AM BARREL ASSEMBLER Tell her to get urine studies before starting antibiotic. PLAN: - Urine Culture and UA. - Ciprofloxicin 500 mg po Qday #3 with no refills Thank you documented in this encounter Plan of Treatment Upcoming Encounters Date Type Department Care Team (Late st Contact Info) Description 11/08/2024 3:00 PM CDT Office Visit [facility], [facility] [address] [facility] [address] [place] [address] Juan Manuel Ellison DO [address] [place] [address] documented as of this encounter Visit Diagnoses Not on filedocumented in this encounter Care Teams Manufacturing Process Technician Relationship Specialty Start Date End Date Alexa Bingham MD [address] [facility], [address] [place] [address] PCP - General Internal Medicine 07/16/21 documented as of this encounter
--- OUTSIDE RECORDS SUMMARY | 2024-10-26 13:36 | XMS_ITS | Clinical Summary ---
Author Organization [facility] Address [address] [place] [address] Care Team Providers Care Hospitality Associate Name Role Phone Xavi Reaves MD Primary Care Provider [phone]- [phone] Source Comments [facility],non-owned Affiliates and Associated Physician Practices is amultiple site organization consisting of ambulatory clinics and hospital sitesin [place], [place] and [place]. This disclosure is being madepursuant to the Care Everywhere program and may not contain all information available regarding this patient. Last updated 18.[facility] Allergies No known active allergies Medications * [...] Comments Blood Pressure 124/66 08/04/2018 10:25 AM AIR GUN OPERATOR Pulse 74 08/04/2018 10:25 AM AIR GUN OPERATOR Temperature 36.9 C (98.4 F) 08/04/2018 10:25 AM AIR GUN OPERATOR Respiratory Rate 16 08/04/2018 10:25 AM AIR GUN OPERATOR Oxygen Saturation 93% 08/04/2018 10:25 AM AIR GUN OPERATOR Inhaled Oxygen Concentration - - Weight 47.2 kg (104 lb) 08/04/2018 10:25 AM AIR GUN OPERATOR Height 154.9 cm (5' 1 ) 08/04/2018 10:25 AM AIR GUN OPERATOR Body Mass Index 19.65 08/04/2018 10:25 AM AIR GUN OPERATOR Plan of Treatment Health Maintenance Due Date [...] to complete this topic MENINGOCOCCAL (Group B) VACC INE SHARED DECISION-MAKING Aged Out No longer eligibl e based on patient's age to complete this topic MENINGOCOCCAL GROUPS A/C/Y/W VACCINE Aged Out No longer eligible b ased on patient's age to complete this topic Care Teams Hospitality Associate Relationship Specialty Start Date End Date Xavi Reaves MD [address] [facility]. [address] [place] [address] PCP - General Family Medicine 10/10/16
--- OUTSIDE RECORDS SUMMARY | 2024-10-26 13:36 | XMS_ITS | Clinical Summary ---
Author Organization [facility] [email or web address] [facility] , [facility] Address [address] [place] [place] [phone] Phone Care Team Providers Care Nurse Informaticist Name Role Phone Alexa Bingham MD Primary Care Provider [phone] [phone] Medications cyanocobalamin (VITAMIN B-12) 1000 MCG tablet Take 1 tablet (1,000 mcg total) by mouth 1 (one) time each day 90 tablet 1 09/05/2021 Active cefadroxil (DURICEF) 500 MG capsule Take 1 capsule (500 mg total) by mouth in the morning and 1 capsule (500 mg total) in the evening. 30 capsule 04/26/2024 Active ciprofloxacin (CIPRO) 500 MG tablet Take 1 tablet (500 mg total) by mouth 1 (one) time each day 3 tablet 07/25/2024 Active olmesartan (BENICAR) 20 MG tablet TAKE 1 TABLET BY MOUTH EVERY NIGHT 90 tablet 1 08/30/2024 Active tamsulosin (FLOMAX) 0.4 MG 24 hr capsule TAKE 1 CAPSULE BY MOUTH EVERY NIGHT 90 capsule 1 09/15/2024 Active Encounters Date Type Department Care Team Description 10/13/2024 Documentation Only [place] [employer] [facility] [place], [address] [address] Juan Manuel Ellison DO 10/13/2024 Documentation Only [place] [facility] [place], [address] [address] Juan Manuel Ellison DO 09/15/2024 Refill [facility] [address] [address] Juan Manuel Ellison DO 09/12/2024 Documentation Only [facility], [address] [phone] Juan Manuel Ellison DO 08/30/2024 Refill [facility], [address] [address] Juan Manuel Ellison DO from Last 3 Months Social History Tobacco [...] Description 11/08/2024 3:00 PM CDT Office Visit [facility], [facility] [address] [facility] [address] [place] [address] Juan Manuel Ellison DO [address] [place] [address] Health Maintenance Due Date Last Done [...] patient's age to complete this topic Insurance [facility] [place] [address] Care Teams Nurse Informaticist Relationship Specialty Start Date End Date Alexa Bingham MD 4 [facility], [address] [place] [address] PCP - General Internal Medicine 07/16/21
--- OUTSIDE RECORDS SUMMARY | 2024-10-26 13:36 | XMS_ITS | Encounter Summary ---
Author Organization [facility] Address [address] [place] [address] Care Team Providers Care Rag Shredder Name Role Phone Xavi Martinez MD Primary Care Provider Encounter Details Date Type Department Care Team (Latest Contact Info) Description 10/26/2024 Travel Social History Tobacco Use Types Packs/Day Years Used Date Smoking Tobacco: Former Cigarettes 2 020 - 1969 Smokeless Tobacco: Former Comments:Quit smoking 4 year [...] Description 11/03/2024 2:30 PM CDT Hospital Encounter [facility] [place], [place] [id number] Xavi Martinez MD 3 [facility] [address] [place] [phone] 11/03/2024 2:30 PM CDT - 11/03/2024 3:36 PM CDT Surgery [facility] [place], [place] [phone] Xavi Martinez MD 3 [facility] [address] [place] [phone] CYSTOSCOPY, LEFT RETROGRADE PYELOGRAM, LEFT URETERAL STENT PLACEMENT Scheduled Procedures Name Priority Associated Diagnoses Date/Ti il CYSTOSCOPY STENT INSERTION/REMOVAL/CHANGE HYDRONEPHROSIS, LEFT N13.30 11/03/2024 2:30 PM CDT documented as of this encounter Visit Diagnoses Not on filedocumented in this encounter Care Teams Rag Shredder Relationship Specialty Start Date End Date Xavi Martinez MD 3 [facility] [address] [place] [address] PCP - General UROLOGY 06/30/24 documented as of this encounter
== END 2024-10-26 11:45 | disposition home or self-care (01) ==
PROVIDERS: PCP Internal Medicine; Visit Provider Urology
DX: N20.9 Urinary calculus, unspecified (principal)
CPT/HCPCS: 87086; 87181

== ENCOUNTER 2025-01-05 12:13 | Outpatient (CLI) | payer MEDICARE, SELFPAY ==
--- OUTSIDE RECORDS SUMMARY | 2025-01-05 12:16 | XMS_ITS | Encounter Summary ---
Author Organization [facility] Address [address] [facility] [place] [address] Care Team Providers Care Manager Ecommerce Name Role Phone Xavi Reaves MD Primary Care Provider [phone]- [phone] Encounter Details Date Type Department Care Team (Late st Contact Info) Description 01/13/2018 Lab Requisition [facility] Care [facility] [address] [facility], [place] [address] Benigno Goldberg MD [address] [place] [address] Social History Tobacco Use Types Packs/Day Years Used Date Smoking Tobacco: Former Cigarettes Q uit: 2013 Smokeless Tobacco: Never Comments No Sex and Gender Information Value Date Recorded Sex Assigned at Not on file Legal Sex Female 10:46 AM PHARMACY SERVICES REPRESENTATIVE Gender Identity Not on file Sexual Orientation Not on file documented as of this encounter Plan of Treatment Not on file documented as of this encounter Procedures Procedure Name Priority Date/Time Associated Diagnosis Comments DERMATOPATHOLOGY Routine 01/12/2018 12:0 0 AM CDT documented in this encounter Results * DERMATOPATHOLOGY (01/12/2018 12:00 AM CDT) Case Report Dermatopathology Report Case: [id number] Authorizing Provider: Benigno Goldberg MD Collected: 01/12/2018 12:00 AM Pathologist: Joselyn Bolaños MD Received: 01/13/2018 12:24 PM Specimen: Skin, right angle of jaw 8 5:22 PM CDT DERMATOPATHOLOGY LABORATORY Final Diagnosis Specimen A. SKIN, right angle of jaw: ACTINIC KERATOSIS, LICHENOID (L57.0) PRESENT AT MARGIN 06/07/201 8 5:22 PM CDT DERMATOPATHOLOGY LABORATORY at 1721 CDT Clinical History R/O inflamed nevus vs BCC vs other. Check margins. 5:22 PM CDT DERMATOPATHOLOGY LABORATORY Gross Description Specimen A: Received is one formalin filled container labeled with the patient's name and designated right angle of jaw. The specimen consists of a shave biopsy measuring [id number], the margin is inked green. Jar 0. [...] characteristic determined by the Dermatopathology Laboratory at [facility]. These tests need not be, and therefore are not, approved by the [place] Food and Drug Administration. The tests are used for clinical purposes. Billing Codes Specimen Charges Stain Charges 78409 1 5:22 PM CDT DERMATOPATHOLOGY LABORATORY Embedded Images 5:22 PM CDT DERMATOPATHOLOGY LABORATORY Pathology/Cytolog y TISSUE SPECIMEN FROM SKIN / Unknown 01/12/2018 01/13/2018 12:24 PM CDT us Benigno Goldberg MD LAB - PATHOLOGY/CYTOLOGY ORD ERABLES Final Result DERMATOPATHOLOGY LABORATORY [facility] - Department of Dermatology [address] [facility], 5th [place] [address], [facility] [phone] documented in this encounter Visit Diagnoses Not on filedocumented in this encounter Care Teams Manager Ecommerce Relationship Specialty Start Date End Date Xavi Reaves MD [address] [facility] [place] [address] PCP - General Family Medicine 10/10/16 documented as of this encounter
--- OUTSIDE RECORDS SUMMARY | 2025-01-05 12:16 | XMS_ITS | Clinical Summary ---
Author Organization [facility] Address [address] [place] [address] Phone Care Team Providers Care Cleat Thrower Name Role Phone Alexa Bingham MD Primary [...] Comments Blood Pressure 99/62 08/27/2022 1:31 PM MORPHOLOGIST Pulse 99 08/27/2022 1:31 PM MORPHOLOGIST Temperature 36.7 C (98.1 F) 08/27/2022 1:31 PM MORPHOLOGIST Respiratory Rate 18 08/27/2022 1:31 PM MORPHOLOGIST Oxygen Saturation 92% 08/27/2022 1:31 PM MORPHOLOGIST Inhaled Oxygen Concentration - - Weight - - Height - - Body Mass Index - - Plan of Treatment Health Maintenance Due Date Last Done Comments Hepatitis C Virus (HCV) Screening 1945 Respiratory [...] to complete this topic Insurance MEDICARE [facility] on file Care Teams Cleat Thrower Relationship Specialty Start Date End Date Alexa Bingham MD [address] [place] [address] PCP - General Internal Medicine 02/13/22
--- OUTSIDE RECORDS SUMMARY | 2025-01-05 12:17 | XMS_ITS | Encounter Summary ---
Author Organization [facility] [employer] [facility] [employer] [facility] Address [facility] [facility] [place] [address] Phone Care Team Providers Care Clay Stain Mixer Name Role Phone Alexa Bingham MD Primary Care Provider [phone] [phone] Encounter Details Date Type Department Care Team (Late st Contact Info) Description 05/16/2024 Office Communication [place] [facility] [address] [facility] [address] [place] [address] Bhagravi Nagy CMA [address] [facility] 1 [place] [address] Social History Tobacco Use Types [...] Care Team (Late st Contact Info) Description 02/07/2025 1:30 PM CDT Office Visit [place] [facility] [address] [facility] [address] [place] [address] Juan Manuel Ellison DO [address] [facility] 1 [place] [address] documented as of this encounter Visit Diagnoses Not on filedocumented in this encounter Care Teams Clay Stain Mixer Relationship Specialty Start Date End Date Alexa Bingham MD [address] [facility], [address] [place] [address] PCP - General Internal Medicine 07/16/21 documented as of this encounter
--- OUTSIDE RECORDS SUMMARY | 2025-01-05 12:17 | XMS_ITS | Referral Summary ---
Author Organization [facility] Medical Office Building B Address [address] [place] [address] Care Team Providers Care Central Office Inspector Name Role Phone Jeni Bingham MD Primary [...] on file Legal Sex Female 1:14 AM GOLF COURSE STARTER Gender Identity Not on file Sexual Orientation [...] 8:19 AM CDT Height 154.9 cm (5' 1) 04/12/2024 8:19 AM CDT Body Mass Index 18.14 04/12/2024 8:19 AM CDT Plan of Treatment Not on file Insurance [facility] MEDICARE ADVANTAGE [facility] MEDICARE ADVANTAGE Care Teams Central Office Inspector Relationship Specialty Start Date End Date Jeni Bingham MD [address] [facility] [address] [place] [address] PCP - General Internal Medicine 10/09/23
--- OUTSIDE RECORDS SUMMARY | 2025-01-05 12:17 | XMS_ITS | Data Portability ---
Author Organization [place] [facility], Main Office Address [address] [place] [address] Care Team Providers Care Advertising Specialist Name Role Phone COLEEN TRAN Casing In Line Feeder JUAN MANUEL SANTOS Model Maker Plaster JACQUELYN BINGHAM Primary Care Provider [phone] REBECCA FRIED Medical Art Therapist Assessment Encounter Date Assessment Date Assessment LastModified by Organization Details LastModified Time 10/06/2023 10/06/2023 Assessment: Nicotine smoke: 1 ppd 9598-6350 (quit 1 year in between) = 53 [...] be referred to Dr. Enrrique Lo @ [address] [place] [address], [address], [place] [address], [place] , for Infectious Disease consultation regarding [...] home care store of patient's choice. The [employer] recommends annual screening for lung [...] Hypertension Elevated BNP Nicotine smoke: 1 ppd 7767-6806 (quit 1 year in between) = 53 [...] gammaglobulin infusions during times of infection. The [employer] recommends annual screening for lung [...] panel (A+B+C), acute, serum [address] (Lab), [address] [place], [address], 09/08/2024 11:04:25 gamma-glu tamyl transfera se (ggt), serum [address] (Lab), [address] [place], [address], 09/08/2024 11:04:26 lipid panel, serum [address] [place] [address] (Lab), [address] [place], [address], 09/08/2024 11:04:24 CBC w/ auto diff 2024 025 JOS[facility] (Lab), [address] [place], [address], 10/11/2024 11:45:20 T4, free, serum [address] [place] [address] (Lab), [address] [place], [address], 09/08/2024 11:04:24 CMP, serum or plasma [address] [place] [address] (Lab), [address] [place], [address], 09/08/2024 11:04:24 TSH, serum or plasma [address] (Lab), [address] [place], [address], 09/08/2024 11:04:25 vitamin D, 25-hydrox y, total, serum [address] (Lab), [address] [place], [address], 09/08/2024 11:04:26 glycohemo globin, total, blood [address] (Lab), [address] [place], [address], 09/08/2024 11:04:25 microalbu min, urine [address] (Lab), [address] [place], [address], 09/08/2024 11:04:25 SARS CoV 2 RNA (COVID-19 ), QL, 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, 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 [address] [facility], [address] [place], [address], 09/01/2024 12:00:07 rapid flu (A+B) [address] [facility], [address] [place], [address], 09/01/2024 12:00:08 rapid strep group A, throat [address] [facility], [address] [place], [address], 09/01/2024 12:00:08 hepatitis panel (A+B+C), acute, serum [address] (Lab), [address] [place], [address], 01/04/2025 08:40:34 gamma-glu tamyl transfera se (ggt), serum [address] (Lab), [address] [place], [address], 01/04/2025 08:40:34 lipid panel, serum 2023 [facility] (Lab), [address] [place], [address], 09/01/2024 13:09:09 CBC w/ auto diff 2023 [facility] (Lab), [address] [place], [address], 09/01/2024 13:09:10 T4, free, serum [address] (Lab), [address] [place], [address], 01/04/2025 08:40:34 CMP, serum or plasma 2023 [facility] (Lab), [address] [place], [address], 09/01/2024 13:09:09 TSH, serum or plasma 2023 [facility] (Lab), [address] [place], [address], 09/01/2024 13:09:09 vitamin D, 25-hydrox y, total, serum [address] (Lab), [address] [place], [address], 01/04/2025 08:40:34 glycohemo globin, total, blood [address] (Lab), [address] [place], [address], 01/04/2025 08:40:34 microalbu min, urine 2023 024 JOS[facility] (Lab), [address] [place], [address], 09/01/2024 21:11:35 hepatitis panel (A+B+C), acute, serum [address] (Lab), [address] [place], [address], 07/05/2024 16:05:43 gamma-glu tamyl transfera se (ggt), serum [address] (Lab), [address] [place], [address], 07/05/2024 16:05:43 lipid panel, serum [address] (Lab), [address] [place], [address], 07/05/2024 16:05:41 CBC w/ auto diff [address] (Lab), [address] [place], [address], 07/05/2024 16:05:42 T4, free, serum [address] (Lab), [address] [place], [address], 07/05/2024 16:05:42 CMP, serum or plasma [address] (Lab), [address] [place], [address], 07/05/2024 16:05:42 TSH, serum or plasma [address] (Lab), [address] [place], [address], 07/05/2024 16:05:42 CBC w/ auto diff [address] (Lab), [address] [place], [address], 07/05/2024 16:05:43 vitamin D, 25-hydrox y, total, serum [address] (Lab), [address] [place], [address], 07/05/2024 16:05:43 glycohemo globin, total, blood [address] (Lab), [address] [place], [address], 07/05/2024 16:05:42 microalbu min, urine [address] (Lab), [address] [place], [address], 07/05/2024 16:05:43 Referral nephrolog ist referral - Please call patient to schedule an appointme nt. Thank you. 2024 025 MARLON Santos DO, [address] [facility], [address], [place], [address], 09/12/2024 14:30:37 cardiolog ist referral - Please call patient to schedule an appointme nt. Thank you. 2024 025 [place], [address], [address], [place], [address], 09/12/2024 14:35:27 nephrolog ist referral 2023 024 [email or web address] [place], [address], [address], [place], [address], 07/06/2024 18:36:06 cardiolog ist referral 2023 024 [email or web address] [place], [address], [address], [place], [address], 07/06/2024 18:36:07 pulmonolo gist referral 2023 024 [email or web address] Rebecca Fried MD, [address] [place], [address], 01/26/2024 09:12:07 nephrolog ist referral 2023 024 [email or web address] [place], [address], [address], [place], [address], 07/05/2024 16:05:55 cardiolog ist referral 2023 024 [email or web address] [place], [address], [address], [place], [address], 07/05/2024 16:05:56 infectiou s disease specialis t referral - Quantifer on TB Gold (+) 2023 024 [email or web address] 5 Enrrique Lo MD, 4 [facility] , [address], [place], [address], 12/17/2023 14:31:11 Procedures None recorded. Surgeries None recorded. Imaging LDCT, chest, for lung cancer screening - Please call patient to schedule. [address] (Radiology), [address] [place], [address], 09/08/2024 15:29:42 US, liver - Please call patient to schedule. [address], [facility] [address], [address], 09/08/2024 15:25:39 DEXA, axial skeleton [address] (Radiology), [address] [place] [address], [address], 09/08/2024 15:29:00 LDCT, chest, for lung cancer screening - Please call patient to schedule. [address] Imaging, 2022 Adolfo Bonner, [address], [address], 11/29/2024 12:34:35 US, liver - Please call patient to schedule. [address], [facility] [address], [address], 08/30/2024 17:06:23 DEXA, axial skeleton [address] (Radiology), [address] [place] [address], [address], 07/06/2024 19:22:27 CT, chest, w/o contrast - No auth needed [address] ([facility]), [address] [place], [address], 03/21/2024 14:29:15 LDCT, chest, for lung cancer screening - No Auth Required [address] (Radiology), [address] [place], [address], 07/06/2024 19:22:55 US, liver - no auth required [address] (Radiology), [address] [place], [address], 07/04/2024 19:19:50 DEXA, axial skeleton 2023 024 [facility] (Radiology), [address] [place], [address], 01/07/2024 12:22:54 CT, chest, w/o contrast - No auth needed [address] ([facility]), [address] [place], [address], 08/30/2024 17:01:06 Medication Orders paroxetin e 20 mg tablet 2024 025 [facility] #[id number], [address], [place], [place], [id number], 09/08/2024 11:03:27 cyclobenz aprine 10 mg tablet 2024 025 [facility]armacy #18341, [address], [place], [address], 09/08/2024 11:03:26 cyclobenz aprine 10 mg tablet [email or web address]/Pharmacy #25686, [address], [place], [address], 07/05/2024 18:27:37 paroxetin e 20 mg tablet 2023 024 [facility], [address], [place], [place], [id number], 07/05/2024 18:27:36 Zithromax Z-Neftaly 250 mg tablet [address]/Pharmacy #88117, [address], [place], [address], 09/08/2024 10:38:00 albuterol sulfate HFA 90 mcg/actua tion aerosol inhaler 2023 024 [facility] #41289, [address], [place], [place], [id number], 03/21/2024 14:29:21 Spiriva Respimat 2.5 mcg/actua tion solution for inhalatio n 2023 024 [facility] #60884, [address], [id number], 03/21/2024 14:29:21 cyclobenz aprine 10 mg tablet [email or web address] [facility] #79886, [address], [place], [place], [id number], 01/13/2024 09:22:28 olmesarta n 40 mg tablet [address] [facility] #60729, [address], [place], [place], [id number], 07/05/2024 17:23:18 paroxetin e 20 mg tablet 2023 024 [facility] #48036, [address], [id number], 12/29/2023 10:23:48 albuterol sulfate HFA 90 mcg/actua tion aerosol inhaler 2023 024 [facility] #59670, [address], [place], [place], [id number], 10/06/2023 11:17:27 Spiriva Respimat 2.5 mcg/actua tion solution for inhalatio n 2023 024 [facility] #27027, [address], [place], [place], [id number], 10/06/2023 11:17:27 Patient TargetsNo targets recorded. Patient Instructions Encounter Date Encounter Id Patient Instructions Last Modified By Organization Details Last Modified Time 12/29/2023 [id number] diabetic eye exam* [email or web address] Not avail able 07/05/2024 16:05:20 03/21/2024 [id number] complete PFT w/ post bronchodilator spirometry* Not available 03/21/2024 14:33:36 07/05/2024 [id number] dementia rating scale-2* [email or web address] Not available 07/06/2024 08:41:14 alcohol misuse* [email or web address] Not available 07/06/2024 21:21:26 depression screening* [email or web address] 2 Not available 07/06/2024 21:21:25 multi-dimensiona l health assessment questionnaire* [email or web address] Not available 07/06/2024 08:40:56 diabetic eye exam* [email or web address] Not availa ble 01/03/2025 08:18:57 Personalized [facility] Plan and Screening Recommendations Advance Directives - [...] of activity that causes mild breathlessness/day Nutrition: Average Fall Risk (screened today): Low Vaccines Pneumococcal: No further needed Influenza: Ordered Recommended today Recommended today, but you have declined Your next one in the fall of this year Your next one in the fall Chronic Disease Risks Stroke: Intermediate Risk Active diagnosis, Continue current treatment plan Heart Attack: Intermediate Risk Active diagnosis, Continue current treatment plan Clogging of the Arteries: Intermediate Risk Active diagnosis, Continue current treatment plan Diabetes: Low Risk I have no recommendations Secondary Prevention/Interven tion (detects treatable diseases before they may cause symptoms, disability, or ) Breast Cancer Screening with mammogram: Your next mammogram: Ordered Recommended today Recommended today, but you have declined No screening necessary Your next mammogram- up to date Cervical/Uterine/Ov gudelia Cancer Screening: No screening necessary Osteoporosis Screening: No screening necessary Date Screening Last Performed: 12/2023 Colon Cancer Screening: No screening necessary Date Screening Last Performed: 07/26 Eye Disease Screening: Recommended today Dementia Risk: Low I have no recommendations Depression Screening: Negative Active diagnosis, Continue current treatment plan [email or web address] Not available 07/06/2024 09:10:52 09/08/2024 [id number] diabetic eye exam* [email or web address] Not avail able 09/08/2024 11:04:26 Reason for Referral Infectious Disease Specialis t Referral for Exposure to tuberculosis Quantiferon TB Gold (+) Referring Physician: Rebecca Fried, Pulmonary Disease, Encounter Date: 10/06/2023 Model Maker Plaster Referral for Ch ronic kidney disease Referring Physician: Jacquelyn Bingham Internal Medicine, Encounter Date: 12/29/2023 Casing In Line Feeder Referral for Co ronary arteriosclerosis Referring Physician: Jacquelyn Bingham Internal Medicine, Encounter Date: 12/29/2023 Medical Art Therapist Referral for C hronic obstructive pulmonary disease Referring Physician: Jacquelyn Bingham Internal Medicine, Encounter Date: 12/29/2023 Model Maker Plaster Referral for Ch ronic kidney disease Referring Physician: Jacquelyn Bingham Internal Medicine, Encounter Date: 07/05/2024 Casing In Line Feeder Referral for Co ronary arteriosclerosis Referring Physician: Jacquelyn Bingham Internal Medicine, Encounter Date: 07/05/2024 Model Maker Plaster Referral for Ch ronic kidney disease Please call patient to schedule an appointment. Thank you. Referring Physician: Jacquelyn Bingham, Internal Medicine, Encounter Date: 09/08/2024 Casing In Line Feeder Referral for Co ronary arteriosclerosis Please call patient to schedule an appointment. Thank you. Referring Physician: Jacquelyn Bingham, Internal Medicine, Encounter Date: 09/08/2024 Results Created Date Observation Date Name Description Value Unit Range Abnormal Flag Note LastModifiedBy Organization Detail LastModifiedTime 12/14/19 24 12/14/2023 CBC/C OMPLE TE BLD COUNT W/DIF F white blood cells 9.4 x10'3 /uL 4.2-10 .8 Not Available [facility] (Lab) [address] [place], [address], 12/14/2023 08:58:56 12/14/1912/14/2023 CBC/C OMPLE TE BLD COUNT W/DIF F red blood cells 4.79 x10'6 /uL 3.80-5 .20 Not Available [facility] (Lab) [address] [place], [address], 12/14/2023 08:58:56 12/14/1912/14/2023 CBC/C OMPLE TE BLD COUNT W/DIF F hemoglobin 12.6 g/dL 12.0-1 5.6 Not Available [facility] (Lab) [address] [place], [address], 12/14/2023 08:58:56 12/14/19 24 12/14/2023 CBC/C OMPLE TE BLD COUNT W/DIF F hematocrit 40.3 % 35.7-4 5.7 Not Available [facility] (Lab) [address] [place], [address], 12/14/2023 08:58:56 12/14/19 24 12/14/2023 CBC/C OMPLE TE BLD COUNT W/DIF F mean red cell volume 84.1 fL 82.0-9 9.0 Not Available [facility] (Lab) [address] [place], [address], 12/14/2023 08:58:56 12/14/19 24 12/14/2023 CBC/C OMPLE TE BLD COUNT W/DIF F mean red cell hemoglobin 26.3 pg 27.0-3 3.0 low Not Available [facility] (Lab) [address] [place], [address], 12/14/2023 08:58:56 12/14/19 24 12/14/2023 CBC/C OMPLE TE BLD COUNT W/DIF F mean RBC HGB concentratio n 31.3 g/dL 31.0-3 6.0 Not Available [facility] (Lab) [address] [place], [address], 12/14/2023 08:58:56 12/14/19 24 12/14/2023 CBC/C OMPLE TE BLD COUNT W/DIF F red cell distribution width 14.9 % 11.8-1 5.5 Not Available [facility] (Lab) [address] [place], [address], 12/14/2023 08:58:56 12/14/19 24 12/14/2023 CBC/C OMPLE TE BLD COUNT W/DIF F platelets 371 x10'3 /uL 150-40 0 Not Available [facility] (Lab) [address] [place], [address], 12/14/2023 08:58:56 12/14/19 24 12/14/2023 CBC/C OMPLE TE BLD COUNT W/DIF F mean platelet volume 10.4 fL 9.0-12 .4 Not Available [facility] (Lab) [address] [place], [address], 12/14/2023 08:58:56 12/14/19 24 12/14/2023 CBC/C OMPLE TE BLD COUNT W/DIF F neutrophils 74.9 % 39.0-7 2.0 high Not Available [facility] (Lab) [address] [place], [address], 12/14/2023 08:58:56 12/14/19 24 12/14/2023 CBC/C OMPLE TE BLD COUNT W/DIF F lymphocytes 15.5 % 16.0-4 7.0 low Not Available [facility] (Lab) [address] [place], [address], 12/14/2023 08:58:56 12/14/1912/14/2023 CBC/C OMPLE TE BLD COUNT W/DIF F monocytes 7.6 % 5.0-12 .0 Not Available [facility] (Lab) [address] [place], [address], 12/14/2023 08:58:56 12/14/19 24 12/14/2023 CBC/C OMPLE TE BLD COUNT W/DIF F eosinophils 1.3 % 1.0-7. 0 Not Available [facility] (Lab) [address] [place], [address], 12/14/2023 08:58:56 12/14/19 24 12/14/2023 CBC/C OMPLE TE BLD COUNT W/DIF F basophils 0.3 % 0.0-2. 0 Not Available [facility] (Lab) [address] [place], [address], 12/14/2023 08:58:56 12/14/19 24 12/14/2023 CBC/C OMPLE TE BLD COUNT W/DIF F immature granulocytes 0.4 % 0.00-0 .50 Not Available [facility] (Lab) [address] [place], [address], 12/14/2023 08:58:56 05/06/12/14/2023 CBC/C OMPLE TE BLD COUNT W/DIF F neutrophils, absolute count 7.05 x10'3 /uL 1.5-8. 0 Not Available [facility] (Lab) [address] [place], [address], 12/14/2023 08:58:56 12/14/19 24 12/14/2023 CBC/C OMPLE TE BLD COUNT W/DIF F lymphocytes, absolute count 1.46 x10'3 /uL 1.07-3 .43 Not Available [facility] (Lab) [address] [place], [address], 12/14/2023 08:58:56 12/14/19 24 12/14/2023 CBC/C OMPLE TE BLD COUNT W/DIF F monocytes, absolute count 0.72 x10'3 /uL 0.29-0 .99 Not Available [facility] (Lab) [address] [place], [address], 12/14/2023 08:58:56 12/14/19 24 12/14/2023 CBC/C OMPLE TE BLD COUNT W/DIF F eosinophils, absolute count 0.12 x10'3 /uL 0.02-0 .53 Not Available [facility] (Lab) [address] [place], [address], 12/14/2023 08:58:56 12/14/1912/14/2023 CBC/C OMPLE TE BLD COUNT W/DIF F basophils, absolute count 0.03 x10'3 /uL 0.01-0 .08 Not Available [facility] (Lab) [address] [place], [address], 12/14/2023 08:58:56 12/14/19 24 12/14/2023 CBC/C OMPLE TE BLD COUNT W/DIF F immature granulocytes ,absolute 0.04 x10'3 /uL 0.00-0 .05 Not Available [facility] (Lab) [address] [place], [address], 12/14/2023 08:58:56 12/14/19 24 12/14/2023 CBC/C OMPLE TE BLD COUNT W/DIF F nucleated red blood cells 0.0 % -0 Not Available [facility] (Lab) [address] [place], [address], 12/14/2023 08:58:56 12/14/19 24 12/14/2023 CBC/C OMPLE TE BLD COUNT W/DIF F NRBC# 0.00 x10'3 /uL Not Available [facility] (Lab) [address] [place], [address], 12/14/2023 08:58:56 12/14/19 24 12/14/2023 LIPID PANEL cholesterol 173 mg/dL 140-19 9 NIH MADY NSUS RECOM MENDA TION FOR ALLEN STERO L: ADULT CHILD LOW RISK: <200 <170 BORDE RLINE : <200- 239 ----- HIGH RISK: >240 >200 Not Available [facility] (Lab) [address] [place], [address], 12/14/2023 09:13:38 12/14/19 24 12/14/2023 LIPID PANEL triglyceride s 95 mg/dL 0-150 NIH MADY NSUS REPOR T RECOM MENDA TION FOR TRIGL YCERI RIAN: ADULT CHILD LOW RISK: <150 ----- BODER LINE: 150-1 99 ----- HIGH RISK: >200 ----- Not Available [facility] (Lab) [address] [place], [address], 12/14/2023 09:13:38 12/14/19 24 12/14/2023 LIPID PANEL HDL cholesterol 59 mg/dL 40- Not Available [facility] (Lab) [address] [place], [address], 12/14/2023 09:13:38 12/14/19 24 12/14/2023 LIPID PANEL [...] WILL NOT BE REPOR EBONY. Not Available [facility] (Lab) [address] [place], [address], 12/14/2023 09:13:38 12/14/19 24 12/14/2023 COMP MET PANEL /LIVE R sodium 140 mmol/ L 137-14 5 Not Available [facility] (Lab) [address] [place], [address], 12/14/2023 09:13:54 12/14/19 24 12/14/2023 COMP MET PANEL /LIVE R potassium 4.0 mmol/ L 3.5-5. 1 Not Available [facility] (Lab) [address] [place], [address], 12/14/2023 09:13:54 12/14/19 24 12/14/2023 COMP MET PANEL /LIVE R chloride 106 mmol/ L 98-107 Not Available [facility] (Lab) [address] [place], [address], 12/14/2023 09:13:54 12/14/19 24 12/14/2023 COMP MET PANEL /LIVE R carbon dioxide 28 mmol/ L 22-30 Not Available [facility] (Lab) [address] [place], [address], 12/14/2023 09:13:54 12/14/19 24 12/14/2023 COMP MET PANEL /LIVE R anion gap 10.0 mmol/ L 14-22 low Not Available [facility] (Lab) [address] [place], [address], 12/14/2023 09:13:54 12/14/19 24 12/14/2023 COMP MET PANEL /LIVE R glucose 106 mg/dL 70-99 high Not Available [facility] (Lab) [address] [facility] [place], [address], 12/14/2023 09:13:54 12/14/19 24 12/14/2023 COMP MET PANEL /LIVE R BUN 13 mg/dL 8-19 Not Available [facility] (Lab) [address] [place], [address], 12/14/2023 09:13:54 12/14/19 24 12/14/2023 COMP MET PANEL /LIVE R creatinine 0.90 mg/dL 0.66-1 .25 Not Available [facility] (Lab) [address] [place], [address], 12/14/2023 09:13:54 12/14/19 24 12/14/2023 COMP MET PANEL /LIVE R GFR >60 Refer ence Range : [place] ge GFR Healt hy Adult : >60 [...] calcu lator is avail able on the [facility] websi te: [email or web address] :[email or web address] [email or web address] anita/pr ofess ional s/kdo qi/gf r_cal culat or Not Available [facility] (Lab) [address] [place], [address], 12/14/2023 09:13:54 12/14/19 24 12/14/2023 COMP MET PANEL /LIVE R alkaline phosphatase 72 U/L 38-[address] [facility] (Lab) [address] [place], [address], 12/14/2023 09:13:54 12/14/19 24 12/14/2023 COMP MET PANEL /LIVE R alanine aminotransfe rase 12 U/L 0-35 Not Available [facility] (Lab) [address] [place], [address], 12/14/2023 09:13:54 12/14/19 24 12/14/2023 COMP MET PANEL /LIVE R aspartate aminotransfe rase 23 U/L 15-37 Not Available [facility] (Lab) [address] [place], [address], 12/14/2023 09:13:54 12/14/19 24 12/14/2023 COMP MET PANEL /LIVE R bilirubin, total 0.30 mg/dL 0.20-1 .30 Not Available [facility] (Lab) [address] [place], [address], 12/14/2023 09:13:54 12/14/19 24 12/14/2023 COMP MET PANEL /LIVE R bilirubin, conjugated (direct) 0.00 mg/dL 0.00-0 .30 Not Available [facility] (Lab) [address] [place], [address], 12/14/2023 09:13:54 12/14/19 24 12/14/2023 COMP MET PANEL /LIVE R biliurubin,u ncong. (indirect) 0.10 mg/dL 0.00-1 .1 Not Available [facility] (Lab) [address] [place], [address], 12/14/2023 09:13:54 12/14/19 24 12/14/2023 COMP MET PANEL /LIVE R calcium 9.2 mg/dL 8.4-10 .2 Not Available [facility] (Lab) [address] [place], [address], 12/14/2023 09:13:54 12/14/19 24 12/14/2023 COMP MET PANEL /LIVE R total protein 6.1 g/dL 6.3-8. 2 low Not Available [facility] (Lab) [address] [place], [address], 12/14/2023 09:13:54 12/14/19 24 12/14/2023 COMP MET PANEL /LIVE R albumin 3.5 g/dL 3.0-4. 4 Not Available [facility] (Lab) [address] [place], [address], 12/14/2023 09:13:54 12/14/19 24 12/14/2023 COMP MET PANEL /LIVE R globulin 2.6 g/dL 2.6-4. 2 Not Available [facility] (Lab) [address] [place], [address], 12/14/2023 09:13:54 12/14/19 24 12/14/2023 COMP MET PANEL /LIVE R A/G ratio 1.3 ratio 1.0-2. 0 Not Available [facility] (Lab) [address] [place], [address], 12/14/2023 09:13:54 12/14/19 24 12/14/2023 GGT/G -GLUT AMYL TRANS FERAS E gamma-glutam yl transferase 18 U/L 12-[address] [facility] (Lab) [address] [place], [address], 12/14/2023 09:13:58 12/14/19 24 12/14/2023 T4 FREE free T4 1.18 NG/dL 0.78-2 .19 Not Available [facility] (Lab) [address] [place], [address], 12/14/2023 09:30:24 12/14/19 24 12/14/2023 TSH W/REF MARIA ISABEL FT4 TSH with reflex free T4 1.570 uIU/m L 0.465- 4.680 Not Available [facility] (Lab) [address] [place], [address], 12/14/2023 09:45:47 12/14/19 24 12/14/2023 HEMOG LOBIN A1C HA1C 5.8 % 4.0-6. 0 Diabe berry Scree jazlyn Crite raegan: <5.7% Consi stent with absen ce of diabe berry 5.7-6 .4% Consi stent with incre ased risk for diabe berry (pred iabet es) >OR=6 .5% Consi stent with diabe berry REFER ENCE: Diabe berry Care 2016, 39(Parrish ppl.1 ):s13 -s22 Not Available [facility] (Lab) [address] [place], [address], 12/14/2023 13:05:49 12/14/19 24 12/14/2023 MICRO ALBUM N RNDM W/CRE AT RATIO ur creat 133.80 mg/dL REFER ENCE RANGE NOT ESTAB LISHE D FOR HENOK M URINE CREAT ININE Not Available [facility] (Lab) [address] [place], [address], 12/14/2023 17:15:32 12/14/19 24 12/14/2023 MICRO ALBUM N RNDM W/CRE AT RATIO microalbumin , urine 27.2 mg/L 0.0-16 .6 high Not Available [facility] (Lab) [address] [place], [address], 12/14/2023 17:15:32 12/14/19 24 12/14/2023 MICRO ALBUM [...] VOL. 26: S94-S , 2002 Not Available [facility] (Lab) [address] [place], [address], 12/14/2023 17:15:32 12/14/19 24 12/14/2023 HEPAT ITIS ACUTE PANEL hepatitis A IgM antibody NON-RE ACTIVE non-re active For sampl es repor ebony as Borde rline React slava for HAV IgM, it is recom dev d a new speci men be obtai mai in 2 weeks and retes ebony. Not Available [facility] (Lab) [address] [place], [address], 12/14/2023 22:32:42 12/14/19 24 12/14/2023 HEPAT ITIS ACUTE PANEL hepatitis A virus signal/cutof 0.05 0.00-0 .79 Not Available [facility] (Lab) [address] [place], [address], 12/14/2023 22:32:42 12/14/19 24 12/14/2023 HEPAT ITIS ACUTE PANEL hepatitis B core IgM antibody NON-RE ACTIVE non-re active Not Available [facility] (Lab) [address] [place], [address], 12/14/2023 22:32:42 12/14/19 24 12/14/2023 HEPAT ITIS ACUTE PANEL HBV core IgM signal/cutof f 0.04 0.00-1 .10 Not Available [facility] (Lab) [address] [place], [address], 12/14/2023 22:32:42 12/14/19 24 12/14/2023 HEPAT ITIS ACUTE PANEL hepatitis B surface antigen NON-RE ACTIVE non-re active All speci mens react slava for Hepat itis B Surfa ce Antig en will refle x to refer ral lab confi rmato ry testi ng. Not Available [facility] (Lab) [address] [place], [address], 12/14/2023 22:32:42 12/14/19 24 12/14/2023 HEPAT ITIS ACUTE PANEL HBV surf.antigen signal/cutof f 0.11 0.00-0 .99 Not Available [facility] (Lab) [address] [place], [address], 12/14/2023 22:32:42 12/14/19 24 12/14/2023 HEPAT ITIS ACUTE PANEL hepatitis C antibody NON-RE ACTIVE non-re active All speci mens react slava for Hepat itis C Virus antib filipe will refle x to PCR confi rmato ry testi ng. Pleas e allow 48-72 hours for resul ts. Not Available [facility] (Lab) [address] [place], [address], 12/14/2023 22:32:42 12/14/19 24 12/14/2023 HEPAT ITIS ACUTE PANEL hepatitis C virus signal/cutof 0.01 0.00-0 .99 Not Available [facility] (Lab) [address] [place], [address], 12/14/2023 22:32:42 12/14/19 24 12/14/2023 VITAM IN D 25-HY DROXY [id number] 36.9 NG/mL 30-100 Vitam in D Statu s: Defic ient: <20 ng/mL Insuf ficie nt: 20-29 ng/mL Suffi cient : 30-10 0 ng/mL Not Available [facility] (Lab) [address] [place], [address], 12/14/2023 23:54:22 10/06/19 24 10/06/2023 LDCT, chest , for lung cance r scree jazlyn No observ ation record ed. [facility] [address] [place], [address], 10/06/2023 09:49:06 10/06/19 24 10/06/2023 LDCT, chest , for lung cance r scree jazlyn No observ ation record ed. [email or web address] [facility] [address] [place], [address], 04/19/2024 10:59:20 10/06/19 24 10/06/2023 6 minut e walk test* No observ ation record ed. BARCODE Not Available 2023 14:53:22 10/06/19 24 10/06/2023 6 minut e walk test* No observ ation record ed. BARCODE Not Available 2023 14:57:04 10/07/19 24 10/06/2023 compl ete PFT w/ post [facility] hodil ator josh metry * No observ ation record ed. BARCODE [facility] (One Call Scheduling) [address] [place], [address], 10/07/2023 10:50:10 10/08/19 24 12/30/2022 US, echoc ardio gram, trans thora cic, compl ete No observ ation record ed. BARCODE Not Available 2023 08:20:41 11/12/19 24 11/12/2023 cardi ac stres s test No observ ation record ed. [email or web address] [facility] [address], [place], [address], 04/19/2024 17:34:13 11/18/19 24 11/18/2023 scree jazlyn breas t negrito, bilat [facility] [address], [place] [address] Patien t Name: TYLER RODRIGUEZFlory FLYNN E Access ion #: [id number] Sex: F : 1944 9 Locati on: RAD Attend ing Physic kalani: ARLETH BISHOP Orderi ng Physic kalani: ARLETH BISHOP Exam Date: 8:20 AM Exam Name: MG SCRN BREAST NEGRITO BILAT Admitt ing Diagno sis(es ): MAMMOG ALIEEN REPORT - FINAL EXAM: MG SCRN BREAST [...] denise ectura l Page 1 of 2 [facility] Patien t Name: TYLER RODRIGUEZFlory FLYNN E Access ion #: [id number] Sex: F : 1944 9 Exam Date: 8:20 AM Exam Name: SCRN BREAST NEGRITO BILAT Admitt ing Diagno [...] prompt ly to the chet manrique's [facility] er. A negati ve mammog aileen [...] 8:58 AM (CT) Page 2 of 2 [email or web address] [facility] (Imaging) [address] [place], [address], 12/09/2023 17:27:55 01/07/20 24 01/07/2024 DEXA, axial skele ton [facility] [address] [place] [address] [phone] 8 Chet manrique Name: HUNTER RODRIGUEZ Access ion #: [id number] Sex: F : 1944 8 Dictat ed By: Raf Bae ms Attend ing Physic kalani: JILL ARLETH BENAVIDES Physic kalani: JILL SHAMEKAPHILIP LUANNTammyPRUDENCE Harry Exam Date: 2023 10:23 AM Exam Name: XR DEXA-H IPS PELVIS SPINE Admitt ing Diagno sis(es ): PROCED URE: DEXA SCAN INDICA TION: 78 years old, Female ; screen ing of osteop orosis . TECHNI QUE: Bone densit ometry of the lumbar spine and bilate ral hips was perfor med on a Wisair c unit using dual energy x-ray absorp tiomet ry (DEXA) . COMPAR UBALDO: 2021 BONE DENSIT Y REPORT : The spot cleaner images are limite d for evalua tion [...] is consid ered low risk). Page 1 [facility] [address] [address] Patien t Name: HUNTER RODRIGUEZ GEE Access ion #: [id number] Sex: F : 1944 8 Dictat ed By: Raf Bae ms Attend ing Physic kalani: ARLETH Harry JUAN ANTONIORON liu Physic kalani: JILL ARLETH BENAVIDES Alvino Exam Date: 2023 10:23 AM Exam [...] ent. T-scor e: compar ubaldo by jae sinha deviat ion (SD) to a young adult popula [...] 2023 11:20: 48 AM Page 3 INTERFACE [facility] (Imaging) [address] [place], [address], 01/07/2024 12:22:55 01/07/20 24 01/07/2024 DEXA, axial skele ton No observ ation record ed. [facility] [address] [place], [address], 01/07/2024 12:30:19 04/06/20 24 02/22/2024 CT, chest , w/o contr ast No observ ation record ed. [facility] (One Call Scheduling) [address] [place], [address], 04/06/2024 17:20:15 07/08/20 24 07/08/2024 XR, foot, 3 or more view No observ ation record ed. [email or web address] [address], [place], [address], 08/30/2024 17:01:21 09/26/19 25 09/26/2024 imagi ng/di agnos tic resul t No observ ation record ed. [address] [address], [place], [address], 09/26/2024 13:26:11 09/26/19 25 09/26/2024 imagi ng/di agnos tic resul t No observ ation record ed. [address] [facility], [place], [address], 09/26/2024 13:32:36 10/12/19 25 10/11/2024 US, liver No observ ation record ed. [address], [place], [address], 10/11/2024 10:18:11 12/24/19 25 12/23/2024 imagi ng/anjum zamora tic resul t No observ ation record ed. [facility] [address], [place], [address], 12/23/2024 11:54:19 Result Notes None recorded. Problems Name Problem SNOMED Code Status Onset Date Resolution Date Notes Provider Name and Address Organization Details Recorded Time Gastroesophag eal reflux disease 553999398 Active 2019 Not Available [facility] 4 13:30:17 Transient cerebral ischemia 107593280 Active Not Available [facility] 4 13:30:17 Type 2 dia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 901905507 Active 2020 Not Available [facility] 4 13:30:17 Depressive disorder 79962594 Active 2021 Not Available [facility] 4 13:30:17 Osteoarthriti s 228537250 Active Not Available [facility] 4 13:30:17 Hyperlipidemi a 72601524 Active 2021 Not Available [facility] 4 13:30:17 Essential hypertension 08314233 Active Not Available [facility] 4 13:30:17 Osteoporosis 22312067 Active 2021 Not Available [facility] 4 13:30:18 COVID-19 285150507 Active 2022 Not Available [facility] 4 13:30:18 Ex-smoker 9436234 Active 2019 Not Available [facility] 4 13:30:18 Chronic kidney disease 493329501 Active 2022 Not Available [facility] 4 13:30:18 Chronic obstructive pulmonary disease 51446571 Active 2022 Not Available [facility] 4 13:30:17 Coronary arteriosclero sis 41262039 Active 2022 Not Available [facility] 4 13:30:17 Chronic depression 126182571 Active 2022 Not Available [facility] 4 13:30:17 Moderate chronic obstructive pulmonary disease 655388890 Active 2023 Not [address] [facility] 4 13:30:17 Solitary nodule of lung 039992126 Active 2023 Rebecca Fried MD [address], [address], [place], [address] , [place] [facility] 4 10:36:03 Allergic rhinitis 68776046 Active 2023 Yenny Rosenbaum MA [facility], [place] [facility] [place] [facility] 4 12:09:25 Anemia 402100943 Active 2023 Jacquelyn harry MD [address], [address], [place], [address] , [place] [facility] 4 19:12:13 Gastritis 1752268 Active 2023 Jacquelyn harry MD [address], [address], [place], [address] , [place] [facility] 4 17:40:42 Leukocytosis 143703206 Active 2023 Jacquelyn harry MD [address], [address], [place], [address] , [place] [facility] [place] [facility] 4 17:40:42 Low back pain 914193506 Active 2023 Jacquelyn harry MD [address], [address], [place], [address] , [place] [facility] [place] [facility] 4 17:40:42 Increased liver function 98725790 Active 2023 Jacquelyn harry MD [address], [address], [place], [address] , [place] [facility] [place] [facility] 4 17:40:42 Cough 55831186 Active 2023 Jacquelyn harry MD [address], [address], [place], [address] , [place] [facility] [place] [facility] 4 17:48:29 Upper respiratory infection 87376009 Active 2024 Jodie Muñoz MA null, [facility] [employer] 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 Problem Notes None recorded. Procedures Surgical History Date Name Laterality Status Provider Name and Address Organization Details Recorded Time 07/05/20 24 Medicare Wellness CPT Code, subsequent completed Bethany Milton RN [facility] [employer] [facility] 07/05/2024 17:29:39 06/30/20 24 Kidney Stones completed ALFREDITO Parry [facility] [employer] [facility] 07/05/2024 17:24:12 12/23/19 24 cardiac catheterization completed Rosalina Scruggs MA [facility] [employer] [facility] 12/29/2023 09:52:32 01/07/20 23 Medicare Wellness CPT Code, subsequent completed Pratima Arevalo RN [facility] [employer] [facility] 01/06/2023 11:46:36 02/13/20 20 Cataract Surgery completed Not Available [facility] 10/08/2022 05:09:50 06/27/20 19 Most Recent Bone Density completed Not Available [facility] 10/08/2022 05:09:49 07/17/20 17 Date of Last Colonoscopy completed Not Available [facility] 10/08/2022 05:09:48 07/17/20 17 Egd biopsy single/multiple completed Not Available [facility] 10/08/2022 05:09:50 07/17/20 17 Diagnostic colonoscopy completed Not Available [facility] 10/08/2022 05:09:50 Appendectomy completed Not Available [facility] 10/08/2022 05:09:50 Colonoscopy completed Not Available [facility] 10/08/2022 05:09:50 Tonsillectomy completed Not Available [facility] 10/08/2022 05:09:50 Hysterectomy completed Not Available [facility] 10/08/2022 05:09:50 Orthopedic Surgery completed Not Available [facility] 10/08/2022 05:09:50 procedure on nose completed Not Available [facility] 10/08/2022 05:09:50 Imaging Results None recorded. Procedure Notes None recorded. Medical Equipment None Reported. Allergies Allergen ID Allergen Name Allergen Category Reaction Reaction Severity Criticality Documentation Date Start Date Code Code System Note Provider Name and Address Organization Details Recorded Time 9600 amoxicill in medicatio n Not available Not available Not available 10/08/2022 723 RxNorm Not Available [facility] 05:21:32 Medications Name Sig Start Date Stop [...] Not Available clotrimaz ole 10 mg giacomo TAKE 1 TABLET BY MOUTH 5 TIMES A DAY FOR 7 DAYS active Not Available Not Available No t Available promethaz ine-DM 6.25 mg-15 mg/5 mL [...] ACUTE PAIN, LESS THAN 3 DAYS SUPPLY active Not Available Not Available No t Available phenazopy ridine 200 mg tablet TAKE [...] tablet TAKE 1 TABLET BY MOUTH EVERY 12 HOURS active Not Available Not Available No t Available olmesarta n 20 mg tablet TAKE [...] Available Not Available Not Available Fluzone High-Dose 7541-5818 (PF) 180 mcg/0.5 mL intramusc ular syringe ADM 0.5ML IM UTD active Not Available Not Available No t Available Fluzone High-Dose 6507-5403 (PF) 180 mcg/0.5 mL intramusc ular syringe ADM 0.5ML IM UTD 06/02 completed Not Available Not Available Not Available Fluzone High-Dose 3953-5370 (PF) 180 mcg/0.5 mL intramusc ular syringe ADM 0.5ML IM UTD 06/13 completed Not Available Not Available Not Available Fluzone High-Dose 2018- (PF) 180 mcg/0.5 mL intramusc ular syringe ADM 0.5ML IM UTD 07/30 completed Not Available Not Available Not Available Fluad Quad 7817-9562 (65yr up)(PF) 60 mcg (15 mcg x 4)/0.5mL IM syringe ADMINIST ER 0.5ML IN THE MUSCLE DIRECTED 07/30 completed Not Available Not Available Not Available Paxlovid 150 mg-100 mg tablets in a dose pack (Moderate Renal Dose) Take 1 dose pk by oral route as directed . 01/06 completed Not Available Not Available Not Available Vitals Date Recorded Body height Body mass index (BMI) Body weight Body temperature Heart rate Systolic blood pressure Diastolic blood pressure Provider Name and Address Organization Details Last Updated DateTime 5 154.94 cm 16.8 kg/m2 55553.7 2 g 97.1 [degF] 84 /min 126 mm[Hg] 66 mm[Hg] ALFREDITO Prary - [place] [employer] [facility] 5 10:40:59 Date Recorded Oxygen saturation Oxygen saturation in Arterial blood by Pulse oximetry Heart rate Respiratory rate Provider Name and Address Organization Details Last Updated DateTime 10/06/2023 93 % 93 % 86 /min 14 /min Rebecca Fried MD [address], [address], [place], [address], [facility] [employer] [facility] 4 10:30:26 Date Recorded Body height Body mass index (BMI) Body weight Body temperature Heart rate Systolic blood pressure Diastolic blood pressure Provider Name and Address Organization Details Last Updated DateTime 4 154.94 cm 20.3 kg/m2 89401.1 g 97.4 [degF] 86 /min 148 mm[Hg] 58 mm[Hg] Rosalina Scruggs MA [facility] [employer] 4 10:05:45 Date Recorded Body height Body mass index (BMI) Body weight Body temperature Heart rate Oxygen saturation Oxygen saturation in Arterial blood by Pulse oximetry Provider Name and Address Organization Details Last Updated DateTime 4 154.94 cm 18.7 kg/m2 33920.6 4 g 98.1 [degF] 101 /min 91 % 91 % Rosalina Scruggs MA [facility] [employer] 4 09:47:57 Date Recorded Heart rate Respiratory rate Provider N benedicto and Address Organization Details Last Updated DateTime 03/21/2024 84 /min 15 /min Rebecca Fried MD [address], [address], [place], [address], [facility] [employer] [facility] 03/21/2024 14:14:33 Date Recorded Body height Body mass index (BMI) Body weight Body temperature Heart rate Oxygen saturation Oxygen saturation in Arterial blood by Pulse oximetry Systolic blood pressure Diastolic blood pressure Provider Name and Address Organization Details Last Updated DateTime 4 154.94 cm 18.2 kg/m2 38687.3 g 98.1 [degF] 84 /min 91 % 91 % 144 mm[Hg] 70 mm[Hg] Blayne Freire CMA [facility] [employer] [facility] 4 14:09:40 Date Recorded Body height Body mass index (BMI) Body weight Body temperature Heart rate Systolic blood pressure Diastolic blood pressure Provider Name and Address Organization Details Last Updated DateTime 4 154.94 cm 16.9 kg/m2 68839.5 2 g 97.5 [degF] 84 /min 120 mm[Hg] 64 mm[Hg] ALFREDITO Parry [place] [facility] 4 17:26:19 Social History Question Answer Notes LastModified by Organization Details LastModified Time Tobacco Smoking Status Former Smoker quit 2017 Not Available [facility] 10/08/2022 05:08:51 Do You Have An Advance Directive? No Patient Declined Information MIGRATION.257 [id number] Information not available 10/08/2022 Are You Blind Or Do You Have Difficulty Seeing? No MIGRATION.733 [id number] Information not available 10/08/2022 What Is Your Level Of Caffeine Consumption? Heavy MIGRATION.161 [id number] Information not available 10/08/2022 How Much Tobacco Do You Chew? None MIGRATION.365 6655443 Information not available 10/08/2022 In The 14 Days Before Symptom Onset, Have You Had Close Contact With A Laboratory-conf irmed COVID-19 While That Case Was Ill? No MIGRATION.353 [id number] Information not available 10/08/2022 In The 14 Days Before Symptom Onset, Have You Had Close Contact With A Person Who Is Under Investigation For COVID-19 While That Person Was Ill? No MIGRATION.035 [id number] Information not available 10/08/2022 Are You Deaf Or Do You Have Serious Difficulty Hearing? No MIGRATION.772 [id number] Information not available 10/08/2022 What Type Of Diet Are You Following? REGULAR MIGRATION.365 [id number] Information not available 10/08/2022 Which Illicit Or Recreational Drugs Have You Used? None MIGRATION.427 1243189 Information not available 10/08/2022 What Is The Highest Grade Or Level Of School You Have Completed Or The Highest Degree You Have Received? RU75119-1 MIGRATION.860 [id number] Information not available 10/08/2022 Have There Been Any Changes To Your Family Or Social Situation? No MIGRATION.808 [id number] Information not available 10/08/2022 What Is The Fluoride Status Of Your Home? Unknown MIGRATION.745 8548383 Information not available 10/08/2022 When Did You Quit Smoking? 1-5yearssincelastc igarette MIGRATION.089 8017319 Information not available 10/08/2022 Are There Any Guns Present In Your Home? No MIGRATION.154 5487009 Information not available 10/08/2022 Do You Use Insect Repellent Routinely? Yes MIGRATION.844 [id number] Information not available 10/08/2022 Where Do You [...] Do You Have A Medical Power Of Candy Spreader Helper? No MIGRATION.785 2863695 Information not available 10/08/2022 What Was The Date Of Your Most Recent Tobacco Screening? 09/08/2024 [email or web address] Information not available 09/08/2024 How Many Children Do You Have? 1 [email or web address] Information not available 12/29/2023 What Is Your Current Pack Years? [email or web address] Information not available 08/30/2024 Have You Ever Been Counseled For Unhealthy Alcohol Use? No Information not available 12/16/2022 Do You Have Any Pets? Yes MIGRATION.260 [id number] Information not available 10/08/2022 What Is Your Relationship Status? MIGRATION.271 [id number] Information not available 10/08/2022 Do You Use Your Seat Belt Or Car Seat Routinely? Yes MIGRATION.811 [id number] Information not available 10/08/2022 Do You Have Smoke And Carbon Monoxide Detectors In Your Home? Yes MIGRATION.628 8569039 Information not available 10/08/2022 At What Age Did You Start Smoking Tobacco? 18 MIGRATION.138 [id number] Information not available 10/08/2022 Are You Passively Exposed To Smoke? Yes MIGRATION.716 7308563 Information not available 10/08/2022 Are There Any Smokers In Your House? Yes MIGRATION.579 [id number] Information not available 10/08/2022 How Much Tobacco Do You Smoke? No Was 1ppd MIGRATION.485 [id number] Information not available 10/08/2022 What Types Of Sporting Activities Do You Participate In? None MIGRATION.168 9129021 Information not available 10/08/2022 Do You Use Sunscreen Routinely? Yes MIGRATION.180 3037333 Information not available 10/08/2022 Has Tobacco Cessation Counseling Been Provided? No Information not available 12/16/2022 How Many Years Have You Smoked Tobacco? 53 [email or web address] Information not available 08/30/2024 Have You Recently Traveled Abroad? No MIGRATION.104 2676675 Information not available 10/08/2022 Do You Have Difficulty Walking Or Climbing Stairs? No MIGRATION.467 3526270 Information not available 10/08/2022 Do You Have Any Dietary Restrictions? No MIGRATION.204 1188870 Information not available 10/08/2022 Sex: Female Functional Status Question Answer Note LastModified by [employer] ion Details LastModified Time Do you use any illicit or recreational drugs? No MIGRATION.977732 2889 Information not available 10/08/2022 Do you or have you ever used any other forms of tobacco or nicotine? No MIGRATION.433971 7808 Information not available 10/08/2022 What is your level of alcohol consumption? Occasional Information not available 12/16/2022 Do you or have you ever used smokeless tobacco? Never used smokeless tobacco MIGRATION.155228 3757 Information not available 10/08/2022 Do you have transportation difficulties? No MIGRATION.194358 2286 Information not available 10/08/2022 Are you able to walk? YESWOREST MIGRATION.885495 0050 Information not available 10/08/2022 Do you have difficulty doing errands alone? No MIGRATION.149408 0288 Information not available 10/08/2022 Are you able to care for yourself? Yes MIGRATION.348864 8503 Information not available 10/08/2022 What is your occupation? retired MIGRATION.034389 9631 Information not available 10/08/2022 Do you have difficulty dressing or bathing? No MIGRATION.520263 2114 Information not available 10/08/2022 Do you or have you ever used e-cigarettes or vape? Never used electronic cigarettes MIGRATION.072761 0591 Information not available 10/08/2022 What is your exercise level? Moderate MIGRATION.063036 3334 Information not available 10/08/2022 Mental Status Question Answer Note LastModified by Organizat ion Details LastModified Time Do you feel stressed (tense, restless, nervous, or anxious, or unable to sleep at night)? [id number] MIGRATION.28172360 26 Information not available 10/08/2022 Do you have difficulty concentrating, remembering or making decisions? No MIGRATION.35093734 26 Information not available 10/08/2022 Family History Relationship Description Onset Age of this Age Resolved Age Notes LastModified by Organization Details LastModified Time Sister Malignant tumor of breast MIGRATION.034 [id number] Not available 10/08/2022 05:09:54 Mother Malignant neoplasm of ovary MIGRATION.030 [id number] Not available 10/08/2022 05:09:54 Father Malignant tumor of pharynx MIGRATION.194 4724529 Not available 10/08/2022 05:09:54 Brother Carcinoma in situ of liver MIGRATION.827 [id number] Not available 10/08/2022 05:09:54 Maternal Grandmother Carcinoma in situ of kidney MIGRATION.529 0804489 Not available 10/08/2022 05:09:54 Maternal Grandfather Carcinoma in situ of colon MIGRATION.337 [id number] Not available 10/08/2022 05:09:54 Maternal Grandmother Diabetes [...] HAVE YOU BEEN HOSPITALIZED OR SEEN IN [facility] IN THE PAST YEAR ? N ATHEROSCLEROSIS [...] 50 mcg/0.25mL dose 1 completed Not Available [facility] 09/30/2023 13:30:18 COVID-19, mRNA, LNP-S, bivalent, PF, 50 mcg/0.5 mL or 25mcg/0.25 mL dose 2 completed Not Available [facility] 09/30/2023 13:30:18 Influenza, high-dose, quadrivalent, PF 2 completed Not Available [facility] 09/30/2023 13:30:18 Influenza, split virus, trivalent, preservative 0 completed Not Available [facility] 09/30/2023 13:30:18 Influenza, high-dose, trivalent, PF 9 completed Not Available [facility] 09/30/2023 13:30:18 COVID-19, mRNA, LNP-S, PF, 100 mcg/0.5mL dose or 50 mcg/0.25mL dose 1 completed Not Available [facility] 09/30/2023 13:30:18 COVID-19, mRNA, LNP-S, PF, 100 mcg/0.5mL dose or 50 mcg/0.25mL dose 1 completed Not Available [facility] 09/30/2023 13:30:18 Influenza, high-dose, quadrivalent, PF 0 completed Not Available [facility] 09/30/2023 13:30:18 Influenza, split virus, quadrivalent, preservative 8 completed Not Available [facility] 09/30/2023 13:30:18 pneumococcal conjugate PCV 7 7 completed Not Available [facility] 09/30/2023 13:30:18 influenza, unspecified formulation 7 completed Not Available [facility] 09/30/2023 13:30:18 Tdap 7 completed Not Available [facility] 09/30/2023 13:30:18 pneumococcal polysaccharide PPV23 3 completed Not Available [facility] 09/30/2023 13:30:18 Past Encounters Encounter ID Performer Location Encounter Start Date Encounter Closed Date Diagnosis/Indication Diagnosis SNOMED-CT Code Diagnosis ICD10 Code Diagnosis Note [id number] [facility] [place] [address] [place] [id number] 12/31/2020 00:00:00 12/31/2020 12:43:00 [id number] Jacquelyn harry MD [facility] Internal Med [facility] [address] [address] 02/28/2021 00:00:00 02/28/2021 14:13:02 [id number] [facility] _ATHENA_M IGRATION_ DEFAULT_1 _1 , 04/26/2021 00:00:00 04/28/2021 20:51:15 [id number] [facility] [place] [address] [place] [id number] 06/24/2021 00:00:00 06/24/2021 11:04:04 [id number] [facility] [place] [address] [place] [id number] 08/06/2021 00:00:00 08/06/2021 16:04:59 [id number] Jacquelyn harry MD [facility] Internal Med [facility] [address] [address] 09/03/2021 00:00:00 09/03/2021 14:38:59 [id number] Jacquelyn harry MD [facility] Internal [facility] [address] [address] 01/30/2022 00:00:00 01/30/2022 14:22:13 [id number] Jacquelyn harry MD [facility] Internal [facility] [address] [address] 07/24/2022 00:00:00 07/24/2022 14:44:34 [id number] LEX Hernandez [facility] [place] [address] [place] [id number] 08/06/2022 00:00:00 08/06/2022 13:18:30 [id number] Xavier Liang DPM S_[facility] Podiat[facility] [place] [address] [facility] [address] [place] [address] 12/16/2022 13:54:34 12/16/2022 14:44:19 Tendinitis of foot 565246494 M77.51 x-rays of the foot and ankle reviewed negative for acute injuryreco mmend Voltaren gel over-the-c ounterrice therapyrec ommend returning to [facility] for 3 weeksfollo w-up in 3 weeks if continues to be problemati c will obtain ultrasound Ankle pain 442593907 M25 .579 right lateralalo ng peroneal tendonsas above [id number] Jacquelyn harry MD [facility] [place] [address] [facility] [address] [place] [address] 01/06/2023 11:23:04 01/06/2023 12:19:46 Screening - NAD 073111610 Z13.9 C-scope: Dr Aranda 07/17/17, next in [...] her understand ing of the above Hyperlipidemia 46308248 E78.5 On rosuvastat in 40mg dailyNot taking vascepaGet labs Chronic ki dney disease 656220970 N18.[address] Santos, last OV 02/25/2022 Gastritis 0616541 K29.70 EGD: Francisco Espana and may need UGI if sx persistShe feels that she has not taken the PPI and is doing well S/p EGD 12/21/18: Dr Vyas, neg for H pylori Does wellNo sxNot on PPI Anemia 149803049 D64.9 On ironget labsH/H is stable Essential hypertension 82050580 I10 On ASAOn olmesartan 40mg dailyOn amlodipine 10mg dailyGet labs Low back pain 353947727 M54.50 Very rare use of the flexerill, renewed 01/06/2023 Does well Chronic ob structive pulmonary disease 85346155 J44.9 PFTs 06/18/17: COPDSees 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 02/04/2023 On proairOff spirivaOn stioltoOn HHNsOn singulair 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 030239806 E11.9 On jardianceO n olmesartan Does wellGet labs Dr Liang 01/06/2023 Ex-smoker 9426265 Z87.89 1 QuitCT chest 10/23/16: COPD LDCT 12/09/18: NEg, esophageal prominence , refer to [facility] 01/23/2020 : Next in one yearLDCT 01/09/2021 : Next in one yearLDCT 09/17/2021 : CAD, next in one yearLDCT 10/06/2022 : CAD, next in one year Coronary arteriosclerosis 38469930 I25.10 Seen on the LDCT [facility] Dr Tran 08/30/2020 : Is to get stress test, ECHO and US of the legsShe states that Dr Tran has told her that her heart is doing well Transient cerebral ischemia 849709473 G45.9 Does wellDoes see HV Osteoporosis 87014048 M8 1.0 On proliaGet CMP in 2 weeks after prolia, advised to use calcium and vit d also Chronic depression 20745 0009 F32.A On paroxetine 20mg dailydoes well on this, not suicidal or homicidal, declined psychiatry referral at this time COVID-19 291873078 U07.1 +ve 11/10/2022 Adult heal th examination 879108549 Z00.00 Screening for disorder 003873498 Z13.9 [id number] Xavier Liang DPM [facility] Podiat[facility] [place] [address] [facility] [address] [place] [address] 01/06/2023 14:10:56 01/06/2023 14:55:19 Ankle pain 888026268 M25.579 right lateralalo ng peroneal tendonsImp roved Tendinitis of foot 36340 2007 M77.51 continue Voltaren gelRice therapyCon tinue stretching exercisesF ollow-up as needed [id number] Jacquelyn harry MD [facility] Internal Med [facility] [address] [facility] [place] [address] 07/07/2023 09:21:56 07/07/2023 10:01:36 Screening - NAD 789085634 Z13.9 C-scope: Dr Aranda 07/17/17, next in [...] her understand ing of the above Hyperlipidemia 36966577 E78.5 On rosuvastat in 40mg dailyNot taking vascepaGet labs Chronic ki dney disease 855724796 N18.[address] Santos Gastritis 0982405 K29.70 EGD: Francisco Espana and may need UGI if sx persistShe feels that she has not taken the PPI and is doing well S/p EGD 12/21/18: Dr Vyas, neg for H pylori Does wellNo sxNot on PPI Anemia 187692471 D64.9 On ironget labsH/H is stable Essential hypertension 17397234 I10 On ASAOn olmesartan 40mg dailyOn amlodipine 10mg dailyGet labs Low back pain 995523130 M54.50 Very rare use of the flexerill, OK to renewDoes well Chronic ob structive pulmonary disease 47219996 J44.9 PFTs 06/18/17: COPDSeen 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 On proairOn spirivaOff stiolto, was not taking this as is on SpirivaOn HHNsOn singulair 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 230750896 E11.9 On jardianceO n olmesartan Does wellGet labs Dr Liang 01/06/2023 Ex-smoker 3045390 Z87.89 1 QuitCT chest 10/23/16: COPD LDCT 12/09/18: NEg, esophageal prominence , refer to [facility]CT 01/23/2020 : Next in one yearLDCT 01/09/2021 : Next in one yearLDCT 09/17/2021 : CAD, next in one yearLDCT 10/06/2022 : CAD, next in one year Coronary arteriosclerosis 11600312 I25.10 Seen on the LDCT [facility] Dr Tran 08/30/2020 : Is to get stress test, ECHO and US of the legsShe states that Dr Tran has told her that her heart is doing well Transient cerebral ischemia 442831867 G45.9 Does wellDoes see [facility] Osteoporosis 05668978 M8 1.0 On prolia, but too expensive so not taking this, will get a DEXA and may need to be on fosamax Chronic depression 36888 0009 F32.A On paroxetine 20mg dailyDoes well on this, not suicidal or homicidal, declined psychiatry referral at this time COVID-19 770553857 U07.1 +ve 11/10/2022 Screening mammography 24 546893 Z12.31 Leukocytosis 353144534 D 72.829 Repeat the CBC Increased liver function 52640307 R94.5 Get labs, US liver Screening for osteoporosis 390289392 Z13.387 [id number] Rebecca Fried MD [facility] [address] 09/30/2023 11:27:15 10/01/2023 08:40:07 Dyspnea on exertion 53829052 R06.09 R05.3 T78.40XA D89.9 Ex-smoker 4648937 Z87.89 1 F17.218 F17.219 Moderate c hronic obstructive pulmonary disease 675783519 J44.9 [id number] Rebecca Fried MD [facility] [place] [id number] 10/06/2023 09:33:33 10/08/2023 11:21:04 Moderate chronic obstructive pulmonary disease 797599576 J44.9 Solitary n odule of lung 932702202 R91.1 Exposure t o tuberculosis 0511229558 101 Z20.1 [id number] Jacquelyn harry MD S_[facility] Internal Med [place] [address] 12/29/2023 09:30:51 12/29/2023 10:29:24 Screening - NAD 884047286 Z13.9 C-scope: Dr Aranda 07/17/17, next in [...] in 6 months as per her wishesdo lionER if worseshe did verbalize her understand ing of the above Hyperlipidemia 81933618 E78.5 Not taking rosuvastat in 40mg dailyNot taking vascepaGet labs Chronic ki dney disease 851587023 N18.[address] Santos Gastritis 6879612 K29.70 EGD: Francisco Espana and may need UGI if sx persistShe feels that she has not taken the PPI and is doing well S/p EGD 12/21/18: Dr Vyas, neg for H pylori Does wellNo sxNot on PPI Anemia 580025863 D64.9 On ironget labsH/H is stable Essential hypertension 49680277 I10 On ASAOn olmesartan 40mg dailyOn amlodipine 10mg dailyGet labs Low back pain 372689242 M54.50 Very rare use of the flexerill, OK to renewDoes well Chronic ob structive pulmonary disease 53105872 J44.9 PFTs 06/18/17: COPDSeen 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 On 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 spirivaOff stiolto, was not taking this as is on SpirivaOn HHNsOn singulair 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 539593926 E11.9 On jardianceO n olmesartan Does wellGet labs Dr Liang 01/06/2023 Ex-smoker 9397712 Z87.89 1 QuitCT chest 10/23/16: COPD LDCT 12/09/18: NEg, esophageal prominence , refer to [facility] 01/23/2020 : Next in one yearLDCT 01/09/2021 : Next in one yearLDCT 09/17/2021 : CAD, next in one yearLDCT 10/06/2022 : CAD, next in one yearLDCT 10/06/2023 : Next in 6 months Coronary arteriosclerosis 02170331 I25.10 Seen on the LDCT [facility] Dr Tran 08/30/2020 : Is to get stress test, ECHO and US of the legsShe states that Dr Tran has told her that her heart is doing well Stress test 11/12/2023 : [facility], s/p CC done as per her history, done on 12/23/2023 , no stent Transient cerebral ischemia 370281566 G45.9 Does wellDoes see [facility] Osteoporosis 36171418 M8 1.0 On prolia, but too expensive so not taking this, will get a DEXA and may need to be on fosamax Chronic depression 16051 0009 F32.A On paroxetine 20mg dailyDoes well on this, not suicidal or homicidal, declined psychiatry referral at this time COVID-19 519457664 U07.1 +ve 11/10/2022 Leukocytosis 756268630 D 72.829 Repeat the CBC Increased liver function 73440020 R94.5 Get labs, US liver Screening for osteoporosis 601896555 Z13.066 [id number] Rebecca Fried MD [facility] [address] 03/21/2024 13:57:35 03/22/2024 08:01:37 Moderate chronic obstructive pulmonary disease 481744010 J44.9 Solitary n odule of lung 323778875 R91.1 Exposure t o tuberculosis 8507928452 101 Z20.1 [id number] Jacquelyn harry MD S_[facility] Internal Med [place] [address] 07/05/2024 16:43:22 07/05/2024 18:22:25 Adult health examination 058664175 Z00.00 Screening for disorder 337830233 Z13.9 Screening - NAD 79876018 3 Z13.9 C-scope: Dr Aranda 07/17/17, next [...] her understand ing of the above Hyperlipidemia 55244849 E78.5 Not taking rosuvastat in 40mg dailyNot taking vascepaGet labs Chronic ki dney disease 998573155 N18.[address] Santos Gastritis 4608912 K29.70 EGD: Francisco Espana and may need UGI if sx persistShe feels that she has not taken the PPI and is doing well S/p EGD 12/21/18: Dr Vyas, neg for H pylori Does wellNo sxNot on PPI Anemia 090322098 D64.9 On ironget labsH/H is stable Essential hypertension 49298230 I10 On ASAOn olmesartan 40mg dailyOn amlodipine 10mg dailyGet labs Low back pain 308021132 M54.50 Very rare use of the flexerill, OK to renew 07/05/2024 Does well Chronic ob structive pulmonary disease 49335030 J44.9 PFTs 06/18/17: COPDSeen 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 On proairOn rafaelivaDayanara barajas, was not taking this as is on SpirivaOn Harvey Fried 03/21/2024 , next 03/21/2025 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 919353192 E11.9 On jardianceO n olmesartan Does wellGet labs Dr Liang 01/06/2023 Ex-smoker 2400116 Z87.89 1 QuitCT chest 10/23/16: COPD LDCT 12/09/18: NEg, esophageal prominence , refer to [facility] 01/23/2020 : Next in one yearLDCT 01/09/2021 : Next in one yearLDCT 09/17/2021 : CAD, next in one yearLDCT 10/06/2022 : CAD, next in one yearLDCT 10/06/2023 : Next in 6 months Coronary arteriosclerosis 01941190 I25.10 Seen on the LDCT [facility] Dr Tran 08/30/2020 : Is to get stress test, ECHO and US of the [facility] states that Dr Tran has told her that her heart is doing well Stress test 11/12/2023 : [facility], s/p CC done as per her history, done on 12/23/2023 , no stent Transient cerebral ischemia 525045228 G45.9 Does wellDoes see [facility] Osteoporosis 92686141 M8 1.0 On prolia, but too expensive so not taking this, will get a DEXA and may need to be on fosamax Chronic depression 47896 0009 F32.A On paroxetine 20mg dailyDoes well on this, not suicidal or homicidal, declined psychiatry referral at this time COVID-19 363994602 U07.1 +ve 11/10/2022 Increased liver function 15819220 R94.5 Get labs, US liver Screening for osteoporosis 626180600 Z13.820 Cough 10143796 R05.9 Get tested and get on Z-pack, she will also notify her pulmonolog ist, ER if worse, she is very appreciati ve to this plan of care [id number] Jacquelyn harry MD [facility] Internal Med [facility] [address] [facility] [place] [address] 09/08/2024 10:31:13 09/08/2024 11:05:16 Screening - NAD 749849320 Z13.9 C-scope: Dr Aranda 07/17/17, next in [...] her understand ing of the above Hyperlipidemia 56065788 E78.5 Not taking rosuvastat in 40mg dailyNot taking vascepaGet labs Chronic ki dney disease 355940814 N18.[address] Santos Gastritis 4649039 K29.70 EGD: Francisco Espana and may need UGI if sx persistShe feels that she has not taken the PPI and is doing well S/p EGD 12/21/18: Dr Vyas, neg for H pylori Does wellNo sxNot on PPI Anemia 477578881 D64.9 On ironget labsH/H is stable Essential hypertension 23490682 I10 On ASAOn olmesartan 40mg dailyOn amlodipine 10mg dailyGet labs Low back pain 140306106 M54.50 Very rare use of the flexerill, OK to renew 07/05/2024 , 09/08/2024 Does well Chronic ob structive pulmonary disease 28493315 J44.9 PFTs 06/18/17: COPDSeen 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 On proairOn spirivaOff valeryolto, was not taking this as is on SpirivaOn Harvey Fried 03/21/2024 , next 03/21/2025 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 959841441 E11.9 On jardiance, will discuss with Dr Santos on cutting on the dose as A1C is doing well 09/08/2024 On olmesartan Does wellGet labs Dr Liang 01/06/2023 Ex-smoker 0058789 Z87.89 1 QuitCT chest 10/23/16: COPD LDCT 12/09/18: NEg, esophageal prominence , refer to [facility] 01/23/2020 : Next in one yearLDCT 01/09/2021 : Next in one yearLDCT 09/17/2021 : CAD, next in one yearLDCT 10/06/2022 : CAD, next in one yearLDCT 10/06/2023 : Next in 6 months Coronary arteriosclerosis 02396344 I25.10 Seen on the LDCT [facility] Dr Tran 08/30/2020 : Is to get stress test, ECHO and US of the [facility] states that Dr Tran has told her that her heart is doing well Stress test 11/12/2023 : [facility], s/p CC done as per her history, done on 12/23/2023 , no stent Transient cerebral ischemia 627463428 G45.9 Does wellDoes see [facility] Osteoporosis 89222615 M8 1.0 On prolia, but too expensive so not taking this, will get a DEXA and may need to be on fosamax Chronic depression 31351 0009 F32.A On paroxetine 20mg dailyDoes well on this, not suicidal or homicidal, declined psychiatry referral at this time COVID-19 004912296 U07.1 +ve 11/10/2022 Increased liver function 74626219 R94.5 Get labs, US liver Screening for osteoporosis 834712612 Z13.820 Health Concerns Section Related Observation LastModified by Organization Detai ls LastModified Time None Recorded Concern Status LastModified by Organization Details LastModified Time None Recorded Advance Directives Directive N: patient declined informat ion Payers Encounter Date Sequence Insurance Name Policy Number Policy Martins Covered Member ID Martins Member ID Guarantor Name 10/06/2023 1 [facility] (MEDICARE REPLACEMENT/A DVANTAGE - HMO) [id number] Jeanne E Rodriguez [id number] Jeanne Ayala Daily Rodriguez 12/29/2023 1 [facility] (MEDICARE REPLACEMENT/A DVANTAGE - HMO) [id number] Jeanne E Rodriguez [id number] Jeanne Ayala Daily Rodriguez 03/21/2024 1 [facility] (MEDICARE REPLACEMENT/A DVANTAGE - HMO) [id number] Jeanne E Rodriguez [id number] Jeanne Ayala Daily Rodriguez 07/05/2024 1 [facility] (MEDICARE REPLACEMENT/A DVANTAGE - HMO) [id number] Jeanne E Rodriguez [id number] Jeanne Ayala Daily Rodriguez 09/08/2024 1 [facility] (MEDICARE REPLACEMENT/A DVANTAGE - HMO) [id number] Jeanne Bocanegra Rodriguez [id number] Jeanne Cai Daily Rodriguez Notes Date Note Type Note [...] up stairsAlleviating factors: rest [employer] [place] ([facility]) Dyspnea Scale - Grade 1Grade 0 [...] yesEdema: no Environmental exposures:Nicotine smoke: 1 ppd 0430-6362 (quit 1 year in between) = 53 [...] no chance of dozing. 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, some swelling no redness, [...] and inhalers, she has seen 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 on08/06/2021he did labs on 07/08/2021No fevers or [...] cath d/t her positive Jacquelyn Bingham MD [address] [place] [address], [facility] [address], [place], [address], [facility] [employer] 12/29/2023 14:19:48 03/21/2024 text/html Primary care/Ref erring [...] up stairsAlleviating factors: rest Modified [employer] [place] ([employer]) Dyspnea Scale - Grade 1Grade 0 [...] yesEdema: no Environmental exposures:Nicotine smoke: 1 ppd 2185-4614 (quit 1 year in between) = 53 [...] slight chance of dozing. 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, [facility] [address], [place], [address], [place] [facility] 09/08/2024 12:52:37 OBGyn Episode No OBEpisode recorded.
--- OUTSIDE RECORDS SUMMARY | 2025-01-05 12:17 | XMS_ITS | Clinical Summary ---
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 Gender Identity Not on file Sexual Orientation [...] Screening-Bone Density Scan 09/17/2023 09/17/2021 Influenza Vaccine (Season Ended) 2025 05/12/2020, 04/26/2019, 04/21/2018, Additional history exists Fall Risk Assessment 04/12/2025 04/12/2024 DTaP/Tdap/Td Vaccine (2 - Td or Tdap) 06/02/2027 06/02/2017 Pneumococcal vaccine 65+ Completed 07/26/2017, 05/10 Insurance [employer] Care Teams Sales And Customer Relations Rep Relationship Specialty Start Date End Date Jeni Bingham MD [address] [facility] [address] [place] [address] PCP - General Internal Medicine 10/09/23
--- OUTSIDE RECORDS SUMMARY | 2025-01-05 12:17 | XMS_ITS | Clinical Summary ---
Author Organization [facility] [employer] [facility] [employer] [facility] Address [address] [address] Phone Care Team Providers Care Duralumin Metalworker Name Role Phone Alexa Bingham MD Primary Care Provider +1 [phone] Medications cyanocobalamin (VITAMIN B-12) 1000 MCG tablet [...] EVERY NIGHT 90 tablet 1 08/30/2024 Active Encounters Date Type Department Care Team Description 11/08/2024 3:00 PM CDT Office Visit [place] [employer] [facility] [address] [facility] [address] [place] [address] Juan Manuel Ellison DO Stage 3 chronic kidney disease, not otherwise specified (HCC) (Primary Dx); Chronic bronchitis, not otherwise specified (HCC); Decompensated COPD with acute exacerbation (HCC); Gastroesophageal reflux disease; Hypertensive chronic kidney disease; Type 2 diabetes mellitus with diabetic chronic kidney disease (HCC); Nephrolithiasis 11/08/2024 Refill [place] [employer] [facility], [facility] [address] [facility] [address] [place] [address] Bhargavi Nagy CMA 10/13/2024 Documentation Only [facility], [address] [address] Juan Manuel Ellison DO 10/13/2024 Documentation Only [facility], [address] [address] Juan Manuel Ellison DO from [...] Sign Reading Time Taken Comments Blood Pressure 140/80 11/08/2024 3:40 PM CDT Pulse 66 11/08/2024 3:40 PM CDT Temperature 36.1 C (97 F) 11/08/2024 3:40 PM CDT Respiratory Rate 18 11/08/2024 3:40 PM CDT Oxygen Saturation 97% 11/08/2024 3:40 PM CDT Inhaled Oxygen Concentration - - Weight 40.3 kg (88 lb 14.4 oz) 11/08/2024 3:40 P M CDT Height 154.9 cm (5' 1) 02/25/2022 12:45 PM CDT Body Mass Index 16.8 02/25/2022 12:45 PM CDT Plan of Treatment Upcoming Encounters Date Type Department Care Team (Late st Contact Info) Description 02/07/2025 1:30 PM CDT Office Visit [facility] [address] [facility] [address] [place] [address] Juan Manuel Ellison DO [address] [place] [address] 1 [place] [address] Health Maintenance Due Date Last Done Comments Pneumococcal Vaccine: 50+ Years (2 of 2 - PCV) 07/26/2018 07/26/2017, 05/23/2013 Diabetes: Hemoglobin A1C 01/03/2021 Diabetes: Ophthalmology Exam 01/03/2021 Diabetes: Pedal Pulse Checked 01/03/2021 Diabetes: Sensory Foot Exam 01/03/2021 Diabetes: Visual Foot Exam 01/03/2021 Influenza Vaccine (Season Ended) 2025 04/26/2019, 04/21/2018, 04/10/2017 Colorectal Cancer Screening: Colonoscopy Discontinued 07/17/2017 Hepatitis B Vaccine Aged Out No longe r eligible based on patient's age to complete this topic Insurance [facility] Medicare Care Teams Duralumin Metalworker Relationship Specialty Start Date End Date Alexa Bingham MD [address], [address] [place] [address] PCP - General Internal Medicine 07/16/21
--- OUTSIDE RECORDS SUMMARY | 2025-01-05 12:17 | XMS_ITS | Encounter Summary ---
Author Organization [facility] [employer] [facility] Address [address] [place] [address] Phone Care Team Providers Care Dental Chair Assembler Name Role Phone Alexa Bingham MD Primary Care Provider [phone] [phone] Encounter Details Date Type Department Care Team (Late Contact Info) Description 07/25/2024 Office Communication [place] [facility] [address] [address] Yakov [facility] [address] [place] [address] 1 [place] [address] Social History Tobacco Use Types [...] Manuel Ellison DO - 07/25/2024 11:35 AM RUBBER TRIMMER Tell her to get urine studies before starting antibiotic. PLAN: - Urine Culture and UA. - Ciprofloxicin 500 mg po Qday #3 with no refills Thank you documented in this encounter Plan of Treatment Upcoming Encounters Date Type Department Care Team (Late st Contact Info) Description 02/07/2025 1:30 PM CDT Office Visit [facility], [facility] [address] [facility] [address] [place] [address] Juan Manuel Ellison DO [address] [place] [address] documented as of this encounter Visit Diagnoses Not on filedocumented in this encounter Care Teams Dental Chair Assembler Relationship Specialty Start Date End Date Alexa Bingham MD [address] [facility], [address] [place] [address] PCP - General Internal Medicine 07/16/21 documented as of this encounter
--- OUTSIDE RECORDS SUMMARY | 2025-01-05 12:18 | XMS_ITS | Clinical Summary ---
Author Organization [facility] [employer] [facility] Address [address] [facility] [place] [address] Care Team Providers Care Corporate Travel Counselor Name Role Phone Xavi Reaves MD Primary Care Provider [phone]- [phone] Source Comments [facility],non-owned Affiliates and Associated Physician Practices is amultiple site organization consisting of ambulatory clinics and hospital sitesin [place], [place], [place] and [place]. This disclosure is being madepursuant to the Care Everywhere program and may not contain all information available regarding this patient. Last updated 18.[facility] Allergies No known active allergies Medications * Be aware that medications may not be up to date on this document. Alwaysverify current medications with the patient. Aspirin (ASPIR-81 PO) Active Olmesartan Medoxomil (BENICAR PO) Active ATENOLOL PO Active albuterol HFA (PROVENTIL;VENTOL IN;PROAIR) 108 (90 BASE) MCG/ACT inhalerIndication s:COPD exacerbation (HCC) Inhale 2 puffs by mouth every 4 hours as needed for Wheezing 1 Inhaler 1 8 Active benzonatate (TESSALON) 100 MG capsuleIndication s:Cough Take 1 capsule by mouth 3 times daily as needed for Cough Reasons: Cough 30 capsule 8 Active azithromycin (ZITHROMAX) 250 MG tabletIndications :Bacterial URI Take 2 tabs today, then 1 tab daily for next 4 days 6 tablet 8 Active Social History Tobacco Use Types Packs/Day Years Used Date Smoking Tobacco: Former Cigarettes Q uit: 2013 Smokeless Tobacco: Never Comments No Sex and Gender Information Value Date Recorded Sex Assigned at Not on file Legal Sex Female 10:46 AM HOSPICE COMM[facility]ITY [facility] Gender Identity Not on file Sexual Orientation Not on file Last Filed Vital Signs Vital Sign Reading Time Taken Comments Blood Pressure 124/66 08/04/2018 10:25 AM [facility]OSPICE COMM[facility]ITY [facility] Pulse 74 08/04/2018 10:25 AM [facility] Temperature 36.9 C (98.4 F) 08/04/2018 10:25 AM [facility] Respiratory Rate 16 08/04/2018 10:25 AM [facility] Oxygen Saturation 93% 08/04/2018 10:25 AM [facility] Inhaled Oxygen Concentration - - Weight 47.2 kg (104 lb) 08/04/2018 10:25 AM [facility] Height 154.9 cm (5' 1) 08/04/2018 10:25 AM [facility] Body Mass Index 19.65 08/04/2018 10:25 AM [facility]OSPICE [facility] Plan of Treatment Health Maintenance Due Date Last Done Comments BONE DENSITY TESTING 1945 HEPATITIS C SCREENING 03/01/1965 DTAP/TDAP/TD VACCINES (1 - Tdap) 1966 PNEUMOCOCCAL VACCINE 50+ (1 of 1 - PCV) 1997 ZOSTER VACCINE (1 of 2) 1997 Respiratory Syncytial Virus (RSV) Vaccine Pt: or over 60 yrs (1 - 1-dose 75+ series) 2022 COVID-19 VACCINE (1 - 2023-2 5 season) 2024 DEPRESSION SCREENING 08/10/2024 INFLUENZA VACCINE (Season Ended) 2025 HEPATITIS B VACCINE Aged Out No longe [...] patient's age to complete this topic Insurance [facility] MEDICARE MEDICARE [facility] Care Teams Corporate Travel Counselor Relationship Specialty Start Date End Date Xavi Reaves MD [address] [facility] [address] [place] [address] PCP - General Family Medicine 10/10/16
[2025-01-05 13:21] LABS: Alanine Aminotransferase 13 U/L (6-35); Albumin Level 4.1 g/dL (3.5-5.1); Alkaline Phosphatase 70 U/L (38-126); Anion Gap 7 mmol/L (4-12); Aspartate Amino Transferase 28 U/L (14-36); Bilirubin,Total 0.4 mg/dL (0.2-1.3); Blood Urea Nitrogen 19 mg/dL (7-17); Carbon Dioxide 28 mmol/L (22-30); Chloride 105 mmol/L (98-107); Cholesterol 151 mg/dL (0-200); Estimated Glomerular Filt Rate 31; Glucose 112 mg/dL (65-110); HDL Direct 86 mg/dL; Potassium 3.9 mmol/L (3.4-5.0); Sodium 140 mmol/L (137-145); Triglycerides 99 mg/dL (<150)
[2025-01-05 13:31] LABS: LDL Cholesterol Direct 37 mg/dL
[2025-01-05 13:32] LABS: Creatinine Urine 116.1 mg/dL
[2025-01-05 13:37] LABS: MALB Creatinine Ratio 101.7 mg/g (0-30); Microalbumin Urine Random 118.1 mg/L (0-16.7)
[2025-01-05 13:39] LABS: Free T4 Free Thyroxine 0.81 ng/dL (0.78-2.19)
[2025-01-05 13:49] LABS: Hemoglobin A1C 5.6 % (<5.7)
[2025-01-05 22:29] LABS: Hepatitis B Surface Antigen Negative (Negative)
[2025-01-05 22:35] LABS: HAV RESULT Negative (Negative); Hepatitis B Core IgM Result Negative (Negative)
[2025-01-05 22:47] LABS: Hepatitis C Virus Antibody Negative (Negative)
== END 2025-01-05 12:14 | disposition home or self-care (01) ==
PROVIDERS: PCP Internal Medicine; Visit Provider Internal Medicine
DX: E78.5 Hyperlipidemia, unspecified (principal); E11.9 Type 2 diabetes mellitus without complications; R94.5 Abnormal results of liver function studies; Z13.820 Encounter for screening for osteoporosis
CPT/HCPCS: 36415; 80053; 80061; 80074; 82043; 83036; 84439; 84443

== ENCOUNTER 2025-03-01 10:18 | Outpatient (CLI) | payer MEDICARE, SELFPAY ==
--- OUTSIDE RECORDS SUMMARY | 2025-03-01 10:25 | XMS_ITS | Clinical Summary ---
Author Organization [facility] Address [address] [place] [address] Phone Care Team Providers Care Biomedical Equipment Technician Name Role Phone Alexa Bingham MD [...] Comments Blood Pressure 99/62 08/27/2022 1:31 PM LITHODUPLICATOR OPERATOR Pulse 99 08/27/2022 1:31 PM LITHODUPLICATOR OPERATOR Temperature 36.7 C (98.1 F) 08/27/2022 1:31 PM LITHODUPLICATOR OPERATOR Respiratory Rate 18 08/27/2022 1:31 PM LITHODUPLICATOR OPERATOR Oxygen Saturation 92% 08/27/2022 1:31 PM LITHODUPLICATOR OPERATOR Inhaled Oxygen Concentration - - Weight - - Height - - Body Mass Index - - Plan of Treatment Health Maintenance Due Date Last Done Comments Hepatitis C Virus (HCV) Screening 1945 Respiratory Syncytial Virus (RSV) Immunization (Adult) (1 - 1-dose 75+ series) 2022 SARS-COV-2 Immunization ( season) 2024 05/30/2022, 05/21/2022, 06/11/2021, Additional history exists Influenza Immunization (#1) 2025 10, 05/19/2022, 05/04/2021, Additional history exists DTaP/Tdap/Td Immunization Discontinued 06/02/2017 TdaP Immunization Completed 06/02/2017 Colonoscopy Discontinued 07/17/2017 Colorectal Cancer Screening Discontinued Pneumococcal Immunization (50+ years) Completed 07/26/2017, 03/02/2015, 05/23/2013 Zoster Immunization Completed 10/24/2021, 2 Cologuard Discontinued Hepatitis B Immunization Aged Out No longer eligible based on patient's age to complete this topic Human Papillomavirus (HPV) Immunization Aged Out No longer eligible based on patient's age to complete this topic Immunochemical Fecal Occult Blood Discontinued Meningococcal Immunization (ACWY) Aged Out No longer eligible based on patient's age to complete this topic Rotavirus Immunization Aged Out No lo nger eligible based on patient's age to complete this topic Insurance MEDICARE C [facility] on file Care Teams Biomedical Equipment Technician Relationship Specialty Start Date End Date Alexa Bingham MD [address] [place] [address] PCP - General Internal Medicine 02/13/22
--- OUTSIDE RECORDS SUMMARY | 2025-03-01 10:25 | XMS_ITS | Encounter Summary ---
Author Organization [facility] [employer] [facility] Address [address] [place] [address] Phone Care Team Providers Care Plastic Process Technician Name Role Phone Alexa Bingham MD Primary Care Provider [phone] [phone] Encounter Details Date Type Department Care Team (Late Contact Info) Description 07/25/2024 Office Communication [place] [employer] [facility] [address] [address] Yakov [facility] [address] [place] [address] 1 [place] [address] Social History Tobacco Use Types [...] Manuel Ellison DO - 07/25/2024 11:35 AM GROUP LEADER Tell her to get urine studies before starting antibiotic. PLAN: - Urine Culture and UA. - Ciprofloxicin 500 mg po Qday #3 with no refills Thank you documented in this encounter Plan of Treatment Upcoming Encounters Date Type Department Care Team (Late st Contact Info) Description 06/13/2025 1:30 PM GROUP LEADER Office Visit [facility], [facility] [address] [facility] [address] [place] [address] Juan Manuel Ellison DO [address] [place] [address] documented as of this encounter Visit Diagnoses Not on filedocumented in this encounter Care Teams Plastic Process Technician Relationship Specialty Start Date End Date Alexa Bingham MD [address] [facility], [address] [place] [address] PCP - General Internal Medicine 07/16/21 documented as of this encounter
--- OUTSIDE RECORDS SUMMARY | 2025-03-01 10:25 | XMS_ITS | Encounter Summary ---
Author Organization [facility] Address [address] [facility] [place] [address] Care Team Providers Care Box Toe Cementer Name Role Phone Xavi Reaves MD Primary Care Provider [phone]- [phone] Encounter Details Date Type Department Care Team (Late st Contact Info) Description 01/13/2018 Lab Requisition [facility] [address] [facility], [place] [address] Benigno Goldberg MD [address] [place] [address] Social History Tobacco Use Types Packs/Day Years Used Date Smoking Tobacco: Former Cigarettes Q uit: 2013 Smokeless Tobacco: Never Comments No Sex and Gender Information Value Date Recorded Sex Assigned at Not on file Legal Sex Female 10:46 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 Jar 0. [...] characteristic determined by the Dermatopathology Laboratory at [facility]. These tests need not be, and therefore are not, approved by the [place] Food and Drug Administration. The tests are used for clinical purposes. Billing Codes Specimen Charges Stain Charges 46702 1 5:22 PM CDT DERMATOPATHOLOGY LABORATORY Embedded Images 5:22 PM CDT DERMATOPATHOLOGY LABORATORY Pathology/Cytolog y TISSUE SPECIMEN FROM SKIN / Unknown 01/12/2018 01/13/2018 12:24 PM CDT us Benigno Goldberg MD LAB - PATHOLOGY/CYTOLOGY ORD ERABLES Final Result DERMATOPATHOLOGY LABORATORY [facility] - Department of Dermatology [address] [facility], 5th [place] [address], [facility] [phone] documented in this encounter Visit Diagnoses Not on filedocumented in this encounter Care Teams Box Toe Cementer Relationship Specialty Start Date End Date Xavi Reaves MD [address] [facility]. [address] [place] [address] PCP - General Family Medicine 10/10/16 documented as of this encounter
--- OUTSIDE RECORDS SUMMARY | 2025-03-01 10:25 | XMS_ITS | Referral Summary ---
Author Organization [facility] Address [address] [place] [address] Care Team Providers Care School Business Manager Name Role Phone Jeni Bingham MD Primary [...] on file Legal Sex Female 1:14 AM SWEATBAND PERFORATOR Gender Identity Not on file Sexual Orientation [...] Plan of Treatment Not on file Insurance [facility] [employer] Care Teams School Business Manager Relationship Specialty Start Date End Date Jeni Bingham MD [address] [facility] [address] [place] [address] PCP - General Internal Medicine 10/09/23
--- OUTSIDE RECORDS SUMMARY | 2025-03-01 10:25 | XMS_ITS | Encounter Summary ---
Author Organization [facility] [employer] [facility] Address [address] [place], [place] [address] [place] [address] Phone Care Team Providers Care Special Education Resource Room Teacher Name Role Phone Alexa Bingham MD Primary Care Provider [phone] [phone] Encounter Details Date Type Department Care Team (Late st Contact Info) Description 05/16/2024 Office Communication [employer] [facility] [address] [facility] 1 [place] [address] Bhargavi Nagy CMA [address] [facility] 1 [place] [address] Social History Tobacco Use Types [...] st Contact Info) Description 06/13/2025 1:30 PM STORM WINDOW INSTALLER Office Visit [employer] [employer] [facility] [address] [facility] [address] [place] [address] Juan Manuel Ellison DO [address] [facility] 1 [place] [address] documented as of this encounter Visit Diagnoses Not on filedocumented in this encounter Care Teams Special Education Resource Room Teacher Relationship Specialty Start Date End Date Alexa Bingham MD [address] [facility], [address] [place] [address] PCP - General Internal Medicine 07/16/21 documented as of this encounter
--- OUTSIDE RECORDS SUMMARY | 2025-03-01 10:25 | XMS_ITS | Clinical Summary ---
Author Organization [facility] [employer] [facility] Address [address] [place] [address] Phone Care Team Providers Care Single Fold Machine Operator Name Role Phone Alexa Bingham MD Primary Care Provider [phone] [phone] Medications cyanocobalamin (VITAMIN B-12) 1000 MCG tablet [...] Encounters Date Type Department Care Team Description 02/09/2025 Documentation Only [place] [employer] [facility], [facility] [address] [facility] 1 [place] [address] Juan Manuel Ellison DO 02/07/2025 1:30 PM CDT Office Visit [place] [employer] [facility] [address] [place] [address] 15 [place] [address] Juan Manuel Ellison DO Stage 3b chronic kidney disease (HCC) (Primary Dx); Persistent proteinuria; Nephrolithiasis; Obstructive nephropathy; Chronic bronchitis, not otherwise specified (HCC); Gastroesophageal reflux disease; Hypertensive chronic kidney disease; Type 2 diabetes mellitus with diabetic chronic kidney disease (HCC); Pure hypercholesterolemi a, not otherwise specified 02/06/2025 Documentation Only [facility] [address] [place] [address] Juan Manuel Ellison DO from Last [...] Sign Reading Time Taken Comments Blood Pressure 140/70 02/07/2025 1:43 PM CDT Pulse 83 02/07/2025 1:43 PM CDT Temperature 36.1 C (97 F) 02/07/2025 1:43 PM CDT Respiratory Rate 18 02/07/2025 1:43 PM CDT Oxygen Saturation 96% 02/07/2025 1:43 PM CDT Inhaled Oxygen Concentration - - Weight 41.5 kg (91 lb 6.4 oz) 02/07/2025 1:43 PM CDT Height 154.9 cm (5' 1) 02/25/2022 12:45 PM CDT Body Mass Index 17.27 02/25/2022 12:45 PM CDT Plan of Treatment Upcoming Encounters Date Type Department Care Team (Late st Contact Info) Description 06/13/2025 1:30 PM PATENT LEATHER SORTER Office Visit [facility] [address] [address] Juan Manuel Ellison DO [address] [place] [address] Health Maintenance Due Date Last Done Comments Pneumococcal Vaccine: 50+ Years (2 of 2 - PCV) 07/26/2018 07/26/2017, 05/23/2013 Diabetes: Hemoglobin A1C 01/03/2021 Diabetes: Ophthalmology Exam 01/03/2021 Diabetes: Pedal Pulse Checked 01/03/2021 Diabetes: Sensory Foot Exam 01/03/2021 Diabetes: Visual Foot Exam 01/03/2021 Influenza Vaccine (#1) 2025 9, 04/21/2018, 04/10/2017 Colorectal Cancer Screening: Colonoscopy Discontinued 07/17/2017 Hepatitis B Vaccine Aged Out No longe r eligible based on patient's age to complete this topic Procedures Procedure Name Priority Date/Time Associated Diagnosis Comments LITHOLINK KIDNEY STONE URINE PANEL Routine 02/17/2025 6:15 AM CDT Stage 3b chronic kidney disease (HCC) Persistent proteinuria Nephrolithiasis Obstructive nephropathy Chronic bronchitis, not otherwise specified (HCC) Gastroesophageal reflux disease Hypertensive chronic kidney disease Type 2 diabetes mellitus with diabetic chronic kidney disease (HCC) Pure hypercholesterolemi a, not otherwise specified from Last 3 Months Results * (ABNORMAL) Litholink Kidney Stone Urine Panel, 24 Hour (02/17/2025 6:15 AM CDT) Cystine, Ur Neg Negative [facility] Urine Volume (Preservative) 1,420 500 - 4,000 mL/24 hr [facility] Calcium Oxalate 1.62(L) 6.00 - 10.00 [facility] Calcium, 24H Urine 34 <200 mg/24 hr [facility] Oxalate, 24H Ur 17(L) 20 - 40 mg/24 hr [facility] Citrate, 24H Ur 90(L) >550 mg/24 hr [facility] Calcium Phosphate Saturation 0.12(L) 0.50 - 2.00 [facility] pH, 24 Hr Urine 5.733(L) 5.800 - 6.200 [facility] Uric Acid Saturation 0.63 <1.00 [facility] Uric Acid, 24H Ur 272 <750 mg/24 hr [facility] Sodium, 24H Ur 108 50 - 150 mmol/24 hr [facility] Potassium, 24H Ur 32 20 - 100 mmol/24 hr [facility] Magnesium, 24H Ur 44 30 - 120 mg/24 hr [facility] Phosphorus 24 Hour Urine 506(L) 600 - 1,200 mg/24 hr [facility] Ammonia, 24 hr Urine 7(L) 15 - 60 mmol/24 hr [facility] Chloride, 24H Ur 101 70 - 250 mmol/24 hr [facility] Sulfate, 24H Ur 12(L) 20 - 80 meq/24 hr [facility] Urea Nitrogen, 24H Ur 4.09(L) 6.00 - 14.00 g/24 hr [facility] Protein Catabolic Rate, (14) 0.8 0.8 - 1.4 g/kg/24 hr [facility] Creatinine in 24 hour Urine 682 Not Applic. mg/24 hr [facility] Creatinine/KG Body Weight 16.5 8.7 - 20.3 mg/24 hr/kg [facility] Calcium/KG Body Weight 0.8 <4.0 mg/24 hr/kg [facility] Calcium/Creat. Ratio 50(L) 51 - 262 mg/g creat [facility] Comment Note [facility] PDF . [facility] Urine Urine specimen / Unknown 02/17/2025 6:15 AM CDT 02/17/2025 11:00 PM CDT us Juan Manuel Ellison DO LAB URINE ORDERABLES Final R esult [facility] [address] [place] [phone] from Last 3 Months Insurance [facility] Medicare Care Teams Single Fold Machine Operator Relationship Specialty Start Date End Date Alexa Bingham MD [address], [address] [place] [address] PCP - General Internal Medicine 07/16/21
--- OUTSIDE RECORDS SUMMARY | 2025-03-01 10:25 | XMS_ITS | Encounter Summary ---
Author Organization [facility] Address [address] [place] [id number] Care Team Providers Care Medical Surgical Tech Name Role Phone None, Provider Primary Care Provider Xavi Carias MD Primary Care Provider Encounter Details Date Type Department Care Team (Late st Contact Info) Description 05/26/2024 Prep for Procedure [facility] [place] [address] Xavi Martinez MD [address] [facility] [address] [place] [address] Social History Tobacco Use Types [...] on file documented as of this encounter Functional Status * Calculated C-SSRS Risk Score (Lifetime/Recent) Answer Date of Assessment Author Status No Risk Indicated 05/26/2024 12:55 PM CDT Mel Jurado RN Active * [place] Suicide Severity Rating Scale (Screener/Recent Self-Report) Question Answer Date of Assessment Author Status 1. Wish to be (Past 1 Month) No 05/26/2024 12:55 PM CDT Mel Jurado RN Active 2. Non-Specific Active Suicidal Thoughts (Past 1 Month) No 05/26/2024 12:55 PM CDT Mel Jurado, RN Active 6. Suicidal Behavior (Lifetime) No 05/26/2024 12:55 PM CDT Mel Jurado, RN Active documented as of this encounter Plan of Treatment Not on file documented as of this encounter Results * (ABNORMAL) BASIC METABOLIC PANEL (05/26/2024 11:54 AM CDT) [facility] GLUCOSE 93 70 - 99 MG/DL 05/26/2024 12:46 PM CDT [facility] BUN 17 7 - 18 MG/DL 05/26/2024 12:46 PM CDT [facility] CREATININE S/P/B 1.25(H) 0.55 - 1.02 MG/DL 05/26/2024 12:46 PM CDT [facility] SODIUM S/P/B 140 136 - 145 MMOL/L 05/26/2024 12:46 PM CDT [facility] POTASSIUM S/P/B 3.9 3.5 - 5.1 MMOL/L 05/26/2024 12:46 PM CDT [facility] CHLORIDE S/P/B 107 97 - 115 MMOL/L 05/26/2024 12:46 PM CDT [facility] CO2 29.6 21 - 32 MMOL/L 05/26/2024 12:46 PM CDT [facility] CALCIUM S/P/B 9.2 8.5 - 10.1 MG/DL 05/26/2024 12:46 PM CDT [facility] ANION GAP 3.4 2 - 10 MMOL/L 05/26/2024 12:46 PM CDT [facility] BUN CREATININE RATIO 13.6 6 - 26 05/26/2024 12:46 PM CDT [facility] GFR ESTIMATE 44(L) >90 ML/MIN/1.7 3 M2 05/26/2024 12:46 PM CDT [facility] Comment: NOTE: eGFR is not calculated for patients <18 years of age or gender unknown. This is an estimated GFR calculation using the new CKD EPI creatinine equation without race and so does not require a correction factor for race. This estimated GFR should not be used for calculating drug doses. 05/26/2024 11:5 4 AM CDT Elizabeth Rice [employer] Final R esult [facility] [address] [place] [address], * (ABNORMAL) CBC W/DIFF AUTOMATED (05/26/2024 11:54 AM CDT) WBC 9.22 4.5 - 11.0 x10'3/uL 05/26/2024 12:36 PM CDT [facility] RBC 4.47 4.20 - 5.40 x10'6/uL 05/26/2024 12:36 PM CDT [facility] HGB 12.6 12.0 - 16.0 G/DL 05/26/2024 12:36 PM CDT [facility] HCT 39.6 38.0 - 48.0 % 05/26/2024 12:36 PM CDT [facility] MCV 88.6 81.0 - 99.0 FL 05/26/2024 12:36 PM CDT [facility] MCH 28.2 27.0 - 31.0 PG 05/26/2024 12:36 PM CDT [facility] MCHC 31.8(L) 32.0 - 36.0 G/DL 05/26/2024 12:36 PM CDT [facility] RDW 14.4 11.5 - 14.5 % 05/26/2024 12:36 PM CDT [facility] PLT 253 130 - 400 x10'3/uL 05/26/2024 12:36 PM CDT [facility] MPV 11.3 9.3 - 12.2 FL 05/26/2024 12:36 PM CDT [facility] DIFFERENTIAL TYPE AUTOMATED DIFFERENTIAL 05/26/2024 12:36 PM CDT [facility] NEUTROPHILS % 75.0 % 05/26/2024 12:36 PM CDT [facility] LYMPHOCYTES % 13.3 % 05/26/2024 12:36 PM CDT [facility] MONOCYTES % 8.6 % 05/26/2024 12:36 PM CDT [facility] EOSINOPHILS 2.0 % 05/26/2024 12:36 PM CDT [facility] BASOPHILS 0.7 % 05/26/2024 12:36 PM CDT [facility] IMMATURE GRANS % 0.4 % 05/26/20 12:36 PM CDT [facility] ABS. NEUTROPHILS 6.92 1.80 - 7.70 x10'3/uL 05/26/2024 12:36 PM CDT [facility] ABS. LYMPHOCYTES 1.23 1.00 - 4.80 x10'3/uL 05/26/2024 12:36 PM CDT [facility] ABS. MONOCYTES 0.79 0.24 - 0.86 x10'3/uL 05/26/2024 12:36 PM CDT [facility] ABS. EOSINOPHILS 0.18 0.04 - 0.36 x10'3/uL 05/26/2024 12:36 PM CDT [facility] ABS. BASOPHILS 0.06 0.01 - 0.08 x10'3/uL 05/26/2024 12:36 PM CDT [facility] ABS. IMMATURE GRANULOCYTES 0.04 0.00 - 0.49 x10'3/uL 05/26/2024 12:36 PM CDT [facility] 05/26/2024 11:5 4 AM CDT Elizabeth Rice [employer] Final R esult [facility] [address] [place] [address], documented in this encounter Visit Diagnoses Diagnosis Preoperative testing- Primary Preoperative examination, unspecified documented in this encounter Care Teams Medical Surgical Tech Relationship Specialty Start Date End Date None, Provider, PCP - General UNKNOWN PHYSICIAN SPECIALTY 05/25/24 06/29/24 Xavi Martinez MD [address] [facility] [address] [place] [address] PCP - General UROLOGY 06/30/24 documented as of this encounter
--- OUTSIDE RECORDS SUMMARY | 2025-03-01 10:25 | XMS_ITS | Clinical Summary ---
Author Organization [facility] Address [address] [place] [address] Care Team Providers Care Stuffing Machine Operator Name Role Phone Jeni Bingham MD Primary [...] on file Legal Sex Female 1:14 AM [employer] Gender Identity Not on file Sexual Orientation [...] Density Scan 09/17/2023 09/17/2021 Influenza Vaccine (#1) 2025 , 04/26/2019, 04/21/2018, Additional history exists Fall Risk Assessment 04/12/2025 04/12/2024 DTaP/Tdap/Td Vaccine (2 - Td or Tdap) 06/02/2027 06/02/2017 Pneumococcal vaccine 65+ Completed 07/26/2017, 05/10 Insurance [facility] MEDICARE ADVANTAGE [facility] MEDICARE ADVANTAGE Care Teams Stuffing Machine Operator Relationship Specialty Start Date End Date Jeni Bingham MD [address] [address] PCP - General Internal Medicine 10/09/23
--- OUTSIDE RECORDS SUMMARY | 2025-03-01 10:26 | XMS_ITS | Data Portability ---
Author Organization [place] [facility], Main Office Address [address] [place] [address] Care Team Providers Care Welding Instructor Name Role Phone COLEEN JOSEPH [facility] JUAN MANUEL SANTOS Paper Cutter JACQUELYN BINGHAM Primary Care Provider [phone] REBECCA FRIED Can Reconditioner Assessment Encounter Date Assessment Date Assessment LastModified by Organization Details LastModified Time 12/29/2023 12/29/2023 07/15/2022: A1C 6.3 Urine micro alb 128.6H TSH/FT4/CMP/LIPIDS /CBC: WNL 12/31/2022: A1C 6.1 Urine micro alb 52.7 06/30/2023: A1C 6.2 BUN 20, Cr 1.24, GFR 42, AST 84 WBC 14.6H Urine micro alb 45.9 12/14/2023: A1C 5.8 Urine micro alb 27.2 Gluc 106, TP 6.1 Not available 12/29/2023 09:57:21 03/21/2024 03/21/2024 Assessment: Hypertension Elevated BNP Nicotine smoke: 1 ppd 2354-7341 (quit 1 year in between) = 53 [...] keep saturation at 89% or higher Dr. Rios note 10/22/23 declined TB prophylaxis Patient may need gammaglobulin infusions during times of infection. The [employer] recommends annual screening for lung [...] 09/01/2024: A1C 5.5 Not available 09/08/2024 10:54:16 01/10/2025 01/10/2025 07/15/2022: A1C 6.3 Urine micro alb 128.6H TSH/FT4/CMP/LIPIDS /CBC: WNL 12/31/2022: A1C 6.1 Urine micro alb 52.7 06/30/2023: A1C 6.2 BUN 20, Cr 1.24, GFR 42, AST 84 WBC 14.6H Urine micro alb 45.9 12/14/2023: A1C 5.8 Urine micro alb 27.2 Gluc 106, TP 6.1 09/01/2024: A1C 5.5 10/11/2024: Dr Santos H/H 11.4/36.2 WBC 13.6 01/05/2025: BUN/Cr/GFR 19/1.61/31, gluc 112 Urine random 118.1H A1C 5.6 45 minutes spent with the patient from 9.05am to 9.50am Discussed her case with Dr Santos, labs reviewed and referrals provided Not available 01/10/2025 11:11:30 Plan of Treatment Reminders Order Date Submit Date Provider Last Modified By Organization Details Last Modified Time Details Appointments Any 30 2024 01:00P Joselyn Fried MD Not available Not available Not available Any 15 2024 09:15A Joselyn caal MD Not available Not available Not available Lab vitamin D, 25-hydrox y, total, serum [address] (Lab), [address] [place], [address], 01/10/2025 11:01:11 gamma-glu tamyl transfera se (ggt), serum [address] (Lab), [address] [place], [address], 01/10/2025 11:01:11 glycohemo globin, total, blood [address] (Lab), [address] [place], [address], 01/10/2025 11:01:11 microalbu min, urine [address] (Lab), [address] [place], [address], 01/10/2025 11:01:11 lipid panel, serum [address] (Lab), [address] [place], [address], 01/10/2025 11:01:10 CBC w/ auto diff [address] (Lab), [address] [place], [address], 01/10/2025 11:01:10 CMP, serum or plasma [address] (Lab), [address] [place], [address], 01/10/2025 11:01:10 TSH, serum or plasma [address] (Lab), [address] [place], [address], 01/10/2025 11:01:10 hepatitis panel (A+B+C), acute, serum 2024 025 JOSUE [facility] (Lab), [address] [place], [address], 01/06/2025 11:50:06 gamma-glu tamyl transfera se (ggt), serum [address] (Lab), [address] [place], [address], 09/08/2024 11:04:26 lipid panel, serum 2024 025 [facility] (Lab), [address] [place], [address], 01/05/2025 16:20:25 CBC w/ auto diff 2024 025 [facility] (Lab), [address] [place], [address], 10/11/2024 11:45:20 T4, free, serum 2024 025 [facility] (Lab), [address] [place], [address], 01/05/2025 16:20:25 CMP, serum or plasma 2024 025 [facility] (Lab), [address] [place], [address], 01/05/2025 16:20:25 TSH, serum or plasma 2024 025 [facility] (Lab), [address] [place], [address], 01/05/2025 16:20:25 vitamin D, 25-hydrox y, total, serum [address] (Lab), [address] [place], [address], 09/08/2024 11:04:26 glycohemo globin, total, blood [address] (Lab), [address] [place], [address], 09/08/2024 11:04:25 microalbu min, urine [address] (Lab), [address] [place], [address], 09/08/2024 11:04:25 SARS CoV 2 RNA (COVID-19 ), QL, wicker worker-PCR, 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 [address] [facility], [address] [place], [address], 09/01/2024 12:00:07 rapid flu (A+B) [address] [facility], [address] [place], [address], 09/01/2024 12:00:08 rapid strep group A, throat [address] [facility], [address] [place], [address], 09/01/2024 12:00:08 hepatitis panel (A+B+C), acute, serum [address] (Lab), [address] [place], [address], 01/04/2025 08:40:34 gamma-glu tamyl transfera se (ggt), serum [address] (Lab), [address] [place], [address], 01/04/2025 08:40:34 lipid panel, serum 2023 024 [facility] (Lab), [address] [place], [address], 09/01/2024 13:09:09 CBC w/ auto diff 2023 024 [facility] (Lab), [address] [place], [address], 09/01/2024 13:09:10 T4, free, serum [address] (Lab), [address] [place], [address], 01/04/2025 08:40:34 CMP, serum or plasma 2023 024 [facility] (Lab), [address] [place], [address], 09/01/2024 13:09:09 TSH, serum or plasma 2023 024 [facility] (Lab), [address] [place], [address], 09/01/2024 13:09:09 vitamin D, 25-hydrox y, total, serum [address] (Lab), [address] [place], [address], 01/04/2025 08:40:34 glycohemo globin, total, blood [address] (Lab), [address] [place], [address], 01/04/2025 08:40:34 microalbu min, urine 2023 [facility] (Lab), [address] [place], [address], 09/01/2024 21:11:35 hepatitis panel (A+B+C), acute, serum [address] (Lab), [address] [place], [address], 07/05/2024 16:05:43 gamma-glu tamyl transfera se (ggt), serum [address] (Lab), [address] [place], [address], 07/05/2024 16:05:43 lipid panel, serum [address] (Lab), [address] [place], [address], 07/05/2024 16:05:41 CBC w/ auto diff [address] (Lab), [address] [place], [address], 07/05/2024 16:05:42 T4, free, serum [address] (Lab), [address] [place], [address], 07/05/2024 16:05:42 CMP, serum or plasma [address] (Lab), [address] [place], [address], 07/05/2024 16:05:42 TSH, serum or plasma [address] (Lab), [address] [place], [address], 07/05/2024 16:05:42 CBC w/ auto diff [address] (Lab), [address] [place], [address], 07/05/2024 16:05:43 vitamin D, 25-hydrox y, total, serum [address] (Lab), [address] [place], [address], 07/05/2024 16:05:43 glycohemo globin, total, blood [address] (Lab), [address] [place], [address], 07/05/2024 16:05:42 microalbu min, urine [address] (Lab), [address] [place], [address], 07/05/2024 16:05:43 Referral podiatris t referral - Please call patient to schedule an appointme nt. Thank you. 2024 025 JOSUE DOMINIQUEM, [address] [facility], [facility], [place], [address], 01/15/2025 17:17:07 nephrolog ist referral - Please call patient to schedule an appointme nt. Thank you. 2024 025 MARLON Santos DO, [address] [facility], [address], [place], [address], 09/12/2024 14:30:37 cardiolog ist referral - Please call patient to schedule an appointme nt. Thank you. 2024 025 [place], [address], [address], [place], [address], 09/12/2024 14:35:27 nephrolog ist referral 2023 024 [email or web address] [place], [address], [address], [place], [address], 07/06/2024 18:36:06 cardiolog ist referral 2023 024 [email or web address] [place], [address], [address], [place], [address], 07/06/2024 18:36:07 [email or web address] gist referral 2023 024 Rebecca Fried MD, [address] [place], [address], 01/26/2024 09:12:07 nephrolog ist referral 2023 024 [email or web address] [place], [address], [address], [place], [address], 07/05/2024 16:05:55 cardiolog ist referral 2023 024 [email or web address] [place], [address], [address], [place], [address], 07/05/2024 16:05:56 Procedures None recorded. Surgeries None recorded. Imaging MAMMO, screening , digital, bilateral - Please call patient to schedule. 2024 025 [facility], [address], [address], [place], [address], 01/10/2025 12:05:31 LDCT, chest, for lung cancer screening - Please call patient to schedule. 2024 025 [facility] [address], [address], [place], [address], 01/10/2025 12:05:31 LDCT, chest, for lung cancer screening - Please call patient to schedule. 2024 [address] [place], [address], 09/08/2024 15:29:42 US, liver - Please call patient to schedule. [address], [address], [place], [address], 09/08/2024 15:25:39 DEXA, axial skeleton [address] (Radiology), [address] [place], [address], 09/08/2024 15:29:00 LDCT, chest, for lung cancer screening - Please call patient to schedule. [address] [facility], [address], [place] [address], [place], [address], 11/29/2024 12:34:35 US, liver - Please call patient to schedule. [address], [address], [place], [address], 08/30/2024 17:06:23 DEXA, axial skeleton [address] (Radiology), [address] [place], [address], 07/06/2024 19:22:27 CT, chest, w/o contrast - No auth needed [address] ([facility]), [address] [place], [address], 02/20/2025 13:48:26 LDCT, chest, for lung cancer screening - No Auth Required [address] (Radiology), [address] [place], [address], 07/06/2024 19:22:55 US, liver - no auth required 2023 024 [email or web address] [facility] (Radiology), [address] [place], [address], 07/04/2024 19:19:50 DEXA, axial skeleton 2023 024 [facility] (Radiology), [address] [place], [address], 01/07/2024 12:22:54 Medication Orders paroxetin e 20 mg tablet 2024 025 [facility] #[id number], [address] [place], [id number], 09/08/2024 11:03:27 cyclobenz aprine 10 mg tablet 2024 025 [facility]/Pharmacy #[id number], [address], [place], [address], 09/08/2024 11:03:26 cyclobenz aprine 10 mg tablet [address]/Pharmacy #45449, [address], [place], [address], 07/05/2024 18:27:37 paroxetin e 20 mg tablet [address] [facility], [address], [place], [id number], 07/05/2024 18:27:36 Zithromax Z-Neftaly 250 mg tablet 2023 024 abel [facility]/Pharmacy #[id number], [address], [place], [address], 01/10/2025 10:06:12 albuterol sulfate HFA 90 mcg/actua tion aerosol inhaler 08/12/ 2024 08/12/2 024 [facility] #89896, [address], [place], [place], [id number], 03/21/2024 14:29:21 Spiriva Respimat 2.5 mcg/actua tion solution for inhalatio n 2023 024 [facility] #98869, [address], [place], [place], [id number], 03/21/2024 14:29:21 cyclobenz aprine 10 mg tablet 2023 024 [email or web address] [facility] #48823, [address], [place], [place], [id number], 01/13/2024 09:22:28 olmesarta n 40 mg tablet [email or web address] [facility] #59835, [address], [place], [place], [id number], 07/05/2024 17:23:18 paroxetin e 20 mg tablet 2023 024 [facility] #69205, [address], [place], [place], [id number], 12/29/2023 10:23:48 Patient TargetsNo targets recorded. Patient Instructions Encounter Date Encounter Id Patient Instructions Last Modified By Organization Details Last Modified Time 12/29/2023 [id number] diabetic eye exam* [email or web address] Not avail able 07/05/2024 16:05:20 03/21/2024 [id number] complete PFT w/ post bronchodilator spirometry* Not available 02/28/2025 16:02:25 07/05/2024 [id number] dementia rating scale-2* [email or web address] Not available 07/06/2024 08:41:14 alcohol misuse* [email or web address] Not available 07/06/2024 21:21:26 depression screening* [email or web address] 2 Not available 07/06/2024 21:21:25 multi-dimensiona l health assessment questionnaire* [email or web address] Not available 07/06/2024 08:40:56 diabetic eye exam* [email or web address] Not availa ble 01/03/2025 08:18:57 Personalized Hea lth Plan and Screening Recommendations Advance Directives - [...] Low Vaccines Pneumococcal: No further needed Influenza: Your next one in the fall of 2024 Chronic Disease Risks Stroke: Intermediate Risk Active diagnosis, Continue current treatment plan Heart Attack: Intermediate Risk Active diagnosis, Continue current treatment plan Clogging of the Arteries: Intermediate Risk Active diagnosis, Continue current treatment plan Diabetes: Low Risk I have no recommendations Secondary Prevention/Interven tion (detects treatable diseases before they may cause symptoms, disability, or ) Breast Cancer Screening with mammogram: Your next mammogram- up to date Cervical/Uterine/Ov gudelia Cancer Screening: No screening necessary Osteoporosis Screening: No screening necessary Date Screening Last Performed: 12/2023 Colon Cancer Screening: No screening necessary Date Screening Last Performed: 07/26 Eye Disease Screening: Recommended today Dementia Risk: Low I have no recommendations Depression Screening: Negative Active diagnosis, Continue current treatment plan [email or web address] Not available 07/06/2024 09:10:52 09/08/2024 [id number] diabetic eye exam* Not avail able 09/08/2024 11:04:26 01/10/2025 [id number] diabetic eye exam* [email or web address] [email or web address] 2 Not available 01/10/2025 11:01:11 Reason for Referral Paper Cutter Referral for Ch ronic kidney disease Referring Physician: Jacquelyn Bingham, Internal Medicine, Encounter Date: 12/29/2023 [facility] Referral for Co ronary arteriosclerosis Referring Physician: Jacquelyn Bingham Internal Medicine, Encounter Date: 12/29/2023 Can Reconditioner Referral for C hronic obstructive pulmonary disease Referring Physician: Jacquelyn Bingham Internal Medicine, Encounter Date: 12/29/2023 Paper Cutter Referral for Ch ronic kidney disease Referring Physician: Jacquelyn Bingham Internal Medicine, Encounter Date: 07/05/2024 [facility] Referral for Co ronary arteriosclerosis Referring Physician: Jacquelyn Bingham Internal Medicine, Encounter Date: 07/05/2024 Paper Cutter Referral for Ch ronic kidney disease Please call patient to schedule an appointment. Thank you. Referring Physician: Jacquelyn Bingham Internal Medicine, Encounter Date: 09/08/2024 [facility] Referral for Co ronary arteriosclerosis Please call patient to schedule an appointment. Thank you. Referring Physician: Jacquelyn Bingham Internal Medicine, Encounter Date: 09/08/2024 Intelligence Officer Referral for Type 2 dia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 Please call patient to schedule an appointment. Thank you. Referring Physician: Jacquelyn Bingham Internal Medicine, Encounter Date: 01/10/2025 Results Created Date Observation Date Name Description Value Unit Range Abnormal Flag Note LastModifiedBy Organization Detail LastModifiedTime 12/14/19 24 12/14/2023 CBC/C OMPLE TE BLD COUNT W/DIF F white blood cells 9.4 x10'3 /uL 4.2-10 .8 Not Available [facility] (Lab) [address] [place], [address], 12/14/2023 08:58:56 12/14/19 24 12/14/2023 CBC/C OMPLE TE BLD COUNT W/DIF F red blood cells 4.79 x10'6 /uL 3.80-5 .20 Not Available [facility] (Lab) [address] [place], [address], 12/14/2023 08:58:56 12/14/19 24 12/14/2023 CBC/C OMPLE TE BLD COUNT W/DIF F hemoglobin 12.6 g/dL 12.0-1 5.6 Not Available [facility] (Lab) [address] [place], [address], 12/14/2023 08:58:56 12/14/19 24 12/14/2023 CBC/C OMPLE TE BLD COUNT W/DIF F hematocrit 40.3 % 35.7-4 5.7 Not Available [facility] (Lab) [address] [place], [address], 12/14/2023 08:58:56 12/14/19 24 12/14/2023 CBC/C OMPLE TE BLD COUNT W/DIF F mean red cell volume 84.1 fL 82.0-9 9.0 Not Available [facility] (Lab) [address] [place], [address], 12/14/2023 08:58:56 12/14/19 24 12/14/2023 CBC/C OMPLE TE BLD COUNT W/DIF F mean red cell hemoglobin 26.3 pg 27.0-3 3.0 low Not Available [facility] (Lab) [address] [place], [address], 12/14/2023 08:58:56 12/14/19 24 12/14/2023 CBC/C OMPLE TE BLD COUNT W/DIF F mean RBC HGB concentratio n 31.3 g/dL 31.0-3 6.0 Not Available [facility] (Lab) [address] [place], [address], 12/14/2023 08:58:56 12/14/19 24 12/14/2023 CBC/C OMPLE TE BLD COUNT W/DIF F red cell distribution width 14.9 % 11.8-1 5.5 Not Available [facility] (Lab) [address] [place], [address], 12/14/2023 08:58:56 12/14/19 24 12/14/2023 CBC/C OMPLE TE BLD COUNT W/DIF F platelets 371 x10'3 /uL 150-40 0 Not Available [facility] (Lab) [address] [place], [address], 12/14/2023 08:58:56 12/14/19 24 12/14/2023 CBC/C OMPLE TE BLD COUNT W/DIF F mean platelet volume 10.4 fL 9.0-12 .4 Not Available [facility] (Lab) [address] [place], [address], 12/14/2023 08:58:56 12/14/19 24 12/14/2023 CBC/C OMPLE TE BLD COUNT W/DIF F neutrophils 74.9 % 39.0-7 2.0 high Not Available [facility] (Lab) [address] [place], [address], 12/14/2023 08:58:56 12/14/19 24 12/14/2023 CBC/C OMPLE TE BLD COUNT W/DIF F lymphocytes 15.5 % 16.0-4 7.0 low Not Available [facility] (Lab) [address] [place], [address], 12/14/2023 08:58:56 12/14/19 24 12/14/2023 CBC/C OMPLE TE BLD COUNT W/DIF F monocytes 7.6 % 5.0-12 .0 Not Available [facility] (Lab) [address] [place], [address], 12/14/2023 08:58:56 12/14/19 24 12/14/2023 CBC/C OMPLE TE BLD COUNT W/DIF F eosinophils 1.3 % 1.0-7. 0 Not Available [facility] (Lab) [address] [place], [address], 12/14/2023 08:58:56 12/14/1912/14/2023 CBC/C OMPLE TE BLD COUNT W/DIF F basophils 0.3 % 0.0-2. 0 Not Available [facility] (Lab) [address] [place], [address], 12/14/2023 08:58:56 12/14/19 24 12/14/2023 CBC/C OMPLE TE BLD COUNT W/DIF F immature granulocytes 0.4 % 0.00-0 .50 Not Available [facility] (Lab) [address] [place], [address], 12/14/2023 08:58:56 12/14/1912/14/2023 CBC/C OMPLE TE BLD COUNT W/DIF F neutrophils, absolute count 7.05 x10'3 /uL 1.5-8. 0 Not Available [facility] (Lab) [address] [place], [address], 12/14/2023 08:58:56 12/14/1912/14/2023 CBC/C OMPLE TE BLD COUNT W/DIF F lymphocytes, absolute count 1.46 x10'3 /uL 1.07-3 .43 Not Available [facility] (Lab) [address] [place], [address], 12/14/2023 08:58:56 12/14/1912/14/2023 CBC/C OMPLE TE BLD COUNT W/DIF F monocytes, absolute count 0.72 x10'3 /uL 0.29-0 .99 Not Available [facility] (Lab) [address] [place], [address], 12/14/2023 08:58:56 12/14/19 24 12/14/2023 CBC/C OMPLE TE BLD COUNT W/DIF F eosinophils, absolute count 0.12 x10'3 /uL 0.02-0 .53 Not Available [facility] (Lab) [address] [place], [address], 12/14/2023 08:58:56 12/14/19 24 12/14/2023 CBC/C OMPLE TE BLD COUNT W/DIF F basophils, absolute count 0.03 x10'3 /uL 0.01-0 .08 Not Available [facility] (Lab) [address] [place], [address], 12/14/2023 08:58:56 12/14/1912/14/2023 CBC/C OMPLE TE BLD COUNT W/DIF F immature granulocytes ,absolute 0.04 x10'3 /uL 0.00-0 .05 Not Available [facility] (Lab) [address] [place], [address], 12/14/2023 08:58:56 12/14/1912/14/2023 CBC/C OMPLE TE BLD COUNT W/DIF F nucleated red blood cells 0.0 % -0 Not Available [facility] (Lab) [address] [place], [address], 12/14/2023 08:58:56 12/14/1912/14/2023 CBC/C OMPLE TE BLD COUNT W/DIF F NRBC# 0.00 x10'3 /uL Not Available [facility] (Lab) [address] [place], [address], 12/14/2023 08:58:56 12/14/1912/14/2023 LIPID PANEL cholesterol 173 mg/dL 140-19 9 NIH MADY NSUS RECOM MENDA TION FOR ALLEN STERO L: ADULT CHILD LOW RISK: <200 <170 BORDE RLINE : <200- 239 ----- HIGH RISK: >240 >200 Not Available [facility] (Lab) [address] [place], [address], 12/14/2023 09:13:38 12/14/1912/14/2023 LIPID PANEL triglyceride s 95 mg/dL 0-150 NIH MADY NSUS REPOR T RECOM MENDA TION FOR TRIGL YCERI RIAN: ADULT CHILD LOW RISK: <150 ----- BODER LINE: 150-1 99 ----- HIGH RISK: >200 ----- Not Available [facility] (Lab) [address] [place], [address], 12/14/2023 09:13:38 12/14/1912/14/2023 LIPID PANEL HDL cholesterol 59 mg/dL 40- Not Available [facility] (Lab) [address] [place], [address], 12/14/2023 09:13:38 12/14/1912/14/2023 LIPID PANEL LDL cholesterol, calculated 95 mg/dL [...] WILL NOT BE REPOR EBONY. Not Available [facility] (Lab) [address] [place], [address], 12/14/2023 09:13:38 12/14/1912/14/2023 COMP MET PANEL /LIVE R sodium 140 mmol/ L 137-14 5 Not Available [facility] (Lab) [address] [place], [address], 12/14/2023 09:13:54 12/14/19 24 12/14/2023 COMP MET PANEL /LIVE R potassium 4.0 mmol/ L 3.5-5. 1 Not Available [facility] (Lab) [address] [place], [address], 12/14/2023 09:13:54 12/14/19 24 12/14/2023 COMP MET PANEL /LIVE R chloride 106 mmol/ L 98-107 Not Available [facility] (Lab) [address] [place], [address], 12/14/2023 09:13:54 12/14/19 24 12/14/2023 COMP MET PANEL /LIVE R carbon dioxide 28 mmol/ L 22-30 Not Available [facility] (Lab) [address] [place], [address], 12/14/2023 09:13:54 12/14/19 24 12/14/2023 COMP MET PANEL /LIVE R anion gap 10.0 mmol/ L 14-22 low Not Available [facility] (Lab) [address] [place], [address], 12/14/2023 09:13:54 12/14/19 24 12/14/2023 COMP MET PANEL /LIVE R glucose 106 mg/dL 70-99 high Not Available [facility] (Lab) [address] [place], [address], 12/14/2023 09:13:54 12/14/19 24 12/14/2023 COMP MET PANEL /LIVE R BUN 13 mg/dL 8-19 Not Available [facility] (Lab) [address] [place], [address], 12/14/2023 09:13:54 12/14/19 24 12/14/2023 COMP MET PANEL /LIVE R creatinine 0.90 mg/dL 0.66-1 .25 Not Available [facility] (Lab) [address] [place], [address], 12/14/2023 09:13:54 12/14/19 24 12/14/2023 COMP MET PANEL /LIVE R GFR >60 Refer ence Range : [place] ge GFR Healt hy Adult : >60 [...] calcu lator is avail able on the [facility] websi te: [email or web address] :[email or web address] anita/pr ofess ional s/kdo qi/gf r_cal culat or Not Available [facility] (Lab) [address] [place], [address], 12/14/2023 09:13:54 12/14/19 24 12/14/2023 COMP MET PANEL /LIVE R alkaline phosphatase 72 U/L 38-126 Not Available [facility] (Lab) [address] [place], [address], 12/14/2023 09:13:54 12/14/1912/14/2023 COMP MET PANEL /LIVE R alanine aminotransfe rase 12 U/L 0-35 Not Available [facility] (Lab) [address] [place], [address], 12/14/2023 09:13:54 12/14/19 24 12/14/2023 COMP MET PANEL /LIVE R aspartate aminotransfe rase 23 U/L 15-37 Not Available [facility] (Lab) [address] [place], [address], 12/14/2023 09:13:54 12/14/19 24 12/14/2023 COMP MET PANEL /LIVE R bilirubin, total 0.30 mg/dL 0.20-1 .30 Not Available [facility] (Lab) [address] [place], [address], 12/14/2023 09:13:54 12/14/19 24 12/14/2023 COMP MET PANEL /LIVE R bilirubin, conjugated (direct) 0.00 mg/dL 0.00-0 .30 Not Available [facility] (Lab) [address] [place], [address], 12/14/2023 09:13:54 12/14/19 24 12/14/2023 COMP MET PANEL /LIVE R biliurubin,u ncong. (indirect) 0.10 mg/dL 0.00-1 .1 Not Available [facility] (Lab) [address] [place], [address], 12/14/2023 09:13:54 12/14/19 24 12/14/2023 COMP MET PANEL /LIVE R calcium 9.2 mg/dL 8.4-10 .2 Not Available [facility] (Lab) [address] [place], [address], 12/14/2023 09:13:54 12/14/19 24 12/14/2023 COMP MET PANEL /LIVE R total protein 6.1 g/dL 6.3-8. 2 low Not Available [facility] (Lab) [address] [place], [address], 12/14/2023 09:13:54 12/14/19 24 12/14/2023 COMP MET PANEL /LIVE R albumin 3.5 g/dL 3.0-4. 4 Not Available [facility] (Lab) [address] [place], [address], 12/14/2023 09:13:54 12/14/19 24 12/14/2023 COMP MET PANEL /LIVE R globulin 2.6 g/dL 2.6-4. 2 Not Available [facility] (Lab) [address] [place], [address], 12/14/2023 09:13:54 12/14/19 24 12/14/2023 COMP MET PANEL /LIVE R A/G ratio 1.3 ratio 1.0-2. 0 Not Available [facility] (Lab) [address] [place], [address], 12/14/2023 09:13:54 12/14/19 24 12/14/2023 GGT/G -GLUT AMYL TRANS FERAS E gamma-glutam yl transferase 18 U/L 12-43 Not Available [facility] (Lab) [address] [place], [address], 12/14/2023 09:13:58 12/14/19 24 12/14/2023 T4 FREE free T4 1.18 NG/dL 0.78-2 .19 Not Available [facility] (Lab) [address] [place], [address], 12/14/2023 09:30:24 12/14/19 24 12/14/2023 TSH W/REF MARIA ISABEL FT4 TSH with reflex free T4 1.570 uIU/m L 0.465- 4.680 Not Available [facility] (Lab) [address] [place], [address], 12/14/2023 09:45:47 12/14/19 24 12/14/2023 HEMOG LOBIN A1C HA1C 5.8 % 4.0-6. 0 Diabe berry Scree jazlyn Crite raegan: <5.7% Consi stent with absen ce of diabe berry 5.7-6 .4% Consi stent with incre ased risk for diabe berry (pred iabet es) >OR=6 .5% Consi stent with diabe berry REFER ENCE: Diabe berry Care 2016, 39(Parrish ppl.1 ):s13 -s22 Not Available [facility] (Lab) [address] [place], [address], 12/14/2023 13:05:49 12/14/19 24 12/14/2023 MICRO ALBUM N RNDM W/CRE AT RATIO ur creat 133.80 mg/dL REFER ENCE RANGE NOT ESTAB LISHE D FOR RANDO M URINE CREAT ININE Not Available [facility] (Lab) [address] [place], [address], 12/14/2023 17:15:32 12/14/19 24 12/14/2023 MICRO ALBUM N RNDM W/CRE AT RATIO microalbumin , urine 27.2 mg/L 0.0-16 .6 high Not Available [facility] (Lab) [address] [place], [address], 12/14/2023 17:15:32 12/14/19 24 12/14/2023 MICRO ALBUM [...] ENCE: DIABE BERRY CARE, VOL. 26: S94-S 2002 Not Available [facility] (Lab) [address] [place], [address], 12/14/2023 17:15:32 12/14/19 24 12/14/2023 HEPAT ITIS ACUTE PANEL hepatitis A IgM antibody NON-RE ACTIVE non-re active For sampl es repor ebony as Borde rline React slava for HAV IgM, it is recom dev d a new speci men be obtai mai in 2 weeks and retes ebony. Not Available [facility] (Lab) [address] [place], [address], 12/14/2023 22:32:42 12/14/19 24 12/14/2023 HEPAT ITIS ACUTE PANEL hepatitis A virus signal/cutof 0.05 0.00-0 .79 Not Available [facility] (Lab) [address] [place], [address], 12/14/2023 22:32:42 12/14/19 24 12/14/2023 HEPAT ITIS ACUTE PANEL hepatitis B core IgM antibody NON-RE ACTIVE non-re active Not Available [facility] (Lab) [address] [place], [address], 12/14/2023 22:32:42 12/14/19 24 12/14/2023 HEPAT ITIS ACUTE PANEL HBV core IgM signal/cutof f 0.04 0.00-1 .10 Not Available [facility] (Lab) [address] [place], [address], 12/14/2023 22:32:42 12/14/19 24 12/14/2023 HEPAT ITIS ACUTE PANEL hepatitis B surface antigen NON-RE ACTIVE non-re active All speci mens react slava for Hepat itis B Surfa ce Antig en will refle x to refer [facility] lab confi rmato ry testi ng. Not Available [facility] (Lab) [address] [place], [address], 12/14/2023 22:32:42 12/14/19 24 12/14/2023 HEPAT ITIS ACUTE PANEL HBV surf.antigen signal/cutof f 0.11 0.00-0 .99 Not Available [facility] (Lab) [address] [place], [address], 12/14/2023 22:32:42 12/14/19 24 12/14/2023 HEPAT ITIS ACUTE PANEL hepatitis C antibody NON-RE ACTIVE non-re active All speci mens react slava for Hepat itis C Virus antib filipe will refle x to PCR confi rmato ry testi ng. Pleas e allow 48-72 hours for resul ts. Not Available [facility] (Lab) [address] [place], [address], 12/14/2023 22:32:42 12/14/19 24 12/14/2023 HEPAT ITIS ACUTE PANEL hepatitis C virus signal/cutof 0.01 0.00-0 .99 Not Available [facility] (Lab) [address] [place], [address], 12/14/2023 22:32:42 12/14/19 24 12/14/2023 VITAM IN D 25-HY DROXY [id number] 36.9 NG/mL 30-100 Vitam in D Statu s: Defic ient: <20 ng/mL Insuf ficie nt: 20-29 ng/mL Suffi cient : 30-10 0 ng/mL Not Available [facility] (Lab) [address] [place], [address], 12/14/2023 23:54:22 01/07/20 24 01/07/2024 DEXA, axial skele ton [facility] [address] [place] [id number] Patien t Name: HUNTER QUINTERO Access ion #: [id number] Sex: F : 1944 8 Dictat ed By: Raf Bae ms Attend ing Physic kalani: ARLETH BISHOP Physic kalani: JUAN ANTONIOARLETH PETTY Exam Date: 2023 10:23 AM Exam Name: XR DEXA-H IPS PELVIS SPINE Admitt ing Diagno sis(es ): PROCED URE: DEXA SCAN INDICA TION: 78 years old, Female ; screen ing of osteop orosis . TECHNI QUE: Bone densit ometry of the lumbar spine and bilate ral hips was perfor med on a HoloInRadio c unit using dual energy x-ray absorp tiomet ry (DEXA) . COMPAR UBALDO: 2021 BONE DENSIT Y REPORT : The manager facility images are limite d for evalua tion [...] is consid ered low risk). Page 1 [facility] [address] [phone] Patien t Name: HUNTER QUINTERO GEE Access ion #: [id number] Sex: F : 1944 8 Dictat ed By: Raf Bae ms Attend ing Physic kalani: JILL TALBERT Physic kalani: ARLETH BISHOP Exam Date: 2023 10:23 AM Exam Name: [...] T-scor e: compar ubaldo by jae sinha devisuman ion (SD) to a young adult popula [...] 2023 11:20: 48 AM Page 3 INTERFACE [facility] (Imaging) [address] [place], [address], 01/07/2024 12:22:55 01/07/20 24 01/07/2024 DEXA, axial skele ton No observ ation record ed. [facility] [address] [place], [address], 01/07/2024 12:30:19 04/06/20 24 02/22/2024 CT, chest , w/o contr ast No observ ation record ed. [facility] ([facility]) [address] [place], [address], 04/06/2024 17:20:15 07/08/20 24 07/08/2024 XR, foot, 3 or more view No observ ation record ed. [email or web address] [address], [place], [address], 08/30/2024 17:01:21 09/26/19 25 09/26/2024 imagi ng/di agnos tic resul t No observ ation record ed. [address] [address], [place], [address], 09/26/2024 13:26:11 09/26/19 25 09/26/2024 imagi ng/di agnos tic resul t No observ ation record ed. [address] [address], [place], [address], 09/26/2024 13:32:36 10/12/19 25 10/11/2024 US, liver No observ ation record ed. [address] [address], [place], [address], 10/11/2024 10:18:11 12/24/19 25 12/23/2024 imagi ng/di agnos tic resul t No observ ation record ed. [facility] [address], [place], [address], 12/23/2024 11:54:19 Result Notes Documentation Provider Name and Address Organization Details Recorded Time Dexa, Axial Skeleton : [facility] [address] [place] [address] Patient Name: OLGA QUINTERO Sex: F : 1945 Dictated By: Mary Linton Attending Physician: JACQUELYN BINGHAM Ordering Physician: JACQUELYN BINGHAM Exam Date: 01/07/2024 10:23 AM Exam Name: XR DEXA-HIPS PELVIS SPINE Admitting Diagnosis(es): PROCEDURE: DEXA SCAN INDICATION: 78 years old, Female; screening of osteoporosis. TECHNIQUE: Bone densitometry of the lumbar spine and bilateral hips was performed on a Hologic unit using dual energy x-ray absorptiometry (DEXA). COMPARISON: 09/17/2021 BONE DENSITY REPORT: The manager facility images are limited for evaluation of fine bony detail. BONE DENSITY REPORT: Bone mineral density (BMD) AP SPINE (L1-L4) BMD: 1.163 (Grams/cm2). T Score: -0.3 LEFT FEMORAL NECK BMD: 0.669 (Grams/cm2). T Score: -2.7 LEFT HIP TOTAL BMD: 0.708 (Grams/cm2). T Score: -2.4 RT FEMORAL NECK BMD: 0.655 (Grams/cm2). T Score: -2.8 RT HIP TOTAL BMD: 0.715 (Grams/cm2). T Score: -2.3 10 YEAR FRACTURE RISK* Major osteoporotic fracture not provided (less than 20% is considered low risk). Page 1 [facility] [address] [place] [address] Patient Name: OLGA QUINTERO Sex: F : 1945 Dictated By: Mary Linton Attending Physician: MARCIA VALLADARES Ordering Physician: JACQUELYN BINGHAM Exam Date: 01/07/2024 10:23 AM Exam Name: XR DEXA-HIPS PELVIS SPINE Admitting Diagnosis(es): Hip fracture not provided (less than 3% is considered low risk). Comparison with prior DEXA: Lumbar spine: There is a 3.9 % decrease in the lumbar spine bone mineral density compared to the prior examination. Left hip: There is a 0.9 % increase in the left hip bone mineral density compared to the prior examination. IMPRESSION: 1. Using the World Health Organization (WHO) classification, bone mineral density is: Osteoporosis. --- *FRAX version 3.08. Fracture probability calculated for an untreated patient. Fracture probability may be lower if the patient has received treatment. T-score: comparison by standard deviation (SD) to a young adult population, matched for sex and ethnicity (used for postmenopausal women and men >50 years) and classified by WHO criteria. -1.0: normal <-1.0 to >-2.5: osteopenia -2.5: osteoporosis -2.5 plus fragility fracture: severe osteoporosis Z-score: compared by SD to an age, sex, and ethnicity population (used for premenopausal women, men <50 years, and children instead of T-score WHO criteria 4) <-2.0: below expected range/low bone density for age, and a cause should be sought. All treatment decisions require clinical judgment and consideration of individual patient factors, including patient preferences, comorbidities, previous drug use and risk factors not captured in the FRAX model (for example vitamin D deficiency, falls, frailty, increased bone turnover, interval significant decline in BMD). Page 3 Not Available [facility] 01/07/2024 12:22:55 Problems Name Problem SNOMED Code Status Onset Date Resolution Date Notes Provider Name and Address Organization Details Recorded Time Transient cerebral ischemia 111657401 Active Not Available [facility] 4 13:30:17 Osteoarthriti s 633788435 Active Not Available [facility] 4 13:30:17 Essential hypertension 06968004 Active Not Available [employer] 4 13:30:17 Ex-smoker 6102063 Active 2019 Not Available [facility] 4 13:30:18 Gastroesophag eal reflux disease 047327844 Active 2019 Not Available [facility] 4 13:30:17 Type 2 dia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 884134582 Active 2020 Not Available [facility] 4 13:30:17 Osteoporosis 07279825 Active 2021 Not Available [facility] 4 13:30:18 Depressive disorder 20296623 Active 2021 Not Available [facility] 4 13:30:17 Hyperlipidemi a 22070490 Active 2021 [facility] Available [facility] 4 13:30:17 COVID-19 843737897 Active 2022 Not Available [facility] 4 13:30:18 Chronic kidney disease 516615462 Active 2022 Not Available [facility] 4 13:30:18 Chronic obstructive pulmonary disease 40935610 Active 2022 Not Available [facility] 4 13:30:17 Coronary arteriosclero sis 36476738 Active 2022 Not Available [facility] 4 13:30:17 Chronic depression 941820534 Active 2022 Not Available [facility] 4 13:30:17 Moderate chronic obstructive pulmonary disease 695914914 Active 2023 Not Available [facility] 4 13:30:17 Solitary nodule of lung 359571619 Active 2023 Rebecca Fried MD [address] [place] [address], [phone] , [facility] 4 10:36:03 Allergic rhinitis 02691852 Active 2023 Yenny Rosenbaum MA null, [facility] 4 12:09:25 Anemia 156244523 Active 2023 Jacquelyn harry MD [address], [address], [place], [address] , [facility] 4 19:12:13 Gastritis 0122583 Active 2023 Jacquelyn harry MD [address], [address], [place], [address] , [facility] 4 17:40:42 Leukocytosis 799195117 Active 2023 Jacquelyn harry MD [address], [address], [place], [address] , [facility] 4 17:40:42 Low back pain 481383940 Active 2023 Jacquelyn harry MD [address], [address], [place], [address] , [facility] 4 17:40:42 Increased liver function 53564048 Active 2023 Jacquelyn harry MD [address], [address], [place], [address] , [facility] 4 17:40:42 Cough 85809760 Active 2023 Jacquelyn harry MD [address], [address], [place], [address] , [facility] 4 17:48:29 Upper respiratory infection 24752967 Active 2024 Jodie Muñoz MA null, [facility] 5 11:23:22 Candidiasis of mouth 14570124 Active 2024 ALFREDITO Parry, [facility] 5 13:55:52 Diabetic foot examination Active 2024 ALFREDITO Parry, [facility] 5 10:25:53 Notes:Medical History: TIA D epression IgE 134 [...] CPT Code, subsequent completed Bethany Milton RN [facility] [employer] [facility] 07/05/2024 17:29:39 06/30/20 24 Kidney Stones completed ALFREDITO Parry [facility] [employer] [facility] 07/05/2024 17:24:12 12/23/19 24 cardiac catheterization completed Rosalina Scruggs MA [facility] [employer] [facility] 12/29/2023 09:52:32 01/07/20 23 Medicare Wellness CPT Code, subsequent completed Pratima Arevalo RN [facility] [employer] [facility] 01/06/2023 11:46:36 02/13/20 20 Cataract Surgery completed Not Available [facility] 10/08/2022 05:09:50 06/27/20 19 Most Recent Bone Density completed Not Available [facility] 10/08/2022 05:09:49 07/17/20 17 Date of Last Colonoscopy completed Not Available [facility] 10/08/2022 05:09:48 07/17/20 17 Egd biopsy single/multiple completed Not Available [facility] 10/08/2022 05:09:50 07/17/20 17 Diagnostic colonoscopy completed Not Available [facility] 10/08/2022 05:09:50 Appendectomy completed Not Available [facility] 10/08/2022 05:09:50 Colonoscopy completed Not Available [facility] 10/08/2022 05:09:50 Tonsillectomy completed Not Available [facility] 10/08/2022 05:09:50 Hysterectomy completed Not Available [facility] 10/08/2022 05:09:50 Orthopedic Surgery completed Not Available [facility] 10/08/2022 05:09:50 procedure on nose completed Not Available [facility] 10/08/2022 05:09:50 Imaging Results None recorded. Procedure Notes None recorded. Medical Equipment None Reported. Allergies Allergen ID Allergen Name Allergen Category Reaction Reaction Severity Criticality Documentation Date Start Date Code Code System Note Provider Name and Address Organization Details Recorded Time 9600 amoxicill in medicatio n Not available Not available Not available 10/08/2022 723 RxNorm Not Available [facility] 05:21:32 Medications Name Sig Start Date [...] 5 TIMES A DAY FOR 7 DAYS 01/10 completed Not Available Not Available Not Available [...] 1 TABLET DAILY FOR 4 DAYS, DIRECTED 01/10 completed Not Available Not Available Not Available [...] ACUTE PAIN, LESS THAN 3 DAYS SUPPLY 01/10 completed Not Available Not Available Not Available [...] 1 TABLET BY MOUTH EVERY 12 HOURS 01/10 completed Not Available Not Available Not Available [...] Available Not Available Not Available Fluzone High-Dose 6617-6351 (PF) 180 mcg/0.5 mL intramusc ular syringe ADM 0.5ML IM UTD active Not Available Not Available No t Available Fluzone High-Dose 0997-0651 (PF) 180 mcg/0.5 mL intramusc ular syringe ADM 0.5ML IM UTD 06/02 completed Not Available Not Available Not Available Fluzone High-Dose 5866-9371 (PF) 180 mcg/0.5 mL intramusc ular syringe ADM 0.5ML IM UTD 06/13 completed Not Available Not Available Not Available Fluzone High-Dose 2018- (PF) 180 mcg/0.5 mL intramusc ular syringe ADM 0.5ML IM UTD 07/30 completed Not Available Not Available Not Available Fluad Quad 6902-4838 (65yr up)(PF) 60 mcg (15 mcg x [...] Body weight Body temperature Heart rate Systolic And Diastolic Provider Name and Address Organization Details Last Updated DateTime 5 154.94 cm 16.8 kg/m2 83386.7 2 g 97.1 [degF] 84 /min 126/66 mm[Hg] ALFREDITO Parry [place] [employer] [facility] 5 10:40:59 Date Recorded Body height Body mass index (BMI) Body weight Body temperature Heart rate Oxygen saturation Oxygen saturation in Arterial blood by Pulse oximetry Provider Name and Address Organization Details Last Updated DateTime 4 154.94 cm 18.7 kg/m2 82554.6 4 g 98.1 [degF] 101 /min 91 % 91 % Rosalina Scruggs MA [place] [employer] [facility] [employer] 4 09:47:57 Date Recorded Body height Body mass index (BMI) Body weight Body temperature Heart rate Oxygen saturation Oxygen saturation in Arterial blood by Pulse oximetry Pain severity - 0-10 verbal numeric rating [Score] - Reported Systolic And Diastolic Provider Name and Address Organization Details Last Updated DateTime 5 154.94 cm 17 kg/m2 67494.3 1 g 98.1 [degF] 119 /min 87 % 87 % 0 128/56 mm[Hg] Rosalina Scruggs MA [place] [employer] [facility] [employer] 5 10:04:52 Date Recorded Heart rate Respiratory rate Provider N benedicto and Address Organization Details Last Updated DateTime 03/21/2024 84 /min 15 /min Rebecca Fried MD [address], [address], [facility] [email or web address] 03/21/2024 14:14:33 Date Recorded Body height Body mass index (BMI) Body weight Body temperature Heart rate Oxygen saturation Oxygen saturation in Arterial blood by Pulse oximetry Systolic And Diastolic Provider Name and Address Organization Details Last Updated DateTime 4 154.94 cm 18.2 kg/m2 43741.3 g 98.1 [degF] 84 /min 91 % 91 % 144/70 mm[Hg] Blayne Freire CMA [place] [employer] [facility] [employer] 4 14:09:40 Date Recorded Body height Body mass index (BMI) Body weight Body temperature Heart rate Systolic And Diastolic Provider Name and Address Organization Details Last Updated DateTime 4 154.94 cm 16.9 kg/m2 73900.5 2 g 97.5 [degF] 84 /min 120/64 mm[Hg] ALFREDITO Parry [facility] [employer] [facility] 4 17:26:19 Social History Question Answer Notes LastModified by Organization Details LastModified Time Tobacco Smoking Status Former Smoker quit 2017 Not Available [facility] 10/08/2022 05:08:51 Do You Have An Advance Directive? No Patient Declined Information MIGRATION.161 [id number] Information not available 10/08/2022 Are You Blind Or Do You Have Difficulty Seeing? No MIGRATION.035 [id number] Information not available 10/08/2022 What Is Your Level Of Caffeine Consumption? Heavy MIGRATION.160 [id number] Information not available 10/08/2022 How Much Tobacco Do You Chew? None MIGRATION.286 [id number] Information not available 10/08/2022 In The 14 Days Before Symptom Onset, Have You Had Close Contact With A Laboratory-conf irmed COVID-19 While That Case Was Ill? No MIGRATION.046 [id number] Information not available 10/08/2022 In The 14 Days Before Symptom Onset, Have You Had Close Contact With A Person Who Is Under Investigation For COVID-19 While That Person Was Ill? No MIGRATION.398 [id number] Information not available 10/08/2022 Are You Deaf Or Do You Have Serious Difficulty Hearing? No MIGRATION.460 [id number] Information not available 10/08/2022 What Type Of Diet Are You Following? REGULAR MIGRATION.144 [id number] Information not available 10/08/2022 Which Illicit Or Recreational Drugs Have You Used? None MIGRATION.978 0731296 Information not available 10/08/2022 What Is The Highest Grade Or Level Of School You Have Completed Or The Highest Degree You Have Received? [id number] MIGRATION.784 [id number] Information not available 10/08/2022 Have There Been Any Changes To Your Family Or Social Situation? No MIGRATION.348 [id number] Information not available 10/08/2022 What Is The Fluoride Status Of Your Home? Unknown MIGRATION.570 9509028 Information not available 10/08/2022 When Did You Quit Smoking? 1-5yearssincelastc igarette MIGRATION.382 [id number] Information not available 10/08/2022 Are There Any Guns Present In Your Home? No MIGRATION.886 [id number] Information not available 10/08/2022 Do You Use Insect Repellent Routinely? Yes MIGRATION.648 1027274 Information not available 10/08/2022 Where Do You [...] Do You Have A Medical Power Of Physical Therapy Coordinator? No MIGRATION.982 [id number] Information not available 10/08/2022 What Was The Date Of Your Most Recent Tobacco Screening? 09/08/2024 [email or web address] Information not available 09/08/2024 How Many Children Do You Have? 1 [email or web address] Information not available 12/29/2023 What Is Your Current Pack Years? 30ormorepackyears Information not available 08/30/2024 Have You Ever Been Counseled For Unhealthy Alcohol Use? No Information not available 12/16/2022 Do You Have Any Pets? Yes MIGRATION.838 [id number] Information not available 10/08/2022 What Is Your Relationship Status? MIGRATION.440 [id number] Information not available 10/08/2022 Do You Use Your Seat Belt Or Car Seat Routinely? Yes MIGRATION.177 [id number] Information not available 10/08/2022 Do You Have Smoke And Carbon Monoxide Detectors In Your Home? Yes MIGRATION.417 0400106 Information not available 10/08/2022 At What Age Did You Start Smoking Tobacco? 18 MIGRATION.958 [id number] Information not available 10/08/2022 Are You Passively Exposed To Smoke? Yes MIGRATION.425 3566006 Information not available 10/08/2022 Are There Any Smokers In Your House? Yes MIGRATION.428 [id number] Information not available 10/08/2022 How Much Tobacco Do You Smoke? No Was 1ppd MIGRATION.802 [id number] Information not available 10/08/2022 What Types Of Sporting Activities Do You Participate In? None MIGRATION.770 6039014 Information not available 10/08/2022 Do You Use Sunscreen Routinely? Yes MIGRATION.249 [id number] Information not available 10/08/2022 Has Tobacco Cessation Counseling Been Provided? No Information not available 12/16/2022 How Many Years Have You Smoked Tobacco? 53 [email or web address] Information not available 08/30/2024 Have You Recently Traveled Abroad? No MIGRATION.605 [id number] Information not available 10/08/2022 Do You Have Difficulty Walking Or Climbing Stairs? No MIGRATION.207 [id number] Information not available 10/08/2022 Do You Have Any Dietary Restrictions? No MIGRATION.281 9193081 Information not available 10/08/2022 Sex: Female Functional Status Question Answer Note LastModified by OrganCS-Keys ion Details LastModified Time Do you use any illicit or recreational drugs? No MIGRATION.[id number] Information not available 10/08/2022 Do you or have you ever used any other forms of tobacco or nicotine? No MIGRATION.411772 6824 Information not available 10/08/2022 What is your level of alcohol consumption? Occasional Information not available 12/16/2022 Do you or have you ever used smokeless tobacco? Never used smokeless tobacco MIGRATION.018932 1303 Information not available 10/08/2022 Do you have transportation difficulties? No MIGRATION.585099 3539 Information not available 10/08/2022 Are you able to walk? YESWOREST MIGRATION.195408 2218 Information not available 10/08/2022 Do you have difficulty doing errands alone? No MIGRATION.880741 6820 Information not available 10/08/2022 Are you able to care for yourself? Yes MIGRATION.431997 8220 Information not available 10/08/2022 What is your occupation? retired MIGRATION.436112 1000 Information not available 10/08/2022 Do you have difficulty dressing or bathing? No MIGRATION.941373 1357 Information not available 10/08/2022 Do you or have you ever used e-cigarettes or vape? Never used electronic cigarettes MIGRATION.122165 0922 Information not available 10/08/2022 What is your exercise level? Moderate MIGRATION.114219 3753 Information not available 10/08/2022 Mental Status Question Answer Note LastModified by Organizat ion Details LastModified Time Do you feel stressed (tense, restless, nervous, or anxious, or unable to sleep at night)? [id number] MIGRATION.[id number] 26 Information not available 10/08/2022 Do you have difficulty concentrating, remembering or making decisions? No [id number] Information not available 10/08/2022 Family History Relationship Description Onset Age of this Age Resolved Age Notes LastModified by Organization Details LastModified Time Sister Malignant tumor of breast MIGRATION.328 [id number] Not available 10/08/2022 05:09:54 Mother Malignant neoplasm of ovary MIGRATION.867 [id number] Not available 10/08/2022 05:09:54 Father Malignant tumor of pharynx MIGRATION.811 [id number] Not available 10/08/2022 05:09:54 Brother Carcinoma in situ of liver MIGRATION.284 [id number] Not available 10/08/2022 05:09:54 Maternal Grandmother Carcinoma in situ of kidney MIGRATION.360 [id number] Not available 10/08/2022 05:09:54 Maternal Grandfather Carcinoma in situ of colon MIGRATION.574 [id number] Not available 10/08/2022 05:09:54 Maternal Grandmother Diabetes [...] HAVE YOU BEEN HOSPITALIZED OR SEEN IN [facility] IN THE PAST YEAR ? N [...] 50 mcg/0.25mL dose 1 completed Not Available [facility] 09/30/2023 13:30:18 COVID-19, mRNA, LNP-S, bivalent, PF, 50 mcg/0.5 mL or 25mcg/0.25 mL dose 2 completed Not Available [facility] 09/30/2023 13:30:18 Influenza, high-dose, quadrivalent, PF 2 completed Not Available [facility] 09/30/2023 13:30:18 Influenza, split virus, trivalent, preservative 0 completed Not Available [facility] 09/30/2023 13:30:18 Influenza, high-dose, trivalent, PF 9 completed Not Available [facility] 09/30/2023 13:30:18 COVID-19, mRNA, LNP-S, PF, 100 mcg/0.5mL dose or 50 mcg/0.25mL dose 1 completed Not Available [facility] 09/30/2023 13:30:18 COVID-19, mRNA, LNP-S, PF, 100 mcg/0.5mL dose or 50 mcg/0.25mL dose 1 completed Not Available [facility] 09/30/2023 13:30:18 Influenza, high-dose, quadrivalent, PF 0 completed Not Available [facility] 09/30/2023 13:30:18 Influenza, split virus, quadrivalent, preservative 8 completed Not Available [facility] 09/30/2023 13:30:18 pneumococcal conjugate PCV 7 7 completed Not Available [facility] 09/30/2023 13:30:18 influenza, unspecified formulation 7 completed Not Available [facility] 09/30/2023 13:30:18 Tdap 7 completed Not Available [facility] 09/30/2023 13:30:18 pneumococcal polysaccharide PPV23 3 completed Not Available [facility] 09/30/2023 13:30:18 Past Encounters Encounter ID Performer Location Encounter Start Date Encounter Closed Date Diagnosis/Indication Diagnosis SNOMED-CT Code Diagnosis ICD10 Code Diagnosis Note [id number] S[facility] ic[facility] Pulmonolo gy [place] [address] [place] [address] 12/31/2020 00:00:00 12/31/2020 12:43:00 [id number] Jacquelyn harry MD S_GMG Internal Med [facility] 15 [address] [facility], [facility] 15 [place] [address] 02/28/2021 00:00:00 02/28/2021 14:13:02 [id number] [facility] _ATHENA_M IGRATION_ DEFAULT_1 _1 , 04/26/2021 00:00:00 04/28/2021 20:51:15 [id number] [facility] Pulmonolo gy [place] [address] [place] [address] 06/24/2021 00:00:00 06/24/2021 11:04:04 [id number] [facility] Pulmonolo gy [place] [address] [place] [address] 08/06/2021 00:00:00 08/06/2021 16:04:59 [id number] Jacquelyn harry MD [facility] Internal Med [facility] [address] [facility] [address] [address] 09/03/2021 00:00:00 09/03/2021 14:38:59 [id number] Jacquelyn harry MD [facility] Internal Med [facility] 15 [address] [facility] [address] [address] 01/30/2022 00:00:00 01/30/2022 14:22:13 [id number] Jacquelyn harry MD [facility] Internal Med [facility] 15 [address] [facility] [address] [address] 07/24/2022 00:00:00 07/24/2022 14:44:34 [id number] ARTURO HernandezP- AHS_GMG Pulmonolo gy [place] [address] [address] 08/06/2022 00:00:00 08/06/2022 13:18:30 [id number] Xavier Liang DPM [facility] Podiatry [place] [address] [place] [address] 12/16/2022 13:54:34 12/16/2022 14:44:19 Tendinitis of foot 347510016 M77.51 x-rays of the foot and ankle reviewed negative for acute injuryreco mmend Voltaren gel over-the-c ounterrice therapyrec ommend returning to [facility] for 3 weeksfollo w-up in 3 weeks if continues to be problemati c will obtain ultrasound Ankle pain 504007756 M25 .579 right lateralalo ng peroneal tendonsas above [id number] Jacquelyn harry MD [facility] Internal Med [facility] 15 [address] [facility], [address] [place] [address] 01/06/2023 11:23:04 01/06/2023 12:19:46 Screening - NAD 549377605 Z13.9 C-scope: Dr Aranda 07/17/17, next in [...] her understand ing of the above Hyperlipidemia 99046781 E78.5 On rosuvastat in 40mg dailyNot taking vascepaGet labs Chronic ki dney disease 431444623 N18.[address] Santos, last OV 02/25/2022 Gastritis 4697057 K29.70 EGD: Dr. Aranda, Barretts and may need UGI if sx persistShe feels that she has not taken the PPI and is doing well S/p EGD 12/21/18: Dr Vyas, neg for H pylori Does wellNo sxNot on PPI Anemia 381858874 D64.9 On ironget labsH/H is stable Essential hypertension 52949723 I10 On ASAOn olmesartan 40mg dailyOn amlodipine 10mg dailyGet labs Low back pain 081763325 M54.50 Very rare use of the flexerill, renewed 01/06/2023 Does well Chronic ob structive pulmonary disease 69126151 J44.9 PFTs 06/18/17: COPDSees Rebekah Euceda [employer] next 02/04/2023 On proairOff spirivaOn stioltoOn HHNsOn singulair 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 875231980 E11.9 On jardianceO n olmesartan Does wellGet labs Dr Liang 01/06/2023 Ex-smoker 6536663 Z87.89 1 QuitCT chest 10/23/16: COPD LDCT 12/09/18: NEg, esophageal prominence , refer to [facility] 01/23/2020 : Next in one yearLDCT 01/09/2021 : Next in one yearLDCT 09/17/2021 : CAD, next in one yearLDCT 10/06/2022 : CAD, next in one year Coronary arteriosclerosis 77312049 I25.10 Seen on the LDCT [facility] Dr Tran 08/30/2020 : Is to get stress test, ECHO and US of the legse states that Dr Tran has told her that her heart is doing well Transient cerebral ischemia 617432604 G45.9 Does wellDoes see [facility] Osteoporosis 69093951 M8 1.0 On proliaGet CMP in 2 weeks after prolia, advised to use calcium and vit d also Chronic depression 00904 0009 F32.A On paroxetine 20mg dailydoes well on this, not suicidal or homicidal, declined psychiatry referral at this time COVID-19 398021611 U07.1 +ve 11/10/2022 Adult heal th examination 710406554 Z00.00 Screening for disorder 367057888 Z13.9 [id number] Xavier Liang DPM S_GMG Podiatry [place] [address] [facility] [address] [place] [address] 01/06/2023 14:10:56 01/06/2023 14:55:19 Ankle pain 879119329 M25.579 right lateralalo ng peroneal tendonsImp roved Tendinitis of foot 24838 2007 M77.51 continue Voltaren gelRice therapyCon tinue stretching exercisesF ollow-up as needed [id number] Jacquelyn harry MD [facility] Internal Med [facility] [address] [facility], [facility] 15 [place] [address] 07/07/2023 09:21:56 07/07/2023 10:01:36 Screening - NAD 894903518 Z13.9 C-scope: Dr Aranda 07/17/17, next in [...] her understand ing of the above Hyperlipidemia 82251816 E78.5 On rosuvastat in 40mg dailyNot taking vascepaGet labs Chronic ki dney disease 049743888 N18.[address] Santos Gastritis 2696526 K29.70 EGD: Francisco Espana and may need UGI if sx persistShe feels that she has not taken the PPI and is doing well S/p EGD 12/21/18: Dr Vyas, neg for H pylori Does wellNo sxNot on PPI Anemia 923081736 D64.9 On ironget labsH/H is stable Essential hypertension 85102303 I10 On ASAOn olmesartan 40mg dailyOn amlodipine 10mg dailyGet labs Low back pain 576631430 M54.50 Very rare use of the flexerill, OK to renewDoes well Chronic ob structive pulmonary disease 00828175 J44.9 PFTs 06/18/17: COPDSeen Rebekah Euceda [employer] On proairOn spirivaOff stiolto, was not taking this as is on SpirivaOn HHNsOn singulair 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 716460960 E11.9 On jardianceO n olmesartan Does wellGet labs Dr Liang 01/06/2023 Ex-smoker 9696760 Z87.89 1 QuitCT chest 10/23/16: COPD LDCT 12/09/18: NEg, esophageal prominence , refer to [facility] 01/23/2020 : Next in one yearLDCT 01/09/2021 : Next in one yearLDCT 09/17/2021 : CAD, next in one yearLDCT 10/06/2022 : CAD, next in one year Coronary arteriosclerosis 31973201 I25.10 Seen on the LDCT [facility] Dr Tran 08/30/2020 : Is to get stress test, ECHO and US of the legse states that Dr Tran has told her that her heart is doing well Transient cerebral ischemia 216444010 G45.9 Does wellDoes see [facility] Osteoporosis 71078915 M8 1.0 On prolia, but too expensive so not taking this, will get a DEXA and may need to be on fosamax Chronic depression 01881 0009 F32.A On paroxetine 20mg dailyDoes well on this, not suicidal or homicidal, declined psychiatry referral at this time COVID-19 711802898 U07.1 +ve 11/10/2022 Screening mammography 24 728279 Z12.31 Leukocytosis 841424675 D 72.829 Repeat the CBC Increased liver function 22281505 R94.5 Get labs, US liver Screening for osteoporosis 681518415 Z13.037 [id number] Rebecca Fried MD [facility] Pulmonolo gy [address] [address] 09/30/2023 11:27:15 10/01/2023 08:40:07 Dyspnea on exertion 57533381 R06.09 R05.3 T78.40XA D89.9 Ex-smoker 4231554 Z87.89 1 F17.218 F17.219 Moderate c hronic obstructive pulmonary disease 450943305 J44.9 [id number] Rebecca Fried MD S_GMG Pulmonolo gy [place] [address] 10/06/2023 09:33:33 10/08/2023 11:21:04 Moderate chronic obstructive pulmonary disease 053175002 J44.9 Solitary n odule of lung 589158661 R91.1 Exposure t o tuberculosis 8640407787 101 Z20.1 [id number] Jacquelyn harry MD S_GMG Internal Med [facility] [address] [place] [address], [address] [address] 12/29/2023 09:30:51 12/29/2023 10:29:24 Screening - NAD 154505856 Z13.9 C-scope: Dr Aranda 07/17/17, next in [...] her understand ing of the above Hyperlipidemia 95245283 E78.5 Not taking rosuvastat in 40mg dailyNot taking vascepaGet labs Chronic ki dney disease 854264177 N18.[address] Santos Gastritis 6943302 K29.70 EGD: Francisco Espana and may need UGI if sx persistShe feels that she has not taken the PPI and is doing well S/p EGD 12/21/18: Dr Vyas, neg for H pylori Does wellNo sxNot on PPI Anemia 044898690 D64.9 On ironget labsH/H is stable Essential hypertension 43538739 I10 On ASAOn olmesartan 40mg dailyOn amlodipine 10mg dailyGet labs Low back pain 152932620 M54.50 Very rare use of the flexerill, OK to renewDoes well Chronic ob structive pulmonary disease 45489566 J44.9 PFTs 06/18/17: COPDSeen Rebekah Euceda [employer] On proairOn spirivaOff stiolto, was not taking this as is on SpirivaOn HHNsOn singulair 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 541316136 E11.9 On jardianceO n olmesartan Does wellGet labs Dr Liang 01/06/2023 Ex-smoker 5205898 Z87.89 1 QuitCT chest 10/23/16: COPD LDCT 12/09/18: NEg, esophageal prominence , refer to [facility] 01/23/2020 : Next in one yearLDCT 01/09/2021 : Next in one yearLDCT 09/17/2021 : CAD, next in one yearLDCT 10/06/2022 : CAD, next in one yearLDCT 10/06/2023 : Next in 6 months Coronary arteriosclerosis 49871181 I25.10 Seen on the LDCT [facility] Dr Tran 08/30/2020 : Is to get stress test, ECHO and US of the [facility] states that Dr Tran has told her that her heart is doing well Stress test 11/12/2023 : [facility], s/p CC done as per her history, done on 12/23/2023 , no stent Transient cerebral ischemia 993838352 G45.9 Does wellDoes see [facility] Osteoporosis 71743460 M8 1.0 On prolia, but too expensive so not taking this, will get a DEXA and may need to be on fosamax Chronic depression 43457 0009 F32.A On paroxetine 20mg dailyDoes well on this, not suicidal or homicidal, declined psychiatry referral at this time COVID-19 572351839 U07.1 +ve 11/10/2022 Leukocytosis 073848440 D 72.829 Repeat the CBC Increased liver function 68583581 R94.5 Get labs, US liver Screening for osteoporosis 195871122 Z13.427 [id number] Rebecca Fried MD [facility] Pulmonolo gy [address] [address] 03/21/2024 13:57:35 03/22/2024 08:01:37 Moderate chronic obstructive pulmonary disease 147115956 J44.9 Solitary n odule of lung 489169841 R91.1 Exposure t o tuberculosis 8503439686 101 Z20.1 [id number] Jacquelyn harry MD S_GMG Internal Med [facility] [address] [place] [address] 07/05/2024 16:43:22 07/05/2024 18:22:25 Adult health examination 931840390 Z00.00 Screening for disorder 080211414 Z13.9 Screening - NAD 96506116 3 Z13.9 C-scope: Dr Aranda 07/17/17, next [...] her understand ing of the above Hyperlipidemia 93939731 E78.5 Not taking rosuvastat in 40mg dailyNot taking vascepaGet labs Chronic ki dney disease 532835944 N18.[address] Santos Gastritis 5120388 K29.70 EGD: Francisco Espana and may need UGI if sx persistShe feels that she has not taken the PPI and is doing well S/p EGD 12/21/18: Dr Vyas, neg for H pylori Does wellNo sxNot on PPI Anemia 734296160 D64.9 On ironget labsH/H is stable Essential hypertension 30917367 I10 On ASAOn olmesartan 40mg dailyOn amlodipine 10mg dailyGet labs Low back pain 835566006 M54.50 Very rare use of the flexerill, OK to renew 07/05/2024 Does well Chronic ob structive pulmonary disease 37952609 J44.9 PFTs 06/18/17: COPDSeen Rebekah Euceda [employer] On proairOn spirivaOff stiolto, was not taking this as is on SpirivaOn HHNsOn alexandrair Dr Fried 03/21/2024 , next 03/21/2025 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 335523512 E11.9 On jardianceO n olmesartan Does wellGet labs Dr Liang 01/06/2023 Ex-smoker 0052122 Z87.89 1 QuitCT chest 10/23/16: COPD LDCT 12/09/18: NEg, esophageal prominence [facility] 01/[facility] : Next in one yearLDCT 01/09/2021 : Next in one yearLDCT 09/17/2021 : CAD, next in one yearLDCT 10/06/2022 : CAD, next in one yearLDCT 10/06/2023 : Next in 6 months Coronary arteriosclerosis 87692111 I25.10 Seen on the LDCT [facility] Dr Tran 08/30/2020 : Is to get [facility] test[facility] has told her that her heart is doing well Stress test 11/12/2023 : [facility], s/p CC done as per her history, done on 12/23/2023 , no stent Transient cerebral ischemia 547992072 G45.9 Does wellDoamilcar see [facility] Osteoporosis 76835238 M8 1.0 On prolia, but too expensive so not taking this, will get a DEXA and may need to be on fosamax Chronic depression 61472 0009 F32.A On paroxetine 20mg dailyDoes well on this, not suicidal or homicidal, declined psychiatry referral at this time COVID-19 856795432 U07.1 +ve 11/10/2022 Increased liver function 55781096 R94.5 Get labs, US liver Screening for osteoporosis 147472631 Z13.820 Cough 72840310 R05.9 Get tested and get on Z-pack, she will also notify her pulmonolog ist, ER if worse, she is very appreciati ve to this plan of care [id number] Jacquelyn harry MD [facility] Internal Med [facility] [address] [facility], [facility] [place] [address] 09/08/2024 10:31:13 09/08/2024 11:05:16 Screening - NAD 539768404 Z13.9 C-scope: Dr Aranda 07/17/17, next in [...] her understand ing of the above Hyperlipidemia 68444806 E78.5 Not taking rosuvastat in 40mg dailyNot taking vascepaGet labs Chronic ki dney disease 964474009 N18.[address] Santos Gastritis 9584215 K29.70 EGD: Francisco Espana and may need UGI if sx persistShe feels that she has not taken the PPI and is doing well S/p EGD 12/21/18: Dr Vyas, neg for H pylori Does wellNo sxNot on PPI Anemia 054351941 D64.9 On ironget labsH/H is stable Essential hypertension 36002104 I10 On ASAOn olmesartan 40mg dailyOn amlodipine 10mg dailyGet labs Low back pain 441613633 M54.50 Very rare use of the flexerill, OK to renew 07/05/2024 , 09/08/2024 Does well Chronic ob structive pulmonary disease 92390779 J44.9 PFTs 06/18/17: COPDSeen Rebekah Euceda [employer] On proairOn spirivaOff stiolto, was not taking this as is on SpirivaOn HHNsOn singulair Dr Fried 03/21/2024 , next 03/21/2025 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 769198743 E11.9 On jardiance, will discuss with Dr Santos on cutting on the dose as A1C is doing well 09/08/2024 On olmesartan Does wellGet labs Dr Liang 01/06/2023 Ex-smoker 0134958 Z87.89 1 QuitCT chest 10/23/16: COPD LDCT 12/09/18: NEg, esophageal prominence , refer to [facility] 01/23/2020 : Next in one yearLDCT 01/09/2021 : Next in one yearLDCT 09/17/2021 : CAD, next in one yearLDCT 10/06/2022 : CAD, next in one yearLDCT 10/06/2023 : Next in 6 months Coronary arteriosclerosis 07930913 I25.10 Seen on the LDCT [facility] Dr Tran 08/30/2020 : Is to get stress test, ECHO and US of the legse states that Dr Tran has told her that her heart is doing well Stress test 11/12/2023 : [facility], s/p CC done as per her history, done on 12/23/2023 , no stent Transient cerebral ischemia 987686519 G45.9 Does wellDoes see [facility] Osteoporosis 51932903 M8 1.0 On prolia, but too expensive so not taking this, will get a DEXA and may need to be on fosamax Chronic depression 54685 0009 F32.A On paroxetine 20mg dailyDoes well on this, not suicidal or homicidal, declined psychiatry referral at this time COVID-19 626915531 U07.1 +ve 11/10/2022 Increased liver function 42309474 R94.5 Get labs, liver Screening for osteoporosis 210344492 Z13.650 [id number] Jacquelyn harry MD [facility] Internal Med [address] [facility], [address] [place] [address] 01/10/2025 09:52:25 01/10/2025 10:54:22 Screening - NAD 984180148 Z13.9 C-scope: Dr Aranda 07/17/17, next in [...] dDEXA: 09/17/2021 : Osteoporos is, should do proliaDEXA : 01/07/2024 : OP UTD on yearly flu shot as per her historyUTD on PCV #13 and #23UTD Tdap 06/02/17UT D on shingrix 08/18/2020 first shotUTD on COVID 19 vaccineCan do RSV vaccine RTC in 2 monthsdo labsVICKI if worseShe did verbalize her understand ing of the above Hyperlipidemia 15665358 E78.5 Not taking rosuvastat in 40mg dailyNot taking vascepaGet labs Chronic ki dney disease 645716347 N18.[address] Santos Gastritis 3912150 K29.70 EGD: Dr. Pace, Barretts and may need UGI if sx persistShe feels that she has not taken the PPI and is doing well S/p EGD 12/21/18: Dr Vyas, neg for H pylori Does wellNo sxNot on PPI Anemia 425539755 D64.9 On ironGet labs Essential hypertension 90263784 I10 On ASAOn olmesartan 40mg dailyOn amlodipine 10mg dailyGet labs Low back pain 967902093 M54.50 Very rare use of the flexerill, OK to renew 07/05/2024 , 09/08/2024 Does well Chronic ob structive pulmonary disease 67443654 J44.9 PFTs 06/18/17: COPDSeen Rebekah Euceda [employer] On proairOn spirivaOff stiolto, was not taking this as is on SpirivaOn HHNsOn singulair Dr Fried 03/21/2024 , next 03/21/2025 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 457804403 E11.9 On jardiance 25mg daily, spoke with Dr Santos 01/10/2025 and was told to keep on the JardianceO n olmesartan Does wellGet labs Dr Liang 01/06/2023 Ex-smoker 3950341 Z87.89 1 QuitCT chest 10/23/16: COPD LDCT 12/09/18: NEg, esophageal prominence , refer to [facility] 01/23/2020 : Next in one yearLDCT 01/09/2021 : Next in one yearLDCT 09/17/2021 : CAD, next in one yearLDCT 10/06/2022 : CAD, next in one yearLDCT 10/06/2023 : Next in 6 months Coronary arteriosclerosis 81379523 I25.10 Seen on the LDCT [facility] Dr Tran 08/30/2020 : Is to get stress test, ECHO and US of the legsShe states that Dr Tran has told her that her heart is doing well Stress test 11/12/2023 : [facility], s/p CC done as per her history, done on 12/23/2023 , no stentSLHV Dr Tran 10/14/2024 , next in 6 months with ECHO Transient cerebral ischemia 534038745 G45.9 Does Nishant see [facility] Osteoporosis 23129285 M8 1.0 On prolia, but too expensive so not taking this Chronic depression 74684 0009 F32.A On paroxetine 20mg dailyDoes well on this, not suicidal or homicidal, declined psychiatry referral at this time COVID-19 379658546 U07.1 +ve 11/10/2022 Increased liver function 19494991 R94.5 US Liver: 10/11/2024 : Prob tiny GB polypHep panel: Neg Screening for osteoporosis 970106081 Z13.820 History of calculus of kidney 594122950 Z87.442 L ureteral strictureS een by Dr Juan BARKER 11/03/2024 , unable to stent d/t to the severity of strictureS een by Dr Santos 11/08/2024 for L high grade obstructiv e nephropath y As per her history next apt is on 05/2025 in [place], [place] Screening mammography 24 066292 Z12.31 Health Concerns Section Related Observation LastModified by Organization Detai ls LastModified Time None Recorded Concern Status LastModified by Organization Details LastModified Time None Recorded Advance Directives Directive N: patient declined informat ion Payers Insurance Date Sequence Insurance Name Policy Number Policy Martins Covered Member ID Martins Member ID Guarantor Name 01/10/2025 1 [facility] (MEDICARE REPLACEMENT/A DVANTAGE - HMO) [id number] Olga Quintero [id number] Olga Cai Daily Quintero Notes Date Note Type Note Provider Name and Address Organization Details Recorded Time 12/29/2023 text/html 06/02/17Here to establish carePast Hx:HTNDepressionReview ed sccial family and surgical historyHere as she would like to discuss her results for the testing done by her prior PMD Dr Mensah 07/27/17:Here s/p hosp for pneumonia, at [facility] for 3 days, is on amoxicillin and [...] acute or remote trauma, located laterally, 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, some swelling no redness, [...] and inhalers, she has seen Rebekah Euceda [employer] on08/06/2021he did labs on 07/08/2021No fevers or [...] cath d/t her positive Jacquelyn Bingham MD [address] [place] [address], [facility] [address], [place], [address], [facility] [email or web address] 12/29/2023 14:19:48 03/21/2024 text/html Primary care/Ref erring [...] up stairsAlleviating factors: rest Modified [employer] [place] (mMRC) Dyspnea Scale - Grade 1Grade 0 [...] yesEdema: no Environmental exposures:Nicotine smoke: 1 ppd 8524-8950 (quit 1 year in between) = 53 [...] slight chance of dozing. 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, some swelling no redness, [...] 02/28/2021:Here for his routine aptShe is doing wellSsantiago did do the labs on 02/25/2021 and is here to review theseOV 09/03/2021:Here for her routine aptShe is c/o mild cough since today, is using her nebs and inhalers, she has seen Rebekah Euceda [employer] on08/06/2021he did labs on 07/08/2021No fevers or [...] using her inhalers Jacquelyn Bingham MD [address], [address], [place], [address], [place] [facility] [employer] [employer] 07/06/2024 21:23:59 09/08/2024 text/html 06/02/17Here to establish carePast Hx:HTNDepressionReview ed sccial family and surgical historyHere as she would like to discuss her results for the testing done by her prior PMD Dr ReavesOV 07/27/17:Here s/p hosp for pneumonia, at [facility] for 3 days, is on amoxicillin and [...] acute or remote trauma, located laterally, 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, [facility] [address], [place], [address], [place] [facility] 01/10/2025 11:11:58 OBGyn Episode No OBEpisode recorded.
--- OUTSIDE RECORDS SUMMARY | 2025-03-01 10:26 | XMS_ITS | Clinical Summary ---
Author Organization [facility] Address [facility] [place] [address] Care Team Providers Care Cabin Supervisor Name Role Phone Xavi Martinez MD Primary Care Provider Allergies No [...] Indications: Acute Pain < 3 Day Supply 8 tablet 5 Active Social History Tobacco Use Types Packs/Day [...] Sign Reading Time Taken Comments Blood Pressure 167/65 11/03/2024 3:52 PM CDT Pulse 78 11/03/2024 3:52 PM CDT Temperature 36.3 C (97.3 F) 11/03/2024 3:52 PM CDT Respiratory Rate 16 11/03/2024 3:52 PM CDT Oxygen Saturation 95% 11/03/2024 3:52 PM CDT Inhaled Oxygen Concentration - - Weight 39.8 kg (87 lb 11.9 oz) 11/03/2024 11:34 AM CDT Height 154.9 cm (5' 0.98) 11/03/2024 11:34 AM C DT Body Mass Index 16.59 11/03/2024 11:34 AM CDT Plan of Treatment Health Maintenance Due Date Last Done Comments Hepatitis C 1963 Annual Medicare Wellness Visit 2012 Dexa Scan (General) 2012 COVID-19 Vaccine ( season) 2024 05/10/2023, 05/21/2022, 06/11/2021, Additional history exists DTaP, Tdap and Td Vaccines (2 - Td or Tdap) 06/02/2027 06/02/2017 Pneumococcal Vaccine: 50+ Years Completed 07/26/2017, 03/02/2015, 05/23/2013 Zoster Vaccines [...] this topic Medical Devices Implanted Type Area Flume Maker Device Identifier Shelf Expiration Date Model / Serial / Lot Stent Ureteral 6fr 22cm Pigtail Curved - [id number] Implanted:Qty : 1 on 06/30/2024 by Xavi Martinez MD at [facility] Stent Left: Ureter [employer] [id number] 05/07/2026 [id number] Explanted Type Area Flume Maker Device Identifier Shelf Expiration Date Model / Serial / Lot Stent Ureteral 6fr 22cm Pigtail Curved - [id number] Implanted:Qty : 1 on 05/26/2024 by Xavi Martinez MD at [facility] Explanted:Qty : 1 on 06/30/2024 by Xavi Martinez MD at [facility] Stent Left: Ureter [employer] [id number] 05/07/2026 [id number] Insurance [facility] Care Teams Cabin Supervisor Relationship Specialty Start Date End Date Xavi Martinez MD [address] [facility] [address] [place] [address] PCP - General UROLOGY 06/30/24
--- OUTSIDE RECORDS SUMMARY | 2025-03-01 10:26 | XMS_ITS | Clinical Summary ---
Author Organization [facility] [employer] Address [address] [facility] [place] [address] Care Team Providers Care Admission Specialist Name Role Phone Xavi Reaves MD Primary Care Provider +1- [phone] [facility] [employer],non-owned Affiliates and Associated Physician Practices is amultiple site organization consisting of ambulatory clinics and hospital sitesin [place], [place] and [place]. This disclosure is being madepursuant to the Care Everywhere program and may not contain all information available regarding this patient. Last updated 18.[facility] [employer] Allergies No known active allergies Medications * [...] on file Legal Sex Female 10:46 AM BILLING CUSTOMER SERVICE REPRESENTATIVE Gender Identity Not on file Sexual Orientation Not on file Last Filed Vital Signs Vital Sign Reading Time Taken Comments Blood Pressure 124/66 08/04/2018 10:25 AM BILLING CUSTOMER SERVICE REPRESENTATIVE Pulse 74 08/04/2018 10:25 AM BILLING CUSTOMER SERVICE REPRESENTATIVE Temperature 36.9 C (98.4 F) 08/04/2018 10:25 AM BILLING CUSTOMER SERVICE REPRESENTATIVE Respiratory Rate 16 08/04/2018 10:25 AM BILLING CUSTOMER SERVICE REPRESENTATIVE Oxygen Saturation 93% 08/04/2018 10:25 AM BILLING CUSTOMER SERVICE REPRESENTATIVE Inhaled Oxygen Concentration - - Weight 47.2 kg (104 lb) 08/04/2018 10:25 AM BILLING CUSTOMER SERVICE REPRESENTATIVE Height 154.9 cm (5' 1) 08/04/2018 10:25 AM BILLING CUSTOMER SERVICE REPRESENTATIVE Body Mass Index 19.65 08/04/2018 10:25 AM BILLING CUSTOMER SERVICE REPRESENTATIVE Plan of Treatment Health Maintenance Due Date [...] season) 2024 DEPRESSION SCREENING 08/10/2024 INFLUENZA VACCINE (#1) 2025 HEPATITIS B VACCINE Aged Out No [...] patient's age to complete this topic Insurance [facility] MEDICARE MEDICARE [facility] Care Teams Admission Specialist Relationship Specialty Start Date End Date Xavi Reaves MD [address] [facility] [address] [place] [address] PCP - General Family Medicine 10/10/16
--- NOTE | 2025-03-29 13:27 | P.PCNPFT_ITS ---
PFT Procedure Performed PFT Procedure Performed Spirometry with Pre/Post Bronchodilator Plethysmography (Lung Vol) Diffusing Cap (DLCO) Flow Vol Loop PFT Interpretation This is a pulmonary function test with pre and post-bronchodilator spirometry, plethysmography and diffusing capacity. The test was performed and results interpreted in accordance with the 2019 and 2005 ATS/ERS Task Force guidelines respectively using the Global Lung Function Initiative-2012 reference equations. Patient demonstrated good effort and cooperation. Reproducibility criteria were met. The quality of the pre bronchodilator spirometry maneuver was Grade A and post bronchodilator spirometry maneuver was Grade A. Findings: Spirometry: There is decreased maximal expiratory airflow at all lung volumes with a concave expiratory flow tracing. The contour the inspiratory flow tracing is normal. The pre bronchodilator FVC is 2.15 L, 91% predicted. The pre bronchodilator FEV1 is 1.10 L, 60% predicted. The pre bronchodilator FEV1: FVC ratio is 51%. The post bronchodilator FVC is 2.31 L, representing an 8% increase. The post bronchodilator FEV1 is 1.22 L, representing an 11% increase. The post bronchodilator FEV1: FVC ratio is 53%. Plethysmography: The total lung capacity is 4.38 L, 95% predicted. The functi onal residual capacity is 3.10 L, 117% predicted. The residual volume is 2.23 L, 102% predicted. Diffusing capacity: The diffusing capacity unadjusted for hemoglobin and carboxyhemoglobin 7.6, 41% predicted. The diffusing capacity adjusted for alveolar volume is 2.48, 57% predicted. Impression: There is a moderate obstructive abnormality. There is no significant improvement after inhaling a single dose of albuterol. The lung volumes are normal. The diffusing capacity unadjusted for hemoglobin and carboxyhemoglobin is moderately decreased and remains moderately decreased when adjusted for alveolar volume. There are no prior studies for comparison
== END 2025-03-01 10:19 | disposition home or self-care (01) ==
PROVIDERS: PCP Internal Medicine; Visit Provider Internal Medicine Pulmonary Disease
DX: J44.9 Chronic obstructive pulmonary disease, unspecified (principal)
CPT/HCPCS: 94060; 94726; 94729

== ENCOUNTER 2025-03-24 12:16 | Outpatient (CLI) | payer MEDICARE, SELFPAY ==
--- NOTE | ~2025-03-24 | CT_ITS ---
CT Scan of the Chest without Contrast: Clinical Indication: Lung cancer screening, nicotine dependence Technique: Contiguous sections were acquired throughout the chest without intravenous contrast. Dose reduction technique was used on this scan by utilizing automated exposure control and iterative recon struction technique. The dose-length product (DLP) was 62.28 mGy-cm. Findings: There is no evidence of any significant mediastinal, hilar or axillary lymphadenopathy. There is pankaj re atherosclerotic calcification diffusely involving the aorta and great vessel origins. Additional c oronary artery calcifications are present. There is no evidence of pleural or pericardial effusion. There is biapical scarring with mild to moderate emphysema. There is additional scarring in the anter omedial right upper lobe and in the lingula. A few scattered tiny 1-2 mm pulmonary nodules are presen t. There is a 4 mm left lower lobe pulmonary nodule (axial image 66). Images through the upper abdomen reveal partially imaged severe left hydroureteronephrosis. Impression: Lung RADS 2: Benign appearance. 12 month follow-up screening CT advised. Partially imaged severe left hydroureteronephrosis. Consider additional workup as indicated. Reviewed, dictated and finalized at location M. Impression: Lung RADS 2: Benign appearance. 12 month follow-up screening CT advised. Partially imaged severe left hydroureteronephrosis. Consider additional work up as indicated.
--- OUTSIDE RECORDS SUMMARY | 2025-03-24 12:22 | XMS_ITS | Clinical Summary ---
Author Organization [facility] Address [facility] [place] [address] Care Team Providers Care Bus Aide Name Role Phone Xavi Martinez MD Primary [...] this topic Medical Devices Implanted Type Area Private Secretary Device Identifier Shelf Expiration Date Model / Serial / Lot Stent Ureteral 6fr 22cm Pigtail Curved - [id number] Implanted:Qty : 1 on 06/30/2024 by Xavi Martinez MD at [facility] Stent Left: Ureter [employer] [id number] 05/07/2026 [id number] Explanted Type Area Private Secretary Device Identifier Shelf Expiration Date Model / Serial / Lot Stent Ureteral 6fr 22cm Pigtail Curved - [id number] Implanted:Qty : 1 on 05/26/2024 by Xavi Martinez MD at [facility] Explanted:Qty : 1 on 06/30/2024 by Xavi Martinez MD at [facility] Stent Left: Ureter [employer] [id number] 05/07/2026 [id number] Insurance [facility] Care Teams Bus Aide Relationship Specialty Start Date End Date Xavi Martinez MD [address] [facility] [address] [place] [address] PCP - General UROLOGY 06/30/24
--- OUTSIDE RECORDS SUMMARY | 2025-03-24 12:22 | XMS_ITS | Clinical Summary ---
Author Organization [facility] Address [address] [facility] [place] [address] Care Team Providers Care Bundle Wrapper Name Role Phone Xavi Reaves MD Primary Care Provider +1- [phone] Source Comments [facility],non-owned Affiliates and Associated Physician Practices is amultiple site organization consisting of ambulatory clinics and hospital sitesin [place], [place], [place] and [place]. This disclosure is being madepursuant to the Care Everywhere program and may not contain all information available regarding this patient. Last updated 18.[facility] Allergies No known active allergies Medications * [...] on file Legal Sex Female 10:46 AM APN Gender Identity Not on file Sexual Orientation Not on file Last Filed Vital Signs Vital Sign Reading Time Taken Comments Blood Pressure 124/66 08/04/2018 10:25 AM APN Pulse 74 08/04/2018 10:25 AM APN Temperature 36.9 C (98.4 F) 08/04/2018 10:25 AM APN Respiratory Rate 16 08/04/2018 10:25 AM APN Oxygen Saturation 93% 08/04/2018 10:25 AM APN Inhaled Oxygen Concentration - - Weight 47.2 kg (104 lb) 08/04/2018 10:25 AM APN Height 154.9 cm (5' 1) 08/04/2018 10:25 AM APN Body Mass Index 19.65 08/04/2018 10:25 AM APN Plan of Treatment Health Maintenance Due Date [...] patient's age to complete this topic Insurance [facility] MEDICARE MEDICARE [facility] Care Teams Bundle Wrapper Relationship Specialty Start Date End Date Xavi Reaves MD [address] [facility] [address] [place] [address] PCP - General Family Medicine 10/10/16
--- OUTSIDE RECORDS SUMMARY | 2025-03-24 12:22 | XMS_ITS | Encounter Summary ---
Author Organization [facility] Address [address] [place] [address] Care Team Providers Care Advertising Specialist Name Role Phone None, Provider Primary Care Provider Xavi Carias MD Primary Care Provider Encounter Details Date Type Department Care Team (Late st Contact Info) Description 05/26/2024 Prep for Procedure [facility] Pre-[place]mission [place] [address] Xavi Martinez MD [address] [facility] [address] [place] [address] Social History Tobacco Use Types [...] PM CDT Mel Jurado RN Active * [place] Suicide Severity Rating Scale (Screener/Recent Self-Report) Question [...] BASIC METABOLIC PANEL (05/26/2024 11:54 AM CDT) [facility] GLUCOSE 93 70 - 99 MG/DL 05/26/2024 12:46 PM CDT [facility] BUN 17 7 - 18 MG/DL 05/26/2024 12:46 PM CDT [facility] CREATININE S/P/B 1.25(H) 0.55 - 1.02 MG/DL 05/26/2024 12:46 PM CDT [facility] SODIUM S/P/B 140 136 - 145 MMOL/L 05/26/2024 12:46 PM CDT [facility] POTASSIUM S/P/B 3.9 3.5 - 5.1 MMOL/L 05/26/2024 12:46 PM CDT [facility] CHLORIDE S/P/B 107 97 - 115 MMOL/L 05/26/2024 12:46 PM CDT [facility] CO2 29.6 21 - 32 MMOL/L 05/26/2024 12:46 PM CDT [facility] CALCIUM S/P/B 9.2 8.5 - 10.1 MG/DL 05/26/2024 12:46 PM CDT [facility] ANION GAP 3.4 2 - 10 MMOL/L 05/26/2024 12:46 PM CDT [facility] BUN CREATININE RATIO 13.6 6 - 26 05/26/2024 12:46 PM CDT [facility] GFR ESTIMATE 44(L) >90 ML/MIN/1.7 3 M2 05/26/2024 12:46 PM CDT [facility] Comment: NOTE: eGFR is not calculated for patients <18 years of age or gender unknown. This is an estimated GFR calculation using the new CKD EPI creatinine equation without race and so does not require a correction factor for race. This estimated GFR should not be used for calculating drug doses. 05/26/2024 11:5 4 AM CDT Elizabeth Rice TRAY SERVICE WORKER LABORATORY Final R esult [facility] [address] [place] [address], * (ABNORMAL) CBC W/DIFF AUTOMATED (05/26/2024 11:54 AM CDT) WBC 9.22 4.5 - 11.0 x10'3/uL 05/26/2024 12:36 PM CDT [facility] RBC 4.47 4.20 - 5.40 x10'6/uL 05/26/2024 12:36 PM CDT [facility] HGB 12.6 12.0 - 16.0 G/DL 05/26/2024 12:36 PM CDT [facility] HCT 39.6 38.0 - 48.0 % 05/26/2024 12:36 PM CDT [facility] MCV 88.6 81.0 - 99.0 FL 05/26/2024 12:36 PM CDT [facility] MCH 28.2 27.0 - 31.0 PG 05/26/2024 12:36 PM CDT [facility] MCHC 31.8(L) 32.0 - 36.0 G/DL 05/26/2024 12:36 PM CDT [facility] RDW 14.4 11.5 - 14.5 % 05/26/2024 12:36 PM CDT [facility] PLT 253 130 - 400 x10'3/uL 05/26/2024 12:36 PM CDT [facility] MPV 11.3 9.3 - 12.2 FL 05/26/2024 12:36 PM CDT [facility] DIFFERENTIAL TYPE AUTOMATED DIFFERENTIAL 05/26/2024 12:36 PM CDT [facility] NEUTROPHILS % 75.0 % 05/26/2024 12:36 PM CDT [facility] LYMPHOCYTES % 13.3 % 05/26/2024 12:36 PM CDT [facility] MONOCYTES % 8.6 % 05/26/2024 12:36 PM CDT [facility] EOSINOPHILS 2.0 % 05/26/2024 12:36 PM CDT [facility] BASOPHILS 0.7 % 05/26/2024 12:36 PM CDT [facility] IMMATURE GRANS % 0.4 % 05/26/20 12:36 PM CDT [facility] ABS. NEUTROPHILS 6.92 1.80 - 7.70 x10'3/uL 05/26/2024 12:36 PM CDT [facility] ABS. LYMPHOCYTES 1.23 1.00 - 4.80 x10'3/uL 05/26/2024 12:36 PM CDT [facility] ABS. MONOCYTES 0.79 0.24 - 0.86 x10'3/uL 05/26/2024 12:36 PM CDT [facility] ABS. EOSINOPHILS 0.18 0.04 - 0.36 x10'3/uL 05/26/2024 12:36 PM CDT [facility] ABS. BASOPHILS 0.06 0.01 - 0.08 x10'3/uL 05/26/2024 12:36 PM CDT [facility] ABS. IMMATURE GRANULOCYTES 0.04 0.00 - 0.49 x10'3/uL 05/26/2024 12:36 PM CDT [facility] 05/26/2024 11:5 4 AM CDT Elizabeth Rice TRAY SERVICE WORKER LABORATORY Final R esult [facility] [address] [place] [address], documented in this encounter Visit Diagnoses Diagnosis Preoperative testing- Primary Preoperative examination, unspecified documented in this encounter Care Teams Advertising Specialist Relationship Specialty Start Date End Date None, Provider, PCP - General UNKNOWN PHYSICIAN SPECIALTY 05/25/24 06/29/24 Xavi Martinez MD [address] [facility] [address] [place] [address] PCP - General UROLOGY 06/30/24 documented as of this encounter
--- OUTSIDE RECORDS SUMMARY | 2025-03-24 12:22 | XMS_ITS | Encounter Summary ---
Author Organization [facility] [employer] [facility] Address [address] [place] [phone] Phone Care Team Providers Care Machine Hoop Maker Name Role Phone Alexa Bingham MD Primary Care Provider +1 -[phone] Encounter Details Date Type Department Care Team (Late Contact Info) Description 07/25/2024 Office Communication [place] [facility] [address] [address] [facility] [address] [place] [address] [address] [place] [address] Social History Tobacco Use Types [...] Manuel Ellison DO - 07/25/2024 11:35 AM MORTGAGE CLERK Tell her to get urine studies before starting antibiotic. PLAN: - Urine Culture and UA. - Ciprofloxicin 500 mg po Qday #3 with no refills Thank you documented in this encounter Plan of Treatment Upcoming Encounters Date Type Department Care Team (Late st Contact Info) Description 06/13/2025 1:30 PM MORTGAGE CLERK Office Visit [facility], [facility] [address] [facility] [address] [place] [address] Juan Manuel [place]ison DO [address] [place] [address] documented as of this encounter Visit Diagnoses Not on filedocumented in this encounter Care Teams Machine Hoop Maker Relationship Specialty Start Date End Date Alexa Bingham MD [address] [facility], [address] [place] [address] PCP - General Internal Medicine 07/16/21 documented as of this encounter
--- OUTSIDE RECORDS SUMMARY | 2025-03-24 12:22 | XMS_ITS | Clinical Summary ---
Author Organization [facility] Address [address] [place] [address] Phone Care Team Providers Care Kiln Setter Name Role Phone Alexa Bingham MD Primary [...] Comments Blood Pressure 99/62 08/27/2022 1:31 PM ACID CONCENTRATOR Pulse 99 08/27/2022 1:31 PM ACID CONCENTRATOR Temperature 36.7 C (98.1 F) 08/27/2022 1:31 PM ACID CONCENTRATOR Respiratory Rate 18 08/27/2022 1:31 PM ACID CONCENTRATOR Oxygen Saturation 92% 08/27/2022 1:31 PM ACID CONCENTRATOR Inhaled Oxygen Concentration - - Weight - [...] to complete this topic Insurance MEDICARE [facility] on file Care Teams Kiln Setter Relationship Specialty Start Date End Date Alexa Bingham MD [address] [place] [address] PCP - General Internal Medicine 02/13/22
--- OUTSIDE RECORDS SUMMARY | 2025-03-24 12:22 | XMS_ITS | Clinical Summary ---
Author Organization [facility] , [facility] Address [address] [place] [address] Phone Care Team Providers Care Second Chef Name Role Phone Alexa Bingham MD Primary Care Provider +1 [phone] Medications cyanocobalamin (VITAMIN B-12) 1000 MCG tablet [...] Department Care Team Description 02/09/2025 Documentation Only [employer] [facility], [facility] [address] [address] Juan Manuel [place]ison DO 02/07/2025 1:30 PM CDT Office Visit [employer] [facility] [employer] [facility] [address] [place] [address] [address] [place] [address] Juan Manuel Ellison DO Stage 3b chronic kidney disease (HCC) (Primary Dx); Persistent proteinuria; Nephrolithiasis; Obstructive nephropathy; Chronic bronchitis, not otherwise specified (HCC); Gastroesophageal reflux disease; Hypertensive chronic kidney disease; Type 2 diabetes mellitus with diabetic chronic kidney disease (HCC); Pure hypercholesterolemi a, not otherwise specified 02/06/2025 Documentation Only [facility] [address] [place] [address] Juan Manuel Ellison DO from Last [...] st Contact Info) Description 06/13/2025 1:30 PM LUBRICATION WORKER Office Visit [facility] [address] [phone] Juan Manuel Ellison DO [address] [place] [address] Health Maintenance Due Date Last Done [...] AM CDT) Cystine, Ur Neg Negative [facility] Urine Volume (Preservative) 1,420 500 - 4,000 mL/24 hr [facility] Calcium Oxalate 1.62(L) 6.00 - 10.00 [facility] Calcium, 24H Urine 34 <200 mg/24 hr [facility] Oxalate, 24H Ur 17(L) 20 - 40 mg/24 hr [facility] Citrate, 24H Ur 90(L) >550 mg/24 hr [facility] Calcium Phosphate Saturation 0.12(L) 0.50 - 2.00 [facility] pH, 24 Hr Urine 5.733(L) 5.800 - 6.200 [facility] Uric Acid Saturation 0.63 <1.00 [facility] Uric Acid, 24H Ur 272 <750 mg/24 hr [facility] Sodium, 24H Ur 108 50 - 150 mmol/24 hr [facility] Potassium, 24H Ur 32 20 - 100 mmol/24 hr [facility] Magnesium, 24H Ur 44 30 - 120 mg/24 hr [facility] Phosphorus 24 Hour Urine 506(L) 600 - 1,200 mg/24 hr [facility] Ammonia, 24 hr Urine 7(L) 15 - 60 mmol/24 hr [facility] Chloride, 24H Ur 101 70 - 250 mmol/24 hr [facility] Sulfate, 24H Ur 12(L) 20 - 80 meq/24 hr [facility] Urea Nitrogen, 24H Ur 4.09(L) 6.00 - 14.00 g/24 hr [facility] Protein Catabolic Rate, (14) 0.8 0.8 - 1.4 g/kg/24 hr [facility] Creatinine in 24 hour Urine 682 Not Applic. mg/24 hr [facility] Creatinine/KG Body Weight 16.5 8.7 - 20.3 mg/24 hr/kg [facility] Calcium/KG Body Weight 0.8 <4.0 mg/24 hr/kg [facility] Calcium/Creat. Ratio 50(L) 51 - 262 mg/g creat [facility] Comment Note [facility] PDF . [facility] Urine Urine specimen / Unknown 02/17/2025 6:15 AM CDT 02/17/2025 11:00 PM CDT us Juan Manuel Ellison DO LAB URINE ORDERABLES Final R esult [facility] [address] [place] [phone] from Last 3 Months Insurance [facility] Medicare Care Teams Second Chef Relationship Specialty Start Date End Date Alexa Bingham MD [address] [place] [address] PCP - General Internal Medicine 07/16/21
--- OUTSIDE RECORDS SUMMARY | 2025-03-24 12:22 | XMS_ITS | Encounter Summary ---
Author Organization [facility] [employer] [facility] [employer] [facility] Address [address] [place], [place] [address] [place] [address] Phone Care Team Providers Care Hand Tube Bender Name Role Phone Alexa Bingham MD Primary Care Provider [phone] [phone] Encounter Details Date Type Department Care Team (Late st Contact Info) Description 05/16/2024 Office Communication [place] [facility], [facility] [address] [facility] [address] [place] [address] Bhargavi Nagy CMA [address] [facility] 1 [place] [address] Social History Tobacco Use Types [...] st Contact Info) Description 06/13/2025 1:30 PM MEASURER MACHINE Office Visit [place] [facility] [address] [facility] [address] [place] [address] Juan Manuel [place] DO [address] [facility] 1 [place] [address] documented as of this encounter Visit Diagnoses Not on filedocumented in this encounter Care Teams Hand Tube Bender Relationship Specialty Start Date End Date Alexa Bingham MD [address] [facility], [address] [place] [address] PCP - General Internal Medicine 07/16/21 documented as of this encounter
--- OUTSIDE RECORDS SUMMARY | 2025-03-24 12:22 | XMS_ITS | Encounter Summary ---
Author Organization [facility] Address [address] [place] [address] Care Team Providers Care Roller Embosser Name Role Phone Xavi Reaves MD Primary Care Provider +1- [phone] Encounter Details Date Type Department Care Team (Late st Contact Info) Description 01/13/2018 Lab Requisition [facility] [address] [facility], [place] [address] Benigno Goldberg MD [address] [place] [address] Social History Tobacco Use Types Packs/Day Years Used Date Smoking Tobacco: Former Cigarettes Q uit: 2013 Smokeless Tobacco: Never Comments No Sex and Gender Information Value Date Recorded Sex Assigned at Not on file Legal Sex Female 10:46 AM TRADE SALES ASSISTANT Gender Identity Not on file Sexual Orientation Not on file documented as of this encounter Plan of Treatment Not on file documented as of this encounter Procedures Procedure Name Priority Date/Time Associated Diagnosis Comments DERMATOPATHOLOGY Routine 01/12/2018 12:0 0 AM CDT documented in this encounter Results * DERMATOPATHOLOGY (01/12/2018 12:00 AM CDT) Case Report Dermatopathology Report Case: [id number] Authorizing Provider: Benigno Goldberg MD Collected: 01/12/2018 [...] specimen consists of a shave biopsy measuring 3e6y4kh, the margin is inked green. Jar 0. [...] characteristic determined by the Dermatopathology Laboratory at [facility]. These tests need not be, and therefore are not, approved by the [place] Food and Drug Administration. The tests are used for clinical purposes. Billing Codes Specimen Charges Stain Charges 10926 1 5:22 PM CDT [facility]ER[facility]OP[facility] LABORATORY Embedded Images 5:22 PM CDT DERMATOPATHOLOGY LABORATORY Pathology/Cytolog y TISSUE SPECIMEN FROM SKIN / Unknown 01/12/2018 01/13/2018 12:24 PM CDT us Benigno Goldberg MD LAB - PATHOLOGY/CYTOLOGY ORD ERABLES Final Result DERMATOPATHOLOGY LABORATORY [facility] - Department of Dermatology [address] [facility], 5th [place] [address], [facility] [phone] documented in this encounter Visit Diagnoses Not on filedocumented in this encounter Care Teams Roller Embosser Relationship Specialty Start Date End Date Xavi Reaves MD [address] [facility]. [address] [place] [address] PCP - General Family Medicine 10/10/16 documented as of this encounter
--- OUTSIDE RECORDS SUMMARY | 2025-03-24 12:22 | XMS_ITS | Clinical Summary ---
Author Organization [facility] Office Building [facility] Address [address] [place] [address] Care Team Providers Care Patternmaker Plastics Name Role Phone Jeni Bingham MD Primary [...] on file Legal Sex Female 1:14 AM CERTIFIED NURSE MIDWIFE Gender Identity Not on file Sexual Orientation [...] Pneumococcal vaccine 65+ Completed 07/26/2017, 05/10 Insurance [facility] MEDICARE ADVANTAGE [facility] MEDICARE ADVANTAGE Care Teams Patternmaker Plastics Relationship Specialty Start Date End Date Jeni Bingham MD [address] [address] PCP - General Internal Medicine 10/09/23
[2025-03-24 13:11] LABS: Hematocrit 39.3 % (37.0-47.0); Hemoglobin 12.3 g/dL (12.0-15.0); Immature Granulocyte Percent A 0.3 % (0-0.5); Lymphocytes Absolute Auto 1.15 K/mm3 (0.9-3.2); Mean Corpuscular HGB Conc 31.3 g/dl (32-36); Mean Corpuscular Hemoglobin 27.5 pg (26-34); Mean Corpuscular Volume 87.7 fl (80-100); Nucleated Red Blood Cells Absolute Auto 0.000 K/mm3 (0.0-0.012); Nucleated Red Blood Cells Perc 0.0 % (0.0-0.2); Platelet Count Result 234 k/mm3 (150-375); Red Blood Count 4.48 M/mm3 (4.2-5.4); White Blood Count 7.3 K/mm3 (4.5-10.0)
[2025-03-24 13:21] LABS: Alanine Aminotransferase 15 U/L (6-35); Albumin Level 4.3 g/dL (3.5-5.1); Alkaline Phosphatase 79 U/L (38-126); Anion Gap 10 mmol/L (4-12); Aspartate Amino Transferase 25 U/L (14-36); Bilirubin,Total 0.6 mg/dL (0.2-1.3); Blood Urea Nitrogen 28 mg/dL (7-17); Calcium 9.1 mg/dL (8.4-10.2); Carbon Dioxide 22 mmol/L (22-30); Chloride 107 mmol/L (98-107); Cholesterol 135 mg/dL (0-200); Estimated Glomerular Filt Rate 26; Glucose 71 mg/dL (65-110); HDL Direct 65 mg/dL; Potassium 4.6 mmol/L (3.4-5.0); Sodium 139 mmol/L (137-145); Total Protein 7.3 g/dL (6.3-8.2); Triglycerides 86 mg/dL (<150)
[2025-03-24 13:39] LABS: MALB Creatinine Ratio 18.5 mg/g (0-30)
[2025-03-24 15:03] LABS: Hemoglobin A1C 6.1 % (<5.7)
[2025-03-24 15:05] LABS: Thyroid Stimulating Hormone Reflex 1.700 uIU/mL (0.465-4.68)
[2025-03-25 07:09] LABS: GGT 10 IU/L (0-60)
== END 2025-03-24 12:17 | disposition home or self-care (01) ==
PROVIDERS: PCP Internal Medicine; Visit Provider Internal Medicine
DX: E78.5 Hyperlipidemia, unspecified (principal); Z12.2 Encounter for screening for malignant neoplasm of respiratory organs; Z87.891 Personal history of nicotine dependence; E11.9 Type 2 diabetes mellitus without complications; R94.5 Abnormal results of liver function studies; Z13.820 Encounter for screening for osteoporosis
CPT/HCPCS: 36415; 71271; 80053; 80061; 82043; 82977; 83036; 84443; 85025

== ENCOUNTER 2025-03-28 06:56 | Outpatient (CLI) | payer MEDICARE, SELFPAY ==
--- NOTE | ~2025-03-28 | CT_ITS ---
EXAMINATION: CT foot RT wo con DATE: 03/28/2025 07:51 INDICATION: Displaced fracture of the second metatarsal. TECHNIQUE: High resolution computed tomography (CT) of the right foot was performed without intravenous contrast. Additional sagittal and coronal reconstructions were performed. Automated exposure control and iterative reconstruction technique were employed. The dose-length product was 408.07 mGy-cm. COMPARISON: Right foot radiographs dated 12/23/2024 FINDINGS: Diffuse osteopenia. Bone alignment is normal. Interval healing of the previously seen nondisplaced fractures at the proximal metaphyseal regions of the second and third metatarsal which have solidly healed in essentially anatomic alignment. There is suggestion of additional old healed intra-articular f ractures at the base of the first metatarsal and the the distal articular surface of the medial cuneiform with subtle depression of the caudal aspect of the articular cortices. No acute fractures identified. 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 Soft tissues are unremarkable. No ankle joint effusion. IMPRESSION: 1. Interval progression of now advanced healing in essentially anatomic alignment of the extra-articular fractures at the bases of the second and third metatarsals. 2. Suggestion of additional old intra-articular fractures at the base of the first metatarsal and juxtaposed medial cuneiform which have healed with minimal depression of the articular cortices. 3. Polyarticular osteoarthritis throughout the right foot, moderate first and second tarsometatarsal joints and otherwise minimal to mild. Reviewed, dictated and finalized at location A. IMPRESSION: 1. Interval progression of now advanced healing in essentially anatomic alignme nt of the extra-articular fractures at the bases of the second and third metata rsals. 2. Suggestion of additional old intra-articular fractures at the base of the fi rst metatarsal and juxtaposed medial cuneiform which have healed with minimal d epression of the articular cortices. 3. Polyarticular osteoarthritis throughout the right foot, moderate first and s econd tarsometatarsal joints and otherwise minimal to mild.
--- OUTSIDE RECORDS SUMMARY | 2025-03-28 07:02 | XMS_ITS | Clinical Summary ---
Author Organization [facility] Address [facility] [place] [address] Care Team Providers Care Research Group Director Name Role Phone Xavi Martinez MD Primary [...] this topic Medical Devices Implanted Type Area Bar Back Device Identifier Shelf Expiration Date Model / Serial / Lot Stent Ureteral 6fr 22cm Pigtail Curved - [id number] Implanted:Qty : 1 on 06/30/2024 by Xavi Martinez MD at [facility] Stent Left: Ureter [employer] [id number] 05/07/2026 [id number] Explanted Type Area Bar Back Device Identifier Shelf Expiration Date Model / Serial / Lot Stent Ureteral 6fr 22cm Pigtail Curved - [id number] Implanted:Qty : 1 on 05/26/2024 by Xavi Martinez MD at [facility] Explanted:Qty : 1 on 06/30/2024 by Xavi Martinez MD at [facility] Stent Left: Ureter [employer] [id number] 05/07/2026 [id number] Insurance [facility] Care Teams Research Group Director Relationship Specialty Start Date End Date Xavi Martinez MD [address] [facility] [address] [place] [address] PCP - General UROLOGY 06/30/24
--- OUTSIDE RECORDS SUMMARY | 2025-03-28 07:02 | XMS_ITS | Clinical Summary ---
Author Organization [facility] Address [address] [place] [address] Care Team Providers Care Rougher For Cement Name Role Phone Jeni Bingham MD Primary [...] on file Legal Sex Female 1:14 AM SAMPLE GRADER Gender Identity Not on file Sexual Orientation [...] Pneumococcal vaccine 65+ Completed 07/26/2017, 05/10 Insurance [facility] MEDICARE ADVANTAGE [facility] MEDIC[facility] Address: [address] [place] [phone] [facility] MEDICARE ADVANTAGE [facility] MEDICARE Address: [address] [place] [phone] Care Teams Rougher For Cement Relationship Specialty Start Date End Date Jeni Bingham MD [address] [address] PCP - General Internal Medicine 10/09/23
--- OUTSIDE RECORDS SUMMARY | 2025-03-28 07:02 | XMS_ITS | Encounter Summary ---
Author Organization [facility] [employer] [facility] Address [address] [place], [place] [address] [place] [address] Phone Care Team Providers Care Shipping Associate Name Role Phone Alexa Bingham MD Primary Care Provider [phone] -[phone] Encounter Details Date Type Department Care Team (Late st Contact Info) Description 05/16/2024 Office Communication [employer] [facility] [address] [facility] [address] [place] [address] Bhargavi Nagy CMA [address] [facility] [address] [place] [address] Social History Tobacco Use Types [...] st Contact Info) Description 06/13/2025 1:30 PM CLINICAL ACCOUNT SPECIALIST Office Visit [employer] [facility] [address] [facility] [address] [place] [address] Juan Manuel Ellison DO [address] [facility] [address] [place] [address] documented as of this encounter Visit Diagnoses Not on filedocumented in this encounter Care Teams Shipping Associate Relationship Specialty Start Date End Date Alexa Bingham MD [address] [facility], [address] [place] [address] PCP - General Internal Medicine 07/16/21 documented as of this encounter
--- OUTSIDE RECORDS SUMMARY | 2025-03-28 07:02 | XMS_ITS | Clinical Summary ---
Author Organization [facility] [employer] [facility] , [facility] Address [address] [place] [phone] Phone Care Team Providers Care Cloth Printing Utility Worker Name Role Phone Alexa Bingham MD Primary Care Provider +1 [phone] Medications cyanocobalamin (VITAMIN B-12) 1000 MCG tablet [...] Department Care Team Description 02/09/2025 Documentation Only [employer] [facility] [place], [facility] [address] [facility] 1 [place] [address] Juan Manuel Ellison DO 02/07/2025 1:30 PM CDT Office Visit [employer] [facility] [address] [place] [address] [address] [place] [address] Juan Manuel Ellison DO Stage 3b chronic kidney disease (HCC) (Primary Dx); Persistent proteinuria; Nephrolithiasis; Obstructive nephropathy; Chronic bronchitis, not otherwise specified (HCC); Gastroesophageal reflux disease; Hypertensive chronic kidney disease; Type 2 diabetes mellitus with diabetic chronic kidney disease (HCC); Pure hypercholesterolemi a, not otherwise specified 02/06/[address] [facility] [address] [place] [address] Juan Manuel Ellison DO from Last [...] st Contact Info) Description 06/13/2025 1:30 PM BLOWER BLAST FURNACE Office Visit [facility] [address] [phone] Juan Manuel Ellison DO [address] [place] [address] Health Maintenance Due Date Last Done [...] AM CDT) Cystine, Ur Neg Negative [facility] Urine Volume (Preservative) 1,420 500 - 4,000 mL/24 hr [facility] Calcium Oxalate 1.62(L) 6.00 - 10.00 [facility] Calcium, 24H Urine 34 <200 mg/24 hr [facility] Oxalate, 24H Ur 17(L) 20 - 40 mg/24 hr [facility] Citrate, 24H Ur 90(L) >550 mg/24 hr [facility] Calcium Phosphate Saturation 0.12(L) 0.50 - 2.00 [facility] pH, 24 Hr Urine 5.733(L) 5.800 - 6.200 [facility] Uric Acid Saturation 0.63 <1.00 [facility] Uric Acid, 24H Ur 272 <750 mg/24 hr [facility] Sodium, 24H Ur 108 50 - 150 mmol/24 hr [facility] Potassium, 24H Ur 32 20 - 100 mmol/24 hr [facility] Magnesium, 24H Ur 44 30 - 120 mg/24 hr [facility] Phosphorus 24 Hour Urine 506(L) 600 - 1,200 mg/24 hr [facility] Ammonia, 24 hr Urine 7(L) 15 - 60 mmol/24 hr [facility] Chloride, 24H Ur 101 70 - 250 mmol/24 hr [facility] Sulfate, 24H Ur 12(L) 20 - 80 meq/24 hr [facility] Urea Nitrogen, 24H Ur 4.09(L) 6.00 - 14.00 g/24 hr [facility] Protein Catabolic Rate, (14) 0.8 0.8 - 1.4 g/kg/24 hr [facility] Creatinine in 24 hour Urine 682 Not Applic. mg/24 hr [facility] Creatinine/KG Body Weight 16.5 8.7 - 20.3 mg/24 hr/kg [facility] Calcium/KG Body Weight 0.8 <4.0 mg/24 hr/kg [facility] Calcium/Creat. Ratio 50(L) 51 - 262 mg/g creat [facility] Comment Note [facility] PDF . [facility] Urine Urine specimen / Unknown 02/17/2025 6:15 AM CDT 02/17/2025 11:00 PM CDT us Juan Manuel Ellison DO LAB URINE ORDERABLES Final R esult [facility] [address] [place] [phone] from Last 3 Months Insurance [facility] Medicare Care Teams Cloth Printing Utility Worker Relationship Specialty Start Date End Date Alexa Bingham MD [address], [address] [place] [address] PCP - General Internal Medicine 07/16/21
--- OUTSIDE RECORDS SUMMARY | 2025-03-28 07:02 | XMS_ITS | Encounter Summary ---
Author Organization [facility] Address [address] [place] [address] Care Team Providers Care Arm Maker Name Role Phone None, Provider Primary Care Provider Xavi Carias MD Primary Care Provider Encounter Details Date Type Department Care Team (Late st Contact Info) Description 05/26/2024 Prep for Procedure [facility] [place] [address] Xavi Martinez MD 3 [facility] [address] [place] [address] Social History Tobacco Use Types [...] PM CDT Mel Jurado RN Active * [place] Suicide Severity Rating Scale (Screener/Recent Self-Report) Question [...] BASIC METABOLIC PANEL (05/26/2024 11:54 AM CDT) [facility] GLUCOSE 93 70 - 99 MG/DL 05/26/2024 12:46 PM CDT [facility] BUN 17 7 - 18 MG/DL 05/26/2024 12:46 PM CDT [facility] CREATININE S/P/B 1.25(H) 0.55 - 1.02 MG/DL 05/26/2024 12:46 PM CDT [facility] SODIUM S/P/B 140 136 - 145 MMOL/L 05/26/2024 12:46 PM CDT [facility] POTASSIUM S/P/B 3.9 3.5 - 5.1 MMOL/L 05/26/2024 12:46 PM CDT [facility] CHLORIDE S/P/B 107 97 - 115 MMOL/L 05/26/2024 12:46 PM CDT [facility] CO2 29.6 21 - 32 MMOL/L 05/26/2024 12:46 PM CDT [facility] CALCIUM S/P/B 9.2 8.5 - 10.1 MG/DL 05/26/2024 12:46 PM CDT [facility] ANION GAP 3.4 2 - 10 MMOL/L 05/26/2024 12:46 PM CDT [facility] BUN CREATININE RATIO 13.6 6 - 26 05/26/2024 12:46 PM CDT [facility] GFR ESTIMATE 44(L) >90 ML/MIN/1.7 3 M2 05/26/2024 12:46 PM CDT [facility] Comment: NOTE: eGFR is not calculated for patients <18 years of age or gender unknown. This is an estimated GFR calculation using the new CKD EPI creatinine equation without race and so does not require a correction factor for race. This estimated GFR should not be used for calculating drug doses. 05/26/2024 11:5 4 AM CDT Elizabeth Rice FOREST NURSERY WORK[facility] Final R esult [facility] [address] [place] [address], * (ABNORMAL) CBC W/DIFF AUTOMATED (05/26/2024 11:54 AM CDT) WBC 9.22 4.5 - 11.0 x10'3/uL 05/26/2024 12:36 PM CDT [facility] RBC 4.47 4.20 - 5.40 x10'6/uL 05/26/2024 12:36 PM CDT [facility] HGB 12.6 12.0 - 16.0 G/DL 05/26/2024 12:36 PM CDT [facility] HCT 39.6 38.0 - 48.0 % 05/26/2024 12:36 PM CDT [facility] MCV 88.6 81.0 - 99.0 FL 05/26/2024 12:36 PM CDT [facility] MCH 28.2 27.0 - 31.0 PG 05/26/2024 12:36 PM CDT [facility] MCHC 31.8(L) 32.0 - 36.0 G/DL 05/26/2024 12:36 PM CDT [facility] RDW 14.4 11.5 - 14.5 % 05/26/2024 12:36 PM CDT [facility] PLT 253 130 - 400 x10'3/uL 05/26/2024 12:36 PM CDT [facility] MPV 11.3 9.3 - 12.2 FL 05/26/2024 12:36 PM CDT [facility] DIFFERENTIAL TYPE AUTOMATED DIFFERENTIAL 05/26/2024 12:36 PM CDT [facility] NEUTROPHILS % 75.0 % 05/26/2024 12:36 PM CDT [facility] LYMPHOCYTES % 13.3 % 05/26/2024 12:36 PM CDT [facility] MONOCYTES % 8.6 % 05/26/2024 12:36 PM CDT [facility] EOSINOPHILS 2.0 % 05/26/2024 12:36 PM CDT [facility] BASOPHILS 0.7 % 05/26/2024 12:36 PM CDT [facility] IMMATURE GRANS % 0.4 % 05/26/20 12:36 PM CDT [facility] ABS. NEUTROPHILS 6.92 1.80 - 7.70 x10'3/uL 05/26/2024 12:36 PM CDT [facility] ABS. LYMPHOCYTES 1.23 1.00 - 4.80 x10'3/uL 05/26/2024 12:36 PM CDT [facility] ABS. MONOCYTES 0.79 0.24 - 0.86 x10'3/uL 05/26/2024 12:36 PM CDT [facility] ABS. EOSINOPHILS 0.18 0.04 - 0.36 x10'3/uL 05/26/2024 12:36 PM CDT [facility] ABS. BASOPHILS 0.06 0.01 - 0.08 x10'3/uL 05/26/2024 12:36 PM CDT [facility] ABS. IMMATURE GRANULOCYTES 0.04 0.00 - 0.49 x10'3/uL 05/26/2024 12:36 PM CDT [facility] 05/26/2024 11:5 4 AM CDT Elizabeth [facility] Final R esult [facility] [address] [place] [address], documented in this encounter Visit Diagnoses Diagnosis Preoperative testing- Primary Preoperative examination, unspecified documented in this encounter Care Teams Arm Maker Relationship Specialty Start Date End Date None, Provider, PCP - General UNKNOWN PHYSICIAN SPECIALTY 05/25/24 06/29/24 Xavi Martinez MD 3 [facility] [address] [place] [address] PCP - General UROLOGY 06/30/24 documented as of this encounter
--- OUTSIDE RECORDS SUMMARY | 2025-03-28 07:02 | XMS_ITS | Clinical Summary ---
Author Organization [facility] Address [address] [place] [address] Phone Care Team Providers Care Deputy Clerk Of Court Name Role Phone Alexa Bingham MD Primary [...] Comments Blood Pressure 99/62 08/27/2022 1:31 PM JOCKEY ROOM CUSTODIAN Pulse 99 08/27/2022 1:31 PM JOCKEY ROOM CUSTODIAN Temperature 36.7 C (98.1 F) 08/27/2022 1:31 PM JOCKEY ROOM CUSTODIAN Respiratory Rate 18 08/27/2022 1:31 PM JOCKEY ROOM CUSTODIAN Oxygen Saturation 92% 08/27/2022 1:31 PM JOCKEY ROOM CUSTODIAN Inhaled Oxygen Concentration - - Weight - [...] to complete this topic Insurance MEDICARE [facility] on file Care Teams Deputy Clerk Of Court Relationship Specialty Start Date End Date Alexa Bingham MD [address] [place] [address] PCP - General Internal Medicine 02/13/22
--- OUTSIDE RECORDS SUMMARY | 2025-03-28 07:02 | XMS_ITS | Clinical Summary ---
Author Organization [facility] Address [address] [facility] [place] [address] Care Team Providers Care Seasonal Package Handler Name Role Phone Xavi Reaves MD Primary Care Provider +1- [phone] Source Comments [facility],non-owned Affiliates and Associated Physician Practices is amultiple site organization consisting of ambulatory clinics and hospital sitesin [place], [place], [place] and [place]. This disclosure is being madepursuant to the Care Everywhere program and may not contain all information available regarding this patient. Last updated 18.[facility] Allergies No known active allergies Medications * [...] on file Legal Sex Female 10:46 AM PLUMBER GASFITTER Gender Identity Not on file Sexual Orientation Not on file Last Filed Vital Signs Vital Sign Reading Time Taken Comments Blood Pressure 124/66 08/04/2018 10:25 AM PLUMBER GASFITTER Pulse 74 08/04/2018 10:25 AM PLUMBER GASFITTER Temperature 36.9 C (98.4 F) 08/04/2018 10:25 AM PLUMBER GASFITTER Respiratory Rate 16 08/04/2018 10:25 AM PLUMBER GASFITTER Oxygen Saturation 93% 08/04/2018 10:25 AM PLUMBER GASFITTER Inhaled Oxygen Concentration - - Weight 47.2 kg (104 lb) 08/04/2018 10:25 AM PLUMBER GASFITTER Height 154.9 cm (5' 1) 08/04/2018 10:25 AM PLUMBER GASFITTER Body Mass Index 19.65 08/04/2018 10:25 AM PLUMBER GASFITTER Plan of Treatment Health Maintenance Due Date [...] patient's age to complete this topic Insurance [facility] MEDICARE MEDICARE [facility] Care Teams Seasonal Package Handler Relationship Specialty Start Date End Date Xavi Reaves MD [address] [facility] [address] [place] [address] PCP - General Family Medicine 10/10/16
--- OUTSIDE RECORDS SUMMARY | 2025-03-28 07:02 | XMS_ITS | Encounter Summary ---
Author Organization [facility] Address [address] [facility] [place] [address] Care Team Providers Care Meteorological Technician Name Role Phone Xavi Reaves MD Primary Care Provider +1- [phone] Encounter Details Date Type Department Care Team (Late st Contact Info) Description 01/13/2018 Lab Requisition [facility] [address] [facility] [place] [address] Benigno Goldberg MD [address] [place] [address] Social History Tobacco Use Types Packs/Day Years Used Date Smoking Tobacco: Former Cigarettes Q uit: 2013 Smokeless Tobacco: Never Comments No Sex and Gender Information Value Date Recorded Sex Assigned at Not on file Legal Sex Female 10:46 AM ASSURANCE ANALYST Gender Identity Not on file Sexual Orientation Not on file documented as of this encounter Plan of Treatment Not on file documented as of this encounter Procedures Procedure Name Priority Date/Time Associated Diagnosis Comments DERMATOPATHOLOGY Routine 01/12/2018 12:0 0 AM CDT documented in this encounter Results * DERMATOPATHOLOGY (01/12/2018 12:00 AM CDT) Case Report Dermatopathology Report Case: [id number] Authorizing Provider: Benigno Goldberg MD Collected: 01/12/2018 [...] specimen consists of a shave biopsy measuring [id number], the margin is inked green. Jar 0. [...] characteristic determined by the Dermatopathology Laboratory at [facility]. These tests need not be, and therefore are not, approved by the [place] Food and Drug Administration. The tests are used for clinical purposes. Billing Codes Specimen Charges Stain Charges 17666 1 5:22 PM CDT [facility] Embedded Images 5:22 PM CDT DERMATOPATHOLOGY LABORATORY Pathology/Cytolog y TISSUE SPECIMEN FROM SKIN / Unknown 01/12/2018 01/13/2018 12:24 PM CDT us Benigno Goldberg MD LAB - PATHOLOGY/CYTOLOGY ORD ERABLES Final Result DERMATOPATHOLOGY LABORATORY [facility] - Department of Dermatology [address] [facility], 5th [place] [address], [facility] [phone] documented in this encounter Visit Diagnoses Not on filedocumented in this encounter Care Teams Meteorological Technician Relationship Specialty Start Date End Date Xavi Reaves MD [address] [facility] [place] [address] PCP - General Family Medicine 10/10/16 documented as of this encounter
--- OUTSIDE RECORDS SUMMARY | 2025-03-28 07:02 | XMS_ITS | Encounter Summary ---
Author Organization [facility] [employer] [facility] Address [address] [place] [phone] Phone Care Team Providers Care Heel Builder Machine Name Role Phone Alexa Bingham MD Primary Care Provider +1 -[phone] Encounter Details Date Type Department Care Team (Late Contact Info) Description 07/25/2024 Office Communication [place] [facility] [employer] [address] [address] [facility] [address] [place] [address] 1 [place] [address] Social History Tobacco Use Types [...] Manuel Ellison DO - 07/25/2024 11:35 AM RESOURCE ECONOMIST Tell her to get urine studies before starting antibiotic. PLAN: - Urine Culture and UA. - Ciprofloxicin 500 mg po Qday #3 with no refills Thank you documented in this encounter Plan of Treatment Upcoming Encounters Date Type Department Care Team (Late st Contact Info) Description 06/13/2025 1:30 PM RESOURCE ECONOMIST Office Visit [facility], [facility] [address] [facility] [address] [place] [address] Juan Manuel Ellison DO [address] [place] [address] documented as of this encounter Visit Diagnoses Not on filedocumented in this encounter Care Teams Heel Builder Machine Relationship Specialty Start Date End Date Alexa Bingahm MD [address] [facility], [address] [place] [address] PCP - General Internal Medicine 07/16/21 documented as of this encounter
== END 2025-03-28 06:57 | disposition home or self-care (01) ==
PROVIDERS: PCP Internal Medicine; Visit Provider Podiatrist Foot & Ankle Surgery
DX: S92.321D Displaced fracture of second metatarsal bone, right foot, subsequent encounter for fracture with routine healing (principal); S92.331D Displaced fracture of third metatarsal bone, right foot, subsequent encounter for fracture with routine healing; M19.071 Primary osteoarthritis, right ankle and foot; X58.XXXD Exposure to other specified factors, subsequent encounter
CPT/HCPCS: 73700

== ENCOUNTER 2025-05-31 09:24 | Outpatient (CLI) | payer MEDICARE, SELFPAY ==
--- OUTSIDE RECORDS SUMMARY | 2025-05-31 10:33 | XMS_ITS | Clinical Summary ---
Author Organization [facility] Address [address] [place] [address] Care Team Providers Care Autocad Detailer Name Role Phone Jeni Bingham MD Primary [...] on file Legal Sex Female 1:14 AM LAN ANALYST Gender Identity Not on file Sexual [...] Pneumococcal vaccine 65+ Completed 07/26/2017, 05/10 Insurance [facility] MEDICARE ADVANTAGE [facility] Address: [address] [place] [phone] [facility] MEDICARE ADVANTAGE [facility] Address: [address] [place] [phone] Care Teams Autocad Detailer Relationship Specialty Start Date End Date Jeni Bingham MD [address] [address] PCP - General Internal Medicine 10/09/23
--- OUTSIDE RECORDS SUMMARY | 2025-05-31 10:33 | XMS_ITS | Clinical Summary ---
Author Organization [facility] Address [address] [place] [address] Care Team Providers Care Product Marketing Specialist Name Role Phone Xavi Reaves MD Primary Care Provider +1- [phone] Source Comments [facility],non-owned Affiliates and Associated Physician Practices is amultiple site organization consisting of ambulatory clinics and hospital sitesin [place], [place], [place] and [place]. This disclosure is being madepursuant to the Care Everywhere program and may not contain all information available regarding this patient. Last updated 18.[facility] Allergies No known active allergies Medications * [...] on file Legal Sex Female 10:46 AM RECRUITMENT MANAGER Gender Identity Not on file Sexual Orientation Not on file Last Filed Vital Signs Vital Sign Reading Time Taken Comments Blood Pressure 124/66 08/04/2018 10:25 AM RECRUITMENT MANAGER Pulse 74 08/04/2018 10:25 AM RECRUITMENT MANAGER Temperature 36.9 C (98.4 F) 08/04/2018 10:25 AM RECRUITMENT MANAGER Respiratory Rate 16 08/04/2018 10:25 AM RECRUITMENT MANAGER Oxygen Saturation 93% 08/04/2018 10:25 AM RECRUITMENT MANAGER Inhaled Oxygen Concentration - - Weight 47.2 kg (104 lb) 08/04/2018 10:25 AM RECRUITMENT MANAGER Height 154.9 cm (5' 1) 08/04/2018 10:25 AM RECRUITMENT MANAGER Body Mass Index 19.65 08/04/2018 10:25 AM RECRUITMENT MANAGER Plan of Treatment Health Maintenance Due Date Last Done Comments BONE DENSITY TESTING 1945 HEPATITIS C SCREENING 03/01/1965 DTAP/TDAP/TD VACCINES (1 - Tdap) 1966 PNEUMOCOCCAL VACCINE 50+ (1 of 1 - PCV) 1997 ZOSTER VACCINE (1 of 2) 1997 Respiratory Syncytial Virus (RSV) Vaccine Pt: or over 60 yrs (1 - 1-dose 75+ series) 2022 DEPRESSION SCREENING 08/10/2024 COVID-19 VACCINE (1 - 2023-2 5 season) 2025 INFLUENZA VACCINE (#1) 2025 HEPATITIS B VACCINE [...] patient's age to complete this topic Insurance [facility] MEDICARE MEDICARE [facility] Care Teams Product Marketing Specialist Relationship Specialty Start Date End Date Xavi Reaves MD [address] [place] [address] PCP - General Family Medicine 10/10/16
--- OUTSIDE RECORDS SUMMARY | 2025-05-31 10:33 | XMS_ITS | Encounter Summary ---
Author Organization [facility] Address [address] [place] [address] Care Team Providers Care Med Surg Rn Name Role Phone Xavi Reaves MD Primary Care Provider +1- [phone] Encounter Details Date Type Department Care Team (Late st Contact Info) Description 01/13/2018 Lab Requisition [facility] Care D[facility] Lab [address] [place] [address] Benigno Goldberg MD [address] [place] [address] Social History Tobacco Use Types Packs/Day Years Used Date Smoking Tobacco: Former Cigarettes Q uit: 2013 Smokeless Tobacco: Never Comments No Sex and Gender Information Value Date Recorded Sex Assigned at Not on file Legal Sex Female 10:46 AM ASSOCIATE DIRECTOR CAREER SERVICES Gender Identity Not on file Sexual Orientation Not on file documented as of this encounter Plan of Treatment Not on file documented as of this encounter Procedures Procedure Name Priority Date/Time Associated Diagnosis Comments DERMATOPATHOLOGY Routine 01/12/2018 12:0 0 AM CDT documented in this encounter Results * DERMATOPATHOLOGY (01/12/2018 12:00 AM CDT) Case Report Dermatopathology Report Case: [id number] Authorizing Provider: Benigno Goldberg MD Collected: 01/12/2018 [...] specimen consists of a shave biopsy measuring [id number], the margin is inked green. Jar 0. [...] characteristic determined by the Dermatopathology Laboratory at [facility]. These tests need not be, and therefore are not, approved by the [place] Food and Drug Administration. The tests are used for clinical purposes. Billing Codes Specimen Charges Stain Charges 53004 1 5:22 PM CDT DERMATOPATHOLOGY LABORATORY Embedded Images 5:22 PM CDT DERMATOPATHOLOGY LABORATORY Pathology/Cytolog y TISSUE SPECIMEN FROM SKIN / Unknown 01/12/2018 01/13/2018 12:24 PM CDT us Benigno Goldberg MD LAB - PATHOLOGY/CYTOLOGY ORD ERABLES Final Result DERMATOPATHOLOGY LABORATORY [facility] - Department of Dermatology [address] [place] [address], [facility] [phone] documented in this encounter Visit Diagnoses Not on filedocumented in this encounter Care Teams Med Surg Rn Relationship Specialty Start Date End Date Xavi Reaves MD [address] [place] [address] PCP - General Family Medicine 10/10/16 documented as of this encounter
--- OUTSIDE RECORDS SUMMARY | 2025-05-31 10:33 | XMS_ITS | Clinical Summary ---
Author Organization [facility] Address [address] [place] [address] Phone Care Team Providers Care Lobby Porter Name Role Phone Alexa Bingham MD Primary [...] Comments Blood Pressure 99/62 08/27/2022 1:31 PM BACTERIOLOGIST DAIRY Pulse 99 08/27/2022 1:31 PM BACTERIOLOGIST DAIRY Temperature 36.7 C (98.1 F) 08/27/2022 1:31 PM BACTERIOLOGIST DAIRY Respiratory Rate 18 08/27/2022 1:31 PM BACTERIOLOGIST DAIRY Oxygen Saturation 92% 08/27/2022 1:31 PM BACTERIOLOGIST DAIRY Inhaled Oxygen Concentration - - Weight - - Height - - Body Mass Index - - Plan of Treatment Health Maintenance Due Date Last Done Comments Hepatitis C Virus (HCV) Screening 1945 Respiratory Syncytial Virus (RSV) Immunization (Adult) (1 - 1-dose 75+ series) 2022 Medicare Initial AWV [id number] 08/10/2022 Influenza Immunization (#1) 04/10/202505/11, 05/19/2022, 05/04/2021, Additional history exists SARS-COV-2 Immunization ( season) 2025 05/30/2022, 05/21/2022, 06/11/2021, Additional history exists DTaP/Tdap/Td [...] to complete this topic Insurance MEDICARE C [facility] on file Care Teams Lobby Porter Relationship Specialty Start Date End Date Alexa Bingham MD [address] [place] [address] PCP - General Internal Medicine 02/13/22
[2025-05-31 10:55] LABS: Hematocrit 39.4 % (37.0-47.0); Hemoglobin 12.3 g/dL (12.0-15.0); Mean Corpuscular HGB Conc 31.2 g/dl (32-36); Mean Corpuscular Hemoglobin 28.0 pg (26-34); Mean Corpuscular Volume 89.5 fl (80-100); Platelet Count Result 241 k/mm3 (150-375); Red Blood Count 4.40 M/mm3 (4.2-5.4); White Blood Count 7.9 K/mm3 (4.5-10.0)
[2025-05-31 11:12] LABS: Total Protein Urine Random 37 mg/dL; Ur Ttl Prot Creatinine Ratio 0.19 mg/mg (0-0.20)
[2025-05-31 11:19] LABS: Add Urine Microscopic? YES; Appearance Urine Cloudy (Clear); Glucose Urine UA 3+ mg/dL (Negative); Leukocyte Esterase Ur Negative LEU/UL (Negative); Need Manual Microscopic Reviewed; Nitrate Urine Negative (Negative); Specific Grav Ur 1.023 (1.001-1.035)
[2025-05-31 11:23] LABS: Albumin Level 4.0 g/dL (3.5-5.1); Anion Gap 8 mmol/L (4-12); Blood Urea Nitrogen 19 mg/dL (7-17); Calcium 8.7 mg/dL (8.4-10.2); Carbon Dioxide 25 mmol/L (22-30); Chloride 106 mmol/L (98-107); Estimated Glomerular Filt Rate 32; Glucose 93 mg/dL (65-110); Potassium 3.8 mmol/L (3.4-5.0); Sodium 139 mmol/L (137-145)
[2025-05-31 11:32] LABS: Parathyroid Intact 48.4 pg/mL (14.5-75.2)
[2025-05-31 11:33] LABS: MALB Creatinine Ratio 67.0 mg/g (0-30)
[2025-06-01 12:09] LABS: eGFR 25 (>59)
== END 2025-05-31 09:25 | disposition home or self-care (01) ==
LOC: ANHLAB 09:28
PROVIDERS: PCP Internal Medicine; Visit Provider Internal Medicine Nephrology
DX: R80.1 Persistent proteinuria, unspecified (principal); N20.0 Calculus of kidney; J42 Unspecified chronic bronchitis; K21.9 Gastro-esophageal reflux disease without esophagitis; I12.9 Hypertensive chronic kidney disease with stage 1 through stage 4 chronic kidney disease, or unspecified chronic kidney disease; N18.32 Chronic kidney disease, stage 3b; E11.22 Type 2 diabetes mellitus with diabetic chronic kidney disease; E78.00 Pure hypercholesterolemia, unspecified; N13.8 Other obstructive and reflux uropathy
CPT/HCPCS: 36415; 80069; 81001; 82043; 82306; 82570; 82610; 83970; 84156; 85027

== ENCOUNTER 2025-08-08 09:12 | Outpatient (CLI) | payer MEDICARE, SELFPAY ==
--- OUTSIDE RECORDS SUMMARY | 2025-08-08 09:22 | XMS_ITS | Clinical Summary ---
Author Organization [facility] Address [address] [place] [address] Care Team Providers Care Grey Roll Man Name Role Phone Jeni Bingham MD Primary [...] on file Legal Sex Female 1:14 AM HUMAN FACTORS ADVISOR LEAD Gender Identity Not on file Sexual Orientation [...] Pneumococcal vaccine 65+ Completed 07/26/2017, 05/10 Insurance [facility] MEDICARE ADVANTAGE [facility] MEDICARE ADVANTAGE Care Teams Grey Roll Man Relationship Specialty Start Date End Date Jeni Bingham MD [address] [place] [id number] PCP - General Internal Medicine 10/09/23
--- OUTSIDE RECORDS SUMMARY | 2025-08-08 09:23 | XMS_ITS | Data Portability ---
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 ALEXA BINGHAM Primary Care Provider REBECCA FRIED News Gathering Technician Assessment Encounter Date Assessment Date Assessment LastModified by Organization Details LastModified Time 07/05/2024 07/05/2024 07/15/2022: A1C 6.3 Urine micro [...] Dr Santos, labs reviewed and referrals provided [email or web address] Not available 01/10/2025 11:11:30 03/21/2025 03/21/2025 Assessment: Hypertension Elevated BNP Nicotine smoke: 1 ppd 8305-4293 (quit 1 year in between) = 53 pack years Mod COPD Quantiferon TB Gold (+) Low IgG2 Plan: The following were reviewed and explained to the patient: Lab data 09/30/23 elevated BNP, Quantiferon TB Gold (+), low IgG2 PFT 11/05/18 FEV1 1.25 L (61%), BD 170 mL = 15% PFT 10/06/23 FEV1 1.13 L (63%), BD 110 mL = 11% PFT 03/01/25 FEV1 1.22 L (67%), BD 120 mL = 11% Chest CT 01/09/21 no [...] need gammaglobulin infusions during times of infection. Differential diagnoses for pulmonary nodule: 1. malignant [...] sampling Chest CT one week before return. Sputum for gram stain and culture if purulent. Advised to continue not to smoke. Minimize [...] records to PCP for further management. Follow-up: 1 year, March 2026 Not available 03/23/2025 08:35:41 04/20/2025 04/20/2025 07/15/2022: A1C 6.3 Urine micro alb 128.6H [...] gluc 112 Urine random 118.1H A1C 5.6 03/24/2025: A1C 6.1 BUN/Cr/GFR 28/1.88/26 Urine micro alb 16.8H 45 minutes spent with her from 8.50am till 9.40am All referrals provided, and reviewed notes from [facility] [email or web address] Not available 04/20/2025 10:42:14 Plan of Treatment Reminders Order Date Submit Date Provider Last Modified By Organization Details Last Modified Time Details Appointments Any 2025 09:15A Joselyn caal MD Not available Not available Not available Any 2025 01:00P Joselyn Fried MD Not available Not available Not available Lab vitamin D, 25-hydrox y, total, serum [address] (Lab), [address] [place], [address], 04/20/2025 10:45:23 glycohemo globin, total, blood [address] (Lab), [address] [place], [address], 04/20/2025 10:45:23 microalbu min, urine [address] (Lab), [address] [place], [address], 04/20/2025 10:45:23 lipid panel, serum [address] (Lab), [address] [place], [address], 04/20/2025 10:45:22 CBC w/ auto diff 2024 025 [facility] (Lab), [address] [place], [address], 05/31/2025 13:21:24 CMP, serum or plasma 2024 025 [facility] (Lab), [address] [place], [address], 05/31/2025 16:07:56 TSH, serum or plasma [address] (Lab), [address] [place], [address], 04/20/2025 10:45:23 culture, sputum [email or web address] [place] [address] (Lab), [address] [place], [address], 04/05/2025 10:50:31 vitamin D, 25-hydrox y, total, serum [address] (Lab), [address] [place], [address], 07/10/2025 10:15:34 gamma-glu tamyl transfera se (ggt), serum 2024 025 [facility] (Lab), [address] [place], [address], 03/25/2025 16:44:32 glycohemo globin, total, blood 2024 025 [facility] (Lab), [address] [place], [address], 03/24/2025 16:48:00 microalbu min, urine [address] (Lab), [address] [place], [address], 07/10/2025 10:15:34 lipid panel, serum [address] (Lab), [address] [place], [address], 07/10/2025 10:15:33 CBC w/ auto diff [address] (Lab), [address] [place], [address], 07/10/2025 10:15:34 CMP, serum or plasma 2024 025 [facility] (Lab), [address] [place], [address], 03/24/2025 16:11:57 TSH, serum or plasma [address] (Lab), [address] [place], [address], 07/10/2025 10:15:34 hepatitis panel (A+B+C), acute, serum 2024 025 [facility] (Lab), [address] [place], [address], 01/06/2025 11:50:06 gamma-glu tamyl transfera se (ggt), serum [address] (Lab), [address] [place], [address], 03/07/2025 11:59:09 lipid panel, serum 2024 025 [facility] (Lab), [address] [place], [address], 01/05/2025 16:20:25 CBC w/ auto diff 2024 025 [facility] (Lab), [address] [place], [address], 10/11/2024 11:45:20 T4, free, serum 2024 025 [facility] (Lab), [address] [place], [address], 01/05/2025 16:20:25 CMP, serum or plasma 2024 025 [facility] (Lab), [address] [place], [address], 01/05/2025 16:20:25 TSH, serum or plasma 2024 025 [facility] (Lab), [address] [place], [address], 01/05/2025 16:20:25 vitamin D, 25-hydrox y, total, serum [address] (Lab), [address] [place], [address], 03/07/2025 11:59:09 glycohemo globin, total, blood [address] (Lab), [address] [place], [address], 03/07/2025 11:59:08 microalbu min, urine [address] (Lab), [address] [place], [address], 03/07/2025 11:59:09 SARS CoV 2 RNA (COVID-19 ), QL, 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, 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 [address] [facility], [address] [place], [address], 09/01/2024 12:00:07 rapid flu (A+B) [address] [facility], [address] [place], [address], 09/01/2024 12:00:08 rapid strep group A, throat [address] [facility], [address] [place], [address], 09/01/2024 12:00:08 hepatitis panel (A+B+C), acute, serum [address] (Lab), [address] [place], [address], 01/04/2025 08:40:34 gamma-glu tamyl transfera se (ggt), serum [address] (Lab), [address] [place], [address], 01/04/2025 08:40:34 lipid panel, serum 2023 024 [facility] (Lab), [address] [place], [address], 09/01/2024 13:09:09 CBC w/ auto diff 2023 024 [facility] (Lab), [address] [place], [address], 09/01/2024 13:09:10 T4, free, serum [address] (Lab), [address] [place], [address], 01/04/2025 08:40:34 CMP, serum or plasma 2023 024 [facility] (Lab), [address] [place], [address], 09/01/2024 13:09:09 TSH, serum or plasma 2023 024 [facility] (Lab), [address] [place], [address], 09/01/2024 13:09:09 vitamin D, 25-hydrox y, total, serum [address] (Lab), [address] [place], [address], 01/04/2025 08:40:34 glycohemo globin, total, blood [address] (Lab), [address] [place], [address], 01/04/2025 08:40:34 microalbu min, urine 2023 024 [facility] ([facility]), [address] [place], [address], 09/01/2024 21:11:35 Referral podiatris t referral - Please call patient to schedule an appointme nt. Thank you. 2024 025 [email or web address] Julia Clark DPM, [address], [address], [place], [address], 07/20/2025 10:02:53 podiatris t referral - Please call patient to schedule an appointme nt. Thank you. 2024 025 [email or web address] Xavier Liang DPM, [address], [address], [place], [address], 04/13/2025 11:40:33 nephrolog ist referral - Please call patient to schedule an appointme nt. Thank you. 2024 025 [email or web address] Juan Manuel Santos DO, [address], [address], [place], [address], 03/13/2025 12:14:38 cardiolog ist referral - Please call patient to schedule an appointme nt. Thank you. 2024 025 [place], [address], [address], [place], [address], 03/13/2025 12:14:40 nephrolog ist referral 2023 024 [place], [address], [address], [place], [address], 07/06/2024 18:36:06 cardiolog ist referral 2023 024 [email or web address] [place], [address], [address], [place], [address], 07/06/2024 18:36:07 Procedures None recorded. Surgeries None recorded. Imaging MAMMO, screening , digital, bilateral - Please call patient to schedule. [address], [address], [address], [place], [address], 04/24/2025 15:14:32 CT, chest, w/o contrast - No auth needed 2024 026 Not available 03/21/2025 14:39:32 MAMMO, screening , digital, bilateral - Please call patient to schedule. [address], [address], [address], [place], [address], 07/18/2025 16:28:46 LDCT, chest, for lung cancer screening - Please call patient to schedule. [address], [address], [address], [place], [address], 06/26/2025 18:10:13 LDCT, chest, for lung cancer screening - Please call patient to schedule. [address] (Radiology), [address] [place], [address], 09/08/2024 15:29:42 US, liver - Please call patient to schedule. [address], [address], [place], [address], 09/08/2024 15:25:39 DEXA, axial skeleton [address] (Radiology), [address] [place], [address], 09/08/2024 15:29:00 LDCT, chest, for lung cancer screening - Please call patient to schedule. [address] Imaging, [address], [facility] [address], [place], [address], 11/29/2024 12:34:35 US, liver - Please call patient to schedule. [address] [facility], [address], [place], [address], 08/30/2024 17:06:23 DEXA, axial skeleton [address] (Radiology), [address], [place], [address], 07/06/2024 19:22:27 Medication Orders albuterol sulfate HFA 90 mcg/actua tion aerosol inhaler 2024 025 [id number], [address], [place], [place], [id number], 03/21/2025 14:37:09 Spiriva Respimat 2.5 mcg/actua tion solution for inhalatio n 2024 025 [facility], [address], [place], [place], [id number], 03/21/2025 14:37:05 paroxetin e 20 mg tablet 2024 025 [facility], [address], [place], [place], [id number], 09/08/2024 11:03:27 cyclobenz aprine 10 mg tablet 2024 025 [facility]/Pharmacy #[id number], [address], [place], [address], 09/08/2024 11:03:26 cyclobenz aprine 10 mg tablet 2023 024 [id number], [address], [place], [address], 07/05/2024 18:27:37 paroxetin e 20 mg tablet [address] [facility] #98802, [address], [place], [place], [id number], 07/05/2024 18:27:36 Zithromax Z-Neftaly 250 mg tablet 2023 024 [email or web address] [facility]/Pharmacy #[id number], [address] , [place], [address], 01/10/2025 10:06:12 Patient TargetsNo targets recorded. Patient Instructions Encounter Date Encounter Id Patient Instructions Last Modified By Organization Details Last Modified Time 07/05/2024 [id number] dementia rating scale-2* [email or web address] Not available 07/06/2024 08:41:14 alcohol misuse* adriannacheyannedavide 2 Not available 07/06/2024 21:21:26 depression screening* jason 2 Not available 07/06/2024 21:21:25 multi-dimensiona l health assessment questionnaire* [email or web address] Not available 07/06/2024 08:40:56 diabetic eye exam* [email or web address] Not availa ble 01/03/2025 08:18:57 Personalized a lt Plan and Screening Recommendations Advance Directives - [...] Negative Active diagnosis, Continue current treatment plan [email or web address] Not available 07/06/2024 09:10:52 09/08/2024 [id number] diabetic eye exam* [email or web address] Not avail able 03/07/2025 08:24:45 01/10/2025 [id number] diabetic eye exam* [email or web address] Not avail able 07/10/2025 08:09:58 04/20/2025 [id number] diabetic eye exam* [email or web address] Not avail able 04/20/2025 10:45:24 Reason for Referral Printing 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 Thank you. Referring Physician: Alexa Bingham Internal [facility], Encounter Date: 09/08/2024 Proof Reader Referral for Co ronary arteriosclerosis Please call patient to schedule an appointment. Thank you. Referring Physician: Liliana Chaves Medicine, Encounter Date: 09/08/2024 Veneer Supervisor Referral for Type 2 dia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 Please call patient to schedule an appointment. Thank you. Referring Physician: Alexa Bingham, Internal Medicine, Encounter Date: 01/10/2025 Veneer Supervisor Referral for Type 2 dia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 Please call patient to schedule an appointment. Thank you. Referring Physician: Alexa Bingham, Internal Medicine, Encounter Date: 04/20/2025 Results Created Date Observation Date Name Description Value Unit Range Abnormal Flag Note LastModifiedBy Organization Detail LastModifiedTime 07/08/20 24 07/08/2024 XR, foot, 3 or more view No observ ation record ed. [email or web address] [facility], [place], [address], 08/30/2024 17:01:21 09/26/19 25 09/26/2024 imagi ng/di agnos tic resul t No observ ation record ed. [address], [address], 09/26/2024 13:26:11 09/26/19 25 09/26/2024 imagi ng/di agnos tic resul t No observ ation record ed. [address], [address], 09/26/2024 13:32:36 10/12/19 25 10/11/2024 US, liver No observ ation record ed. [address], [address], 10/11/2024 10:18:11 12/24/19 25 12/23/2024 imagi ng/di agnos tic resul t No observ ation record ed. [address], [address], 12/23/2024 11:54:19 03/23/20 25 03/01/2025 compl ete PFT w/ post [facility] hodil ator josh metry * No observ ation record ed. [facility] (Pulmonary) [address] [place], [place] [address] [address] [place] [address], [address], 03/23/2025 14:04:00 03/26/20 25 03/24/2025 LDCT, chest , for lung cance r scree jazlyn No observ ation record ed. [address], [place], [address], 03/27/2025 07:50:42 03/28/2003/28/2025 imagi ng/di agnos tic resul t No observ ation record ed. [address], [place], [address], 03/28/2025 18:01:24 03/29/20 25 03/01/2025 imagi ng/di agnos tic resul t No observ ation record ed. [address], [place], [address], 03/29/2025 14:36:24 Result Notes None recorded. Problems Name Problem SNOMED Code Status Onset Date Resolution Date Notes Provider Name and Address Organization Details Recorded Time Transient cerebral ischemia 066862114 Active Rebecca Fried MD [address], [address], [place], [address] , [employer] 14:20:04 Osteoarthriti s 880027126 Active Reebcca Fried MD [address], [address], [place], [address] , [employer] 5 14:20:20 Essential hypertension 29610961 Active Rebecca Fried MD [address], [address], [place], [address] , [employer] 5 14:20:30 Ex-smoker 3560993 Active 2019 Rebecca Fried MD [address], [place], [address] , [employer] 5 14:20:28 Gastroesophag eal reflux disease 238137254 Active 2019 Rebecca Fried MD [address], [place], [address] , [employer] [facility] [place] [facility] [employer] 5 14:20:26 Type 2 dia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 889624985 Active 2020 Rebecca Fried MD [address], [address], [place], [address] , [facility] [place] [facility] 5 14:20:02 Osteoporosis 82611460 Active 2021 Rebecca Fried MD [address], [address], [place], [address] , [facility] [place] [facility] 5 14:20:18 Depressive disorder 51254263 Active 2021 Rebecca Fried MD [address], [address], [place], [address] , [facility] [place] [facility] 5 14:20:33 Hyperlipidemi a 28941658 Active 2021 Rebecca Fried MD [address], [address], [place], [address] , [facility] 5 14:20:25 COVID-19 159436201 Active 2022 Not Available [employer] 4 13:30:18 Chronic kidney disease 511086107 Active 2022 Rebecca Fried MD [address], [address], [place], [address] , [facility] 5 14:20:37 Coronary arteriosclero sis 46707384 Active 2022 Rebecca Fried MD [address], [address], [place], [address] , [facility] [place] [facility] 5 14:20:35 Chronic depression 272748217 Active 2022 Rebecca Fried MD [address], [address], [place], [address] , [facility] [place] [facility] 5 14:20:40 Moderate chronic obstructive pulmonary disease 097987706 Active 2023 Rebecca Fried MD [address], [address], [place], [address] , [facility] 5 14:20:23 Allergic rhinitis 56623071 Active 2023 Rebecca Fried MD [address], [address], [address] , [facility] 5 14:20:42 Anemia 111317243 Active 2023 Alexa harry MD [address], [address], [address] , [facility] 4 19:12:13 Contact dermatitis caused by urushiol from [facility] yessenia 465716346 Active 2024 Sheridan Salguero Alvino fan, [facility] 5 16:35:44 Low back pain 687402444 Active 2024 Alexa harry MD [address], [address], [address] , [facility] 5 09:59:59 Gastritis 0788989 Active 2024 Alexa harry MD [address], [address], [place], [address] , [facility] 5 09:59:59 Chronic obstructive pulmonary disease 46496966 Active 2024 Alexa harry MD [address], [address] , [facility] 5 09:59:59 Increased liver function 21698868 Active 2024 Alexa harry MD [address], [place], [address] , [facility] 5 09:59:59 Notes:Medical History: TIA D epression IgE 134 [...] CPT Code, subsequent completed Bethany Milton RN [facility] [employer] [facility] 07/05/2024 17:29:39 06/30/20 24 Kidney Stones completed ALFREDITO Parry [facility] [employer] [facility] 07/05/2024 17:24:12 12/23/19 24 cardiac catheterization completed Rosalina Scruggs MA [facility] [employer] [facility] 12/29/2023 09:52:32 01/07/20 23 Medicare Wellness CPT Code, subsequent completed Pratima Arevalo RN [facility] [employer] [facility] 01/06/2023 11:46:36 02/13/20 20 Cataract Surgery completed Not Available [facility] 10/08/2022 05:09:50 06/27/20 19 Most Recent Bone Density completed Not Available [facility] 10/08/2022 05:09:49 07/17/20 17 Date of Last Colonoscopy completed Not Available [facility] 10/08/2022 05:09:48 07/17/20 17 Egd biopsy single/multiple completed Not Available [facility] 10/08/2022 05:09:50 07/17/20 17 Diagnostic colonoscopy completed Not Available [facility] 10/08/2022 05:09:50 Appendectomy completed Not Available [facility] 10/08/2022 05:09:50 Colonoscopy completed Not Available [facility] 10/08/2022 05:09:50 Tonsillectomy completed Not Available [facility] 10/08/2022 05:09:50 Hysterectomy completed Not Available [facility] 10/08/2022 05:09:50 Orthopedic Surgery completed Not Available [facility] 10/08/2022 05:09:50 procedure on nose completed Not Available [facility] 10/08/2022 05:09:50 Imaging Results None recorded. Procedure Notes None recorded. Medical Equipment None Reported. Allergies Allergen ID Allergen Name Allergen Category Reaction Reaction Severity Criticality Documentation Date Start Date Code Code System Note Provider Name and Address Organization Details Recorded Time 9600 amoxicill in medicatio n Not available Not available Not available 10/08/2022 723 RxNorm Not Available [facility] 3 05:21:32 Medications Name Sig Start Date Stop [...] completed Not Available Not Available Not Available meloxicam 15 mg tablet TAKE 1 TABLET BY MOUTH EVERY DAY 04/20 completed Not Available Not Available Not Available [...] TAKE 1 CAPSULE BY MOUTH EVERY NIGHT 03/21 completed Not Available Not Available Not Available phenazopy ridine 100 mg tablet TAKE [...] NO ALCOHOL, DRIVING, OR W/ SEDATING MEDS 2024 active Not Available Not Available Not Avai lable nitrofura ntoin macrocrys jordon 100 mg capsule TAKE 1 CAPSULE BY MOUTH EVERY 12 HOURS 07/05 completed Not Available Not Available Not Available ranitidin e 150 mg tablet active Not Available Not Available Not Available hyoscyami ne 0.125 mg sublingua l tablet PLEASE SEE ATTACHED FOR DETAILED DIRECTIO NS 03/21 completed Not Available Not Available Not Available nystatin- triamcino lone 100,000 unit/g-0. 1 [...] 4 mg tablets in a dose pack TAKE 6 TABLETS ON DAY 1 DIRECTED ON PACKAGE AND DECREASE BY 1 TAB EACH DAY FOR A TOTAL OF 6 DAYS 04/20 completed Not Available Not Available Not Available [...] 1 SPRAY IN EACH NOSTRIL EVERY DAY 03/21 completed Not Available Not Available Not Available clotrimaz ole 1 % topical cream [...] TAKE 1 TABLET BY MOUTH EVERY DAY 04/20 completed Not Available Not Available Not Available rosuvasta tin 20 mg tablet TAKE [...] Available Not Available Not Available multivita min 03/15 completed Not Available Not Available Not Available Vitamin B12 03/15 completed Not Available Not Available Not Available Benicar 09/25 completed Not Available Not Available Not Available Calcium 600 with Vitamin D3 03/15 completed Not Available Not Available Not Available Mucinex [...] Not Available Not Available Not Available Probiotic 03/15 completed Not Available Not Available Not Available Vascepa 1 gram capsule Take [...] 2.5 mcg/actua tion solution for inhalatio n Inhale 2 puffs every day by inhalati on route as directed for 30 days. 2024 active Not Available Not Available Not Avai lable Stiolto Respimat 2.5 mcg-2.5 mcg/actua tion solution for inhalatio n Inhale 2 puffs every day by inhalati on route as directed for 30 days. 01/06 completed Not Available Not Available Not Available Fluzone High-Dose 2014- (PF) 180 mcg/0.5 mL intramusc ular syringe active Not Available Not Available Not Available Fluzone High-Dose [id number] (PF) 180 mcg/0.5 mL intramusc ular syringe ADM 0.5ML IM UTD active Not Available Not Available No t Available Fluzone High-Dose [id number] (PF) 180 mcg/0.5 mL intramusc ular syringe ADM 0.5ML IM UTD 06/02 completed Not Available Not Available Not Available Fluzone High-Dose [id number] (PF) 180 mcg/0.5 mL intramusc ular syringe ADM 0.5ML IM UTD 06/13 completed Not Available Not Available Not Available Fluzone High-Dose 2018- (PF) 180 mcg/0.5 mL intramusc ular syringe ADM 0.5ML IM UTD 07/30 completed Not Available Not Available Not Available Fluad Quad 1202-7354 (65yr up)(PF) 60 mcg (15 mcg x [...] Updated DateTime 5 154.94 cm 16.8 kg/m2 51854.7 2 g 97.1 [degF] 84 /min 126/66 mm[Hg] ALFREDITO Parry - [facility] [employer] 5 10:40:59 Date Recorded Body height Body mass index (BMI) Body weight Body temperature Heart rate Oxygen saturation Pain severity - 0-10 verbal numeric rating [Score] - Reported Systolic And Diastolic Provider Name and Address Organization Details Last Updated DateTime 5 154.94 cm 17 kg/m2 70148.3 1 g 98.1 [degF] 119 /min 87 % 0 128/56 mm[Hg] Rosalina Scruggs MA [facility] [employer] 5 10:04:52 Date Recorded Body height Body mass index (BMI) Body weight Heart rate Oxygen saturation Body temperature Systolic And Diastolic Provider Name and Address Organization Details Last Updated DateTime 5 154.94 cm 17 kg/m2 50456.9 5 g 89 /min 93 % 98 [degF] 122/58 mm[Hg] Ana Paula Levy MA [facility] [employer] [facility] 5 14:11:51 Date Recorded Body height Body mass index (BMI) Body weight Body temperature Pain severity - 0-10 verbal numeric rating [Score] - Reported Heart rate Oxygen saturation Systolic And Diastolic Provider Name and Address Organization Details Last Updated DateTime 5 154.94 cm 17.3 kg/m2 45300.7 g 97.5 [degF] 0 95 /min 94 % 138/58 mm[Hg] Rosalina Scruggs MA [facility] [employer] [facility] 5 09:47:39 Date Recorded Body height Body mass index (BMI) Body weight Body temperature Heart rate Systolic And Diastolic Provider Name and Address Organization Details Last Updated DateTime 4 154.94 cm 16.9 kg/m2 69296.5 2 g 97.5 [degF] 84 /min 120/64 mm[Hg] ALFREDITO Parry [facility] [employer] [facility] 4 17:26:19 Social History Question Answer Notes LastModified by Organization Details LastModified Time Tobacco Smoking Status Former Smoker quit 2017 Not Available [employer] 10/08/2022 05:08:51 Do You Have An Advance Directive? No Patient Declined Information MIGRATION.666 [id number] Information not available 10/08/2022 Are You Blind Or Do You Have Difficulty Seeing? No MIGRATION.529 1905903 Information not available 10/08/2022 What Is Your Level Of Caffeine Consumption? Heavy MIGRATION.875 [id number] Information not available 10/08/2022 How Much Tobacco Do You Chew? None MIGRATION.195 [id number] Information not available 10/08/2022 In The 14 Days Before Symptom Onset, Have You Had Close Contact With A Laboratory-conf irmed COVID-19 While That Case Was Ill? No MIGRATION.162 [id number] Information not available 10/08/2022 In The 14 Days Before Symptom Onset, Have You Had Close Contact With A Person Who Is Under Investigation For COVID-19 While That Person Was Ill? No MIGRATION.563 [id number] Information not available 10/08/2022 Are You Deaf Or Do You Have Serious Difficulty Hearing? No MIGRATION.156 4060760 Information not available 10/08/2022 What Type Of Diet Are You Following? REGULAR MIGRATION.307 [id number] Information not available 10/08/2022 Which Illicit Or Recreational Drugs Have You Used? None MIGRATION.134 9155947 Information not available 10/08/2022 What Is The Highest Grade Or Level Of School You Have Completed Or The Highest Degree You Have Received? FO95681-5 MIGRATION.287 [id number] Information not available 10/08/2022 Do You Have An Electrostatic Air Filter? No Information not available 03/21/2025 Have There Been Any Changes To Your Family Or Social Situation? No MIGRATION.589 [id number] Information not available 10/08/2022 What Is The Fluoride Status Of Your Home? Unknown MIGRATION.981 6058854 Information not available 10/08/2022 When Did You Quit Smoking? 1-5yearssincelastc igarette MIGRATION.115 [id number] Information not available 10/08/2022 Are There Any Guns Present In Your Home? No MIGRATION.363 4518001 Information not available 10/08/2022 Do You Have A Humidifier? No Information not available 03/21/2025 Do You Use Insect Repellent Routinely? Yes MIGRATION.334 7771323 Information not available 10/08/2022 Where Do You [...] Do You Have A Medical Power Of [place]? No MIGRATION.519 [id number] Information not available 10/08/2022 Do You Have Moisture Problems In Your Home? No Information not available 03/21/2025 What Was The Date Of Your Most Recent Tobacco Screening? 04/20/2025 Information not available 04/20/2025 How Many Children Do You Have? 1 Information not available 12/29/2023 What Is Your Current Pack Years? 30ormorepackyears [email or web address] Information not available 08/30/2024 Have You Ever Been Counseled For Unhealthy Alcohol Use? No Information not available 12/16/2022 Do You Have Any Pets? Yes MIGRATION.705 [id number] Information not available 10/08/2022 What Is Your Relationship Status? MIGRATION.999 [id number] Information not available 10/08/2022 Do You Use Your Seat Belt Or Car Seat Routinely? Yes MIGRATION.116 5201484 Information not available 10/08/2022 Do You Have Smoke And Carbon Monoxide Detectors In Your Home? Yes MIGRATION.420 1954725 Information not available 10/08/2022 At What Age Did You Start Smoking Tobacco? 18 MIGRATION.440 4709457 Information not available 10/08/2022 Are You Passively Exposed To Smoke? Yes MIGRATION.448 [id number] Information not available 10/08/2022 Are There Any Smokers In Your House? Yes MIGRATION.099 2795231 Information not available 10/08/2022 How Much Tobacco Do You Smoke? No Was 1ppd MIGRATION.037 7112289 Information not available 10/08/2022 What Types Of Sporting Activities Do You Participate In? None MIGRATION.143 8398436 Information not available 10/08/2022 Do You Use Sunscreen Routinely? Yes MIGRATION.313 1703247 Information not available 10/08/2022 Has Tobacco Cessation Counseling Been Provided? No Information not available 12/16/2022 How Many Years Have You Smoked Tobacco? 53 [email or web address] Information not available 08/30/2024 Have You Recently Traveled Abroad? No MIGRATION.013 1727352 Information not available 10/08/2022 Do You Have Difficulty Walking Or Climbing Stairs? No MIGRATION.981 [id number] Information not available 10/08/2022 Do You Have Any Dietary Restrictions? No MIGRATION.783 7958848 Information not available 10/08/2022 Sex: Female Functional Status Question Answer Note LastModified by Organizat ion Details LastModified Time Do you or have you ever used smokeless tobacco? Never used smokeless tobacco MIGRATION.29894 29300 Information not available 10/08/2022 Have you been exposed to chemicals or toxins? not that aware of Information not available 03/21/2025 Do you have transportation difficulties? No MIGRATION.39818 07848 Information not available 10/08/2022 Are you able to care for yourself independently? Yes MIGRATION.78118 44497 Information not available 10/08/2022 Do you have difficulty dressing, bathing, grooming, or toileting? No MIGRATION.00515 79904 Information not available 10/08/2022 Do you or have you ever used e-cigarettes or vape? Never used electronic cigarettes MIGRATION.21096 01244 Information not available 10/08/2022 What is your exercise level? Moderate MIGRATION.09557 93428 Information not available 10/08/2022 Do you use any illicit or recreational drugs? No MIGRATION.61036 04350 Information not available 10/08/2022 Do you or have you ever used any other forms of tobacco or nicotine? No MIGRATION.42142 28348 Information not available 10/08/2022 What is your level of alcohol consumption? Occasional Information not available 12/16/2022 Are you able to walk independently without assistance or assistive devices? YESWOREST MIGRATION.83870 78257 Information not available 10/08/2022 Do you have difficulty doing errands alone? No MIGRATION.92749 07406 Information not available 10/08/2022 What is your occupation? retired MIGRATION.93782 03502 Information not available 10/08/2022 Mental Status Question Answer Note LastModified by Organizat ion Details LastModified Time Do you feel stressed (tense, restless, nervous, or anxious, or unable to sleep at night)? [id number] MIGRATION.[id number] 26 Information not available 10/08/2022 Do you have difficulty concentrating, remembering or making decisions? No MIGRATION.96173226 26 Information not available 10/08/2022 Family History Relationship Description Onset Age of this Age Resolved Age Notes LastModified by Organization Details LastModified Time Sister Malignant neoplasm of breast MIGRATION.483 [id number] Not available 10/08/2022 05:09:54 Mother Malignant neoplasm of ovary MIGRATION.961 [id number] Not available 10/08/2022 05:09:54 Father Malignant neoplasm of pharynx MIGRATION.940 [id number] Not available 10/08/2022 05:09:54 Brother Carcinoma in situ of liver MIGRATION.093 [id number] Not available 10/08/2022 05:09:54 Maternal Grandmother Carcinoma in situ of kidney MIGRATION.149 [id number] Not available 10/08/2022 05:09:54 Maternal Grandfather Carcinoma in situ of colon MIGRATION.861 [id number] Not available 10/08/2022 05:09:54 Maternal Grandmother Diabetes mellitus Not available 2023 13:05:01 Father Arthritis Not available 12/16/2022 13:54:59 Father Heart disease Not available 2022 13:55:20 Mother Hypertensive disorder Not available 2022 13:55:10 Mother Cerebrovascu lar accident Not available 13:05:13 Maternal Uncle Malignant neoplasm of larynx Not available 2023 13:04:49 Medical [...] HAVE YOU BEEN HOSPITALIZED OR SEEN IN [facility] IN THE PAST YEAR ? N [...] e and Address Organization Details Recorded Time Influenza, high-dose, trivalent, PF 4 completed Not Available [facility] 04/20/2025 09:42:24 Pneumococcal conjugate PCV 13 5 completed Not Available [facility] 04/20/2025 09:42:24 Influenza, high-dose, trivalent, PF 5 completed Not Available [facility] 04/20/2025 09:42:24 Influenza, high-dose, trivalent, PF 6 completed Not Available [facility] 04/20/2025 09:42:24 Influenza, high-dose, trivalent, PF 7 completed Not Available [facility] 04/20/2025 09:42:24 Influenza, high-dose, quadrivalent, PF 1 completed Not Available [facility] 04/20/2025 09:42:24 zoster recombinant 2 completed Not Available [facility] 04/20/2025 09:42:24 zoster recombinant 2 completed Not Available [facility] 04/20/2025 09:42:24 RSV, recombinant, protein subunit RSVpreF, adjuvant reconstituted, 0.5 mL, PF 3 completed Not Available [facility] 04/20/2025 09:42:24 COVID-19, mRNA, LNP-S, PF, 50 mcg/0.5 mL 3 completed Not Available [facility] 04/20/2025 09:42:24 Influenza, high-dose, quadrivalent, PF 3 completed Not Available [facility] 04/20/2025 09:42:24 COVID-19, mRNA, LNP-S, PF, alyce-sucrose, 30 mcg/0.3 mL 4 completed Not Available [facility] 04/20/2025 09:42:24 Influenza, adjuvanted, trivalent, PF 4 completed Not Available [facility] 04/20/2025 09:42:24 COVID-19, mRNA, LNP-S, PF, 100 mcg/0.5mL dose or 50 mcg/0.25mL dose 1 completed Not Available [facility] 09/30/2023 13:30:18 COVID-19, mRNA, LNP-S, bivalent, PF, 50 mcg/0.5 mL or 25mcg/0.25 mL dose 2 completed Not Available [facility] 09/30/2023 13:30:18 Influenza, high-dose, quadrivalent, PF 2 completed Not Available [facility] 09/30/2023 13:30:18 Influenza, split virus, trivalent, preservative 0 completed Not Available [facility] 09/30/2023 13:30:18 Influenza, high-dose, trivalent, PF 9 completed Not [facility] 09/30/[facility] 13:30:18 COVID-19, mRNA, LNP-S, PF, 100 mcg/0.5mL dose or 50 mcg/0.25mL dose 1 completed Not Available [facility] 09/30/2023 13:30:18 COVID-19, mRNA, LNP-S, PF, 100 mcg/0.5mL dose or 50 mcg/0.25mL dose 1 completed Not Available [facility] 09/30/2023 13:30:18 Influenza, high-dose, quadrivalent, PF 0 completed Not Available [facility] 09/30/2023 13:30:18 Influenza, split virus, quadrivalent, preservative 8 completed Not Available [facility] 09/30/2023 13:30:18 pneumococcal conjugate PCV 7 7 completed Not Available [facility] 09/30/2023 13:30:18 influenza, unspecified formulation 7 completed Not Available [facility] 09/30/2023 13:30:18 Tdap 7 completed Not Available [facility] 09/30/2023 13:30:18 pneumococcal polysaccharide PPV23 3 completed Not Available [facility] 09/30/2023 13:30:18 Past Encounters Encounter ID Performer Location Encounter Start Date Encounter Closed Date Diagnosis/Indication Diagnosis SNOMED-CT Code Diagnosis ICD10 Code Diagnosis IMO Codes Diagnosis Note [id number] [facility] Pulmonolo gy Micha Jiménez [address] [place] [address] 12/31/2020 00:00:00 12/31/2020 12:43:00 [id number] Alexa harry MD [employer] [facility] Internal Med [facility] [address] [facility], [facility] [address] [place] [address] 02/28/2021 00:00:00 02/28/2021 14:13:02 [id number] [facility] _ATHENA_M IGRATION_ DEFAULT_1 _1 , 04/26/2021 00:00:00 04/28/2021 20:51:15 [id number] [facility] Pulmonolo [facility] [place] [address] [place] [address] 06/24/2021 00:00:00 06/24/2021 11:04:04 [id number] [facility] Pulmon[facility] [place] [address] [place] [address] 08/06/2021 00:00:00 08/06/2021 16:04:59 [id number] Alexa harry MD [facility] Internal Med [facility] [address] [address] 09/03/2021 00:00:00 09/03/2021 14:38:59 [id number] Alexa harry MD S_[facility] Internal Med [facility] [address] [address] 01/30/2022 00:00:00 01/30/2022 14:22:13 [id number] Alexa harry MD S[facility] Internal Med [facility] [address] [address] 07/24/2022 00:00:00 07/24/2022 14:44:34 [id number] SEPEDY Hernandez- [facility] Pulmonolo gy [place] [address] [place] [address] 08/06/2022 00:00:00 08/06/2022 13:18:30 [id number] Xavier Liang DPM [facility] Podiatry [address] [address] 12/16/2022 13:54:34 12/16/2022 14:44:19 Tendinitis of foot 378355206 M77.51 x-rays of the foot and ankle reviewed negative for acute injuryreco mmend Voltaren gel over-the-c ounterrice therapyrec ommend returning to [facility] for 3 weeksfollo w-up in 3 weeks if continues to be problemati c will obtain ultrasound Ankle pain 949889225 M25 .579 right lateralalo ng peroneal tendonsas above [id number] Alexa harry MD [facility] Internal Med [facility] [address] [facility] [address] [place] [address] 01/06/2023 11:23:04 01/06/2023 12:19:46 Screening - NAD 725609126 Z13.9 C-scope: Dr Aranda 07/17/17, next in [...] her understand ing of the above Hyperlipidemia 63206473 E78.5 On rosuvastat in 40mg dailyNot taking vascepaGet labs Chronic ki dney disease 875741943 N18.[address] Santos, last OV 02/25/2022 Gastritis 8119464 K29.70 EGD: Francisco Espan[place] and may need UGI if sx persistShe feels that she has not taken the PPI and is doing well S/p EGD 12/21/18: Dr Vyas, neg for H pylori Does wellNo sxNot on PPI Anemia 965323695 D64.9 On ironget labsH/H is stable Essential hypertension 84414566 I10 On ASAOn olmesartan 40mg dailyOn amlodipine 10mg dailyGet labs Low back pain 491081380 M54.50 Very rare use of the flexerill, renewed 01/06/2023 Does well Chronic ob structive pulmonary disease 16906055 J44.9 PFTs 06/18/17: COPDSees Rebekah Ok DRAFTER next 02/04/2023 On proairOff spirivaOn stioltoOn HHNsOn singulair 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 261765936 E11.9 On jardianceO n olmesartan Does wellGet labs Dr Liang 01/06/2023 Ex-smoker 0986095 Z87.89 1 QuitCT chest 10/23/16: COPD LDCT 12/09/18: NEg, esophageal prominence , refer to [facility] 01/23/2020 : Next in one yearLDCT 01/09/2021 : Next in one yearLDCT 09/17/2021 : CAD, next in one yearLDCT 10/06/2022 : CAD, next in one year Coronary arteriosclerosis 92712768 I25.10 Seen on the LDCT [facility] Dr Tran 08/30/2020 : Is to get stress test, ECHO and US of the legse states that Dr Tran has told her that her heart is doing well Transient cerebral ischemia 041739211 G45.9 Does wellDoes see [facility] Osteoporosis 61151842 M8 1.0 On proliaGet CMP in 2 weeks after prolia, advised to use calcium and vit d also Chronic depression 89481 0009 F32.A On paroxetine 20mg dailydoes well on this, not suicidal or homicidal, declined psychiatry referral at this time COVID-19 984784579 U07.1 +ve 11/10/2022 Adult heal th examination 594179229 Z00.00 Screening for disorder 695513010 Z13.9 [id number] Xavier Liang DPM S[facility] Podiatry [place] [address] [facility] [address] [place] [address] 01/06/2023 14:10:56 01/06/2023 14:55:19 Ankle pain 833189691 M25.579 right lateralalo ng peroneal tendonsImp roved Tendinitis of foot 47534 2007 M77.51 continue Voltaren gelRice therapyCon tinue stretching exercisesF ollow-up as needed [id number] Alexa harry MD [facility] Internal Med [facility] [address] [facility] [address] [place] [address] 07/07/2023 09:21:56 07/07/2023 10:01:36 Screening - NAD 047847542 Z13.9 C-scope: Dr Aranda 07/17/17, next in [...] her understand ing of the above Hyperlipidemia 17428167 E78.5 On rosuvastat in 40mg dailyNot taking vascepaGet labs Chronic ki dney disease 152803566 N18.[address] Santos Gastritis 4360759 K29.70 EGD: Francisco Espana and may need UGI if sx persistShe feels that she has not taken the PPI and is doing well S/p EGD 12/21/18: Dr Vyas, neg for H pylori Does wellNo sxNot on PPI Anemia 494669571 D64.9 On ironget labsH/H is stable Essential hypertension 17362916 I10 On ASAOn olmesartan 40mg dailyOn amlodipine 10mg dailyGet labs Low back pain 757739025 M54.50 Very rare use of the flexerill, OK to renewDoes well Chronic ob structive pulmonary disease 49575106 J44.9 PFTs 06/18/17: COPDSeen Rebekah Ok DRAFTER On proairOn spirivaOff stiolto, was not taking this as is on SpirivaOn HHNsOn singulair 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 491435282 E11.9 On jardianceO n olmesartan Does wellGet labs Dr Liang 01/06/2023 Ex-smoker 5655718 Z87.89 1 QuitCT chest 10/23/16: COPD LDCT 12/09/18: NEg, esophageal prominence , refer to [facility] 01/23/2020 : Next in one yearLDCT 01/09/2021 : Next in one yearLDCT 09/17/2021 : CAD, next in one yearLDCT 10/06/2022 : CAD, next in one year Coronary arteriosclerosis 00424580 I25.10 Seen on the LDCT [facility] Dr Tran 08/30/2020 : Is to get stress test, ECHO and US of the legse states that Dr Tran has told her that her heart is doing well Transient cerebral ischemia 326027865 G45.9 Does wellDoes see [facility] Osteoporosis 50001106 M8 1.0 On prolia, but too expensive so not taking this, will get a DEXA and may need to be on fosamax Chronic depression 33305 0009 F32.A On paroxetine 20mg dailyDoes well on this, not suicidal or homicidal, declined psychiatry referral at this time COVID-19 624870807 U07.1 +ve 11/10/2022 Screening mammography 24 519186 Z12.31 Leukocytosis 647028115 D 72.829 Repeat the CBC Increased liver function 23594551 R94.5 Get labs, US liver Screening for osteoporosis 787538606 Z13.934 [id number] Rebecca Fried MD [facility] Pulmonolo [facility] [address] [place] [address] 09/30/2023 11:27:15 10/01/2023 08:40:07 Dyspnea on exertion 47872827 R06.09 R05.3 T78.40XA D89.9 Ex-smoker 3272930 Z87.89 1 F17.218 F17.219 Moderate c hronic obstructive pulmonary disease 204523481 J44.9 [id number] Rebecca Fried MD [employer] [facility] Pulmonolo gy [address] [address] 10/06/2023 09:33:33 10/08/2023 11:21:04 Moderate chronic obstructive pulmonary disease 096071007 J44.9 Solitary n odule of lung 000315417 R91.1 Exposure t o tuberculosis 3265601616 101 Z20.1 [id number] Alexa harry MD S_[facility] Internal Med [facility] [address] [place], [place] [address] 12/29/2023 09:30:51 12/29/2023 10:29:24 Screening - NAD 672662298 Z13.9 C-scope: Dr Aranda 07/17/17, next in [...] her understand ing of the above Hyperlipidemia 55464861 E78.5 Not taking rosuvastat in 40mg dailyNot taking vascepaGet labs Chronic ki dney disease 741818220 N18.[address] Santos Gastritis 2495111 K29.70 EGD: Francisco Espan[place] and may need UGI if sx persistShe feels that she has not taken the PPI and is doing well S/p EGD 12/21/18: Dr Vyas, neg for H pylori Does wellNo sxNot on PPI Anemia 789450489 D64.9 On ironget labsH/H is stable Essential hypertension 48384996 I10 On ASAOn olmesartan 40mg dailyOn amlodipine 10mg dailyGet labs Low back pain 475763799 M54.50 Very rare use of the flexerill, OK to renewDoes well Chronic ob structive pulmonary disease 83007402 J44.9 PFTs 06/18/17: COPDSeen Rebekah Euceda DRAFTER On proairOn spirivaOff stiolto, was not taking this as is on SpirivaOn HHNsOn singulair 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 766894693 E11.9 On jardianceO n olmesartan Does wellGet labs Dr Liang 01/06/2023 Ex-smoker 6452248 Z87.89 1 QuitCT chest 10/23/16: COPD LDCT 12/09/18: NEg, esophageal prominence , refer to [facility] 01/23/2020 : Next in one yearLDCT 01/09/2021 : Next in one yearLDCT 09/17/2021 : CAD, next in one yearLDCT 10/06/2022 : CAD, next in one yearLDCT 10/06/2023 : Next in 6 months Coronary arteriosclerosis 15142719 I25.10 Seen on the LDCT [facility] Dr Tran 08/30/2020 : Is to get stress test, ECHO and US of the [facility] states that Dr Tran has told her that her heart is doing well Stress test 11/12/2023 : [facility], s/p CC done as per her history, done on 12/23/2023 , no stent Transient cerebral ischemia 123979166 G45.9 Does wellDoes see [facility] Osteoporosis 51795496 M8 1.0 On prolia, but too expensive so not taking this, will get a DEXA and may need to be on fosamax Chronic depression 58758 0009 F32.A On paroxetine 20mg dailyDoes well on this, not suicidal or homicidal, declined psychiatry referral at this time COVID-19 500461334 U07.1 +ve 11/10/2022 Leukocytosis 310527416 D 72.829 Repeat the CBC Increased liver function 67424653 R94.5 Get labs, US liver Screening for osteoporosis 466613657 Z13.185 [id number] Rebecca Fried MD [employer] [facility] Pulmonolo gy [place] [address] 03/21/2024 13:57:35 03/22/2024 08:01:37 Moderate chronic obstructive pulmonary disease 211441662 J44.9 Solitary n odule of lung 722305349 R91.1 Exposure t o tuberculosis 4580202289 101 Z20.1 [id number] Alexa harry MD S_[facility] Internal Med [place] [address] 07/05/2024 16:43:22 07/05/2024 18:22:25 Adult health examination 349929681 Z00.00 Screening for disorder 777707507 Z13.9 Screening - NAD 27491338 3 Z13.9 C-scope: Dr Aranda 07/17/17, next [...] her understand ing of the above Hyperlipidemia 02383852 E78.5 Not taking rosuvastat in 40mg dailyNot taking vascepaGet labs Chronic ki dney disease 468411736 N18.[address] Santos Gastritis 4085851 K29.70 EGD: Dr. Aranda, Francisco and may need UGI if sx persistShe feels that she has not taken the PPI and is doing well S/p EGD 12/21/18: Dr Vyas, neg for H pylori Does wellNo sxNot on PPI Anemia 308038665 D64.9 On ironget labsH/H is stable Essential hypertension 23998533 I10 On ASAOn olmesartan 40mg dailyOn amlodipine 10mg dailyGet labs Low back pain 742933925 M54.50 Very rare use of the flexerill, OK to renew 07/05/2024 Does well Chronic ob structive pulmonary disease 97858326 J44.9 PFTs 06/18/17: COPDSeen Rebekah Euceda DRAFTER On proairOn spirivaOff stiolto, was not taking this as is on SpirivaOn Harvey Fried 03/21/2024 , next 03/21/2025 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 301120858 E11.9 On jardianceO n olmesartan Does wellGet labs Dr Liang 01/06/2023 Ex-smoker 6063118 Z87.89 1 QuitCT chest 10/23/16: COPD LDCT 12/09/18: NEg, esophageal prominence , refer to [facility] 01/23/2020 : Next in one yearLDCT 01/09/2021 : Next in one yearLDCT 09/17/2021 : CAD, next in one yearLDCT 10/06/2022 : CAD, next in one yearLDCT 10/06/2023 : Next in 6 months Coronary arteriosclerosis 53024894 I25.10 Seen on the LDCT [facility] Dr Tran 08/30/2020 : Is to get stress test, ECHO and US of the [facility] states that Dr Tran has told her that her heart is doing well Stress test 11/12/2023 : [facility], s/p CC done as per her history, done on 12/23/2023 , no stent Transient cerebral ischemia 621162417 G45.9 Does wellDoes see [facility] Osteoporosis 33034315 M8 1.0 On prolia, but too expensive so not taking this, will get a DEXA and may need to be on fosamax Chronic depression 97439 0009 F32.A On paroxetine 20mg dailyDoes well on this, not suicidal or homicidal, declined psychiatry referral at this time COVID-19 346602751 U07.1 +ve 11/10/2022 Increased liver function 88057798 R94.5 Get labs, US liver Screening for osteoporosis 043298607 Z13.820 Cough 95238553 R05.9 Get tested and get on Z-pack, she will also notify her pulmonolog ist, ER if worse, she is very appreciati ve to this plan of care [id number] Alexa harry MD [facility] Internal Med [facility] [address] [facility], [facility] [address] [place] [address] 09/08/2024 10:31:13 09/08/2024 11:05:16 Screening - NAD [id number] Z13.9 C-scope: Dr Aranda 07/17/17, next in [...] her understand ing of the above Hyperlipidemia 86684790 E78.5 Not taking rosuvastat in 40mg dailyNot taking vascepaGet labs Chronic ki dney disease 533565371 N18.[address] Santos Gastritis 0862089 K29.70 EGD: Francisco Espana and may need UGI if sx persistShe feels that she has not taken the PPI and is doing well S/p EGD 12/21/18: Dr Vyas, neg for H pylori Does wellNo sxNot on PPI Anemia 869188254 D64.9 On ironget labsH/H is stable Essential hypertension 18319293 I10 On ASAOn olmesartan 40mg dailyOn amlodipine 10mg dailyGet labs Low back pain 026127685 M54.50 Very rare use of the flexerill, OK to renew 07/05/2024 , 09/08/2024 Does well Chronic ob structive pulmonary disease 84013312 J44.9 PFTs 06/18/17: COPDSeen Rebekah Euceda DRAFTER On proairOn spirivaOff stiolto, was not taking this as is on SpirivaOn HHNsOn singulair Dr Fried 03/21/2024 , next 03/21/2025 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 857332855 E11.9 On jardiance, will discuss with Dr Santos on cutting on the dose as A1C is doing well 09/08/2024 On olmesartan Does wellGet labs Dr Liang 01/06/2023 Ex-smoker 4080616 Z87.89 1 QuitCT chest 10/23/16: COPD LDCT 12/09/18: NEg, esophageal prominence , refer to [facility] 01/23/2020 : Next in one yearLDCT 01/09/2021 : Next in one yearLDCT 09/17/2021 : CAD, next in one yearLDCT 10/06/2022 : CAD, next in one yearLDCT 10/06/2023 : Next in 6 months Coronary arteriosclerosis 52028471 I25.10 Seen on the LDCT [facility] Dr Tran 08/30/2020 : Is to get stress test, ECHO and US of the [facility] states that Dr Tran has told her that her heart is doing well Stress test 11/12/2023 : [facility], s/p CC done as per her history, done on 12/23/2023 , no stent Transient cerebral ischemia 822357095 G45.9 Does wellDoes see [facility] Osteoporosis 41495486 M8 1.0 On prolia, but too expensive so not taking this, will get a DEXA and may need to be on fosamax Chronic depression 09790 0009 F32.A On paroxetine 20mg dailyDoes well on this, not suicidal or homicidal, declined psychiatry referral at this time COVID-19 970038289 U07.1 +ve 11/10/2022 Increased liver function 32607102 R94.5 Get labs, US liver Screening for osteoporosis 016827779 Z13.810 [id number] Alexa harry MD [employer] [facility] Internal Med [facility] [address] [facility], [place] [address] 01/10/2025 09:52:25 01/10/2025 10:54:22 Screening - NAD 830720384 Z13.9 C-scope: Dr Aranda 07/17/17, next in [...] vaccine RTC in 2 monthsdo labsER if worseShe did verbalize her understand ing of the above Hyperlipidemia 36612048 E78.5 Not taking rosuvastat in 40mg dailyNot taking vascepaGet labs Chronic ki dney disease 902293258 N18.[address] Santos Gastritis 5706910 K29.70 EGD: Dr. Aranda Barrettjudy and may need UGI if sx persistShe feels that she has not taken the PPI and is doing well S/p EGD 12/21/18: Dr Vyas, neg for H pylori Does wellNo sxNot on PPI Anemia 383430323 D64.9 On ironGet labs Essential hypertension 42924498 I10 On ASAOn olmesartan 40mg dailyOn amlodipine 10mg dailyGet labs Low back pain 713351754 M54.50 Very rare use of the flexerill, OK to renew 07/05/2024 , 09/08/2024 Does well Chronic ob structive pulmonary disease 11088021 J44.9 PFTs 06/18/17: COPDSeen Rebekah Euceda DRAFTER On proairOn spirivaOff stiolto, was not taking this as is on SpirivaOn Harvey Fried 03/21/2024 , next 03/21/2025 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 926707682 E11.9 On jardiance 25mg daily, spoke with Dr Santos 01/10/2025 and was told to keep on the JardianceO n olmesartan Does wellGet labs Dr Liang 01/06/2023 Ex-smoker 5398324 Z87.89 1 QuitCT chest 10/23/16: COPD LDCT 12/09/18: NEg, esophageal prominence , refer to [facility] 01/23/2020 : Next in one yearLDCT 01/09/2021 : Next in one yearLDCT 09/17/2021 : CAD, next in one yearLDCT 10/06/2022 : CAD, next in one yearLDCT 10/06/2023 : Next in 6 months Coronary arteriosclerosis 16756570 I25.10 Seen on the LDCT [facility] Dr Tran 08/30/2020 : Is to get stress test, [facility]an has told her that her heart is doing well Stress test 11/12/2023 : [facility], s/p CC done as per her history, done on 12/23/2023 , no stent[facility]HV Dr Tran 10/14/2024 , next in 6 months with ECHO Transient cerebral ischemia 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 G45.9 Does wellDoes see [facility] Osteoporosis 34216179 M8 1.0 On prolia, but too expensive so not taking this Chronic depression 68234 0009 F32.A On paroxetine 20mg dailyDoes well on this, not suicidal or homicidal, declined psychiatry referral at this time COVID-19 855290977 U07.1 +ve 11/10/2022 Increased liver function 32925762 R94.5 US Liver: 10/11/2024 : Prob tiny GB polypHep panel: Neg Screening for osteoporosis 892996342 Z13.820 History of calculus of kidney 768607051 Z87.435 4276640 L ureteral strictureS een by Dr Juan BARKER 11/03/2024 , unable to stent d/t to the severity of strictureS een by Dr Santos 11/08/2024 for L high grade obstructiv e nephropath y As per her history next apt is on 05/2025 in [place], [place] Screening mammography 24 051801 Z12.31 71160493 [id number] Rebecca Fried MD [place] [address] 03/21/2025 13:51:53 03/23/2025 10:16:32 Moderate chronic obstructive pulmonary disease 398215947 J44.9 Exposure t o tuberculosis 8220899100 101 Z20.1 [id number] Alexa harry MD [facility] Internal Med [place] [address] 04/20/2025 09:40:26 04/20/2025 10:46:04 Screening - NAD 061292550 Z13.9 C-scope: Dr Aranda 07/17/17, next in [...] vaccine RTC in 2 monthsdo labsER if worseShe did verbalize her understand ing of the above Hyperlipidemia 79579598 E78.5 Not taking rosuvastat in 40mg dailyNot taking vascepaGet labs Chronic ki dney disease 896768169 N18.[address] Santos Gastritis 5135404 K29.70 EGD: Francisco Espana and may need UGI if sx persistShe feels that she has not taken the PPI and is doing well S/p EGD 12/21/18: Dr Vyas, neg for H pylori Does wellNo sxNot on PPI Anemia 264247968 D64.9 On ironGet labs Essential hypertension 21576115 I10 On ASAOn olmesartan 40mg dailyOn amlodipine 10mg dailyGet labs Low back pain 522933151 M54.50 Very rare use of the flexerill, OK to renew 07/05/2024 , 09/08/2024 Does well Chronic ob structive pulmonary disease 06238267 J44.9 PFTs 06/18/17: COPDSeen Rebekah Euceda DRAFTER On proairOn spirivaOff stiolto, was not taking this as is on SpirivaOn Harvey Fried 04/03/2026 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 222073691 E11.9 On jardiance 25mg daily, spoke with Dr Santos 01/10/2025 and was told to keep on the JardianceO n olmesartan Does wellGet labs Dr Liang 01/06/2023 Now sees Julia Clark Ex-smoker 6436084 Z87.89 1 QuitCT chest 10/23/16: COPD LDCT 05/02/19: NEg, esophageal prominence , refer to [facility] 01/23/2020 : Next in one yearLDCT 01/09/2021 : Next in one yearLDCT 09/17/2021 : CAD, next in one yearLDCT 10/06/2022 : CAD, next in one yearLDCT 10/06/2023 : Next in 6 monthsLDCT 03/24/2025 : Next in one year, severe L hydrourete ronephrosi s Coronary arteriosclerosis 02008448 I25.10 Seen on the LDCT [facility] Dr Tran 08/30/2020 : Is to get stress test, ECHO and [facility] that Dr Tran has told her that her heart is doing well Stress test 11/12/2023 : [facility], s/p CC done as per her history, done on 12/23/2023 , no stentSLHV Dr Tran 10/14/2024 , next in [address] [address] Tran 04/14/2025 : Next in 6 months Transient cerebral ischemia 688934409 G45.9 Does wellDoes see [facility] Osteoporosis 89407663 M8 1.0 On prolia, but too expensive so not taking this Chronic depression 85766 0009 F32.A On paroxetine 20mg dailyDoes well on this, not suicidal or homicidal, declined psychiatry referral at this time COVID-19 704529366 U07.1 +ve 11/10/2022 Increased liver function 31695879 R94.5 US Liver: 10/11/2024 : Prob tiny GB polypHep panel: Neg Screening for osteoporosis 278970674 Z13.820 History of calculus of kidney 222484432 Z87.331 [id number] L ureteral strictureS een by Dr Juan BARKER 11/03/2024 , unable to stent d/t to the severity of strictureS een by Dr Santos 11/08/2024 for L high grade obstructiv e nephropath y As per her history next apt is on 05/2025 in [place], [place] Keep apt with urologist and will see Dr Martinez in 05/2025 Screening mammography 24 410073 Z12.31 [id number] Health Concerns Section Related Observation LastModified by Organization [facility] LastModified Time None Recorded Concern Status LastModified by Organization Details LastModified Time None Recorded Advance Directives Directive N: patient declined informat ion Payers Insurance Date Sequence Insurance Name Policy Number Policy Martins Covered Member ID Martins Member ID Guarantor Name 04/17/2025 1 [facility] (MEDICARE REPLACEMENT/A DVANTAGE - HMO) [id number] Jeanne Sahra Rodriguez [id number] Jeanne Cai Daily Rodriguez Notes Date Note Type Note Provider Name and Address Organization Details Recorded Time 07/05/2024 text/html 06/02/17Here to establish carePast Hx:HTNDepressionReview ed sccial family and surgical historyHere as she would like to discuss her results for the testing done by her prior PMD Dr ReavesOV 07/27/17:Here s/p hosp for pneumonia, at [facility] for 3 days, is on [...] acute or remote trauma, located laterally, feels cytotechnologist is getting less, some swelling no redness, [...] 08/30/2020:Here for her routine aptShe feels very Preetihe is here for her MWVShe also c/o [...] and inhalers, she has seen Rebekah Euceda DRAFTER on08/06/2021he did labs on 07/08/2021No fevers or [...] that she has been using her inhalers Alexa Bingham MD [address] [facility], [place], [address], [place] [employer] 07/06/2024 21:23:59 09/08/2024 text/html 06/02/17Here to establish carePast Hx:HTNDepressionReview ed sccial family and surgical historyHere as she would like to discuss her results for the testing done by her prior PMD Dr Mensah 07/27/17:Here s/p hosp for pneumonia, at [facility] for 3 days, is on [...] acute or remote trauma, located laterally, feels cytotechnologist is getting less, some swelling no redness, [...] and inhalers, she has seen Rebekah Euceda DRAFTER on08/06/2021he did labs on 07/08/2021No fevers or [...] well today, she did do the labs Alexa Bingham MD [address] [facility], [facility] [address], [place], [address], [facility] [employer] 09/08/2024 12:52:37 01/10/2025 text/html 06/02/17Here to establish carePast Hx:HTNDepressionReview ed sccial family and surgical historyHere as she would like to discuss her results for the testing done by her prior PMD Dr ReavesOV 07/27/17:Here s/p hosp for pneumonia, at [facility] for 3 days, is on [...] acute or remote trauma, located laterally, feels cytotechnologist is getting less, some swelling no redness, [...] 08/30/2020:Here for her routine aptShe feels very Preetihe is here for her MWVShe also c/o [...] and inhalers, she has seen Rebekah Euceda DRAFTER on08/06/2021he did labs on 07/08/2021No fevers or [...] and nephrology and has done her labs Alexa Bingham MD [address] [place] [address], [place] [address], [place], [address], [place] [employer] [facility] 01/10/2025 11:11:58 03/21/2025 text/html Primary care/Referring provider: Alexa Bingham MD CC: My great grandson had an upper respiratory illness and I was exposed. I am coughing up whitish phlegm. Patient is here to go over her COPD management. Initial development of shortness of breath: 2013Duration of shortness of breath: 12 yearsCondition of shortness of breath: stableTiming of shortness of breath: noneFrequency: up to 2 times a dayLimits activities: yesAggravating factors: walking, going up stairsAlleviating factors: rest Modified [employer] [place] (mMRC) Dyspnea Scale - Grade 1Grade 0 [...] yesEdema: no Environmental exposures:Nicotine smoke: 1 ppd 3760-9903 (quit 1 year in between) = 53 [...] chance of dozing. Rebecca Fried MD [address] [facility], [address], [place], [address], [place] [employer] 03/23/2025 08:35:52 04/20/2025 text/html 06/02/17Here to establish carePast Hx:HTNDepressionReview ed sccial family and surgical historyHere as she would like to discuss her results for the testing done by her prior PMD Dr ReavesOV 07/27/17:Here s/p hosp for pneumonia, at [facility] for 3 days, is on [...] acute or remote trauma, located laterally, feels cytotechnologist is getting less, some swelling no redness, [...] and inhalers, she has seen Rebekah Euceda DRAFTER on08/06/2021he did labs on 07/08/2021No fevers or [...] and nephrology and has done her labs OV 04/20/2025: Here for her f/u aptAllie feels very well today, she has done her labs Alexa Bingham MD [address] [place] [address], [facility] [address], [place], [address], [facility] 04/20/2025 18:24:11 OBGyn Episode No OBEpisode recorded.
--- OUTSIDE RECORDS SUMMARY | 2025-08-08 09:23 | XMS_ITS | Clinical Summary ---
Author Organization [facility] [employer] Address [address] [address] Care Team Providers Care Computer Science Intern Name Role Phone Xavi Reaves MD Primary Care Provider [phone]- [phone] Source Comments [facility],non-owned Affiliates and Associated Physician Practices is amultiple site organization consisting of ambulatory clinics and hospital sitesin [place], [place], [place] and [place]. This disclosure is being madepursuant to the Care Everywhere program and may not contain all information available regarding this patient. Last updated 18.[facility] Allergies No known active allergies Medications * [...] Years Used Date Smoking Tobacco: Former Cigarettes 0 Q uit: 2013 Smokeless Tobacco: Never Comments No Sex and Gender Information Value Date Recorded Sex Assigned at Not on file Legal Sex Female 10:46 AM MANAGER TECHNICAL SERVICES Gender Identity Not on file Sexual Orientation Not on file Last Filed Vital Signs Vital Sign Reading Time Taken Comments Blood Pressure 124/66 08/04/2018 10:25 AM MANAGER TECHNICAL SERVICES Pulse 74 08/04/2018 10:25 AM MANAGER TECHNICAL SERVICES Temperature 36.9 C (98.4 F) 08/04/2018 10:25 AM MANAGER TECHNICAL SERVICES Respiratory Rate 16 08/04/2018 10:25 AM MANAGER TECHNICAL SERVICES Oxygen Saturation 93% 08/04/2018 10:25 AM MANAGER TECHNICAL SERVICES Inhaled Oxygen Concentration - - Weight 47.2 kg (104 lb) 08/04/2018 10:25 AM MANAGER TECHNICAL SERVICES Height 154.9 cm (5' 1) 08/04/2018 10:25 AM MANAGER TECHNICAL SERVICES Body Mass Index 19.65 08/04/2018 10:25 AM MANAGER TECHNICAL SERVICES Plan of Treatment Health Maintenance Due Date Last Done Comments BONE DENSITY TESTING 1945 HEPATITIS C SCREENING 03/01/1965 DTAP/TDAP/TD VACCINES (1 - Tdap) 1966 PNEUMOCOCCAL VACCINE 50+ (1 of 1 - PCV) 1997 ZOSTER VACCINE (1 of 2) 1997 Respiratory Syncytial Virus (RSV) Vaccine Pt: or over 60 yrs (1 - 1-dose 75+ series) 2022 DEPRESSION SCREENING 08/10/2024 COVID-19 VACCINE (1 - 2024-2 6 season) 2025 INFLUENZA VACCINE (#1) 2025 HEPATITIS [...] patient's age to complete this topic Insurance [facility] MEDICARE MEDICARE [facility] Care Teams Computer Science Intern Relationship Specialty Start Date End Date Xavi Reaves MD [address] [place] [address] PCP - General Family Medicine 10/10/16
--- OUTSIDE RECORDS SUMMARY | 2025-08-08 09:23 | XMS_ITS | Clinical Summary ---
Author Organization [facility] Address [address] [place] [address] Phone Care Team Providers Care Associate Professor Of Geography Name Role Phone Alexa Bingham MD Primary [...] Comments Blood Pressure 99/62 08/27/2022 1:31 PM GREENHOUSE SUPERINTENDENT Pulse 99 08/27/2022 1:31 PM GREENHOUSE SUPERINTENDENT Temperature 36.7 C (98.1 F) 08/27/2022 1:31 PM GREENHOUSE SUPERINTENDENT Respiratory Rate 18 08/27/2022 1:31 PM GREENHOUSE SUPERINTENDENT Oxygen Saturation 92% 08/27/2022 1:31 PM GREENHOUSE SUPERINTENDENT Inhaled Oxygen Concentration - - Weight - [...] complete this topic Human Papillomavirus (HPV) Immunization (No Doses Required) Completed Immunochemical Fecal Occult Blood Discontinued Meningococcal Immunization (ACWY) Aged Out No longer eligible based on patient's age to complete this topic Rotavirus Immunization Aged Out No lo nger eligible based on patient's age to complete this topic Insurance MEDICARE C [facility] on file Care Teams Associate Professor Of Geography Relationship Specialty Start Date End Date Alexa Bingham MD [address] [place] [address] PCP - General Internal Medicine 02/13/22
--- OUTSIDE RECORDS SUMMARY | 2025-08-08 09:23 | XMS_ITS | Clinical Summary ---
Author Organization [facility] Address [facility] [place] [address] Care Team Providers Care Railroad Brake Operator Name Role Phone Xavi Martinez MD Primary [...] Scan (General) 2012 COVID-19 Vaccine ( season) 2025 05/10/2023, 05/21/2022, 06/11/2021, Additional history exists Influenza Adult (#1) 2025 05/10/2023, 05/19/2022, 05/04/2021, Additional history exists DTaP, Tdap and Td Vaccines (2 - Td or Tdap) 06/02/2027 06/02/2017 Pneumococcal Vaccine: 50+ Years Completed 07/26/2017, 03/02/2015, 05/23/2013 Zoster Vaccines Completed 10/24/2021, 08/18/2021 RSV Immunization or 60+ Years Completed 05/10/2023 Hepatitis A Vaccines Aged Out No long er eligible based on patient's age to complete this topic Meningococcal B Vaccine Aged Out No l onger eligible based on patient's age to complete this topic Meningococcal Vaccine Aged Out No albertina yesenia eligible based on patient's age to complete this topic RSV Immunizations Under 20 Months Aged Out No longer eligible based on patient's age to complete this topic Medical Devices Implanted Type Area Crocodile Farmer Device Identifier Shelf Expiration Date Model / Serial / Lot Stent Ureteral 6fr 22cm Pigtail Curved - [id number] Implanted:Qty : 1 on 06/30/2024 by Xavi Martinez MD at [facility] Stent Left: Ureter [employer] [id number] 05/07/2026 [id number] Explanted Type Area Crocodile Farmer Device Identifier Shelf Expiration Date Model / Serial / Lot Stent Ureteral 6fr 22cm Pigtail Curved - [id number] Implanted:Qty : 1 on 05/26/2024 by Xavi Martinez MD at [facility] Explanted:Qty : 1 on 06/30/2024 by Xavi Martinez MD at [facility] Stent Left: Ureter [employer] [id number] 05/07/2026 [id number] Insurance [facility] [place] [address] Care Teams Railroad Brake Operator Relationship Specialty Start Date End Date Xavi Martinez MD [address] [facility] [address] [place] [address] PCP - General UROLOGY 06/30/24
--- OUTSIDE RECORDS SUMMARY | 2025-08-08 09:23 | XMS_ITS | Encounter Summary ---
Author Organization [facility] Address [address] [place] [address] Care Team Providers Care Carriage Setter Name Role Phone None, Provider Primary Care Provider Xavi Carias MD Primary Care Provider Encounter Details Date Type Department Care Team (Late st Contact Info) Description 05/26/2024 Prep for Procedure [facility] [place] [address] Xavi Martinez MD [address] [facility] [address] [place] [address] Social History Tobacco Use Types [...] - 99 MG/DL 05/26/2024 12:46 PM CDT [facility] BUN 17 7 - 18 MG/DL 05/26/2024 12:46 PM CDT [facility] CREATININE S/P/B 1.25(H) 0.55 - 1.02 MG/DL 05/26/2024 12:46 PM CDT [facility] SODIUM S/P/B 140 136 - 145 MMOL/L 05/26/2024 12:46 PM CDT [facility] POTASSIUM S/P/B 3.9 3.5 - 5.1 MMOL/L 05/26/2024 12:46 PM CDT [facility] CHLORIDE S/P/B 107 97 - 115 MMOL/L 05/26/2024 12:46 PM CDT [facility] CO2 29.6 21 - 32 MMOL/L 05/26/2024 12:46 PM CDT [facility] CALCIUM S/P/B 9.2 8.5 - 10.1 MG/DL 05/26/2024 12:46 PM CDT [facility] ANION GAP 3.4 2 - 10 MMOL/L 05/26/2024 12:46 PM CDT [facility] BUN CREATININE RATIO 13.6 6 - 26 05/26/2024 12:46 PM T [facility] GFR ESTIMATE 44(L) >90 ML/MIN/1.7 3 M2 05/26/2024 12:46 PM CDT [facility] Comment: NOTE: eGFR is not calculated for patients <18 years of age or gender unknown. This is an estimated GFR calculation using the new CKD EPI creatinine equation without race and so does not require a correction factor for race. This estimated GFR should not be used for calculating drug doses. 05/26/2024 11:5 4 AM CDT us Elizabeth Rice [employer]UDIT[employer] [facility]AT[facility] Final R esult [facility] [address] [place] [address], [place] [phone] * (ABNORMAL) CBC W/DIFF AUTOMATED (05/26/2024 11:54 AM CDT) [facility] WBC 9.22 4.5 - 11.0 x10'3/uL 05/26/2024 12:36 PM CDT [facility] RBC 4.47 4.20 - 5.40 x10'6/uL 05/26/2024 12:36 PM CDT [facility] HGB 12.6 12.0 - 16.0 G/DL 05/26/2024 12:36 PM CDT [facility] HCT 39.6 38.0 - 48.0 % 05/26/2024 12:36 PM CDT [facility] MCV 88.6 81.0 - 99.0 FL 05/26/2024 12:36 PM CDT [facility] MCH 28.2 27.0 - 31.0 PG 05/26/2024 12:36 PM CDT [facility] MCHC 31.8(L) 32.0 - 36.0 G/DL 05/26/2024 12:36 PM CDT [facility] RDW 14.4 11.5 - 14.5 % 05/26/2024 12:36 PM CDT [facility] PLT 253 130 - 400 x10'3/uL 05/26/2024 12:36 PM CDT [facility] MPV 11.3 9.3 - 12.2 FL 05/26/2024 12:36 PM CDT [facility] DIFFERENTIAL TYPE AUTOMATED DIFFERENTIAL 05/26/2024 12:36 PM CDT [facility] NEUTROPHILS % 75.0 % 05/26/2024 12:36 PM CDT [facility] LYMPHOCYTES % 13.3 % 05/26/2024 12:36 PM CDT [facility] MONOCYTES % 8.6 % 05/26/2024 12:36 PM CDT [facility] EOSINOPHILS 2.0 % 05/26/2024 12:36 PM CDT [facility] BASOPHILS 0.7 % 05/26/2024 12:36 PM CDT [facility] IMMATURE GRANS % 0.4 % 05/26/20 12:36 PM CDT [facility] ABS. NEUTROPHILS 6.92 1.80 - 7.70 x10'3/uL 05/26/2024 12:36 PM CDT [facility] ABS. LYMPHOCYTES 1.23 1.00 - 4.80 x10'3/uL 05/26/2024 12:36 PM CDT [facility] ABS. MONOCYTES 0.79 0.24 - 0.86 x10'3/uL 05/26/2024 12:36 PM CDT [facility] ABS. EOSINOPHILS 0.18 0.04 - 0.36 x10'3/uL 05/26/2024 12:36 PM CDT [facility] ABS. BASOPHILS 0.06 0.01 - 0.08 x10'3/uL 05/26/2024 12:36 PM CDT [facility] ABS. IMMATURE GRANULOCYTES 0.04 0.00 - 0.49 x10'3/uL 05/26/2024 12:36 PM CDT [facility] 05/26/2024 11:5 4 AM CDT Elizabeth Rice [facility] Final R esult [facility] [address] [place] [address], documented in this encounter Visit Diagnoses Diagnosis Preoperative testing- Primary Preoperative examination, unspecified documented in this encounter Care Teams Carriage Setter Relationship Specialty Start Date End Date None, Provider, PCP - General UNKNOWN PHYSICIAN SPECIALTY 05/25/24 06/29/24 Xavi Martinez MD 3 [facility] [address] [place] [id number] PCP - General UROLOGY 06/30/24 documented as of this encounter
--- OUTSIDE RECORDS SUMMARY | 2025-08-08 09:23 | XMS_ITS | Encounter Summary ---
Author Organization [facility] Address [address] [place] [address] Care Team Providers Care Autos Disassembler Name Role Phone Xavi Reaves MD Primary Care Provider [phone] Encounter Details Date Type Department Care Team (Late st Contact Info) Description 01/13/2018 Lab Requisition [facility] [address] [facility] [place] [address] Benigno Goldberg MD [address] [place] [address] Social History Tobacco Use Types Packs/Day Years Used Date Smoking Tobacco: Former Cigarettes 0 Q uit: 2014 Smokeless Tobacco: Never Comments No Sex and Gender Information Value Date Recorded Sex Assigned at Not on file Legal Sex Female 10:46 AM ELECTRICAL ACCESSORIES ASSEMBLER Gender Identity Not on file Sexual Orientation Not on file documented as of this encounter Plan of Treatment Not on file documented as of this encounter Procedures Procedure Name Priority Date/Time Associated Diagnosis Comments DERMATOPATHOLOGY Routine 01/12/2018 12:0 0 AM CDT documented in this encounter Results * DERMATOPATHOLOGY (01/12/2018 12:00 AM CDT) Case Report Dermatopathology Report Case: [id number] Authorizing Provider: Benigno Goldberg MD Collected: 01/12/2018 12:00 AM Pathologist: Joselyn Bolaños MD Received: 01/13/2018 12:24 PM Specimen: Skin, right angle of jaw 8 5:22 PM CDT DERMATOPATHOLOGY LABORATORY Final Diagnosis Specimen A. SKIN, right angle of jaw: ACTINIC KERATOSIS, LICHENOID (L57.0) PRESENT AT MARGIN 8 5:22 PM CDT DERMATOPATHOLOGY LABORATORY at 1721 CDT Clinical History R/O inflamed nevus vs BCC vs other. Check margins. 5:22 PM CDT DERMATOPATHOLOGY LABORATORY Gross Description Specimen A: Received is one formalin filled container labeled with the patient's name and designated right angle of jaw. The specimen consists of a shave biopsy measuring [id number], the margin is inked green. Jar 0. [...] characteristic determined by the Dermatopathology Laboratory at [facility]. These tests need not be, and therefore are not, approved by the [place] Food and Drug Administration. The tests are used for clinical purposes. Billing Codes Specimen Charges Stain Charges 00691 1 5:22 PM CDT DERMATOPATHOLOGY LABORATORY Embedded Images 5:22 PM CDT DERMATOPATHOLOGY LABORATORY Pathology/Cytolog y TISSUE SPECIMEN FROM SKIN / Unknown 01/12/2018 01/13/2018 12:24 PM CDT us Benigno Goldberg MD LAB - PATHOLOGY/CYTOLOGY ORD ERABLES Final Result DERMATOPATHOLOGY LABORATORY [facility] - Department of Dermatology [address] [facility] [place] [address], [facility] [phone] documented in this encounter Visit Diagnoses Not on filedocumented in this encounter Care Teams Autos Disassembler Relationship Specialty Start Date End Date Xavi Reaves MD [address] [facility] [place] [address] PCP - General Family Medicine 10/10/16 documented as of this encounter
--- OUTSIDE RECORDS SUMMARY | 2025-08-08 09:23 | XMS_ITS | Clinical Summary ---
Author Organization [facility] [employer] [facility] , [facility] Address [address] [address] Phone Care Team Providers Care Customer Success Advocate Name Role Phone Alexa Bingham MD Primary Care Provider [phone] Medications cyanocobalamin (VITAMIN B-12) 1000 MCG tablet [...] EVERY NIGHT 90 tablet 1 08/30/2024 Active Empagliflozin (Jardiance) 25 MG tablet Take 25 mg by mouth every morning 30 tablet 3 06/13/2025 Active Encounters Date Type Department Care Team Description 06/13/2025 1:30 PM SCRAP WHEELER [facility] [address] [facility] [address] [place] [address] Juan Manuel Ellison DO Stage 3b chronic kidney disease (HCC) (Primary Dx); Persistent proteinuria; Nephrolithiasis; Obstructive nephropathy; Chronic bronchitis, not otherwise specified (HCC); Gastroesophageal reflux disease; Hypertensive chronic kidney disease; Type 2 diabetes mellitus with diabetic chronic kidney disease, 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); Pure hypercholesterolemi a, not otherwise specified 06/13/2025 Refill [facility], [facility] [address] [facility] [address] [place] [id number] YakovBhargavi, RAUDEL 06/08/2025 Documentation Only [facility], [address] [address] Juan Manuel Ellison, DO 06/07/2025 Documentation Only [facility], [address] [address] Juan Manuel Ellison, DO 06/01/2025 Documentation Only [facility], [address] [address] Juan Manuel Ellison, DO 05/31/[address] [facility], [address] [address] Juan Manuel Ellison, DO 05/31/2025 Documentation Only [facility], [address] [address] Juan Manuel Ellison, DO from Last 3 Months Social History [...] Sign Reading Time Taken Comments Blood Pressure 120/70 06/13/2025 1:31 PM SCRAP WHEELER Pulse 83 06/13/2025 1:31 PM SCRAP WHEELER Temperature 36.1 C (97 F) 06/13/2025 1:31 PM SCRAP WHEELER Respiratory Rate 18 06/13/2025 1:31 PM SCRAP WHEELER Oxygen Saturation 93% 06/13/2025 1:31 PM SCRAP WHEELER Inhaled Oxygen Concentration - - Weight 41.7 kg (92 lb) 06/13/2025 1:31 PM SCRAP WHEELER Height 154.9 cm (5' 1) 02/25/2022 12:45 PM CDT Body Mass Index 17.38 02/25/2022 12:45 PM CDT Plan of Treatment Upcoming Encounters Date Type Department Care Team (Late st Contact Info) Description 09/19/2025 1:45 PM SCRAP WHEELER Office Visit [facility], [facility] [address] [facility] [address] [place] [address] Juan Manuel Ellison DO [address] [place] [address] Health Maintenance Due Date Last Done Comments Diabetes: Hemoglobin A1C 01/03/2021 Diabetes: Ophthalmology Exam 01/03/2021 Diabetes: Pedal Pulse Checked 01/03/2021 Diabetes: Sensory Foot Exam 01/03/2021 Diabetes: Visual Foot Exam 01/03/2021 Influenza Vaccine (#1) 2025 , 04/26/2019, 04/21/2018, Additional history exists Colorectal Cancer Screening: Colonoscopy Discontinued 07/17/2017 Pneumococcal Vaccine: 50+ Years Completed 07/26/2017, 03/02/2015, 05/23/2013 Hepatitis B Vaccine Aged Out No longe r eligible based on patient's age to complete this topic Insurance [facility] Medicare Care Teams Customer Success Advocate Relationship Specialty Start Date End Date Alexa Bingham MD [address] [facility], [address] [place] [address] PCP - General Internal Medicine 07/16/21
[2025-08-08 09:53] LABS: Hematocrit 42.0 % (37.0-47.0); Hemoglobin 13.3 g/dL (12.0-15.0); Immature Granulocyte Percent A 0.3 % (0-0.5); Lymphocytes Absolute Auto 1.60 K/mm3 (0.9-3.2); Mean Corpuscular HGB Conc 31.7 g/dl (32-36); Mean Corpuscular Hemoglobin 28.4 pg (26-34); Mean Corpuscular Volume 89.7 fl (80-100); Nucleated Red Blood Cells Absolute Auto 0.000 K/mm3 (0.0-0.012); Nucleated Red Blood Cells Perc 0.0 % (0.0-0.2); Platelet Count Result 235 k/mm3 (150-375); Red Blood Count 4.68 M/mm3 (4.2-5.4); White Blood Count 8.6 K/mm3 (4.5-10.0)
[2025-08-08 10:03] LABS: Hemoglobin A1C 5.8 % (<5.7)
[2025-08-08 10:15] LABS: Alanine Aminotransferase 12 U/L (6-35); Albumin Level 4.0 g/dL (3.5-5.1); Alkaline Phosphatase 78 U/L (38-126); Anion Gap 5 mmol/L (4-12); Aspartate Amino Transferase 26 U/L (14-36); Bilirubin,Total 0.4 mg/dL (0.2-1.3); Blood Urea Nitrogen 20 mg/dL (7-17); Calcium 9.1 mg/dL (8.4-10.2); Carbon Dioxide 30 mmol/L (22-30); Chloride 108 mmol/L (98-107); Cholesterol 210 mg/dL (0-200); Estimated Glomerular Filt Rate 28; Glucose 82 mg/dL (65-110); HDL Direct 70 mg/dL; Potassium 3.9 mmol/L (3.4-5.0); Sodium 143 mmol/L (137-145); Total Protein 6.9 g/dL (6.3-8.2); Triglycerides 113 mg/dL (<150)
[2025-08-08 10:31] LABS: MALB Creatinine Ratio 72.8 mg/g (0-30)
[2025-08-08 10:46] LABS: Thyroid Stimulating Hormone Reflex 2.540 uIU/mL (0.465-4.68)
== END 2025-08-08 09:13 | disposition home or self-care (01) ==
PROVIDERS: PCP Internal Medicine; Visit Provider Internal Medicine
DX: E78.5 Hyperlipidemia, unspecified (principal); E11.9 Type 2 diabetes mellitus without complications; Z13.820 Encounter for screening for osteoporosis
CPT/HCPCS: 36415; 80053; 80061; 82043; 83036; 84443; 85025